=== PATIENT | female | born 1975 | race Caucasian/White ===

== ENCOUNTER 2025-05-03 09:00 | Outpatient (OUT) | payer OTHER, SELFPAY ==
--- OUTSIDE RECORDS SUMMARY | 2025-04-19 15:00 | XMS_ITS | Encounter Summary ---
Author Organization [facility] Address [address] [place] [id number] Care Team Providers Care Production Wood Craftsman Name Role Phone Loren Ascencio MD Primary Care Provider [phone] Unavailable [phone] Alyce Chadwick APRN.OLAP DEVELOPER Unavailable + Kelsie Cunha RN Unavailable Unavail able Kylee Wilkinson Unavailable [phone] Source Comments In the event this information is protected by the Federal Confidentiality of Alcohol and Drug AbusePatient Records regulations: The Federal rules restrict any use of the information to criminally investigate or prosecute any alcohol or drug abuse patient.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); Anemia, unspecified type; Thrombocytopenia Social History Tobacco Use Types Packs/Day Years Used Date Smoking Tobacco: Never Passive Smoke Exposure: Past Smokeless Tobacco: Never Alcohol Use Standard Drinks/Week Comments Not Currently 0 (1 standard drink = 0.6 oz pur e alcohol) maybe once per month PHQ-2 Answer Date Recorded PHQ-2 score 2 03/07/2025 Area Deprivation Index Answer Date Chandu rded National Score (1-100), lower number is lower ri sk 60 03/21/2023 State Score (1-10), lower number is lower risk 4 03/21/2023 Data from: https://www.neighborhoodatlas.[facility].edu/. Last address used for calculation [address] [facility] [facility] 03/21/2023 Comments No Sex and Gender Information Value Date Recorded Sex Assigned at Female 11/07/2021 7:23 AM EST Legal Sex Female 12:07 PM EDT Gender Identity Female 11/07/2021 7:23 AM EST Sexual Orientation Straight 11/07/2021 7: 23 AM EST documented as of this encounter Last Filed Vital Signs Vital Sign Reading Time Taken Comments Blood Pressure 100/63 04/19/2025 2:42 PM EDT Pulse 101 04/19/2025 2:42 PM EDT Temperature 36.5 C (97.7 F) 04/19/2025 2:42 PM EDT Respiratory Rate 16 04/19/2025 2:42 PM EDT Oxygen Saturation 98% 04/19/2025 2:42 PM EDT Inhaled Oxygen Concentration - - Weight 73.6 kg (162 lb 4.1 oz) 04/19/2025 2:42 P M EDT Height 172.7 cm (5' 7.99 ) 04/19/2025 2:42 PM ED T Body Mass Index 24.68 04/19/2025 2:42 PM EDT documented in this encounter Functional Status * Are you deaf or do you have serious difficulty hearing? Answer Date of Assessment Author No 02/09/2022 1:51 PM EDT Rima Osborne RN * Are you blind or do you have serious difficulty seeing, even when wearing glasses? Answer Date of Assessment Author No 02/09/2022 1:51 PM EDRima Mays RN * Do you have serious difficulty walking or climbing stairs? Answer Date of Assessment Author No 02/09/2022 1:51 PM EDT Rima Osborne RN * Do you have difficulty dressing or bathing? Answer Date of Assessment Author No 02/09/2022 1:51 PM EDT Rima Osborne RN * Because of a physical, mental, or emotional condition, do you have difficulty doing errands alone such as visiting a doctor's office or shopping? Answer Date of Assessment Author No 02/09/2022 1:51 PM EDT Rima Osborne RN documented as of this encounter Mental Status * Because of a physical, mental, or emotional condition, do you have serious difficulty concentrating, remembering, or making decisions? Answer Entry Date Author No 02/09/2022 1:51 PM Rima Capps RN documented in this encounter Progress Notes * Viridiana Mccarthy PA-C - 04/19/2025 3:16 PM EDT Images from the original note were not included. 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 She is status post extensivedebulking of the GI tract and currently on lanreotide since September 2021 NEN: Initial scans showed presence of uptake in multiple sites including the peritoneum. Her symptom burden was minimal but given the fact that she had a recurrent small bowel obstruction after initial resection, observation was not recommended. She was started on monthly subcutaneous lanreotide inNov2020. She had extensive debulking done in January 2022 that showed widespread areas of NEN. Most recent PET scan in July 2022 shows hepatic progression and otherwise stable disease. Pain in pelvis is worse but may be related to delay in lanreotide. Iron deficiency anemia (likely nutritional and post-surgical) was treated with monoferric in September 2021 with improvement of symptoms. Most recent ferritin and B12 levels were normal. Given extensive bowel resections, will monitor B12 and ferritin levels periodically. Bladder polyp - being evaluated for malignancy. PLAN: Lanreotide today & q 3 weeks Lanreotide only in 3 weeks Monitor anemia and thrombocytopenia --??due to her Lutetium as the start of it correlates? RTC in 6 weeks for Lanreotide Labs same day Continue Pepcid 20mg BID for GERD Continue Ritalin 10mg for brain fog Following with Dr. Herrera for repeat cystoscopy in May 03 HPI: CASE HISTORY: Reverse Chronological Order 02/17/2025 - PET/CT Neuroendocrine: Compared to 10/07/2024 DOTATATE PET/CT, stable disease. Primary disease: Status post right hemicolectomy. No SSTR2 expressing lesion along the rectal stumpor ileocolic anastomosis. Akbar disease: No abdominopelvic or mediastinal metastatic lymphadenopathy. Metastatic disease: Compared to 04/09/2024, hepatic, pancreatic, peritoneal, right pelvic sidewall and adnexal SSTR2 expressing metastases are stable. No new metastatic lesion is present. No lung or osseous metastasis. Krenning Score ([place]): 4 10/07/2024 - PET/CT Neuroendocrine: Since 06/16/2024, overall unchanged radiotracer avid hepatic, pancreatic, adnexal and peritoneal metastases. 08/19/2024 - Endometrium, polypectomy: No endometrial tissue identified, fragments of blood, inflamed stromal tissue and scant benign squamous and endocervical mucosa. Comment: No endometrial tissue is seen and repeat sampling should be considered if clinically indicated. 06/16/2024 - PET/CT Neuroendocrine: DOTATATE uptake is used as surrogate marker for SSTR2 expression on this report. Primary disease: Status post right hemicolectomy. No SSTR2 expressing lesion along the rectal stumpor ileocolic anastomosis. Akbar disease: No abdominopelvic or mediastinal metastatic lymphadenopathy. Metastatic disease: Compared to 04/09/2024, hepatic, pancreatic, peritoneal, right pelvic sidewall and adnexal SSTR2 expressing metastases are relatively stable. No new metastatic lesion is present. No lung or osseous metastasis. 03/30/2024 - PET/CT Neuroendocrine: CHEST: Stable mildly Dotatate avid subcentimeter left lower lobe nodule and right hilar node. No new Dotatate avid neoplastic process. ABDOMEN/PELVIS: Stable Dotatate avid peritoneal implants including the dominant pelvic implant, which is inseparable from the left adnexa. Stable Dotatate avid pancreatic mass and perihepatic/hepaticmetastases. No new Dotatate avid neoplastic process. Stable pelvic fluid collection without internal gas. HEAD/NECK & MUSCULOSKELETAL: No Dotatate avid neoplastic process. 01/02/2024 - CT A/P: Allowing for differences in modality, no significant change since 09/24/2023. Imaged hepatic metastases are similar in appearance. Please note, hepatic metastases would more optimally be assessed by Dotatate PET/CT or potentially abdominal MRI. Stable enhancing lesion within the pancreas and enhancing left pelvic peritoneal deposit. A thin-walled chronic 10.1 cm pelvic fluid collection is unchanged and remains in close proximity to the oversewn end of the Kendall's pouch. 09/24/2023 - PET/CT: Overall minimal change from 06/06/2023 accounting for differences in technique (current [id number] PET compared to prior [id number] PET) 06/06/2023 - PET/CT CHEST: Essentially stable mildly dotatate avid left lower lobe nodule. Interval increase of focal dotatate uptake with an subcentimeter lymph node in the right infrahilar region. ABDOMEN/PELVIS: Significant progression of the pelvic peritoneal lesions, and slight progression ofthe dotatate avid hepatic metastases. Essentially stable dotatate avid pancreatic lesions. 11/14/2022 - Endometrial Curettage - doing better, pain controlled. 09/25/2023 - Started Lutetium + octreotide 09/18/2022 - MRI liver with Eovist: Unchanged pancreatic body mass, stable periportal lymph nodes no new or enlarging abdominal lymphadenopathy, several subtly visualized hepatic/perihepatic lesions corresponded dotatate avid areas on recent PET/CT in July 2022. 1 perihepatic lesion was not discretely identified on the current MRI. 07/2022 - PET: Progressive hepatic mets. Remaining disease is stable. 04/26/2022 - PET: Stable disease 02/14/2022 - Tumor board consensus to continue with current management and hold off on PPRT 02/05/2022 - CT scans Grossly stable disease in the abdomen and non-specific nodules in the lungs thought to be post-surgical changes 01/31/2022 - Laparotomy, adhesiolysis, takedown of jejunostomy, low anterior resection with end colostomy (Dr. Ramos); ileostomy, ileocolic, retroperitoneal nodule, and small bowel resection: Pathology positive for multifocal metastatic well-differentiated neuroendocrine tumor with positivemargins, nodes and LVI 12/06/2021 - Dotatate PET: Stable pancreas and peritoneal disease; increasing uptake in the pancreatic tail 09/29/2021 - Received monoferric for iron deficiency anemia 09/14/2021 - Switched to monthly lanreotide injections 09/07/2021 - Dotatate PET: Showed multiple lesions with increased tracer uptake in the mesentery, peritoneum, cul-de-sac, perihepatic region and pancreatic body. Some of the lesions demonstrated increase in tracer uptake compared to previous scan 07/22/2021 - Started octreotide 300 mcg daily to be infused with TPN 07/14/2021 - CT scan showed signs of perforation. She underwent next very laparotomy, adhesiolysis, diverting loop jejunostomy and peritoneal implantbiopsy. There was a large mass encasing the ileocolic anastomosis extending to the base of the mesentery, retroperitoneum and extending to the right pelvic sidewall. An abscess was noted which was drained. Given the extent of disease, complete resection was not possible. Peritoneal and liver metastases were observed; pathology from the mesenteric implant was consistentwith metastatic disease 07/06/2021 - Admitted to [facility] with recurrent small bowel obstruction. Biopsy of the pancreas mass was consistent with well-differentiated neuroendocrine neoplasm, grade 1 with estimated Ki-67 index of 1% 06/18/2021 - MRI pancreas: Showed a 1.4 cm fullness at the pancreas head neck junction with findings compatible with the knowncarcinoid neoplasm, and some degree of hemosiderosis throughout the liver, spleen, adrenal glands and bone marrow 05/24/2021 - Dotatate PET: Showed diffuse small bowel activity with a relatively more focal activity at the anastomotic site and abnormal PET avid activity in the pancreatic neck (not seen on CT; max SUV 36) 04/2021 - Admitted to [facility] for small bowel obstruction requiring exploratory laparotomy with small bowel resection, partial omentectomy, and right oophorectomy: Pathology was consistent with grade 2 neuroendocrine neoplasm of the ileum, with tumor invasion through the muscularis propria, serosal surface and surrounding soft tissue The appendix was involved Lymphovascular invasion present. Margins positive (mesentery). 3 out of 4 lymph nodes positive IHC staining was positive for CDX2, synaptophysin, chromogranin and Ki-67 was 4% Updated Visit, April 19, 2025: Doing well overall. Was concerned about the call that her bilirubin and LFTs were elevated last time, but after review, I assured her that this has happened off and on over time and today her LFTs are normal and bili is still only slightly elevated. She is however anemic and her platelets continue to drop, which will need monitored. She continues to have periodic and mild pain in her lower abdomen. Oxycodone helps when heat does not. Updated Visit, March 29, 2025: Overall doing well. About the same. Goes back next month to [place] for cystoscopy. Still on antibiotics. Magnesium cream is helping with her legs and feet cramps. She forgot about the referral to PT and she has felt better so she will hold off for now. Enjoyed [employer] for her anniversary. Nothing new. No pain. She feels good. Updated Visit, March 08, 2025: Lian returns for a Lanreotide. Dotatate PET completed earlier this month shows overall stable disease. She complains of significant fatigue, takes naps during the day. Extremity cramping persists,hands have improved some. She is trying a magnesium cream at night. I will send a referral for physical therapy & recommended some massage techniques in the meantime. She is struggling with her mental health. She has been able to start going to the gym again, she and her have an anniversary trip planned for next month. She underwent a cystoscopy with Dr. Herrera - multiple diverticuli were visualized, one of them showed the source of bleeding. She was sent a 2 month course of antibiotics, then will repeat scope. Updated Visit, January 20, 2025: Lian returns for Lanreotide. She reports hand and foot pain and cramping 2-3x a week for the past 6 months. Potassium is chronically low, drinks > 100 oz of water daily. She treats restless legsyndrome with a magnesium cream. We discussed some stretching techniques and anecdotal remedies forcramping. Will attempt changing from Protonix to Pepcid 20mg BID. She also endorses worsening abdominal pain the past 2 days. She is scheduled for a cystoscopy with Dr. Herrera at [facility] for hematuria and a cystic lesion adjacent to/arising from the bladder seen on recent ultrasound. Updated Visit, December 09, 2024: Dealing with UTI symptoms and abdomen and back were very tender. It is getting better now and had bladder ultrasound which showed bladder diverticulum (report reviewed in care everywhere) and she is going to see urology. Ritalin is working well and it helps her focus at work. No other new symptoms. Protonix is helping his heart burn. Updated Visit, October 28, 2024: Lian returns with Michael to continue treatment. She endorses improvement in fatigue and brain fogsince starting Ritalin. She denies abdominal pain today, will proceed with q 3 week Lanreotide. Q4 weeks was causing a lot of discomfort and pain. Draining the fluid collection has also helped her become more comfortable. Updated Visit, September 09, 2024: Lian returns today for a follow up. She is experiencing increasing abdominal pain, nausea, vomiting, fatigue, and brain fog. Will order her PET to be completed in 4 weeks, will begin q 3 week injections following scan. Start Ritalin 10mg for fatigue and mental clarity. Updated Visit, July 15, 2024: Lian returns with her mother, Michael. She denies any AEs of lanreotide, although mentions she cantell when she is due for treatment. She develops increasing pain 2-3 weeks prior to her injections - starts as cramping abdominal pain, then becomes a stabbing sensation. She uses ibuprofen and heat to treat her pain. We discussed potentially increasing lanreotide to q 3 weeks, however the pain is tolerable for now. She complains of worsening soaking night sweats the past 2 months - denies feversand flushing. I advised Tylenol prior to bed to potentially break an incoming fever. She also endorses headaches and vision disturbances with floating orbs and occasional double vision. She reportswhen she wakes up in the middle of the night she is unable to see. Vision have been occurring for the past 4 months. Last month's scan is stable overall with resolution of 2 hepatic lesions. There is no abdominopelvic or mediastinal lymphadenopathy or lesion along the rectal stump. Updated Visit, June 17, 2024: Lian returns today for a follow up. Yesterday's PET results are in process. She complains of stabbing pain in her hips that wakes her up at night. Her pain also increases with alcohol use. She is due to resume lanreotide today and q 4 weeks. Updated Visit, May 07, 2024: Lian returns today, she is doing well overall with no new complaints. Last week, she woke up in the middle of the night 4 nights in a row. She did have migraines those days, which is likely the cause of her insomnia. PET/CT is stable. No longer following with Dr. Corbett, I will order her scans going forward. Updated Visit, March 11, 2024: Carcinoid crisis with last treatment on February 12 - flushed, BP spiked, Severe pain. PRRT on 02/11 and crisis on 02/12 PET/CT with Dr. Corbett pending Updated Visit, December 19, 2023: Returns with mother michael. Noting more pain at there resection site anteriorly in right lower quadrant. Is due to have 2 more cycles of Lutathera (4 total). Will obtain CT abd/Pelvis. No change in bowels. Potassium better. Updated Visit, October 24, 2023: Patient would like to continue shots, she confirms shots only permissible every 3 weeks instead of 4. She will be taking octreotide in the meantime if necessary. Lutathera radioactive therapy was done and will be done every 8 weeks. She will start her 2nd treatment in November. She reports treatment was rough . She felt flushed, nauseous, and had engorged veins, the nurse confirmed she had an allergic reaction to one of the two medications she was placed on. She also reports her nausea has worsened. Palliative doctor gave her oxycodone 5 mg, taken as needed, (usually one, but sometimes more doses a day). Recently, she had trouble retrieving the prescription. Insurance has been denying her compensation for stoma supplies, I provided documentation as evidence to insurance. Reviewed and compared images from PET/CT's Mother Michael is with her. Updated Visit, August 15, 2023: Planning PRRT with Dr. Corbett will give her treatment today as she is more symptomatic. Updated Visit, July 04, 2023: Lian returns and is due for her shot. Point of abdominal tenderness but also as tenderness to light pressure at multiple trigger points up and down her spine. I think it is reasonable for her to visit her chiropracter again. He is aware of her diagnosis. Updated Visit, June 13, 2023: Lian returns with her mother. Reviewed PET/CT with some progression. However, we are not sure ifthis was due to the extensive time of lanreotide or not. She actually feels pretty good. However, she still feels the slight discomfort of a UTI which is likely colonization. Updated Visit, May 09, 2023: Tired a lot - more run down past few weeks. UA C&S pending - cipro helped Still having more pain and discomfort. Updated Visit, April 17, 2023: Lian returns today complaining of UTI symptoms. Her pelvic pain is similar to when the pelvic effusion was at its greatest. I am concerned that she is recollected this fluid even though it did notshow any malignancy. Will empirically treat UTI, but will get cultures and adjust treatment as needed. If persisting pain get CT Continue lanreotide q 3 weeks - she feels it was helping Updated Visit, March 06, 2023: Had significant improvement in pain after drainage of fluid filled mass. Reviewed scans and images with her. 1. HEAD and NECK: No evidence of 64-Cu Dotatate avid metastases 2. CHEST: Slight interval increase focal 64-Cu Dotatate uptake in a small subcentimeter lymph node adjacent to the right lower lobe segmental bronchus and a 0.4 cm left lower lobe nodule of unknown significance. 3. ABDOMEN/PELVIS: unchanged 64-Cu Dotatate avid hepatic metastases. Stable 64- Cu Dotatate avid pancreatic lesions. Stable 64-Cu Dotatate avid pelvic peritoneal metastases. 4. EXTREMITIES/SKELETON: New small focus of tracer uptake near the right pedicle of T6 of unknown significance. No other suspicious 64-Cu Dotatate avid osseous lesions. Updated Visit, January 23, 2023: Pain is worse - keeping her up at night and only help with heating pads on back and pain meds. Seems to be worse when she is home and not busy in the evenings. My colleague, Dr. Bustos's impression is that of tumor growth. That is noted preliminarily on herPET dotatate images. Tracking sleep and is getting approximately 6 hours of time laying down. REM + Deep is 1.5 - 2.5 hours Will do better with lanreotide q 3 weeks Mother is with her - Michael. Updated Visit, November 28, 2022: Lian returns. She completed endometrial curettage with Dr. Bustos earlier in November and she notes that she is doing a little better with her pain being better controlled. Interestingly, she notes that she seems to have more symptoms closer she gets to 4 weeks just prior to getting Sandostatin. Possible I will need to reduce the interval to every 3 weeks. Chromogranin A is stable. Updated Visit, October 01, 2022: Her mother, Michael is here with her today. Pain in pelvis is worse with periods. Log Deck Tender was reluctant to manage her periods with hormone suppression. Will refer her to [facility]. Reviewed tumor board recommendations to continue observation. Brain fog seems to be worsening over the past 6 months - goes along with fatigue which seems to getworse prior to her octreotide She will keep a diary and we can adjust her octreotide shot to every 3 weeks if needed. Updated Visit, August 06, 2022: Lian returns with her mother and complains that she is having pelvic pain. Reviewed PET hich shows hepatic progression but stable disease in pelvic peritoneal lesions as wellas pancreatic lesions Reviewed images - she described pelvic pain to be sharp and deep wakes her at night and is located anteriorly and to the left groin. Her dose of octreotide was delayed for purposes of the re-staging scans. Mother Nivia is with her Will take her oxycodone at night and see if this helps and also getting the octreotide today may help. Updated Visit, June 25, 2022: Lian returns with her Maxwell for transition of care. She tells me that worsening abdominal pain started for 2 weeks - and she has started her period 1st time since surgery. Severe stabbing. No change in stools. Taking tylenol primarily. Will re-evaluate tumor burden She denies any substance abuse. She has no children. She lives in [place], [place] with her , Maxwell. REVIEW OF SYSTEMS: Per HPI and otherwise negative by full review of organ systems. ECOG PERFORMANCE STATUS: 0 PHYSICAL EXAMINATION: BP 100/63 Pulse 101 Temp 36.5 ??C (97.7 ??F) (Temporal) Resp 16 Ht 172.7 cm (5' 7.99 ) Wt73.6 kg (162 lb 4.1 oz) LMP 08/31/2023 (Exact Date) SpO2 98% BMI 24.68 kg/m?? General: Alert and oriented, no distress, pleasant and cooperative. Heart: Regular, normal S1 and S2, no murmurs, rubs, or gallops Lungs: Clear to auscultation bilaterally Abdomen: Benign Extremities: Feet/ankles without edema ALLERGIES ALLERGIES Allergen Reactions Ondansetron Swelling When given in IV, patient's arms swelled up. Can take sublingual tablets. IV only, ok for oral MEDICATIONS methylphenidate (RITALIN) 10 mg tablet^Take 1 tablet by mouth once daily for 30 days.^Disp: 30 tablet^Rfl: 0 DULoxetine (CYMBALTA) 60 mg capsule^Take 1 capsule by mouth once daily.^Disp: 90 capsule^Rfl: 3 nitrofurantoin monohydrate and macrocrystal (MACROBID) 100 mg capsule^Take 100 mg by mouth once daily.^Disp: ^Rfl: gabapentin (NEURONTIN) 400 mg capsule^Take 1 capsule by mouth daily at bedtime for 90 days.^Disp: 90 capsule^Rfl: [address] (PROTONIX) 40 mg tablet^Take 1 tablet by mouth once daily.^Disp: 30 tablet^Rfl: 3 metroNIDAZOLE (FLAGYL) 500 mg tablet^Take 1 tablet by mouth once daily.^Disp: 30 tablet^Rfl: 2 KLOR-CON M20 20 mEq tablet^take 1 tablet by mouth daily^Disp: 10 tablet^Rfl: 1 juqnpd-lbytzgpq-tjrkzkz (CREON) 36,000-114,000- 180,000 unit delayed release capsule^Take 2 capsules by mouth three times a day with meals.^Disp: 540 capsule^Rfl: 3 conjugated estrogens (PREMARIN) vaginal cream^Use 1 g vaginally one time a week.^Disp: 30 g^Rfl: 2 loperamide HCl (IMODIUM) 2 mg tab^Take 2 tablets by mouth four times daily.^Disp: 240 tablet^Rfl: 3 LABORATORIES WBC (k/uL) Date Value 04/19/2025 3.71 RBC (m/uL) Date Value 04/19/2025 3.03 (L) Hemoglobin (g/dL) Date Value 04/19/2025 9.9 (L) Hematocrit (%) Date Value 04/19/2025 28.4 (L) MCV (fL) Date Value 04/19/2025 93.7 MCH (pg) Date Value 04/19/2025 32.7 MCHC (g/dL) Date Value 04/19/2025 34.9 RDW-CV (%) Date Value 04/19/2025 13.4 Platelet Count (k/uL) Date Value 04/19/2025 84 (L) MPV (fL) Date Value 04/19/2025 8.1 (L) Glucose (mg/dL) Date Value 04/19/2025 104 (H) BUN (mg/dL) Date Value 04/19/2025 17 Creatinine (mg/dL) Date Value 04/19/2025 0.83 Sodium (mmol/L) Date Value 04/19/2025 138 Potassium (mmol/L) Date Value 04/19/2025 3.4 (L) Chloride (mmol/L) Date Value 04/19/2025 111 (H) CO2 (mmol/L) Date Value 04/19/2025 19 (L) Protein, Total (g/dL) Date Value 04/19/2025 6.3 Albumin (g/dL) Date Value 04/19/2025 4.2 Calcium, Total (mg/dL) Date Value 04/19/2025 9.0 Alkaline Phosphatase (U/L) Date Value 04/19/2025 112 Bilirubin, Total (mg/dL) Date Value 04/19/2025 1.6 (H) AST (U/L) Date Value 04/19/2025 24 ALT (U/L) Date Value 04/19/2025 29 DIAGNOSIS: (C7A.012) 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) Plan: COMPREHENSIVE METABOLIC PANEL, COMPLETE BLOOD COUNT AND DIFFERENTIAL (D64.9) Anemia, unspecified type (D69.6) Thrombocytopenia PAST MEDICAL HISTORY Diagnosis Date Arthritis Cancer (HCC) Lumbar herniated disc l5 -Diverticulosis of the colon and bladder -Iron deficiency anemia, menorrhagia, diagnosed in 2020 and received 2 doses of intravenous iron -Urinary retention secondary to stricture -Recurrent UTIs -Chronic migraines -Restless leg syndrome PAST SURGICAL HISTORY Procedure Laterality Date APPENDECTOMY HX 1999 COLON SURGERY HX 04/2021 INSERTION OF IUD PART REMV BLADDER,SIMPLE multiple bladder surgeries PAST SURGICAL HISTORY OF 07/2021 bowel perforation, jejunosotomy created PAST SURGICAL HISTORY OF 01/2022 permanent jejunostomy PAST SURGICAL HISTORY OF 11/14/2022 D & C REMOVAL OF OVARY(S) Right 2000 SHOULDER SURGERY HX Right 2019 TONSILLECTOMY HX Prior surgeries have included surgeries debulking for NEN. Social History Tobacco Use Smoking status: Never Passive exposure: Past Smokeless tobacco: Never Vaping Use Vaping status: Never Used Substance Use Topics Alcohol use: Not Currently Comment: maybe once per month Drug use: Never Family History Problem Relation Age of Onset Asthma Mother Diabetes Mother Blood Disease Mother Hypertension Mother other (hemolytic anemia) Mother Heart disease Father Gout Father Diabetes Brother Asthma Maternal Grandmother Diabetes Maternal Grandmother Dementia Maternal Grandmother COPD Maternal Grandmother Heart disease Maternal Grandmother Diabetes Maternal Grandfather Dementia Maternal Grandfather Breast Cancer Paternal Grandmother Heart disease Paternal Grandmother Kidney Disease Paternal Grandmother Liver Cancer Paternal Grandfather other (Bladder Cancer) Paternal Grandfather Skin Cancer Paternal Grandfather other (gallbladder) Paternal Grandfather Parkinson???s Disease Paternal Grandfather Family history significant for an unclear hematological issue in the mother and liver cancer in a paternal grandfather. I spent a total of 30 minutes on the date of the service which included preparing to see the patient, [id number] patient care, completing clinical documentation, performing a medically appropriate examination, counseling and educating the patient/family/caregiver, ordering medications, tests, or p rocedures, independently interpreting results (not separately reported), communicating results to the patient/family/caregiver, and care coordination (not separately reported). Viridiana Mccarthy PA-C Hematology and Oncology Services Provided at: [place], [place] CC: Loren Ascencio MD [address] [facility] [address] Nichelle Hokpins documented in this encounter Plan of Treatment Upcoming Encounters Date Type Department Care Team (Late st Contact Info) Description 05/10/2025 3:45 PM EDT Office Visit [facility] Laboratory [address] [place] [address] [place] [address] 3 week lab and lanreotide inj 05/10/2025 4:00 PM EDT Infusion Center Hematology/Oncology [address] [place] [address] [place] [address] 3 week lab and lanreotide inj 05/31/2025 2:45 PM EDT Office Visit [facility] Laboratory [address] [place] [address] [place] [address] 6 week follow up with lab and lanreotide inj 05/31/2025 3:00 PM EDT Visit (SP) Office Hematology/Oncology [address] [place] [address] [place] [address] Viridiana Mccarthy PAJonnathanC [address] [facility] [place] [address] 6 week follow up with lab and lanreotide inj 05/31/2025 3:30 PM EDT Infusion Center Hematology/Oncology [address] [place] [address] [place] [address] 6 week follow up with lab and lanreotide inj 08/03/2025 2:30 PM EDT [facility] Palliative Medicine [address] [place] [address] [place] [address] Alyce Chadwick, BACKEND TESTER.OLAP DEVELOPER [address] [id number] 3 month follow up Scheduled Orders Name Type Priority Associated Diagnoses Orde r Schedule COMPREHENSIVE METABOLIC PANEL Lab Routine Malignant carcinoid tumor of ileum (HCC) Expected: 04/19/2025, Expires: 07/19/2025 COMPLETE BLOOD COUNT AND DIFFERENTIAL Lab Routine Malignant carcinoid tumor of ileum (HCC) Expected: 04/19/2025, Expires: 07/19/2025 documented as of this encounter Visit Diagnoses Diagnosis Malignant carcinoid tumor of ileum (HCC)- Primary Malignant carcinoid tumor of the ileum Anemia, unspecified type Thrombocytopenia Thrombocytopenia, unspecified documented in this encounter Care Teams Production Wood Craftsman Relationship Specialty Start Date End Date Loren Ascencio MD [address] [place] [address] PCP - General Family Medicine 10/01/[address] [facility] [place] [address] Registered Dietitian Nutrition 11/28/22 Alyce Chadwick, VIKASH.OLAP DEVELOPER [address] [place] [address] [place] [id number] Hospice & Palliative Medicine 03/05/23 Kelsie Cunha, RN Specialty Procedure Tech Hospice & Palliative Medicine 03/05/23 Kylee Wilkinson LISW [address] [place] [address] Interactive Digital Media Specialist 11/20/23 documented as of this encounter
--- OUTSIDE RECORDS SUMMARY | 2025-04-19 15:30 | XMS_ITS | Encounter Summary ---
Author Organization [facility] Address [address] [place] [address] Care Team Providers Care Radiator Specialist Name Role Phone Loren Ascencio MD Primary Care Provider [phone] Unavailable [phone] Alyce Chadwick APRN.FAMILY LITERACY COORDINATOR Unavailable + Kelsie Cunha RN Unavailable Unavail able Kylee Wilkinson Unavailable [phone] Source Comments In the event this information is protected by the Federal Confidentiality of Alcohol and Drug AbusePatient Records regulations: The Federal rules restrict any use of the information to criminally investigate or prosecute any alcohol or drug abuse patient.[facility] Reason for Visit * Orrick Prior Authorization (Routine) - Authorized Specialty Diagnoses / Procedures Referred By Contac t Referred To Contact Diagnoses Primary malignant neuroendocrine tumor of ileum (HCC) Procedures LANREOTIDE INJECTION Humberto Stout MD [facility] [address] Phone: tel: fax: Hematology/Oncology [facility] [place] [address] Phone: tel: fax: Referral ID Status Reason Start Date Expiration Date Visits Requested Visits Authorized [id number] Authorized Patient Cleared - Admin/Chairm an/Director advise to proceed or did not respond 07/27/2021 07/07/2025 52 54 Encounter Details Date Type Department Care Team (Latest Contact Info) Description 04/19/2025 3:30 PM EDT Infusion Center Hematology/Oncology [address] [place] [address] [place] [address] Primary malignant neuroendocrine tumor of ileum (HCC) (Primary Dx) Social History Tobacco Use Types Packs/Day Years [...] is lower risk 4 03/21/2023 Data from: https://www.neighborhoodatlas.medicine.[facility]/. Last address used for calculation [address] 03/21/2023 Comments No Sex and Gender Information Value Date Recorded Sex Assigned at Female 11/07/2021 7:23 AM EST Legal Sex Female 12:07 PM EDT Gender Identity Female 11/07/2021 7:23 AM EST Sexual Orientation Straight 11/07/2021 7: 23 AM EST documented as of this encounter Functional Status * Are you deaf or do you have serious difficulty hearing? Answer Date of Assessment Author No 02/09/2022 1:51 PM EDT Henry Osborne RN * Are you blind or do you have serious difficulty seeing, even when wearing glasses? Answer Date of Assessment Author No 02/09/2022 1:51 PM EDT Rima Osborne RN * Do you have serious difficulty [...] Entry Date Author No 02/09/2022 1:51 PM EDT Rima Osborne RN documented in this encounter Plan of Treatment Upcoming Encounters Date Type Department Care Team (Late st Contact Info) Description 05/10/2025 3:45 PM EDT Office Visit [facility] Laboratory [address] [place] [address] [place] [address] 3 week lab and lanreotide inj 05/10/2025 4:00 PM EDT Infusion Center Hematology/Oncology [address] [place] [address] [place] [address] 3 week lab and lanreotide inj 05/31/2025 2:45 PM EDT Office Visit [facility] Laboratory [address] [place] [address] [place] [address] 6 week follow up with lab and lanreotide inj 05/31/2025 3:00 PM EDT Visit (SP) Office Hematology/Oncology [address] [place] [address] [place] [address] Viridiana Mccarthy, PA-C [address] [place] [address] [place] [address] 6 week follow up with lab and lanreotide inj 05/31/2025 3:30 PM EDT Infusion Center Hematology/Oncology [facility] [place] [address] 6 week follow up with lab and lanreotide inj 08/03/2025 2:30 PM EDT [facility] Palliative Medicine [address] [place] [address] [place] [address] Alyce Chadwick, FUR FINISHER TAILOR.FAMILY LITERACY COORDINATOR [address] [place] [address] 3 month follow up documented as of this encounter Visit Diagnoses Diagnosis Primary malignant neuroendocrine tumor of ileum (HCC)- Primary documented in this encounter Administered Medications Inactive Administered Medications - up to 3 most recent administrations Medication Order MAR Action Action Date Dose Rate Site lanreotide 120 mg injection (SOMATULINE DEPOT) 120 mg, SUBCUTANEOUS, ONCE, 1 dose, On Sat04/19/25 at 1530, REFRIGERATE - PROTECT FROM LIGHT Thirty minutes prior to injection, remove sealed pouch from refrigerator and allow to come to room temperature. Lanreotide should be administered by DEEP subcutaneous injection (superior outer quadrant of the buttock).Indications:Primary malignant neuroendocrine tumor of ileum (HCC) Given 04/19/2025 3:33 PM EDT 120 mg Buttocks, Left documented in this encounter Care Teams Radiator Specialist Relationship Specialty Start Date End Date Loren Ascencio MD [address] [place] [address] PCP - General Family Medicine 10/01/[address] [facility] [place] [address] Registered Dietitian Nutrition 11/28/22 Alyce Chadwick APRN.FAMILY LITERACY COORDINATOR [address] [place] [address] Hospice & Palliative Medicine 03/05/23 Kelsie Cunha, RN Specialty Wood Turner Hospice & Palliative Medicine 03/05/23 Kylee Wilkinson LISW [address] [place] [address] Wall And Floor Tiler 11/20/23 documented as of this encounter
--- OUTSIDE RECORDS SUMMARY | 2025-04-27 14:30 | XMS_ITS | Encounter Summary ---
Author Organization [facility] Address [address] [place] [address] Care Team Providers Care Multi Operation Forming Machine Setter Name Role Phone Loren Ascencio MD Primary Care Provider [phone] Unavailable [phone] Alyce Chadwick LEAD SUSTAINABILITY SPECIALIST.FINANCIAL AID COUNSELOR Unavailable + Kelsie Cunha RN Unavailable Unavail able Kylee Wilkinson Unavailable [phone] Source Comments In the event this information is protected by the Federal Confidentiality of Alcohol and Drug AbusePatient Records regulations: The Federal rules restrict any use of the information to criminally investigate or prosecute any alcohol or drug abuse patient.[facility] Reason for Visit * Reason Comments Pain Encounter Details Date Type Department Care Team (Latest Contact Info) Description 04/27/2025 2:30 PM EDT [facility] Palliative Medicine [address] [place] [address] [place] [address] Alyce Chadwick, LEAD SUSTAINABILITY SPECIALIST.FINANCIAL AID COUNSELOR [address] [place] [address] Palliative care by specialist (Primary Dx); Primary malignant neuroendocrine tumor of ileum (HCC); Malignant carcinoid tumor of ileum (HCC); Constipation due to opioid therapy; Neoplastic malignant related fatigue; Mass of pancreas (HCC); Reactive depression; Malaise and fatigue Social History Tobacco Use Types Packs/Day Years [...] is lower risk 4 03/21/2023 Data from: https://www.neighborhoodatlas.medicine.[facility].edu/. Last address used for calculation [address] [facility] 03/21/2023 Comments No Sex and [...] of Assessment Author No 02/09/2022 1:51 PM Rima Capps RN * Do you have difficulty dressing or bathing? Answer Date of Assessment Author No 02/09/2022 1:51 PM Rima Capps RN * Because of a physical, mental, or emotional condition, do you have difficulty doing errands alone such as visiting a doctor's office or shopping? Answer Date of Assessment Author No 02/09/2022 1:51 PM Rima Capps RN documented as of this encounter Mental Status * Because of a physical, mental, or emotional condition, do you have serious difficulty concentrating, remembering, or making decisions? Answer Entry Date Author No 02/09/2022 1:51 PM EDT Rima Osborne RN documented in this encounter Patient Instructions * Patient Instructions* Alyce Chadwick APRN.CNP - 04/27/2025 2:40 PM EDT Alyce Chadwick CNP Department of Palliative and Supportive Care Palliative Care - Specialty services in symptom management and support For questions or prescription refills, call: [phone] Saturday - Saturday 9AM-5PM GYPSY Coon, RN - Mill Roll Rewinder Please call 3-5 days in advance for medication refills Evenings, Weekends, Holidays: [phone] (ask for palliative medicine on-call provider) For appointments, cancellations or reschedule, call: [phone] documented in this encounter Progress Notes * Alyce Chadwick APRN.CNP - 04/27/2025 2:23 PM EDT PALLIATIVE MEDICINE PROGRESS NOTE SERVICE DATE: 04/27/2025 Lian Diane is a 47 year old female with 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 She is status post extensive debulking of the GI tract and currently on lanreotide since September 2021, using every 3 weeks. Has hepatic mets, endometrial curettage 11/14/22 for pelvic pain, initially pain improved then worsened, though to be disease progression. PMX: Anemia, recurrent SBO, RLS, Migraines, Diverticulosis, urinary retention due to stricture withfrequent UTI CHIEF COMPLAINT: Neoplasm Related Pain Subjective Met with Lian via VV, alert oriented x3, demeanor calm and relaxed. Per Oncology last month's scan is stable overall with resolution of 2 hepatic lesions. There is no abdominopelvic or mediastinal lymphadenopathy or lesion along the rectal stump. Increase in Gabapentin has been helpful for sleep and back pain. She does have oxycodone which she uses very sparingly, usually right before her injection. However she is noticing an itchy rash on face and neck the more she uses it. Has some intermittent nausea controlled with ondansetron. Appetite and weight are stable She feels her mood has improved, going on activities with friends and family. Ritalin has improved bran fog Modified ESAS ([place] Symptom Assessment Scale) Information Provided By: Patient Pain: Mild Nausea: Mild Loss of Appetite: None Constipation: None Shortness of Breath: None Drowsiness: None Tiredness: Mild Depression: None Anxiety: None Objective ECOG PERFORMANCE STATUS: 1- Restricted in physically strenuous activity. Carries out light duty. PHYSICAL EXAMINATION: Vital signs: LMP 08/31/2023 (Exact Date) Last 1 Encounter Temp Readings: Date: Temp: Temp Src: 04/19/2025 36.5 ??C (97.7 ??F) Temporal Last 1 Encounter Resp Readings: Date: Resp: 04/19/2025 16 Last 1 Encounter Pulse Readings: Date: Pulse: 04/19/2025 101 Last 1 Encounter BP Readings: Date: BP: 04/19/2025 100/63 DATA: Estimated Creatinine Clearance: 81.8 mL/min (based on SCr of 0.83 mg/dL). Opioid Management: Yes Indication for Opioid Prescribing: Cancer related pain ORT-OUD Score: 1 A score of 3 or higher may indicate a higher risk for future development of aberrant drug related behavior or opioid use disorder. Informed consent for chronic opiate therapy obtained and written pain agreement: On file Naloxone offered?: Previously declined, after discussing risks and benefits Course of treatment, patient's response and adherence to the prescribed treatment plan reviewed, including non-pharmacological and non-opioid treatment modalities? Yes Have any complications or exacerbations of the underlying condition causing the pain been reviewed?Yes How much does pain impede patient???s ability to engage in work or other purposeful activities, interfere with your activities of daily living, physical activity, or quality of your family life and social activities? Significantly Aberrancies in pain panel? No Any aberrant drug related behaviors since last visit? No Rationale for continuing opioid treatment: Improved comfort and function based on an ongoing functional assessment Benefits of Opioid Therapy outweigh risks: Yes Prescribed Morphine Equivalent Daily Dose (MEDD): Yes > 50 MEDD Yes, I am certified in Hospice and Palliative Care, Hematology, Medical Oncology or Pain Medicine OARRS Checked: PDMP website checked and validated. All prescriptions have been APPROPRIATELY filled. No suspiciousactivity was identified. 04/27/2025 by Alyce Chadwick NP, LEAD SUSTAINABILITY SPECIALIST.FINANCIAL AID COUNSELOR Assessment & Plan Z51.5) Encounter for palliative care (primary encounter diagnosis) - Reviewed philosophy of palliative medicine - Discussed services offered by [employer] - Provided support (C7A.8) Primary malignant neuroendocrine tumor of ileum (HCC) (G89.3) Neoplasm related pain Risk for OIC - Continue DULoxetine (CYMBALTA) to 60 mg capsule, celecoxib - Continue Gabapentin to 400 mg po to BID - Oxycodone 5 mg po every 6 hours prn moderate to severe pain - Call for uncontrolled symptoms - Monitor for OIC - opioid contract reviewed (F41.8) Anxiety about health (F32.9) Depression - DULoxetine (CYMBALTA) 60 mg capsule (R53.0) Fatigue - ritalin 10 mg in am - exercise as tolerated - increase protein in diet Existence of Advance Directives: Yes, documentation or copy in medical record I spent a total of 35 minutes on the date of the service which included preparing to see the patient, [id number] patient care, completing clinical documentation, obtaining and/or reviewing separately obtained history, performing a medically appropriate examination, counseling and educating the pat ient/family/caregiver, ordering medications, tests, or procedures, communicating with other HCPs (not separately reported), independently interpreting results (not separately reported), communicatingresults to the patient/family/caregiver, and care coordination (not separately reported). Alyce Chadwick NP, LEAD SUSTAINABILITY SPECIALIST.FINANCIAL AID COUNSELOR April 27, 2025 2:23 PM documented in this encounter Plan of Treatment Upcoming Encounters Date Type Department Care Team (Late st Contact Info) Description 05/10/2025 3:45 PM EDT Office Visit [facility] [address] [place] [address] [place] [address] 3 week lab and lanreotide inj 05/10/2025 4:00 PM EDT Infusion Center Hematology/Oncology [address] [facility] [place] [address] 3 week lab and lanreotide inj 05/31/2025 2:45 PM EDT Office Visit [facility] Laboratory [address] [place] [address] [place] [address] 6 week follow up with lab and lanreotide inj 05/31/2025 3:00 PM EDT Visit (SP) Office Hematology/Oncology [address] [place] [address] [place] [address] Viridiana Mccarthy, PAJonnathanC [address] [place] [address] [place] [address] 6 week follow up with lab and lanreotide inj 05/31/2025 3:30 PM EDT [facility] Center Hematology/Oncology [address] [place] [address] [place] [address] 6 week follow up with lab and lanreotide inj 08/03/2025 2:30 PM EDT [facility] Palliative Medicine [address] [place] [address] [place] [address] Alyce Chadwick, LEAD SUSTAINABILITY SPECIALIST.FINANCIAL AID COUNSELOR [address] [id number] 3 month follow up documented as of this encounter Visit Diagnoses Diagnosis Palliative care by specialist- Primary 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) Malignant carcinoid tumor of the ileum Constipation due to opioid therapy Neoplastic malignant related fatigue Other malaise and fatigue Mass of pancreas (HCC) Unspecified disease of pancreas Reactive depression Dysthymic disorder Malaise and fatigue Other malaise and fatigue documented in this encounter Care Teams Multi Operation Forming Machine Setter Relationship Specialty Start Date End Date Loren Ascencio MD [address] [place] [address] PCP - General Family Medicine 10/01/[address] [place] [address] [place] [address] Registered Dietitian Nutrition 11/28/22 Alyce Chadwick APRN.FINANCIAL AID COUNSELOR [address] [place] [address] [place] [phone] Hospice & Palliative Medicine 03/05/23 Kelsie Cunha RN Specialty Mill Roll Rewinder Hospice & Palliative Medicine 03/05/23 Kylee Wilkinson LISW [address] [place] [address] Rigging Helper 11/20/23 documented as of this encounter
--- OUTSIDE RECORDS SUMMARY | 2025-05-03 09:06 | XMS_ITS | Clinical Summary ---
Author Organization [facility] Healthcare Address [address] [place] [address] Care Team Providers Care Jewel Oliving Machine Operator Name Role Phone Loren Ascencio MD Primary Care Provider [phone] Allergies Active Allergy Reactions Criticality Noted Date Comments Ondansetron 10/02/2024 When given in IV, patient's arms swelled up. Can take sublingual tablets. Medications methylphenidate (Ritalin) 5 MG tablet Take 5 mg by mouth in the morning and 5 mg before bedtime. Active gabapentin (Neurontin) 400 MG capsule Take 400 mg by mouth at bedtime 09/21/2024 Active metroNIDAZOLE (Flagyl) 500 MG tablet Take 500 mg by mouth in the morning. 08/19/2024 Active DULoxetine (Cymbalta) [address] capsule Take 60 mg by mouth Daily Active albuterol HFA 90 mcg/act inhalerIndicati ons:Acute cough,Bronchiti s Inhale 2 puffs every 4 (four) hours if needed for wheezing 18 g 10/02/2024 10/02/20 25 Active Active Problems Problem Noted Date Diagnosed Date Dysfunctional uterine bleeding 10/02/2024 Iron deficiency anemia 10/02/2024 Jejunostomy present 10/02/2024 Menorrhagia with regular cycle 10/02/2024 Neoplasm of visceral peritoneum 10/02/2024 Neuro-endocrine carcinoma 10/02/2024 Other malignant neuroendocrine tumors 10/02/2024 Obesity (BMI 30-39.9) 10/02/2024 Other secondary neuroendocrine tumors 10/02/2024 Thyroid nodule 10/02/2024 Vaginal high risk human jose llomavirus (HPV) DNA test positive 10/02/2024 Anxiety 05/28/2023 Pain due to neoplasm 05/28/2023 Palliative care by specialist 05/28/2023 Malignant carcinoid tumor of small intestine Difficult intravenous access 10/29/2022 GERD (gastroesophageal reflux disease) Pancreatic insufficiency 10/29/2022 Abscess of abdominal cavity 07/24/2021 Electrolyte imbalance 07/24/2021 Mass of pancreas 07/07/2021 Severe protein-calorie malnu trition (Nick: less than 60% of standard weight) ([facility]) 07/06/2021 SBO (small bowel obstruction) 06/17/2021 Iron deficiency anemia due to chronic blood loss 05/22/2021 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 There is no hydronephrosis. Patient was successfully taught ISC in the office today. We will check a creatinine. She is scheduled for cysto/urethral dilatation/U of M instillation 11/19/2018. I will check with Dr. Weiss to see if he would like to add urodynamics to the procedure. H/O urethral stricture 09/24/2018 Overview (10/02/2024): 10/30/2011 03:20:51 am - She did well initially after urethral dilation. She did not have history in her urine she did not have any urinary tract infections. She recently has had some more difficulty urinating and has had urinary tract infections that are uncomplicated. She feels like she has one currently I looked at her urine and it was not overly impressive for an infection. Put her on self start therapy with Macrobid. Had cranberry supplements. Encounters Date Type Department Care Team Description 04/19/2025 Clinisync Result Encounter [facility] External Department Unsolicited Provider, Generic External Data 03/29/2025 Clinisync Result Encounter [facility] External Department Unsolicited Provider, Generic External Data 03/08/2025 Clinisync Result Encounter [facility] External Department Unsolicited Provider, Generic External Data 02/17/2025 Clinisync Result Encounter [facility] External Department Unsolicited Provider, Generic External Data 02/03/2025 Orders Only [facility] [address] [place] [id number] Erica Ramirez NP Bladder diverticulum from Last 3 Months Social History Tobacco Use Types Packs/Day Years Used Date Smoking Tobacco: Never Smokeless Tobacco: Never Tobacco Cessation:Counseling Given: Not Answered Alcohol Use Standard Drinks/Week Comments Not Currently 0 (1 standard drink = 0.6 oz pur e alcohol) Comments Unknown Sex and Gender Information Value Date Recorded Sex Assigned at Not on file Legal Sex Female 6:53 PM EDT Gender Identity Female 01/23/2023 6:53 PM EDT Sexual Orientation Not on file Last Filed Vital Signs Vital Sign Reading Time Taken Comments Blood Pressure 104/60 11/24/2024 5:06 PM EST Pulse - - Temperature 36.4 C (97.5 F) 10/02/2024 8:31 AM EST Respiratory Rate - - Oxygen Saturation - - Inhaled Oxygen Concentration - - Weight 69.9 kg (154 lb) 10/02/2024 8:31 AM EST Height 168.9 cm (5' 6.5 ) 10/02/2024 8:31 AM EST Body Mass Index 24.48 10/02/2024 8:31 AM EST Plan of Treatment Health Maintenance Due Date Last Done Comments CT Colonography 1974 Colonoscopy 1974 Colorectal Cancer Screening 1974 FIT-DNA 1974 FIT 1974 FOBT 1974 Sigmoidoscopy 1974 Pap Smear 1995 Mammogram 01/13/2020 01/12/2019 Influenza Vaccine (Season Ended) 2025 Cervical Cancer Screening 03/15/2026 HPV/Cotest 03/15/2026 03/15/2021, 01/05/2019 Procedures Procedure Name Priority Date/Time Associated Diagnosis Comments [facility] SEROTONIN BLD Routine 04/19/2025 2:3 5 PM EDT ALL VASOACTIVE INTESTINAL PEPTIDE Routine 04/19/2025 2:35 PM EDT [facility] CGA SERPL-MCNC Routine 04/19/2025 2: 35 PM EDT [facility] GASTRIN SERPL-MCNC Routine 2:35 PM EDT [facility] COMP METAB 2000 PNL SERPL Routine 04/19/2025 2:35 PM EDT [facility] CBC W AUTO DIFF BLD Routine 04/19/2025 2:35 PM EDT ALL VASOACTIVE INTESTINAL PEPTIDE Routine 03/29/2025 2:39 PM EDT [facility] GASTRIN SERPL-MCNC Routine 2:39 PM EDT [facility] CGA SERPL-MCNC Routine 03/29/2025 2: 39 PM EDT [facility] SEROTONIN BLD Routine 03/29/2025 2:3 9 PM EDT [facility] COMP METAB 2000 PNL SERPL Routine 03/29/2025 2:39 PM EDT [facility] CBC W AUTO DIFF BLD Routine 03/29/2025 2:39 PM EDT [facility] SEROTONIN BLD Routine 03/08/2025 2:4 8 PM EDT ALL VASOACTIVE INTESTINAL PEPTIDE Routine 03/08/2025 2:48 PM EDT [facility] CGA SERPL-MCNC Routine 03/08/2025 2: 48 PM EDT [facility] GASTRIN SERPL-MCNC Routine 2:48 PM EDT [facility] FOLATE SERPL-MCNC Routine 03/08/2025 2:48 PM EDT [facility] FERRITIN SERPL-MCNC Routine 03/08/2025 2:48 PM EDT [facility]CF VIT B12 SERPL-MCNC Routine 2:48 PM EDT [facility] IRON+TIBC PNL SERPL Routine 03/08/2025 2:48 PM EDT [facility] COMP METAB 2000 PNL SERPL Routine 03/08/2025 2:48 PM EDT [facility] CBC W AUTO DIFF BLD Routine 03/08/2025 2:48 PM EDT NM PET/CT NEUROENDOCRINE WB 02/17/2025 9:13 AM EDT AMB REFERRAL TO UROLOGY Routine 02/03/2025 11:06 AM EDT Bladder diverticulum Q - THINPREP(R) TIS AND HPV MRNA E6/E7 RFL HPV 16,18/45 Routine 03/15/2021 BI MAMMOGRAM SCREENING BILATERAL Routine 01/12/2019 12:00 PM EST Other specified abnormal uterine and vaginal bleeding Encounter for screening for malignant neoplasm of cervix Pelvic and perineal pain Encounter for gynecological examination (general) (routine) without abnormal findings Encounter for screening mammogram for malignant neoplasm of breast from Last 3 Months or Most Recently Relevant to Health Maintenance Results * [facility] SEROTONIN BLD (04/19/2025 2:35 PM EDT) Only the most recent of3 resultswithin the time period is included. [facility] SEROTONIN SERUM 98 50 - 220 ng/mL [facility] Comment: TEST INFORMATION: Serotonin, Serum This test was developed and its performance characteristics determined by [facility]. It has not been cleared or approved by the US Food and Drug Administration. This test was performed in a CLIA certified laboratory and is intended for clinical purposes. Performed By: [facility] [address] [place] [address] Infusion Nurse: Russell Evans MD, PhD CLIA Number: [id number] 04/19/2025 2:35 PM EDT 04/21/2025 11:57 AM EDT Narrative LUCRECIANC - 04/22/2025 7:35 PM EDT Specimen Type: BLOOD SPECIMEN Ordering Facility: [facility] Address: [address] [place] [address] Original Ordering Provider: RENAE GARDNER Generic External Data Provider CLINISYNC F inal Result Performing Organization Address [facility] Co de Phone Number CLINISYNC [facility] [address] [place] [address] * [facility] GASTRIN SERPL-MCNC (04/19/2025 2:35 PM EDT) Only the most recent of3 resultswithin the time period is included. Pathologist [facility] GASTRIN SERPL-MCNC 51.3 <115.0 pg/mL [facility] Comment:The Gastrin test was performed using the Siemens Immulite chemiluminescent immunometric method. Results obtained with different assay methods or kits cannot be used interchangeably. 04/19/2025 2:35 PM EDT 04/20/2025 12:50 AM EDT Narrative LUCRECIANC - 04/20/2025 11:12 AM EDT Specimen Type: BLOOD SPECIMEN Ordering Facility: [facility] Address: [address] [place] [address] Original Ordering Provider: RENAE GARDNER Generic External Data Provider LUNAISYNC F inal Result Performing Organization Address [facility] Co de Phone Number CLINISYNC [facility] [address] [facility] [address] [place] [address] * [facility] CGA SERPL-MCNC (04/19/2025 2:35 PM EDT) Only the most recent of3 resultswithin the time period is included. Pathologist [facility] CGA SERPL-MCNC 136.2 <187.0 ng/mL CCF Comment:The Chromogranin A t est was performed using the Kindara CgA II KRYPTOR method. Results obtained with different assay methods or kits cannot be used interchangeably. 04/19/2025 2:35 PM EDT 04/20/2025 12:50 AM EDT Narrative MARQUES - 04/22/2025 1:49 PM EDT Specimen Type: BLOOD SPECIMEN Ordering Facility: [facility] Address: [address] [place] [address] Original Ordering Provider: RENAE GARDNER us Generic External Data Provider MARQUES F inal Result MARQUES [facility] [address] [facility] [address] [place] [address] * (ABNORMAL) [facility] CBC W AUTO DIFF BLD (04/19/2025 2:35 PM EDT) Only the most recent of3 resultswithin the time period is included. [facility] WBC # BLD AUTO 3.71 3.70 - 11.00 k/uL [facility] CCF RBC # BLD AUTO 3.03(L) 3.90 - 5.20 m/uL CCF CCF HGB BLD-MCNC 9.9(L) 11.5 - 15.5 g/dL C[facility] C[facility] HCT VFR BLD AUTO 28.4(L) 36.0 - 46.0 % CCF CCF MCV RBC AUTO 93.7 80.0 - 100.0 fL CCF CCF MCH RBC QN AUTO 32.7 26.0 - 34.0 pg CCF CCF MCHC RBC AUTO-MCNC 34.9 30.5 - 36.0 g/dL [facility] CCF RDW RBC-RTO 13.4 11.5 - 15.0 % [facility] CCF PLATELET # BLD AUTO 84(L) 150 - 400 k/uL CCF Comment:No clot detected. [facility] PMV BLD AUTO 8.1(L) 9.0 - 12.7 fL [facility] NEUTROPHILS/LEUK NFR BLD AUTO 61.4 % [facility] NEUTROPHILS # BLD AUTO 2.28 1.45 - 7.50 k/uL C[facility] LYMPHOCYTES/LEUK NFR BLD AUTO 19.7 % [facility]CF LYMPHOCYTES # BLD AUTO 0.73(L) 1.00 - 4.00 k/uL [facility]CF MONOCYTES/LEUK NFR BLD AUTO 8.1 % [facility]CF MONOCYTES # BLD AUTO 0.30 <0.87 k/uL [facility]CF EOSINOPHIL/LEUK NFR BLD AUTO 10.0 % [facility] CCF EOSINOPHIL # BLD AUTO 0.37 <0.46 k/uL [facility] CCF BASOPHILS/LEUK NFR BLD AUTO 0.5 % [facility] CCF BASOPHILS # BLD AUTO <0.03 <0.11 k/uL [facility] IMM GRANULOCYTES/LEUK NFR BLD AUTO 0.3 % [facility] IMM GRANULOCYTES # BLD AUTO <0.03 <0.10 k/uL [facility] NRBC/100 WBC BLD-RTO 0.0 /100 WBC [facility] CCF NRBC # BLD AUTO <0.01 <0.01 k/uL [facility] DIFFERENTIAL METHOD BLD Auto [facility] 04/19/2025 2:35 PM EDT 04/19/2025 2:35 PM EDT Narrative CLINISYNC - 04/19/2025 2:41 PM EDT Specimen Type: BLOOD SPECIMEN Ordering Facility: [facility] Address: [address] [place] [address] Original Ordering Provider: RENAE GARDNER us Generic External Data Provider CLINISYNC F inal Result Performing Organization Address City/State/[facility] Co de Phone Number CLINISYNC [facility] [address] [place] [address] * ALL VASOACTIVE INTESTINAL PEPTIDE (04/19/2025 2:35 PM EDT) Only the most recent of3 resultswithin the time period is included. VASOACTIVE INTESTINAL POLYPEPTIDE 22.6 0.0 - 89.1 pg/mL CCF Comment: This test was developed and its performance characteristics determined by [facility]. It has not been cleared or approved by the U.S. Food and Drug Administration. This test was performed in a CLIA-certified laboratory and is intended for clinical purposes. Performed By: [facility] [address] [place] [address] Infusion Nurse: Russell Evans MD, PhD CLIA Number: [id number] 04/19/2025 2:35 PM EDT 04/21/2025 6:08 PM EDT Narrative MARQUES - 04/22/2025 3:09 PM EDT Specimen Type: BLOOD SPECIMEN Ordering Facility: [facility] Address: [address] [place] [address] Original Ordering Provider: RENAE GARDNER us Generic External Data Provider LUNAISYCORAL F inal Result CLINISYNC [facility] [address] [place] [address] * (ABNORMAL) [facility] COMP METAB 2000 PNL SERPL (04/19/2025 2:35 PM EDT) Only the most recent of3 resultswithin the time period is included. [facility] PROT SERPL-MCNC 6.3 6.3 - 8.0 g/dL C[facility] ALBUMIN SERPL-MCNC 4.2 3.9 - 4.9 g/dL CCF CCF CALCIUM SERPL-MCNC 9.0 8.5 - 10.2 mg/dL CCF CCF BILIRUB SERPL-MCNC 1.6(H) 0.2 - 1.3 mg/dL CCF CCF ALP SERPL-CCNC 112 34 - 123 U/L [facility]CF C[facility] AST SERPL-CCNC 24 13 - 35 U/L [facility] CCF ALT SERPL-CCNC 29 7 - 38 U/L C[facility] CCF GLUCOSE SERPL-MCNC 104(H) 74 - 99 mg/dL [facility] Comment: The English Diabetes Association (ADA) provides guidance for cutoff values for fasting glucose and random glucose. The ADA defines fasting as no caloric intake for at least 8 hours. Fasting plasma glucose results between 100 to 125 mg/dL indicate increased risk for diabetes (prediabetes). Fasting plasma glucose results greater than or equal to 126 mg/dL meet the criteria for diagnosis of diabetes. In the absence of unequivocal hyperglycemia, results should be confirmed by repeat testing. In a patient with classic symptoms of hyperglycemia or hyperglycemic crisis, random plasma glucose results greater than or equal to 200 mg/dL meet the criteria for diagnosis of diabetes. Reference: Standards of Medical Care in Diabetes 2016, English Diabetes Association. Diabetes Care. 2016.39(Suppl 1). [facility] BUN SERPL-MCNC 17 7 - 21 mg/dL [facility] CREAT SERPL-MCNC 0.83 0.58 - 0.96 mg/dL C[facility] SODIUM SERPL-SCNC 138 136 - 144 mmol/L C[facility] POTASSIUM SERPL-SCNC 3.4(L) 3.7 - 5.1 mmol/L CCF CCF CHLORIDE SERPL-SCNC 111(H) 98 - 107 mmol/L C[facility] CCF CO2 SERPL-SCNC 19(L) 22 - 30 mmol/L CCF CCF ANION GAP SERPL-SCNC 8 8 - 15 mmol/L [facility] C[facility] CREATININE + EGFR PNL SERPLBLD 86 >=60 mL/min/1.7 3m??? [facility]CF Comment:Estimated Glomerular Filtration Rate (eGFR) is calculated using the 2020 CKD-EPI creatinine equation. This equation utilizes serum creatinine, sex, and age as parameters. The creatinine assay has traceable calibration to isotope dilution- mass spectrometry. Refer to KDIGO guidelines for clinical interpretation. In patients with unstable renal function, e.g. those with acute kidney injury, the eGFR may not accurately reflect actual GFR. 04/19/2025 2:35 PM EDT 04/19/2025 2:35 PM EDT Narrative LUNAISYCORAL - 04/19/2025 3:03 PM EDT Specimen Type: BLOOD SPECIMEN Ordering Facility: [facility] Address: [address] [place], [place] [id number] Original Ordering Provider: RENAE GARDNER us Generic External Data Provider CLINISYNC F inal Result CLINIS[facility]NC [facility] [address] [place] [address] * [facility] VIT B12 SERPL-MCNC (03/08/2025 2:48 PM EDT) C[facility] VIT B12 SERPL-MCNC 302 232 - 1,245 pg/mL [facility] 03/08/2025 2:48 PM EDT 03/08/2025 10:34 PM EDT Narrative CLINISYNC - 03/09/2025 1:51 AM EDT Specimen Type: BLOOD SPECIMEN Ordering Facility: [facility] Address: [address] [place] [address] Original Ordering Provider: RENAE GARDNER Generic External Data Provider CLINISYNC F inal Result Performing Organization Address [facility] de Phone Number MARQUES [facility] [address] [place] [address] * [facility] IRON+TIBC PNL SERPL (03/08/2025 2:48 PM EDT) [facility] IRON SERPL-MCNC 76 41 - 186 ug/dL [facility] TIBC SERPL-MCNC 327 232 - 386 ug/dL [facility] CCF IRON/TIBC SERPL-SRTO 23.2 15.0 - 57.0 % [facility] 03/08/2025 2:48 PM EDT 03/08/2025 10:34 PM EDT Narrative CLINISYNC - 03/09/2025 1:31 AM EDT Specimen Type: BLOOD SPECIMEN Ordering Facility: [facility] Address: [address] [place] [address] Original Ordering Provider: RENAE GARDNER Generic External Data Provider CLINISYNC F inal Result Performing Organization Address [facility] Co de Phone Number LUCRECIANC [facility] [address] [place] [phone] * [facility]CF FOLATE SERPL-MCNC (03/08/2025 2:48 PM EDT) [facility] FOLATE SERPL-MCNC 15.1 >4.7 ng/mL [facility] 03/08/2025 2:48 PM EDT 03/08/2025 10:34 PM EDT Narrative CLINISYNC - 03/09/2025 1:51 AM EDT Specimen Type: BLOOD SPECIMEN Ordering Facility: [facility] Address: [address] [place] [address] Original Ordering Provider: RENAE GARDNER Generic External Data Provider CLINVITANC F inal Result Performing Organization Address [facility] de Phone Number MARQUES LOPES [address] [place] [phone] * [facility] FERRITIN SERPL-MCNC (03/08/2025 2:48 PM EDT) [facility] FERRITIN SERPL-MCNC 156.0 14.7 - 205.1 ng/mL [facility] 03/08/2025 2:48 PM EDT 03/08/2025 10:34 PM EDT Narrative CLINISYNC - 03/09/2025 1:51 AM EDT Specimen Type: BLOOD SPECIMEN Ordering Facility: [facility] Address: [address] [place] [address] Original Ordering Provider: RENAE GARDNER Generic External Data Provider CLINISYNC F inal Result Performing Organization Address [facility] de Phone Number MARQUES ELLIS [address] [place] [phone] * NM PET/CT NEUROENDOCRINE WB (02/17/2025 9:13 AM EDT) Anatomical Region Laterality Modality Other 02/17/2025 9:13 AM EDT Narrative 02/18/2025 7:20 PM EDT * * *Final Report* * * DATE OF EXAM: Feb 17 2025 9:13AM [facility] 0094 - NM PET/CT NEUROENDOCRINE WB / PROCEDURE REASON: Malignant carcinoid tumor of ileum (HCC) * * * * Physician Interpretation * * * * EXAMINATION: SOMATOSTATIN RECEPTOR PET-CT CLINICAL HISTORY: 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 The appendix was involved. Lymphovascular invasion present. Margins positive (mesentery). 3 out of 4 lymph nodes positive. IHC staining was positive for CDX2, synaptophysin, chromogranin and Ki-67 was 4%. Patient completed cycle 3 Lutathera are on 02/12/2024. EXAM CATEGORY: Subsequent treatment strategy. TECHNIQUE: Radiopharmaceutical was administered IV followed by PET imaging from the skull vertex to thighs. Free breathing, low dose CT of the same body region was acquired without IV contrast for attenuation correction and anatomic localization. Unenhanced imaging is limited for the evaluation of some pathology and the acquired CT was not designed to produce diagnostic CT scan quality. Physiologic/non-pathologic uptake in some body regions could confound or obscure some pathology. * CT Dose-Length Product (DLP): 275 mGy*cm * CT Dose Reduction Employed: Yes * Injection site: Left Hand * Injected activity: 6.4 mCi * Uptake Time: 60 minutes * Radiopharmaceutical: Ga-[id number] Dotatate COMPARISON: 10/07/2024 DOTATATE PET/CT. CORRELATION: No relevant prior imaging available RESULT: REFERENCES: Dotatate uptake serves as a surrogate marker for somatostatin receptor 2 (SSTR2) expression. All reported standardized uptake values represent maximum SUV (SUVmax) per body weight, unless otherwise specified. SUV Reference Values: * Background Liver: SUVmax 7, prior 7 * Background Spleen: SUVmax 33, prior 38 Localizer Images: Unremarkable. HEAD AND NECK: Imaged Head: Visualized intracranial compartment demonstrates no radiotracer avid lesion, hydrocephalus, or mass effect. Neck and Lymph Nodes: No radiotracer avid or pathologically enlarged cervical lymphadenopathy. Thyroid: No radiotracer avid thyroid nodule. Aerodigestive tract: No radiotracer avid lesion along the mucosal space. No obstructive lesion, airway is patent. CHEST: Lungs and Airways: No radiotracer avid lung nodule. Stable size of a 0.5 cm medial left lower lobe nodule (SUV 1.6 image 152, prior SUV 1.8). Calcified granulomas in the left lower lobe. Pleura and Pericardium: No radiotracer avid pleural nodule. No pleural effusion. Cardiovascular: Physiologic radiotracer activity in the blood pool. Normal cardiac size. No pericardial effusion. Mediastinum and Lymph Nodes: No radiotracer avid mediastinal or hilar lymphadenopathy. Anterior chest wall: Unremarkable. ABDOMEN AND PELVIS: Hepatobiliary: DOTATATE avid lesions have been stable since 10/07/2024, and do not have corresponding measurable lesions on CT. These lesions are as follows: * Multiple lesions at segment 6 (previously identified as inferior right hepatic lobe), SUV 19, image 194, prior SUV 17. * Lesion along the hepatorenal fossa, SUV 18, image 184, prior SUV 17. * Lesion at segment 8 adjacent to the IVC, SUV 12, image 165, prior SUV 13, Spleen: No radiotracer avid splenic lesion. No splenomegaly. Pancreas: DOTATATE avid lesion along the pancreatic body, SUV 48 (prior SUV 42), stable. This lesion remains occult on CT component. Adrenals: No radiotracer avid adrenal nodule. Urinary Tract: Physiologic radiotracer excretion in the renal collecting systems and bladder. GI Tract: Right hemicolectomy with right ileocolic anastomosis and left abdominal colostomy. There is no DOTATATE avid lesion along the gastrointestinal segments. There are DOTATATE avid peritoneal deposits in the pelvis that have been stable since 10/07/2024. The dominant peritoneal mass at pelvic midline is inseparable from the left adnexa, SUV 35, measures 5 x 4 cm image 263, (prior SUV 35).. Additional peritoneal lesions along the right pelvic sidewall are stable, SUV 23, image 93, prior SUV 23, image 252. One of these lesions is adjacent to the rectal stump on image 95 but considerably represent peritoneal metastasis. 8.6 x 6.8 cm collection in the anterior pelvis (anterior to the uterus) has been stable. Vasculature: Major intra-abdominal and intrapelvic vasculature is unremarkable. Retroperitoneum and Lymph Nodes: No radiotracer avid or pathologically enlarged lymphadenopathy. MUSCULOSKELETAL: Osseous: No radiotracer avid bone lesion. On CT, no lytic or sclerotic bone lesion. Soft Tissues: No radiotracer avid soft tissue lesion is identified. IMPRESSION: Compared to 10/07/2024 DOTATATE PET/CT, stable disease. Primary disease: Status post right hemicolectomy. No SSTR2 expressing lesion along the rectal stump or ileocolic anastomosis. Akbar disease: No abdominopelvic or mediastinal metastatic lymphadenopathy. Metastatic disease: Compared to 04/09/2024, hepatic, pancreatic, peritoneal, right pelvic sidewall and adnexal SSTR2 expressing metastases are stable. No new metastatic lesion is present. No lung or osseous metastasis. 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 The appendix was involved. Lymphovascular invasion present. Margins positive (mesentery). 3 out of 4 lymph nodes positive. IHC staining was positive for CDX2, synaptophysin, chromogranin and Ki-67 was 4%. Patient completed cycle 3 Lutathera are on 02/12/2024. EXAM CATEGORY: Subsequent treatment strategy. TECHNIQUE: Radiopharmaceutical was administered IV followed by PET imaging from the skull vertex to thighs. Free breathing, low dose CT of the same body region was acquired without IV contrast for attenuation correction and anatomic localization. Unenhanced imaging is limited for the evaluation of some pathology and the acquired CT was not designed to produce diagnostic CT scan quality. Physiologic/non-pathologic uptake in some body regions could confound or obscure some pathology. * CT Dose-Length Product (DLP): 275 mGy*cm * CT Dose Reduction Employed: Yes * Injection site: Left Hand * Injected activity: 6.4 mCi * Uptake Time: 60 minutes * Radiopharmaceutical: Ga-68 Dotatate COMPARISON: 10/07/2024 DOTATATE PET/CT. CORRELATION: No relevant prior imaging available RESULT: REFERENCES: Dotatate uptake serves as a surrogate marker for somatostatin receptor 2 (SSTR2) expression. All reported standardized uptake values represent maximum SUV (SUVmax) per body weight, unless otherwise specified. SUV Reference Values: * Background Liver: SUVmax 7, prior 7 * Background Spleen: SUVmax 33, prior 38 Localizer Images: Unremarkable. HEAD AND NECK: Imaged Head: Visualized intracranial compartment demonstrates no radiotracer avid lesion, hydrocephalus, or mass effect. Neck and Lymph Nodes: No radiotracer avid or pathologically enlarged cervical lymphadenopathy. Thyroid: No radiotracer avid thyroid nodule. Aerodigestive tract: No radiotracer avid lesion along the mucosal space. No obstructive lesion, airway is patent. CHEST: Lungs and Airways: No radiotracer avid lung nodule. Stable size of a 0.5 cm medial left lower lobe nodule (SUV 1.6 image 152, prior SUV 1.8). Calcified granulomas in the left lower lobe. Pleura and Pericardium: No radiotracer avid pleural nodule. No pleural effusion. Cardiovascular: Physiologic radiotracer activity in the blood pool. Normal cardiac size. No pericardial effusion. Mediastinum and Lymph Nodes: No radiotracer avid mediastinal or hilar lymphadenopathy. Anterior chest wall: Unremarkable. ABDOMEN AND PELVIS: Hepatobiliary: DOTATATE avid lesions have been stable since 10/07/2024, and do not have corresponding measurable lesions on CT. These lesions are as follows: * Multiple lesions at segment 6 (previously identified as inferior right hepatic lobe), SUV 19, image 194, prior SUV 17. * Lesion along the hepatorenal fossa, SUV 18, image 184, prior SUV 17. * Lesion at segment 8 adjacent to the IVC, SUV 12, image 165, prior SUV 13, Spleen: No radiotracer avid splenic lesion. No splenomegaly. Pancreas: DOTATATE avid lesion along the pancreatic body, SUV 48 (prior SUV 42), stable. This lesion remains occult on CT component. Adrenals: No radiotracer avid adrenal nodule. Urinary Tract: Physiologic radiotracer excretion in the renal collecting systems and bladder. GI Tract: Right hemicolectomy with right ileocolic anastomosis and left abdominal colostomy. There is no DOTATATE avid lesion along the gastrointestinal segments. There are DOTATATE avid peritoneal deposits in the pelvis that have been stable since 10/07/2024. The dominant peritoneal mass at pelvic midline is inseparable from the left adnexa, SUV 35, measures 5 x 4 cm image 263, (prior SUV 35).. Additional peritoneal lesions along the right pelvic sidewall are stable, SUV 23, image 93, prior SUV 23, image 252. One of these lesions is adjacent to the rectal stump on image 95 but considerably represent peritoneal metastasis. 8.6 x 6.8 cm collection in the anterior pelvis (anterior to the uterus) has been stable. Vasculature: Major intra-abdominal and intrapelvic vasculature is unremarkable. Retroperitoneum and Lymph Nodes: No radiotracer avid or pathologically enlarged lymphadenopathy. MUSCULOSKELETAL: Osseous: No radiotracer avid bone lesion. On CT, no lytic or sclerotic bone lesion. Soft Tissues: No radiotracer avid soft tissue lesion is identified. IMPRESSION: Compared to 10/07/2024 DOTATATE PET/CT, stable disease. Primary disease: Status post right hemicolectomy. No SSTR2 expressing lesion along the rectal stump or ileocolic anastomosis. Akbar disease: No abdominopelvic or mediastinal metastatic lymphadenopathy. Metastatic disease: Compared to 04/09/2024, hepatic, pancreatic, peritoneal, right pelvic sidewall and adnexal SSTR2 expressing metastases are stable. No new metastatic lesion is present. No lung or osseous metastasis. Krenning Score (KS): 4 0: no uptake 1: uptake is much lower than liver 2: uptake is equal to liver 3: uptake is greater than liver 4: uptake is greater than spleen Emergency Services Dispatcher: ZION Transcribe Date/Time: Feb 17 2025 3:07P Dictated by : TRINI CONTE MD This examination was interpreted and the report reviewed and electronically signed by: TRINI CONTE MD on Feb 18 2025 7:17PM EST [id number] us Generic External Data Provider [facility] Final Result * Ambulatory referral to Urology (02/03/2025 11:06 AM EDT) Erica Ramirez LINE INSPECTOR OUTPATIENT REFERRAL ORD ERABLES Final Result * (ABNORMAL) Q - THINPREP(R) TIS AND HPV MRNA E6/E7 RFL HPV 16,18/45 (03/15/2021) CLINICAL INFORMATION: None given [facility] LMP: None given [facility] PREV. PAP: None given [facility] PREV. BX: None given [facility] SOURCE: None given [facility] STATEMENT OF ADEQUACY: SEE NOTE [facility] Comment: Satisfactory for evaluation. Endocervical/transformation zone component present. INTERPRETATION/RE SULT: Negative for intraepithelial lesion or malignancy. [facility] COMMENT: This Pap test has been evaluated with computer assisted technology. [facility] VESSEL LINER: SEE NOTE NO [facility] Comment: BH, CT(ASCP) CT screening location: [facility] [place] [address]. REVIEW VESSEL LINER: SEE NOTE [facility] Comment: KMB, CT(ASCP) CT screening location: [place] [address]. COMMENT SEE NOTE [facility] Comment: EXPLANATORY NOTE: The Pap is a screening test for cervical cancer. It is not a diagnostic test and is subject to false negative and false positive results. It is most reliable when a satisfactory sample, regularly obtained, is submitted with relevant clinical findings and history, and when the Pap result is evaluated along with historic and current clinical information. HPV MRNA E6/E7 Detected(A) Not Detected [facility] Comment: Methodology: Microfilm Machine Operator-Mediated Amplification This assay detects E6/E7 viral messenger RNA (mRNA) from 14 high-risk HPV types (16,18,31,33,35,39,45,51,52,56,58,59,66,68). The analytical performance characteristics of this assay have been determined by [facility]. The modifications have not been cleared or approved by the FDA. This assay has been validated pursuant to the CLIA regulations and is used for clinical purposes. For additional information, please refer to http://education.Neverfail.Cord Project/faq/CLJ710w9 (This link if provided for information/ educational purposes only.) 03/15/2021 [facility] Final Result [facility] * Bilateral screening mammogram (01/12/2019 12:00 PM EST) Anatomical Region Laterality Modality Breast Bilateral Mammography Narrative 01/12/2019 12:00 PM EST PERFORMED AT [facility] LOCATION:[id number] Procedure Note CONVERSION, GENERIC / Olivia Lopez CNM - 05/17/[address] [facility] LOCATION:[id number] us Olivia Lopez CNM IMG BI PROCEDURES Final Resu lt from Last 3 Months or Most Recently Relevant to Health Maintenance Insurance [employer] Care Teams Jewel Oliving Machine Operator Relationship Specialty Start Date End Date Loren Ascencio MD [address] [place] [address] PCP - General Family Medicine 03/19/23
--- OUTSIDE RECORDS SUMMARY | 2025-05-03 09:06 | XMS_ITS | Encounter Summary ---
Author Organization [facility] Address [address] [place] [address] Care Team Providers Care Bullet Assembly Press Setter Operator Name Role Phone Loren Ascencio MD Primary Care Provider [phone] Unavailable [phone] Alyce Chadwick APRN.WORLD HISTORY TEACHER Unavailable + Kelsie Cunha RN Unavailable Unavail able Linnette Shoemaker RN Unavailable [phone] Kylee Wilkinson Unavailable [phone] Source Comments In the event this information is protected by the Federal Confidentiality of Alcohol and Drug AbusePatient Records regulations: The Federal rules restrict any use of the information to criminally investigate or prosecute any alcohol or drug abuse patient.[facility] Encounter Details Date Type Department Care Team (Late st Contact Info) Description 08/01/2021 Patient Msg Pharmacy Home Infusion [address] [facility] [place] [id number] Anneliese Perry PSS Weekly [facility] TPN refill request Social History Tobacco Use Types Packs/Day Years Used Date Smoking Tobacco: Never Smokeless Tobacco: Never Alcohol Use Standard Drinks/Week Comments Yes 0 (1 standard drink = 0.6 oz pur e alcohol) Area Deprivation Index Answer Date Chandu rded National Score (1-100), lower number is lower ri sk Not on file 07/03/2021 State Score (1-10), lower number is lower risk N ot on file 07/03/2021 Data from: https://www.neighborhoodatlas.[facility]/. Last address used for calculation Not on file 07/03/2021 Comments No Sex and Gender Information Value Date Recorded Sex Assigned at Female 11/07/2021 7:23 AM EST Legal Sex Female 12:07 PM EDT Gender Identity Female 11/07/2021 7:23 AM EST Sexual Orientation Straight 11/07/2021 7: 23 AM EST COVID-19 Exposure Response Date Recorded In the last month, have you been in contact with someone who was confirmed or suspected to have Coronavirus / COVID-19? No / Unsure 08/01/2021 9:45 AM EDT documented as of this encounter Functional Status * Are you deaf or do you have serious difficulty hearing? Answer Date of Assessment Author No 07/25/2021 8:55 AM EDT Lexis Castelan i, RN * Are you blind or do you have serious difficulty seeing, even when wearing glasses? Answer Date of Assessment Author No 07/25/2021 8:55 AM EDT Lexis Castelan i, RN * Do you have serious difficulty walking or climbing stairs? Answer Date of Assessment Author No 07/25/2021 8:55 AM EDT Lexis Castelan i, RN * Do you have difficulty dressing or bathing? Answer Date of Assessment Author No 07/25/2021 8:55 AM EDT Lexis Castelan i, RN * Because of a physical, mental, or emotional condition, do you have difficulty doing errands alone such as visiting a doctor's office or shopping? Answer Date of Assessment Author No 07/25/2021 8:55 AM EDT Lexis Castelan i, RN documented as of this encounter Mental Status * Because of a physical, mental, or emotional condition, do you have serious difficulty concentrating, remembering, or making decisions? Answer Entry Date Author No 07/25/2021 8:55 AM EDT Lexis Jacobs RN documented in this encounter Plan of Treatment Upcoming Encounters Date Type Department Care Team (Late st Contact Info) Description 05/10/2025 3:45 PM EDT Office Visit [facility] [address] [place] [address] [place] [address] 3 week lab and lanreotide inj 05/10/2025 4:00 PM EDT [facility] Hematology/Oncology [address] [place] [address] [place] [address] 3 week lab and lanreotide inj 05/31/2025 2:45 PM EDT Office Visit [facility] [address] [place] [address] [place] [address] 6 week follow up with lab and lanreotide inj 05/31/2025 3:00 PM EDT Visit (SP) Office Hematology/Oncology [address] [place] [address] [place] [address] Viridiana Mccarthy, PA-C [address] [facility] [place] [address] 6 week follow up with lab and lanreotide inj 05/31/2025 3:30 PM EDT [facility] Hematology/Oncology [address] [place] [address] [place] [address] 6 week follow up with lab and lanreotide inj 08/03/2025 2:30 PM EDT [facility] Palliative Medicine [address] [place] [address] [place] [address] Alyce Chadwick, BUDGET RECORD CLERK.WORLD HISTORY TEACHER [address] [place] [id number] 3 month follow up documented as of this encounter Visit Diagnoses Not on filedocumented in this encounter Additional Health Concerns Infection Onset Date Last Indicated Resolved Time COVID-19 Rule-Out 07/14/2021 07/14/2021 08/03/2021 8:51 PM EDT COVID-19 Rule-Out 01/31/2022 01/31/2022 01/31/2022 10:44 AM EDT documented as of this encounter Care Teams Bullet Assembly Press Setter Operator Relationship Specialty Start Date End Date Loren Ascencio MD [address] [place] [address] PCP - General Family Medicine 10/01/[address] [place] [address] Registered Dietitian Nutrition 11/28/22 Alyce Chadwick, VIKASH.WORLD HISTORY TEACHER [address] [place] [address] [place] [id number] Hospice & Palliative Medicine 03/05/23 Kelsie Cunha RN Specialty Commercial Journeyman Electrician Hospice & Palliative Medicine 03/05/23 [place] [address] [place] [address] Specialty Commercial Journeyman Electrician Hematology/Oncology 08/27/23 03/14/25 Kylee Wilkinson LISW [address] [place] [address] Movement Assembly Final Inspector 11/20/23 documented as of this encounter
--- OUTSIDE RECORDS SUMMARY | 2025-05-03 09:06 | XMS_ITS | Encounter Summary ---
Author Organization [facility] Address [address] [place] [address] Care Team Providers Care Piece Goods Clerk Name Role Phone Loren Ascencio MD Primary Care Provider [phone] Unavailable [phone] Alyce Chadwick APRN.4TH GRADE MATH TEACHER Unavailable + Kelsie Cunha RN Unavailable Unavail able Linnette Shoemaker RN Unavailable [phone] Kylee Wilkinson Unavailable [phone] Source Comments In the event this information is protected by the Federal Confidentiality of Alcohol and Drug AbusePatient Records regulations: The Federal rules restrict any use of the information to criminally investigate or prosecute any alcohol or drug abuse patient.[facility] Encounter Details Date Type Department Care Team (Late st Contact Info) Description 08/01/2021 Patient [facility] [address] [place] [address] Provider, [facility] Genetic Consult Referral Social History Tobacco Use Types Packs/Day Years [...] N ot on file 07/03/2021 Data from: https://www.neighborhoodatlas.medicine.[facility]/. Last address used for calculation Not on [...] No 07/25/2021 8:55 AM EDT Lexis Castelan i RN * Do you have difficulty dressing [...] AM EDT Lexis Castelan i, RN documented in this encounter Plan of Treatment Upcoming Encounters Date Type Department Care Team (Late st Contact Info) Description 05/10/2025 3:45 PM EDT Office Visit [facility] [address] [place] [address] [place] [address] 3 week lab and lanreotide inj 05/10/2025 4:00 PM EDT [facility] Center Hematology/Oncology [address] [place] [address] [place] [address] 3 week lab and lanreotide inj 05/31/2025 2:45 PM EDT Office Visit [facility] [address] [place] [address] [place] [address] 6 week follow up with lab and lanreotide inj 05/31/2025 3:00 PM EDT Visit (SP) Office Hematology/Oncology [address] [place] [address] [place] [address] Viridiana Mccarthy PA-C [address] [facility] [facility] [place] [address] 6 week follow up with lab and lanreotide inj 05/31/2025 3:30 PM EDT [facility] Center Hematology/Oncology [address] [place] [address] [place] [address] 6 week follow up with lab and lanreotide inj 08/03/2025 2:30 PM EDT [facility] Palliative Medicine [address] [place] [address] [place] [address] Alyce Chadwick, METER READER CHIEF.4TH GRADE MATH TEACHER [address] [place] [address] 3 month follow up documented as of this encounter Visit Diagnoses Not on filedocumented in this encounter Additional Health Concerns Infection Onset Date Last Indicated Resolved Time COVID-19 Rule-Out 07/14/2021 07/14/2021 08/03/2021 8:51 PM EDT COVID-19 Rule-Out 01/31/2022 01/31/2022 01/31/2022 10:44 AM EDT documented as of this encounter Care Teams Piece Goods Clerk Relationship Specialty Start Date End Date Loren Ascencio MD [address] [place] [address] PCP - General Family Medicine 10/01/[address] [facility] [place] [address] Registered Dietitian Nutrition 11/28/22 Alyce Chadwick, METER READER CHIEF.4TH GRADE MATH TEACHER [address] [facility] [facility] [place] [address] Hospice & Palliative Medicine 03/05/23 Kelsie Cunha RN Specialty Handbag Designer Hospice & Palliative Medicine 03/05/23 Linnette Shoemaker, MADY [address] [place] [address] Specialty Handbag Designer Hematology/Oncology 08/27/23 03/14/25 Kylee Wilkinson LISW [address] [place] [address] Malted Milk Masher 11/20/23 documented as of this encounter
--- OUTSIDE RECORDS SUMMARY | 2025-05-03 09:06 | XMS_ITS | Encounter Summary ---
Author Organization [facility] Address [address] [place] [address] Care Team Providers Care Mcat Tutor Name Role Phone Loren Ascencio MD Primary Care Provider [phone] Encounter Details Date Type Department Care Team (Late st Contact Info) Description 02/03/2025 Orders Only [facility] [address] [place] [address] Erica Ramirez NP [address] [place], [place] [id number] Bladder diverticulum Social History Tobacco Use Types Packs/Day Years [...] PM EDT Sexual Orientation Not on file documented as of this encounter Plan of Treatment Not on file documented as of this encounter Procedures Procedure Name Priority Date/Time Associated Diagnosis Comments AMB REFERRAL TO UROLOGY Routine 02/03/2025 11:06 AM EDT Bladder diverticulum documented in this encounter Results * Ambulatory referral to Urology (02/03/2025 11:06 AM EDT) Erica Ramirez REAL ESTATE ASSET MANAGER OUTPATIENT REFERRAL ORD ERABLES Final Result documented in this encounter Visit Diagnoses Diagnosis Bladder diverticulum Diverticulum of bladder documented in this encounter Care Teams Mcat Tutor Relationship Specialty Start Date End Date Loren Ascencio MD [address] [place] [address] PCP - General Family Medicine 03/19/23 documented as of this encounter
--- OUTSIDE RECORDS SUMMARY | 2025-05-03 09:07 | XMS_ITS | Encounter Summary ---
Author Organization [facility] Address [address] [place] [address] Care Team Providers Care Stockroom Coordinator Name Role Phone Loren Ascencio MD Primary Care Provider [phone] Unavailable [phone] Alyce Chadwick APRN.CAPACITY ANALYST Unavailable + Kelsie Cunha RN Unavailable Unavail able Linnette Shoemaker RN Unavailable [phone] Kylee Wilkinson Unavailable [phone] Source Comments In the event this information is protected by the Federal Confidentiality of Alcohol and Drug AbusePatient Records regulations: The Federal rules restrict any use of the information to criminally investigate or prosecute any alcohol or drug abuse patient.[facility] Encounter Details Date Type Department Care Team (Late st Contact Info) Description 09/20/2021 Get Medical Advice General Surgery [address] [place], [place] [phone] Shmuel Ramos MD [address] [facility]. [address] [place] [address] Pantoprazole Social History Tobacco Use Types Packs/Day Years Used Date Smoking Tobacco: Never Smokeless Tobacco: Never Alcohol Use Standard Drinks/Week Comments Yes 0 (1 standard drink = 0.6 oz pur e alcohol) PHQ-2 Answer Date Recorded PHQ-2 score 0 09/14/2021 Area Deprivation Index Answer Date Chandu rded National Score (1-100), lower number is lower ri sk Not on file 07/03/2021 State Score (1-10), lower number is lower risk N ot on file 07/03/2021 Data from: https://www.neighborhoodatlas.medicine.[facility].edu/. Last address used for calculation Not on [...] have Coronavirus / COVID-19? No / Unsure 09/14/2021 9:35 AM EDT documented as of this encounter [...] Description 05/10/2025 3:45 PM EDT Office Visit [facility] [address] [place] [address] [place] [address] 3 week lab and lanreotide inj 05/10/2025 4:00 PM EDT Infusion Center Hematology/Oncology [address] [place] [address] [place] [address] 3 week lab and lanreotide inj 05/31/2025 2:45 PM EDT Office Visit [facility] [address] [place] [address] [place] [address] 6 week follow up with lab and lanreotide inj 05/31/2025 3:00 PM EDT Visit (SP) Office Hematology/Oncology [address] [place] [address] [place] [address] Viridiana Mccarthy PA-C [address] [place] [address] [place] [address] 6 week follow up with lab and lanreotide inj 05/31/2025 3:30 PM EDT Infusion Center Hematology/Oncology [address] [place] [address] [place] [address] 6 week follow up with lab and lanreotide inj 08/03/2025 2:30 PM EDT [facility] Palliative Medicine [address] [place] [address] [place] [address] Alyce Chadwick, HEARING IMPAIRED TEACHER.CAPACITY ANALYST [address] [place], [place] [id number] 3 month follow up documented as of this encounter Visit Diagnoses Not on filedocumented in this encounter Additional Health Concerns Infection Onset Date Last Indicated Resolved Time COVID-19 Rule-Out 01/31/2022 01/31/2022 01/31/2022 10:44 AM EDT documented as of this encounter Care Teams Stockroom Coordinator Relationship Specialty Start Date End Date Loren Ascencio MD [address] [place] [address] PCP - General Family Medicine 10/01/[address] [facility] [place] [address] Registered Dietitian Nutrition 11/28/22 Alyce Chadwick APRN.CAPACITY ANALYST [address] [place] [address] [place] [address] Hospice & Palliative Medicine 03/05/23 Kelsie Cunha, RN Specialty Grant Manager Hospice & Palliative Medicine 03/05/23 Linnette Shoemaker, MADY [address] [place] [id number] Specialty Grant Manager Hematology/Oncology 08/27/23 03/14/25 Kylee Wilkinson LISW [address] [place] [address] Dental Receptionist 11/20/23 documented as of this encounter
--- OUTSIDE RECORDS SUMMARY | 2025-05-03 09:07 | XMS_ITS | Encounter Summary ---
Author Organization [facility] Address [address] [place] [address] Care Team Providers Care Head Cashier Name Role Phone Loren Ascencio MD Primary Care Provider [phone] Unavailable [phone] Alyce Chadwick APRN.CIGARETTE STAMPER Unavailable + Kelsie Cunha RN Unavailable Unavail able Linnette Shoemaker RN Unavailable [phone] Kylee Wilkinson Unavailable [phone] Source Comments In the event this information is protected by the Federal Confidentiality of Alcohol and Drug AbusePatient Records regulations: The Federal rules restrict any use of the information to criminally investigate or prosecute any alcohol or drug abuse patient.[facility] Encounter Details Date Type Department Care Team (Late st Contact Info) Description 11/20/2023 Radiology Molecular Imaging [address] [place] [address] Clayton Mandujano MD [address] [place] [address] Social History Tobacco Use Types Packs/Day Years Used Date Smoking Tobacco: Never Passive Smoke Exposure: Past Smokeless Tobacco: Never Alcohol Use Standard Drinks/Week Comments Not Currently 0 (1 standard drink = 0.6 oz pur e alcohol) maybe once per month PHQ-2 Answer Date Recorded PHQ-2 score 1 11/19/2023 Area Deprivation Index Answer Date Chandu rded National Score (1-100), lower number is lower ri sk 60 03/21/2023 State Score (1-10), lower number is lower risk 4 03/21/2023 Data from: https://www.neighborhoodatlas.[facility]/. Last address used for calculation [address] 03/21/2023 Comments No Sex and Gender Information [...] Rima Capps RN * Do you have serious difficulty [...] Description 05/10/2025 3:45 PM EDT Office Visit [facility] [address] [place] [address] 3 week lab and lanreotide inj 05/10/2025 4:00 PM EDT Infusion Center Hematology/Oncology [address] [place] [address] [place] [address] 3 week lab and lanreotide inj 05/31/2025 2:45 PM EDT Office Visit [facility] [address] [place] [address] [place] [address] 6 week follow up with lab and lanreotide inj 05/31/2025 3:00 PM EDT Visit (SP) Office Hematology/Oncology [address] [place] [address] [place] [address] Viridiana Mccarthy, PA-C [address] [place] [address] 6 week follow up with lab and lanreotide inj 05/31/2025 3:30 PM EDT Infusion Center Hematology/Oncology [address] [place] [address] [place] [address] 6 week follow up with lab and lanreotide inj 08/03/2025 2:30 PM EDT [facility] Palliative Medicine [address] [place] [address] [place] [address] Alyce Chadwick, GUITAR MAKER.CIGARETTE STAMPER [address] [place] [address] 3 month follow up documented as of this encounter Visit Diagnoses Not on filedocumented in this encounter Care Teams Head Cashier Relationship Specialty Start Date End Date Loren Ascencio MD [address] [place] [address] PCP - General Family Medicine 10/01/[address] [place] [address] [place] [address] Registered Dietitian Nutrition 11/28/22 Alyce Chadwick APRN.CIGARETTE STAMPER [address] [place] [address] [place] [id number] Hospice & Palliative Medicine 03/05/23 Kelsie Cunha RN Specialty Debarker Operator Hospice & Palliative Medicine 03/05/23 Linnette Shoemaker, MADY [address] [place] [id number] Specialty Debarker Operator Hematology/Oncology 08/27/23 03/14/25 Kylee Wilkinson LISW [address] [place] [address] Metal Patternmaker 11/20/23 documented as of this encounter
--- OUTSIDE RECORDS SUMMARY | 2025-05-03 09:07 | XMS_ITS | Encounter Summary ---
Author Organization [facility] Address [address] [place] [address] Care Team Providers Care Tube Building Machine Operator Name Role Phone Loren Ascencio MD Primary Care Provider [phone] Unavailable [phone] Alyce Chadwick APRN.DATA CLERK Unavailable + Kelsie Cunha RN Unavailable Unavail able Linnette Shoemaker RN Unavailable [phone] Kylee Wilkinson Unavailable [phone] Source Comments In the event this information is protected by the Federal Confidentiality of Alcohol and Drug AbusePatient Records regulations: The Federal rules restrict any use of the information to criminally investigate or prosecute any alcohol or drug abuse patient.[facility] Encounter Details Date Type Department Care Team (Late st Contact Info) Description 10/11/2021 Patient Msg Pharmacy Home Infusion [address] [place] [id number] Anneliese Perry PSS Weekly [facility] Infusion Pharmacy TPN refill request Social History [...] N ot on file 07/03/2021 Data from: https://www.neighborhoodatlas.medicine.[facility]/. Last address used for calculation [...] have Coronavirus / COVID-19? No / Unsure 10/12/2021 10:04 AM EST documented as of this encounter [...] Castelan i RN * Do you have serious difficulty [...] 8:55 AM EDT Lexis Castelan i RN documented in this encounter Plan of Treatment Upcoming Encounters Date Type Department Care Team (Late st Contact Info) Description 05/10/2025 3:45 PM EDT Office Visit [facility] [address] [place] [address] [place] [address] 3 week lab and lanreotide inj 05/10/2025 4:00 PM EDT Infusion Center Hematology/Oncology [address] [place] [address] [place] [address] 3 week lab and lanreotide inj 05/31/2025 2:45 PM EDT Office Visit [facility] [address] [place] [address] [place] [address] 6 week follow up with lab and lanreotide inj 05/31/2025 3:00 PM EDT Visit (SP) Office Hematology/Oncology [address] [place] [address] [place] [address] Viridiana Mccarthy, PA-C [address] [place] [address] 6 week follow up with lab and lanreotide inj 05/31/2025 3:30 PM EDT Infusion Center Hematology/Oncology [address] [place] [address] [place] [address] 6 week follow up with lab and lanreotide inj 08/03/2025 2:30 PM EDT [facility] Palliative Medicine [address] [place] [address] [place] [address] Alyce Chadwick, STICK ROLLER.DATA CLERK [address] [place] [address] 3 month follow up documented as of this encounter Visit Diagnoses Not on filedocumented in this encounter Additional Health Concerns Infection Onset Date Last Indicated Resolved Time COVID-19 Rule-Out 01/31/2022 01/31/2022 01/31/2022 10:44 AM EDT documented as of this encounter Care Teams Tube Building Machine Operator Relationship Specialty Start Date End Date Loren Ascencio MD [address] [place] [address] PCP - General Family Medicine 10/01/[address] [facility] [address] [place] [address] Registered Dietitian Nutrition 11/28/22 Alyce Chadwick APRN.DATA CLERK [address] [place] [address] Hospice & Palliative Medicine 03/05/23 Kelsie Cunha RN Specialty Container Finishing Inspector Hospice & Palliative Medicine 03/05/23 Linnette Shoemaker, MADY [address] [place] [address] Specialty Container Finishing Inspector Hematology/Oncology 08/27/23 03/14/25 Kylee Wilkinson LISW [address] [place] [address] Grain I Farmworker 11/20/23 documented as of this encounter
--- OUTSIDE RECORDS SUMMARY | 2025-05-03 09:07 | XMS_ITS | Encounter Summary ---
Author Organization [facility] Address [address] [place] [address] Care Team Providers Care Diabetologist Name Role Phone Loren Ascencio MD Primary Care Provider [phone] Unavailable [phone] Alyce Chadwick APRN.STUDENT LOAN COUNSELOR Unavailable + Kelsie Cunha RN Unavailable Unavail able Kylee Wilkinson Unavailable [phone] Source Comments In the event this information is protected by the Federal Confidentiality of Alcohol and Drug AbusePatient Records regulations: The Federal rules restrict any use of the information to criminally investigate or prosecute any alcohol or drug abuse patient.[facility] Encounter Details Date Type Department Care Team (Late st Contact Info) Description 04/28/2025 Telephone Hematology/Oncology [address] [place] [address] [place] [address] Lisbet Sinclair, MADY Social History Tobacco Use Types Packs/Day Years [...] is lower risk 4 03/21/2023 Data from: https://www.neighborhoodatlas.medicine.[facility]/. Last address used for calculation [address] 03/21/2023 Comments No Sex and Gender [...] Rima Osborne RN documented in this encounter Miscellaneous Notes * Telephone Encounter - Lisbet Sinclair RN - 04/28/2025 4:17 PM EDT Deena at [facility] Medical calling to verify if pt had an ileostomy reversal and if so when. A recent script was sent to get supplies and Dakota JUAREZBS, pt insurance states she had reversal but was not able to give the information to [facility] medical. Called and left a message with Lian to call us back. Triage: When she calls we need to know if she had the reversal, about when and at what facility so we can let the medical supply store know. [facility] Medical number is [phone] documented in this encounter Plan of Treatment Upcoming Encounters Date Type Department Care Team (Late st Contact Info) Description 05/10/2025 3:45 PM EDT Office Visit [facility] Laboratory [address] [place] [address] [place] [address] 3 week lab and lanreotide inj 05/10/2025 4:00 PM EDT Infusion Center Hematology/Oncology [address] [place] [address] [place] [address] 3 week lab and lanreotide inj 05/31/2025 2:45 PM EDT Office Visit [facility] [address] [place] [address] [place] [address] 6 week follow up with lab and lanreotide inj 05/31/2025 3:00 PM EDT Visit (SP) Office Hematology/Oncology [address] [place] [address] [place] [address] Viridiana Mccarthy, PA-C [address] [place] [address] [place] [address] 6 week follow up with lab and lanreotide inj 05/31/2025 3:30 PM EDT Infusion Center Hematology/Oncology [address] [place] [address] [place] [address] 6 week follow up with lab and lanreotide inj 08/03/2025 2:[address] [facility] Palliative Medicine [address] [place] [address] [place] [address] Alyce Chadwick, BUILD TECHNICIAN.STUDENT LOAN COUNSELOR [address] [place] [id number] 3 month follow up documented as of this encounter Visit Diagnoses Not on filedocumented in this encounter Care Teams Diabetologist Relationship Specialty Start Date End Date Loren Ascencio MD [address] [place] [address] PCP - General Family Medicine 10/01/[address] [place] [address] [place] [address] Registered Dietitian Nutrition 11/28/22 Alyce Chadwick APRN.STUDENT LOAN COUNSELOR [address] [place] [address] [place] [address] Hospice & Palliative Medicine 03/05/23 Kelsie Cunha RN Specialty Fruit Sprayer Hospice & Palliative Medicine 03/05/23 Kylee Wilkinson LISW [address] [place] [address] Pot Fireman 11/20/23 documented as of this encounter
--- OUTSIDE RECORDS SUMMARY | 2025-05-03 09:07 | XMS_ITS | Encounter Summary ---
Author Organization [facility] Address [address] [place] [address] Care Team Providers Care Binding Cutter Synthetic Cloth Name Role Phone Loren Ascencio MD Primary Care Provider [phone] Encounter Details Date Type Department Care Team (Late st Contact Info) Description 09/02/2024 Clinisync Result Encounter [facility] External Department Unsolicited Provider, Generic External Data Social History Tobacco Use Types Packs/Day Years Used Date Smoking Tobacco: Never Assessed Comments Unknown Sex and Gender Information Value Date Recorded Sex Assigned at Not on file Legal Sex Female 6:53 PM EDT Gender Identity Female 01/23/2023 6:53 PM EDT Sexual Orientation Not on file documented as of this encounter Plan of Treatment Not on file documented as of this encounter Procedures Procedure Name Priority Date/Time Associated Diagnosis Comments XR CYSTOGRAM 09/02/2024 2:46 PM EDT documented in this encounter Results * XR CYSTOGRAM (09/02/2024 2:46 PM EDT) Anatomical Region Laterality Modality Other 09/02/2024 2:46 PM EDT Narrative 09/02/2024 3:01 PM EDT * * *Final Report* * * DATE OF EXAM: Sep 02 2024 2:46PM FVX [id number] - XR CYSTOGRAM / PROCEDURE REASON: multiple diagnoses * * * * Physician Interpretation * * * * CYSTOGRAM: HISTORY: Leaking blood out of the vagina. Evaluate for vesicovaginal fistula. TECHNIQUE: A Hess catheter was placed by the nursing staff. Approximately 350 mL of Omnipaque 240 were used. Fluoroscopic Radiation Summary: Plane A, Air Kerma: 109.7 mGy Plane B, Air Kerma: 0.0 mGy Dose Area Product (DAP): Fluoro time: 2:09 min:sec COMPARISON STUDY: PET of 5 06/16/[address] scan of 01/02/2024. RESULT: The journalists and other writers image demonstrates a Hess catheter and an IUD in place. The bladder demonstrates diverticula lesion of the wall predominantly on the right side posteriorly. There is no vesicovaginal fistula identified. IMPRESSION: 1. No vesicovaginal fistula identified. Deportation Officer: [facility] Transcribe Date/Time: Sep 02 2024 2:52P Dictated by : VERNON HERNÁNDEZ MD This examination was interpreted and the report reviewed and electronically signed by: VERNON HERNÁNDEZ MD on Sep 02 2024 2:59PM EST [id number]^ACN Procedure Note Radiology, Radiologist, - 09/02/2024 * * *Final Report* * * DATE OF EXAM: Sep 02 2024 2:46PM FVX [id number] - XR CYSTOGRAM / PROCEDURE REASON: multiple diagnoses * * * * Physician Interpretation * * * * CYSTOGRAM: HISTORY: Leaking blood out of the vagina. Evaluate for vesicovaginal fistula. TECHNIQUE: A Hess catheter was placed by the nursing staff. Approximately 350 mL of Omnipaque 240 were used. Fluoroscopic Radiation Summary: Plane A, Air Kerma: 109.7 mGy Plane B, Air Kerma: 0.0 mGy Dose Area Product (DAP): Fluoro time: 2:09 min:sec COMPARISON STUDY: PET of 06/16/[address] scan of 01/02/2024. RESULT: The journalists and other writers image demonstrates a Hess catheter and an IUD in place. The bladder demonstrates diverticula lesion of the wall predominantly on the right side posteriorly. There is no vesicovaginal fistula identified. IMPRESSION: 1. No vesicovaginal fistula identified. Deportation Officer: [facility] Transcribe Date/Time: Sep 02 2024 2:52P Dictated by : VERNON HERNÁNDEZ MD This examination was interpreted and the report reviewed and electronically signed by: VERNON HERNÁNDEZ MD on Sep 02 2024 2:59PM EST [id number]^SI^ACN us Generic External Data Provider [facility] Final Result documented in this encounter Visit Diagnoses Not on filedocumented in this encounter Care Teams Binding Cutter Synthetic Cloth Relationship Specialty Start Date End Date Loren Ascencio MD [address] [place] [address] PCP - General Family Medicine 03/19/23 documented as of this encounter
--- OUTSIDE RECORDS SUMMARY | 2025-05-03 09:07 | XMS_ITS | Encounter Summary ---
Author Organization [facility] Address [address] [place] [address] Care Team Providers Care Restoration Technician Name Role Phone Loren Ascencio MD Primary Care Provider [phone] Unavailable Alyce Chadwick APRN.MAINSPRING TORQUE TESTER Unavailable + Kelsie Cunha RN Unavailable Unavail able Kylee Wilkinson Unavailable [phone] Source Comments In the event this information is protected by the Federal Confidentiality of Alcohol and Drug AbusePatient Records regulations: The Federal rules restrict any use of the information to criminally investigate or prosecute any alcohol or drug abuse patient.[facility] Encounter Details Date Type Department Care Team (Late st Contact Info) Description 03/22/2025 Patient [facility] Palliative Medicine [address] [place] [address] Provider, [facility] refill for duloxetine Social History Tobacco Use Types Packs/Day Years [...] is lower risk 4 03/21/2023 Data from: https://www.neighborhoodatlas.medicine.[facility]/. Last address used for calculation [address] 03/21/2023 Comments No Sex and Gender [...] Description 05/10/2025 3:45 PM EDT Office Visit [facility] Laboratory [address] [place] [address] 3 week lab and lanreotide inj 05/10/2025 4:00 PM EDT Infusion Center Hematology/Oncology [address] [facility] [place] [address] 3 week lab and lanreotide inj 05/31/2025 2:45 PM EDT Office Visit [facility] Laboratory [address] [facility] [facility] [place] [address] 6 week follow up with lab and lanreotide inj 05/31/2025 3:00 PM EDT Visit (SP) Office Hematology/Oncology [facility] [place] [address] Viridiana Mccarthy PA-C [address] [facility] [place] [address] 6 week follow up with lab and lanreotide inj 05/31/2025 3:30 PM EDT [facility] Center Hematology/Oncology [facility] [place] [address] 6 week follow up with lab and lanreotide inj 08/03/2025 2:30 PM EDT [facility] Palliative Medicine [address] [place] [address] [place] [address] Alyce Chadwick, TOY ASSEMBLER WOOD.MAINSPRING TORQUE TESTER [address] [place] [address] 3 month follow up documented as of this encounter Visit Diagnoses Not on filedocumented in this encounter Care Teams Restoration Technician Relationship Specialty Start Date End Date Loren Ascencio MD [address] [place] [address] PCP - General Family Medicine 10/01/[address] [place] [address] [place] [address] Registered Dietitian Nutrition 11/28/22 Alyce Chadwick, TOY ASSEMBLER WOOD.MAINSPRING TORQUE TESTER [address] [place] [address] [place] [phone] Hospice & Palliative Medicine 03/05/23 Kelsie Cunha, RN Specialty It Risk Analyst Hospice & Palliative Medicine 03/05/23 Kylee Wilkinson LISW [address] [place] [address] Regulatory Agency Director 11/20/23 documented as of this encounter
--- OUTSIDE RECORDS SUMMARY | 2025-05-03 09:07 | XMS_ITS | Encounter Summary ---
Author Organization [facility] Address [address] [place] [address] Care Team Providers Care Operating Theatre Technician Name Role Phone Loren Ascencio MD Primary Care Provider [phone] Unavailable [phone] Alyce Chadwick APRN.CHUCK WAGON COOK Unavailable + Kelsie Cunha RN Unavailable Unavail able Linnette Shoemaker RN Unavailable [phone] Kylee Wilkinson Unavailable [phone] Source Comments In the event this information is protected by the Federal Confidentiality of Alcohol and Drug AbusePatient Records regulations: The Federal rules restrict any use of the information to criminally investigate or prosecute any alcohol or drug abuse patient.[facility] Encounter Details Date Type Department Care Team (Late st Contact Info) Description 08/23/2021 Patient Msg Pharmacy Home Infusion [address] [place] [address] Anneliese Perry PSS Weekly [facility] Infusion Pharmacy TPN refill request Social [...] N ot on file 07/03/2021 Data from: https://www.neighborhoodatlas.[facility]/. Last address used for calculation Not [...] have Coronavirus / COVID-19? No / Unsure 08/21/2021 2:06 PM EDT documented as of this encounter Functional [...] Description 05/10/2025 3:45 PM EDT Office Visit [facility] Laboratory [address] [place] [address] [place] [address] 3 week lab and lanreotide inj 05/10/2025 4:00 PM EDT Infusion Center Hematology/Oncology [address] [place] [address] [place] [address] 3 week lab and lanreotide inj 05/31/2025 2:45 PM EDT Office Visit [facility] Laboratory [address] [place] [address] [place] [address] 6 week follow up with lab and lanreotide inj 05/31/2025 3:00 PM EDT Visit (SP) Office Hematology/Oncology [address] [place] [address] [place] [address] Viridiana Mccarthy, PA-C [address] [facility] [place] [place] [address] 6 week follow up with lab and lanreotide inj 05/31/2025 3:30 PM EDT Infusion Center Hematology/Oncology [address] [place] [address] [place] [address] 6 week follow up with lab and lanreotide inj 08/03/2025 2:30 PM EDT [facility] Palliative Medicine [address] [place] [address] [place] [address] Alyce Chadwick, CROSSTIE INSPECTOR.CHUCK WAGON COOK [address] [place] [address] 3 month follow up documented as of this encounter Visit Diagnoses Not on filedocumented in this encounter Additional Health Concerns Infection Onset Date Last Indicated Resolved Time COVID-19 Rule-Out 01/31/2022 01/31/2022 01/31/2022 10:44 AM EDT documented as of this encounter Care Teams Operating Theatre Technician Relationship Specialty Start Date End Date Loren Ascencio MD [address] [place] [address] PCP - General Family Medicine 10/01/[address] [facility] [place] [place] [address] Registered Dietitian Nutrition 11/28/22 Alyce Chadwick APRN.CHUCK WAGON COOK [address] [facility] [place] [address] Hospice & Palliative Medicine 03/05/23 Kelsie Cunha RN Specialty Director Occupational Hospice & Palliative Medicine 03/05/23 Linnette Shoemaker, MADY [address] [place] [place] [id number] Specialty Director Occupational Hematology/Oncology 08/27/23 03/14/25 Kylee Wilkinson LISW [address] [place] [address] Shared Services Manager 11/20/23 documented as of this encounter
--- OUTSIDE RECORDS SUMMARY | 2025-05-03 09:07 | XMS_ITS | Encounter Summary ---
Author Organization [facility] Address [address] [place] [address] Care Team Providers Care Director External Communications Name Role Phone Loren Ascencio MD Primary Care Provider [phone] Unavailable [phone] Alyce Chadwick HYDROELECTRIC PLANT ELECTRICIAN.NIB ASSEMBLER Unavailable + Kelsie Cunha RN Unavailable Unavail able Kylee Wilkinson Unavailable Source Comments In the event this information is protected by the Federal Confidentiality of Alcohol and Drug AbusePatient Records regulations: The Federal rules restrict any use of the information to criminally investigate or prosecute any alcohol or drug abuse patient.[facility] Reason for Visit * Reason Onset Date Comments Results 04/22/2025 Encounter Details Date Type Department Care Team (Late st Contact Info) Description 04/22/2025 Results Follow-Up Hematology/Oncology [address] [place] [address] [place] [address] Leslie Lovelace APRN.NIB ASSEMBLER [address] [place] [address] Results Social History Tobacco Use Types Packs/Day Years [...] is lower risk 4 03/21/2023 Data from: https://www.neighborhoodatlas.medicine.[facility]/. Last address used for calculation [address] 03/21/2023 Comments No Sex and Gender [...] of Assessment Author No 02/09/2022 1:51 PM MOHINIT Rima Osborne RN * Do you have [...] encounter Miscellaneous Notes * Telephone Encounter - Leslie Lovelace APRN.CNP - 04/22/2025 2:00 PM EDT Ok, thanks * Telephone Encounter - Arabella Chappell RN - 04/22/2025 1:58 PM EDT Pt notified of results. 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 Please advise Arabella Chappell RN documented in this encounter Plan of Treatment Upcoming Encounters Date Type Department Care Team (Late st Contact Info) Description 05/10/2025 3:45 PM EDT Office Visit [facility] Laboratory [address] [place], [place] [address] [address] 3 week lab and lanreotide inj 05/10/2025 4:00 PM EDT Infusion Center Hematology/Oncology [facility] [place] [address] 3 week lab and lanreotide inj 05/31/2025 2:45 PM EDT Office Visit [facility] Laboratory [facility] [place] [address] 6 week follow up with lab and lanreotide inj 05/31/2025 3:00 PM EDT Visit (SP) Office Hematology/Oncology [facility] [place] [address] Viridiana Mccarthy, PAJonnathanC [facility] [place] [address] 6 week follow up with lab and lanreotide inj 05/31/2025 3:30 PM EDT Infusion Center Hematology/Oncology [facility] [place] [address] 6 week follow up with lab and lanreotide inj 08/03/2025 2[facility] [facility] [address] [place] [address] Alyce Chadwick, VIKASH.NIB ASSEMBLER [address] [place], [place] [address] 3 month follow up documented as of this encounter Visit Diagnoses Not on filedocumented in this encounter Care Teams Director External Communications Relationship Specialty Start Date End Date Loren Ascencio MD [address] [place] [address] PCP - General Family Medicine 10/01/[address] [place] [address] [place] [address] Registered Dietitian Nutrition 11/28/22 Alyce Chadwick, VIKASH.NIB ASSEMBLER [address] [place] [address] [place] [address] Hospice & Palliative Medicine 03/05/23 Kelsie Cunha, RN Specialty Watch Hairspring Assembler Hospice & Palliative Medicine 03/05/23 Kylee Wilkinson LISW [address] [place] [address] Pmp 11/20/23 documented as of this encounter
--- OUTSIDE RECORDS SUMMARY | 2025-05-03 09:07 | XMS_ITS | Encounter Summary ---
Author Organization [facility] Address [address] [place] [address] Care Team Providers Care Children'S Nursery Assistant Name Role Phone Loren Ascencio MD Primary Care Provider [phone] Unavailable [phone] Alyce Chadwick APRN.RESEARCH GROUP DIRECTOR Unavailable + Kelsie Cunha RN Unavailable Unavail able Linnette Shoemaker RN Unavailable [phone] Kylee Wilkinson Unavailable [phone] Source Comments In the event this information is protected by the Federal Confidentiality of Alcohol and Drug AbusePatient Records regulations: The Federal rules restrict any use of the information to criminally investigate or prosecute any alcohol or drug abuse patient.[facility] Encounter Details Date Type Department Care Team (Late st Contact Info) Description 09/25/2023 Patient Msg Hematology/Oncology [address] [place] [address] Humberto Stout MD [address] [place] [address] Appointment Cancellation Request Social History Tobacco Use Types Packs/Day Years Used Date Smoking Tobacco: Never Passive Smoke Exposure: Past Smokeless Tobacco: Never Alcohol Use Standard Drinks/Week Comments Not Currently 0 (1 standard drink = 0.6 oz pur e alcohol) maybe once per month PHQ-2 Answer Date Recorded PHQ-2 score 0 08/15/2023 Area Deprivation Index Answer Date Chandu rded National Score (1-100), lower number is lower ri sk 60 03/21/2023 State Score (1-10), lower number is lower risk 4 03/21/2023 Data from: https://www.neighborhoodatlas.[facility]/. Last address used for calculation [address] 03/21/2023 Comments No Sex and Gender [...] Visit [facility] Laboratory [address] [place] [address] [place] [address] 3 week lab and lanreotide inj 05/10/2025 4:00 PM EDT Infusion Center Hematology/Oncology [address] [place] [address] [place] [address] 3 week lab and lanreotide inj 05/31/2025 2:45 PM EDT Office Visit [facility] Laboratory [address] [place] [address] [place] [address] 6 week follow up with lab and lanreotide inj 05/31/2025 3:00 PM EDT Visit (SP) Office Hematology/Oncology [facility] [address] [address] Viridiana Mccarthy, PA-C [address] [place] [address] 6 week follow up with lab and lanreotide inj 05/31/2025 3:30 PM EDT Infusion Center Hematology/Oncology [address] [place] [address] [place] [address] 6 week follow up with lab and lanreotide inj 08/03/2025 2:30 PM EDT [facility] Palliative Medicine [address] [place] [address] [place] [address] Alyce Chadwick, FISH FARMER.RESEARCH GROUP DIRECTOR [address] [place] [address] 3 month follow up documented as of this encounter Visit Diagnoses Not on filedocumented in this encounter Care Teams Children'S Nursery Assistant Relationship Specialty Start Date End Date Loren Ascencio MD [address] [place] [address] PCP - General Family Medicine 10/01/[address] [place] [address] [place] [address] Registered Dietitian Nutrition 11/28/22 Alyce Chadwick APRN.RESEARCH GROUP DIRECTOR [address] [place] [address] Hospice & Palliative Medicine 03/05/23 Kelsie Cunha RN Specialty Technical Solution Architect Hospice & Palliative Medicine 03/05/23 [place] [address] [place] [address] Specialty Technical Solution Architect Hematology/Oncology 08/27/23 03/14/25 Kylee Wilkinson LISW [address] [place] [address] Courtroom Clerk 11/20/23 documented as of this encounter
--- OUTSIDE RECORDS SUMMARY | 2025-05-03 09:07 | XMS_ITS | Encounter Summary ---
Author Organization [facility] Address [address] [place] [address] Care Team Providers Care Central Supply Aide Name Role Phone Loren Ascencio MD Primary Care Provider [phone] Unavailable [phone] Alyce Chadwick APRN.VALET MANAGER Unavailable + Kelsie Cunha RN Unavailable Unavail able Kylee Wilkinson Unavailable [phone] Source Comments In the event this information is protected by the Federal Confidentiality of Alcohol and Drug AbusePatient Records regulations: The Federal rules restrict any use of the information to criminally investigate or prosecute any alcohol or drug abuse patient.[facility] Encounter Details Date Type Department Care Team (Late st Contact Info) Description 04/21/2025 Orders Only [facility]OSPITAL PHARM[facility] -[address] [place] [address] Enedelia Barker, [address] [place] [address] Social History Tobacco Use Types Packs/Day Years [...] risk 4 03/21/2023 Data from: https://www.neighborhoodatlas.medicine.[facility]/. Last address used for calculation [address] 03/21/2023 Comments No Sex [...] 02/09/2022 1:51 PM EDRima Mays RN * Are you blind or do [...] Rima Capps RN documented in this encounter Plan of Treatment Upcoming Encounters Date Type Department Care Team (Late st Contact Info) Description 05/10/2025 3:45 PM EDT Office Visit [facility] Laboratory [address] [facility] [address] 3 week lab and lanreotide inj 05/10/2025 4:00 PM EDT [facility] Hematology/Oncology [address] [place] [address] [place] [address] 3 week lab and lanreotide inj 05/31/2025 2:45 PM EDT Office Visit [facility] Laboratory [address] [place] [address] [place] [address] 6 week follow up with lab and lanreotide inj 05/31/2025 3:00 PM EDT Visit (SP) Office Hematology/Oncology [address] [place] [address] [place] [address] Viridiana Mccarthy, PAJonnathanC [address] [facility] [place] [address] 6 week follow up with lab and lanreotide inj 05/31/2025 3:30 PM EDT [facility] Hematology/Oncology [address] [place] [address] [place] [address] 6 week follow up with lab and lanreotide inj 08/03/2025 2:30 PM EDT [facility] Palliative Medicine [address] [place] [address] [place] [address] Alyce Chadwick APRN.VALET MANAGER [address] [place] [id number] 3 month follow up documented as of this encounter Visit Diagnoses Not on filedocumented in this encounter Care Teams Central Supply Aide Relationship Specialty Start Date End Date Loren Ascencio MD [address] [place] [address] PCP - General Family Medicine 10/01/[address] [place] [address] [place] [address] Registered Dietitian Nutrition 11/28/22 Alyce Chadwick APRN.VALET MANAGER [address] [place] [address] [place] [address] Hospice & Palliative Medicine 03/05/23 Kelsie Cunha, RN Specialty Supervisor Evaporator Hospice & Palliative Medicine 03/05/23 Kylee Wilkinson LISW [address] [place] [address] Admissions Specialist 11/20/23 documented as of this encounter
--- OUTSIDE RECORDS SUMMARY | 2025-05-03 09:07 | XMS_ITS | Encounter Summary ---
Author Organization [facility] Address [address] [place] [address] Care Team Providers Care Rock Picker Name Role Phone Loren Ascencio MD Primary Care Provider [phone] Unavailable [phone] Alyce Chadwick APRN.ACOUSTICAL INSTALLER Unavailable + Kelsie Cunha RN Unavailable Unavail able Linnette Shoemaker RN Unavailable [phone] Kylee Wilkinson Unavailable [phone] Source Comments In the event this information is protected by the Federal Confidentiality of Alcohol and Drug AbusePatient Records regulations: The Federal rules restrict any use of the information to criminally investigate or prosecute any alcohol or drug abuse patient.[facility] Encounter Details Date Type Department Care Team (Late st Contact Info) Description 09/06/2021 Patient Msg Pharmacy Home Infusion [address] [place] [address] Anneliese Perry PSS Weekly [facility] Infusion Pharmacy TPN refill request Social [...] N ot on file 07/03/2021 Data from: https://www.neighborhoodatlas.[facility]/. Last address used for calculation [...] have Coronavirus / COVID-19? No / Unsure 09/07/2021 2:18 PM EDT documented as of this encounter [...] EDT Office Visit [facility] Laboratory [address] [place] [address] [place] [address] 3 week lab and lanreotide inj 05/10/2025 4:00 PM EDT Infusion Center Hematology/Oncology [address] [place] [address] [place] [address] 3 week lab and lanreotide inj 05/31/2025 2:45 PM EDT Office Visit [facility] Laboratory [address] [place] [address] [place] [address] 6 week follow up with lab and lanreotide inj 05/31/2025 3:00 PM EDT Visit (SP) Office Hematology/Oncology [address] [place] [address] [place] [address] Viridiana Mccarthy, PA-C [address] [place] [address] 6 week follow up with lab and lanreotide inj 05/31/2025 3:30 PM EDT Infusion Center Hematology/Oncology [address] [place] [address] [place] [address] 6 week follow up with lab and lanreotide inj 08/03/2025 2:30 PM EDT [facility] Palliative Medicine [address] [place] [address] [place] [address] Aylce Chadwick, SHEET METAL WORKER HELPER.ACOUSTICAL INSTALLER [address] [place] [address] 3 month follow up documented as of this encounter Visit Diagnoses Not on filedocumented in this encounter Additional Health Concerns Infection Onset Date Last Indicated Resolved Time COVID-19 Rule-Out 01/31/2022 01/31/2022 01/31/2022 10:44 AM EDT documented as of this encounter Care Teams Rock Picker Relationship Specialty Start Date End Date Loren Ascencio MD [address] [place] [address] PCP - General Family Medicine 10/01/[address] [place] [address] Registered Dietitian Nutrition 11/28/22 Alyce Chadwick APRN.ACOUSTICAL INSTALLER [address] [place] [address] Hospice & Palliative Medicine 03/05/23 Kelsie Cunha RN Specialty Automatic Silk Screen Printer Hospice & Palliative Medicine 03/05/23 Linnette Shoemaker, MADY [address] [place] [id number] Specialty Automatic Silk Screen Printer Hematology/Oncology 08/27/23 03/14/25 Kylee Wilkinson LISW [address] [place] [address] Oil Well Cable Tool Operator 11/20/23 documented as of this encounter
--- OUTSIDE RECORDS SUMMARY | 2025-05-03 09:07 | XMS_ITS | Encounter Summary ---
Author Organization [facility] Address [facility] [place] [address] Care Team Providers Care Drier Name Role Phone Loren Ascencio MD Primary Care Provider [phone] Unavailable [phone] Alyce Chadwick APRN.FOOD TECHNOLOGY TEACHER Unavailable + Kelsie Cunha RN Unavailable Unavail able Linnette Shoemaker RN Unavailable [phone] Kylee Wilkinson Unavailable [phone] Source Comments In the event this information is protected by the Federal Confidentiality of Alcohol and Drug AbusePatient Records regulations: The Federal rules restrict any use of the information to criminally investigate or prosecute any alcohol or drug abuse patient.[facility] Encounter Details Date Type Department Care Team (Late st Contact Info) Description 01/01/2023 Get Medical Advice Gynecology Oncology [address] [place] [address] Nichelle Bustos MD [address] [place] [address] Uti like pain Social History Tobacco Use Types Packs/Day Years Used Date Smoking Tobacco: Never Passive Smoke Exposure: Past Smokeless Tobacco: Never Alcohol Use Standard Drinks/Week Comments Yes 0 (1 standard drink = 0.6 oz pur e alcohol) maybe once per month PHQ-2 Answer Date Recorded PHQ-2 score 1 10/01/2022 Area Deprivation Index Answer Date Chandu rded National Score (1-100), lower number is lower ri sk 65 11/25/2022 State Score (1-10), lower number is lower risk N ot on file 11/25/2022 Data from: https://www.neighborhoodatlas.[facility]/. Last address used for calculation [address] 11/25/2022 Comments No Sex and Gender Information Value [...] Description 05/10/2025 3:45 PM EDT Office Visit [facility] Laboratory [address] [place] [address] [place] [address] 3 week lab and lanreotide inj 05/10/2025 4:00 PM EDT Infusion Center Hematology/Oncology [facility] [place] [address] 3 week lab and lanreotide inj 05/31/2025 2:45 PM EDT Office Visit [facility] Laboratory [address] [place] [address] [place] [address] 6 week follow up with lab and lanreotide inj 05/31/2025 3:00 PM EDT Visit (SP) Office Hematology/Oncology [facility] [address] [place] [address] Viridiana Mccarthy, PA-C [address] [facility] [place] [address] 6 week follow up with lab and lanreotide inj 05/31/2025 3:30 PM EDT Infusion Center Hematology/Oncology [facility] [place] [address] 6 week follow up with lab and lanreotide inj 08/03/2025 2:30 PM EDT [facility] Palliative Medicine [address] [place] [address] [place] [address] Alyce Chadwick, PANEL MAKER.FOOD TECHNOLOGY TEACHER [address] [place] [address] 3 month follow up documented as of this encounter Visit Diagnoses Not on filedocumented in this encounter Care Teams Drier Relationship Specialty Start Date End Date Loren Ascencio MD [address] [place] [address] PCP - General Family Medicine 10/01/[address] [place] [address] [place] [address] Registered Dietitian Nutrition 11/28/22 Alyce Chadwick APRN.FOOD TECHNOLOGY TEACHER [address] [address] Hospice & Palliative Medicine 03/05/23 Kelsie Cunha RN Specialty Establishment Guide Hospice & Palliative Medicine 03/05/23 [place] [address] [place] [address] Specialty Establishment Guide Hematology/Oncology 08/27/23 03/14/25 Kylee Wilkinson LISW [address] [place] [address] Rn Embedded 11/20/23 documented as of this encounter
--- OUTSIDE RECORDS SUMMARY | 2025-05-03 09:07 | XMS_ITS | Encounter Summary ---
Author Organization [facility] Address [address] [place] [address] Care Team Providers Care Bilingual Office Assistant Name Role Phone Loren Ascencio MD Primary Care Provider [phone] Unavailable [phone] Alyce Chadwick FIRMWARE ARCHITECT.WAREHOUSE OPERATOR Unavailable + Kelsie Cunha RN Unavailable Unavail able Linnette Shoemaker RN Unavailable [phone] Kylee Wilkinson Unavailable [phone] Source Comments In the event this information is protected by the Federal Confidentiality of Alcohol and Drug AbusePatient Records regulations: The Federal rules restrict any use of the information to criminally investigate or prosecute any alcohol or drug abuse patient.[facility] Reason for Visit * Reason Comments Refill Request Encounter Details Date Type Department Care Team (Late st Contact Info) Description 01/24/2025 Refill Palliative Medicine [address] [place] [address] [place] [address] Alcye Chadwick, FIRMWARE ARCHITECT.WAREHOUSE OPERATOR [address] [place] [address] Refill Request Social History Tobacco Use Types Packs/Day Years Used Date Smoking Tobacco: Never Passive Smoke Exposure: Past Smokeless Tobacco: Never Alcohol Use Standard Drinks/Week Comments Not Currently 0 (1 standard drink = 0.6 oz pur e alcohol) maybe once per month PHQ-2 Answer Date Recorded PHQ-2 score 2 12/07/2024 Area Deprivation Index Answer Date Chandu rded National Score (1-100), lower number is lower ri sk 60 03/21/2023 State Score (1-10), lower number is lower risk 4 03/21/2023 Data from: https://www.neighborhoodatlas.[facility]/. Last address used for calculation [address] 03/21/2023 Comments No Sex and Gender Information [...] encounter Miscellaneous Notes * Telephone Encounter - Kelsie Cunha RN - 01/25/2025 10:08 AM EDT Duplicate refill request. Ordered 01/22/2025 for 90 capsules. Refill denied. Kelsie Cunha RN January 25, 2025 documented in this encounter Plan of Treatment Upcoming Encounters Date Type Department Care Team (Late st Contact Info) Description 05/10/2025 3:45 PM EDT Office Visit [facility] Laboratory [address] [place] [address] [place] [address] 3 week lab and lanreotide inj 05/10/2025 4:00 PM EDT Infusion Center Hematology/Oncology [address] [place] [address] [place] [address] 3 week lab and lanreotide inj 05/31/2025 2:45 PM EDT Office Visit [facility] Laboratory [address] [place] [address] [place] [address] 6 week follow up with lab and lanreotide inj 05/31/2025 3:00 PM EDT Visit (SP) Office Hematology/Oncology [address] [place] [address] [place] [address] Viridiana Mccarthy, PA-C [address] [place] [address] [place] [address] 6 week follow up with lab and lanreotide inj 05/31/2025 3:30 PM EDT Infusion Center Hematology/Oncology [address] [place] [address] [place] [address] 6 week follow up with lab and lanreotide inj 08/03/2025 2:30 PM EDT [facility] Palliative Medicine [address] [place] [address] [place] [address] Alyce Chadwick, FIRMWARE ARCHITECT.WAREHOUSE OPERATOR [address] [place] [id number] 3 month follow up documented as of this encounter Visit Diagnoses Diagnosis 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 Dysthymic disorder documented in this encounter Care Teams Bilingual Office Assistant Relationship Specialty Start Date End Date Loren Ascencio MD [address] [place] [address] PCP - General Family Medicine 10/01/[address] [place] [address] [place] [address] Registered Dietitian Nutrition 11/28/22 Alyce Chadwick APRN.[facility] [address] [place] [address] [place] [address] Hospice & Palliative Medicine 03/05/23 Kelsie Cunha RN Specialty Horse Trader Hospice & Palliative Medicine 03/05/23 Linnette Shoemaker, MADY [address] [place] [id number] Specialty Horse Trader Hematology/Oncology 08/27/23 03/14/25 Kylee Wilkinson LISW [address] [place], [place] [id number] Car Manager 11/20/23 documented as of this encounter
--- OUTSIDE RECORDS SUMMARY | 2025-05-03 09:07 | XMS_ITS | Encounter Summary ---
Author Organization [facility] Address [address] [place] [address] Care Team Providers Care Grizzly Worker Name Role Phone Loren Ascencio MD Primary Care Provider [phone] Unavailable [phone] Alyce Chadwick APRN.READINESS PARAPROFESSIONAL Unavailable + Kelsie Cunha RN Unavailable Unavail able Kylee Wilkinson Unavailable [phone] Source Comments In the event this information is protected by the Federal Confidentiality of Alcohol and Drug AbusePatient Records regulations: The Federal rules restrict any use of the information to criminally investigate or prosecute any alcohol or drug abuse patient.[facility] Encounter Details Date Type Department Care Team (Late st Contact Info) Description 04/21/2025 Orders Only Hematology/Oncology [address] [place] [address] Viridiana Mccarthy PA-C [address] [place] [address] Social History Tobacco Use Types Packs/Day [...] is lower risk 4 03/21/2023 Data from: https://www.neighborhoodatlas.[facility]/. Last address used for calculation [address] 03/21/2023 Comments No Sex [...] 02/09/2022 1:51 PM Rima Capps RN * Are you blind or do [...] Description 05/10/2025 3:45 PM EDT Office Visit [facility] [address] [place] [address] [place] [address] 3 week lab and lanreotide inj 05/10/2025 4:00 PM EDT Infusion Center Hematology/Oncology [address] [place] [address] [place] [address] 3 week lab and lanreotide inj 05/31/2025 2:45 PM EDT Office Visit [facility] [address] [place] [address] [place] [address] 6 week follow up with lab and lanreotide inj 05/31/2025 3:00 PM EDT Visit (SP) Office Hematology/Oncology [address] [place] [address] [place] [address] Viridiana Mccarthy, PAJonnathanC [address] [place] [place] [address] 6 week follow up with lab and lanreotide inj 05/31/2025 3:30 PM EDT [facility] Center Hematology/Oncology [address] [place] [address] [place] [address] 6 week follow up with lab and lanreotide inj 08/03/2025 2:30 PM EDT [facility] Palliative Medicine [address] [place] [address] [place] [address] Alyce Chadwick, DEPUTY COMMISSIONER.READINESS PARAPROFESSIONAL [address] [place] [id number] 3 month follow up documented as of this encounter Visit Diagnoses Not on filedocumented in this encounter Care Teams Grizzly Worker Relationship Specialty Start Date End Date Loren Ascencio MD [address] [place] [address] PCP - General Family Medicine 10/01/[address] [place] [address] [place] [address] Registered Dietitian Nutrition 11/28/22 Alyce Chadwick APRN.READINESS PARAPROFESSIONAL [address] [place] [address] [place] [id number] Hospice & Palliative Medicine 03/05/23 Kelsie Cunha, RN Specialty Postpartum Rn Hospice & Palliative Medicine 03/05/23 Kylee Wilkinson LISW [address] [place] [address] Validation Consultant 11/20/23 documented as of this encounter
--- OUTSIDE RECORDS SUMMARY | 2025-05-03 09:07 | XMS_ITS | Encounter Summary ---
Author Organization [facility] Address [facility] [place] [address] Care Team Providers Care Hoop Rolls Operator Name Role Phone Loren Ascencio MD Primary Care Provider [phone] Unavailable [phone] Alyce Chadwick APRN.HOUSING AND RESIDENCE LIFE DIRECTOR Unavailable + Kelsie Cunha RN Unavailable Unavail able Linnette Shoemaker RN Unavailable [phone] Kylee Wilkinson Unavailable [phone] Source Comments In the event this information is protected by the Federal Confidentiality of Alcohol and Drug AbusePatient Records regulations: The Federal rules restrict any use of the information to criminally investigate or prosecute any alcohol or drug abuse patient.[facility] Encounter Details Date Type Department Care Team (Late st Contact Info) Description 10/20/2021 Patient Msg Pharmacy Home Infusion [address] [place] [address] Anneliese Perry PSS Weekly [facility] Infusion Pharm[facility] TPN refill request Social [...] N ot on file 07/03/2021 Data from: https://www.neighborhoodatlas.medicine.[facility]/. Last address used for calculation Not [...] have Coronavirus / COVID-19? No / Unsure 10/16/2021 11:02 AM EST documented as of this encounter [...] Description 05/10/2025 3:45 PM EDT Office Visit [facility] Laboratory [address] [place] [address] [place] [address] 3 week lab and lanreotide inj 05/10/2025 4:00 PM EDT Infusion Center Hematology/Oncology [address] [place] [address] [place] [address] 3 week lab and lanreotide inj 05/31/2025 2:45 PM EDT Office Visit [facility] Laboratory [address] [place] [address] [place] [address] 6 week follow up with lab and lanreotide inj 05/31/2025 3:00 PM EDT Visit (SP) Office Hematology/Oncology [address] [place] [address] [place] [address] Viridiana Mccarthy, PA-C [address] [place] [address] 6 week follow up with lab and lanreotide inj 05/31/2025 3:30 PM EDT Infusion Center Hematology/Oncology [address] [place] [address] [place] [address] 6 week follow up with lab and lanreotide inj 08/03/2025 2:30 PM EDT [facility] Palliative Medicine [address] [place] [address] [place] [address] Alyce Chadwick, TREE KILLER.HOUSING AND RESIDENCE LIFE DIRECTOR [address] [place] [address] 3 month follow up documented as of this encounter Visit Diagnoses Not on filedocumented in this encounter Additional Health Concerns Infection Onset Date Last Indicated Resolved Time COVID-19 Rule-Out 01/31/2022 01/31/2022 01/31/2022 10:44 AM EDT documented as of this encounter Care Teams Hoop Rolls Operator Relationship Specialty Start Date End Date Loren Ascencio MD [address] [place] [address] PCP - General Family Medicine 10/01/[address] [place] [address] Registered Dietitian Nutrition 11/28/22 Alyce Chadwick APRN.HOUSING AND RESIDENCE LIFE DIRECTOR [address] [place] [address] Hospice & Palliative Medicine 03/05/23 Kelsie Cunha RN Specialty Arrow Point Attacher Hospice & Palliative Medicine 03/05/23 Linnette Shoemaker, MADY [address] [place] [address] Specialty Arrow Point Attacher Hematology/Oncology 08/27/23 03/14/25 Kylee Wilkinson LISW [address] [place] [address] Health Care Marketing Specialist 11/20/23 documented as of this encounter
--- OUTSIDE RECORDS SUMMARY | 2025-05-03 09:07 | XMS_ITS | Encounter Summary ---
Author Organization [facility] Address [address] [place] [address] Care Team Providers Care Correctional Program Officer Name Role Phone Loren Ascencio MD Primary Care Provider [phone] Encounter Details Date Type Department Care Team (Late st Contact Info) Description 09/08/2024 Clinisync Result Encounter [facility] External Department Unsolicited [...] Procedure Name Priority Date/Time Associated Diagnosis Comments CT BX RIB/PELV/MACKEY/SPIN E PROC 09/08/2024 11:34 AM EDT documented in this encounter Results * CT BX RIB/PELV/MACKEY/SPINE PROC (09/08/2024 11:34 AM EDT) Anatomical Region Laterality Modality Other 09/08/2024 11:3 4 AM EDT Narrative 09/08/2024 12:20 PM EDT * * *Final Report* * * DATE OF EXAM: Sep 08 2024 11:34AM [facility]VC 2036 - CT BX RIB/PELV/MACKEY/SPINE PROC / PROCEDURE REASON: INTRA-ABDOMINAL/PELVIC SWELLING * * * * Physician Interpretation * * * * PROCEDURE: DRAINAGE OF PELVIC CYSTIC MASS Procedural Personnel Attending physician(s): Vi Dixon M.D. 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 Medication reconciliation: Done Marsha-procedure discussion: The appropriate elements of the pre-procedure discussion, safety check list and sign-out were performed. Time out was completed before start of procedure. Preparation: The site was prepared and draped using maximal sterile barrier technique including cutaneous antisepsis. Contrast: Contrast agent: Contrast volume (mL): Image Guidance: Fluoroscopic guidance. Radiation/Dose: CT Radiation dose: Integrated Dose-length product (DLP) for this visit = 483 mGy*cm. CT Dose Reduction Employed: Automated exposure control (AEC) Anesthesia/Sedation: Level of anesthesia/sedation: Moderate sedation (conscious sedation) Anesthesia/sedation administered by: Independent trained observer under attending supervision with continuous monitoring of the patient?s level of consciousness and physiologic status Total intra-service sedation time (minutes): 18 Local anesthesia: 2 % lidocaine Antibiotics and meds: None Antibiotic infusion start time: N/A Prophylactic antibiotic administered: Within 1 hour of procedure start time or 2 hours for vancomycin or fluoroquinolones Additional med: IV normal saline bolus for low blood pressure prior to procedure Additional med: None Start of procedure: 11:08 End of procedure: 11:21 TECHNIQUE Patient position: Supine Drainage catheter placement The patient was positioned supine. Initial imaging was performed. Local anesthesia was administered. The fluid collection was accessed using an access needle followed by wire insertion and serial dilation and a drainage catheter was placed. Position of the drainage catheter within the fluid collection was confirmed. - Initial imaging findings: 10.5 cm wide cystic mass in mid pelvis - Drainage catheter placed: All-purpose drainage catheter - Cystic collection was drained by hand. Catheter was removed and dressing applied. - Post-drainage imaging findings: Small residual and air within the cavity Additional Details Additional description of procedure: None Equipment details: None Estimated Blood Loss: Minimal Number and Type of Removed Specimens: : Standardized report: [email or web address] COMPLICATIONS: No immediate complications CONCLUSION: The patient was comfortable and was transferred to the PACU in stable condition. The procedure was performed by the: attending radiologist, without an faculty research assistant. The attending radiologist performed the following procedural activities: Entire procedure IMPRESSION: Percutaneous placement of a 8 Serbian drainage catheter into pelvic cystic mass, yielding 315 mL of serous fluid. Catheter was removed. Post removal CT demonstrated air-filled cavity with small residual. PLAN: Collection may be drained again if symptomatic. ATTESTATION: Signer name: Vi Dixon I attest that I was present for the entire procedure. I reviewed the stored images and agree with the report as written. Rubber Curer: PSCB Transcribe Date/Time: Sep 08 2024 12:08P Dictated by : VI DIXON MD This examination was interpreted and the report reviewed and electronically signed by: VI DIXON MD on Sep 08 2024 12:18PM EST [id number]^ACN Procedure Note Radiology, Radiologist, - 09/08/2024 * * *Final Report* * * DATE OF EXAM: Sep 08 2024 11:34AM FVC 2036 - CT BX RIB/PELV/MACKEY/SPINE PROC / PROCEDURE REASON: INTRA-ABDOMINAL/PELVIC SWELLING * * * * Physician Interpretation * * * * PROCEDURE: DRAINAGE OF PELVIC CYSTIC MASS Procedural Personnel Attending physician(s): Vi Dixon M.D. 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 Medication reconciliation: Done Marsha-procedure discussion: The appropriate elements of the pre-procedure discussion, safety check list and sign-out were performed. Time out was completed before start of procedure. Preparation: The site was prepared and draped using maximal sterile barrier technique including cutaneous antisepsis. Contrast: Contrast agent: Contrast volume (mL): Image Guidance: Fluoroscopic guidance. Radiation/Dose: CT Radiation dose: Integrated Dose-length product (DLP) for this visit = 483 mGy*cm. CT Dose Reduction Employed: Automated exposure control (AEC) Anesthesia/Sedation: Level of anesthesia/sedation: Moderate sedation (conscious sedation) Anesthesia/sedation administered by: Independent trained observer under attending supervision with continuous monitoring of the patient?s level of consciousness and physiologic status Total intra-service sedation time (minutes): 18 Local anesthesia: 2 % lidocaine Antibiotics and meds: None Antibiotic infusion start time: N/A Prophylactic antibiotic administered: Within 1 hour of procedure start time or 2 hours for vancomycin or fluoroquinolones Additional med: IV normal saline bolus for low blood pressure prior to procedure Additional med: None Start of procedure: 11:08 End of procedure: 11:21 TECHNIQUE Patient position: Supine Drainage catheter placement The patient was positioned supine. Initial imaging was performed. Local anesthesia was administered. The fluid collection was accessed using an access needle followed by wire insertion and serial dilation and a drainage catheter was placed. Position of the drainage catheter within the fluid collection was confirmed. - Initial imaging findings: 10.5 cm wide cystic mass in mid pelvis - Drainage catheter placed: All-purpose drainage catheter - Cystic collection was drained by hand. Catheter was removed and dressing applied. - Post-drainage imaging findings: Small residual and air within thecavity Additional Details Additional description of procedure: None Equipment details: None Estimated Blood Loss: Minimal Number and Type of Removed Specimens: : Standardized report: SIR_DrainPlacement_v3 COMPLICATIONS: No immediate complications CONCLUSION: The patient was comfortable and was transferred to the PACU in stable condition. The procedure was performed by the: attending radiologist, without an faculty research assistant. The attending radiologist performed the following procedural activities: Entire procedure IMPRESSION: Percutaneous placement of a 8 Serbian drainage catheter into pelvic cystic mass, yielding 315 mL of serous fluid. Catheter was removed. Post removal CT demonstrated air-filled cavity with small residual. PLAN: Collection may be drained again if symptomatic. ATTESTATION: Signer name: Vi Dixon I attest that I was present for the entire procedure. I reviewed the stored images and agree with the report as written. Rubber Curer: AppHeroB Transcribe Date/Time: Sep 08 2024 12:08P Dictated by : VI DIXON MD This examination was interpreted and the report reviewed and electronically signed by: VI DIXON MD on Sep 08 2024 12:18PM EST [id number]^SI^ACN us Generic External Data Provider [facility] Final Result documented in this encounter Visit Diagnoses Not on filedocumented in this encounter Care Teams Correctional Program Officer Relationship Specialty Start Date End Date Loren Ascencio MD [address] [place] [address] PCP - General Family Medicine 03/19/23 documented as of this encounter
--- OUTSIDE RECORDS SUMMARY | 2025-05-03 09:07 | XMS_ITS | Encounter Summary ---
Author Organization [facility] Address [address] [place] [address] Care Team Providers Care Lap Welder Name Role Phone Loren Ascencio MD Primary Care Provider [phone] Unavailable [phone] Alyce Chadwick APRN.VEGETABLE I FARMWORKER Unavailable + Kelsie Cunha RN Unavailable Unavail able Linnette Shoemaker RN Unavailable [phone] Kylee Wilkinson Unavailable [phone] Source Comments In the event this information is protected by the Federal Confidentiality of Alcohol and Drug AbusePatient Records regulations: The Federal rules restrict any use of the information to criminally investigate or prosecute any alcohol or drug abuse patient.[facility] Encounter Details Date Type Department Care Team (Late st Contact Info) Description 10/31/2023 Get Medical Advice Hematology/Oncology [address] [place] [address] [place] [address] [place] [address] Nov 19 Social History Tobacco Use Types Packs/Day Years [...] is lower risk 4 03/21/2023 Data from: https://www.neighborhoodatlas.[facility]/. Last address used for calculation [address] 03/21/2023 Comments No Sex and Gender [...] Description 05/10/2025 3:45 PM EDT Office Visit [facility] Laboratory [address] [place] [address] [place] [address] 3 week lab and lanreotide inj 05/10/2025 4:00 PM EDT Infusion Center Hematology/Oncology [facility] [place] [address] 3 week lab and lanreotide inj 05/31/2025 2:45 PM EDT Office Visit [facility] Laboratory [address] [place] [address] [place] [address] 6 week follow up with lab and lanreotide inj 05/31/2025 3:00 PM EDT Visit (SP) Office Hematology/Oncology [facility] [address] [place] [address] Viridiana Mccarthy, PA-C [address] [facility] [place] [address] 6 week follow up with lab and lanreotide inj 05/31/2025 3:30 PM EDT Infusion Center Hematology/Oncology [facility] [place] [address] 6 week follow up with lab and lanreotide inj 08/03/2025 2:30 PM EDT [facility] Palliative Medicine [address] [place] [address] [place] [address] Alyce Chadwick, COMMUNITY SPORTS COORDINATOR.VEGETABLE I FARMWORKER [address] [place] [address] 3 month follow up documented as of this encounter Visit Diagnoses Not on filedocumented in this encounter Care Teams Lap Welder Relationship Specialty Start Date End Date Loren Ascencio MD [address] [place] [address] PCP - General Family Medicine 10/01/[address] [place] [address] [place] [address] Registered Dietitian Nutrition 11/28/22 Alyce Chadwick APRN.VEGETABLE I FARMWORKER [address] [facility] [place] [address] Hospice & Palliative Medicine 03/05/23 Kelsie Cunha RN Specialty Communications Technician Hospice & Palliative Medicine 03/05/23 [place] [address] [place] [address] Specialty Communications Technician Hematology/Oncology 08/27/23 03/14/25 Kylee Wilkinson LISW [address] [place] [address] Manager Diversity 11/20/23 documented as of this encounter
--- OUTSIDE RECORDS SUMMARY | 2025-05-03 09:07 | XMS_ITS | Encounter Summary ---
Author Organization [facility] Address [address] [place] [address] Care Team Providers Care Food And Beverage Analyst Name Role Phone Loren Ascenico MD Primary Care Provider [phone] Encounter Details Date Type Department Care Team (Late st Contact Info) Description 10/07/2024 Clinisync Result Encounter [facility] External Department Unsolicited [...] Procedure Name Priority Date/Time Associated Diagnosis Comments NM PET/CT NEUROENDOCRINE WB 10/07/2024 8:24 AM EST documented in this encounter Results * NM PET/CT NEUROENDOCRINE WB (10/07/2024 8:24 AM EST) Anatomical Region Laterality Modality Other 10/07/2024 8:24 AM EST Narrative 10/12/2024 8:34 PM EST * * *Final Report* * * DATE OF EXAM: Oct 07 2024 8:24AM YAZMIN 0094 - NM PET/CT NEUROENDOCRINE WB / 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 Current therapy: Lanreotide. Follow-up. EXAM CATEGORY: Subsequent treatment strategy. TECHNIQUE: Radiopharmaceutical [...] some pathology. * CT Dose-Length Product (DLP): 318 mGy*cm * CT Dose Reduction Employed: Yes * Injection site: Left Forearm-Antecubital * Injected activity: 5 mCi * Uptake Time: 62 minutes * Radiopharmaceutical: Ga-68 Dotatate COMPARISON: Ga-68 Dotatate PET/CT 06/16/2024, 04/09/2024 CORRELATION: CT abdomen/pelvis 01/02/2024 RESULT: REFERENCES: Dotatate uptake serves as a surrogate marker for somatostatin receptor 2 (SSTR2) expression. All reported standardized uptake values represent maximum SUV (SUVmax) per body weight, unless otherwise specified. SUV Reference Values: * Background Liver: SUVmax 6.2 * Background Spleen: SUVmax 41.1 Localizer Images: No additional findings. HEAD AND NECK: Head: No radiotracer avid lesion. Aerodigestive Tract: No radiotracer avid lesion. Lymph Nodes: No radiotracer avid lymphadenopathy. Neck Soft Tissues: No radiotracer avid thyroid nodule. CHEST: Lungs and Pleura: No radiotracer avid mass. Stable 0.4 cm medial left lower lobe nodule (Max SUV 1.8 previously 1.8, 2.3). No pleural effusion. Few calcified granulomas. Lymph Nodes: No radiotracer avid lymphadenopathy. Calcified intrathoracic lymph nodes are likely sequela of an old granulomatous process. Mediastinum: No radiotracer avid mass. Cardiovascular: Blood pool activity. No pericardial effusion. Chest Wall: No radiotracer avid soft tissue lesion. ABDOMEN AND PELVIS: Hepatobiliary: Hepatic steatosis. Overall unchanged radiotracer avid hepatic lesions . For example: * Lesion along the inferior right hepatic lobe (Max SUV:8.5, previously 10.5; image 191) * Stable hepatorenal fossa lesion (Max SUV:17.6, previously 16.0; image 192) * Lesion adjacent to the IVC with slightly increased radiotracer uptake (Max SUV:12.9, previously 9.5; image 164) * No discrete new radiotracer avid hepatic lesions. Spleen: No radiotracer avid lesion. No splenomegaly. Calcified granulomata. Pancreas: Stable radiotracer avid lesion in the pancreatic body (Max SUV:42.5, previously 40.0, 52.0; image 134). Adrenals: No radiotracer avid nodule. Urinary Tract: Physiologic radiotracer excretion in the renal collecting systems and urinary bladder. No hydronephrosis. GI Tract: * Right hemicolectomy with right lower quadrant ileocolic anastomosis. Left lower quadrant colostomy. * No radiotracer avid lesion in the surgical bed or ileocolic anastomosis. * No dilated bowel. Peritoneum: Multiple radiotracer avid peritoneal deposits. For example: * Stable size of 5.2 x 3.8 cm radiotracer avid left paramedian pelvic mass not clearly distinguishable from the left adnexa with increased radiotracer uptake (Max SUV: 30.6, previously 25; image 256) * Multiple right pelvic sidewall lesions grossly stable in size and radiotracer uptake (Max SUV:22.4, previously 23.0; image 255) Lymph Nodes: No radiotracer avid lymphadenopathy. Vasculature: Blood pool activity. No abdominal aortic aneurysm. Pelvic Organs: No radiotracer avid lesion. IUD in place. MUSCULOSKELETAL: Bones: No radiotracer avid lesion. No lytic or sclerotic lesion. Soft Tissues: No radiotracer avid lesion. IMPRESSION: Since 06/16/2024 , overall unchanged radiotracer avid hepatic, pancreatic, adnexal and peritoneal metastases. 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 Current therapy: Lanreotide. Follow-up. EXAM CATEGORY: Subsequent treatment strategy. TECHNIQUE: Radiopharmaceutical [...] some pathology. * CT Dose-Length Product (DLP): 318 mGy*cm * CT Dose Reduction Employed: Yes * Injection site: Left Forearm-Antecubital * Injected activity: 5 mCi * Uptake Time: 62 minutes * Radiopharmaceutical: Ga-68 Dotatate COMPARISON: Ga-68 Dotatate PET/CT 06/16/2024, 04/09/2024 CORRELATION: CT abdomen/pelvis 01/02/2024 RESULT: REFERENCES: Dotatate uptake serves as a surrogate marker for somatostatin receptor 2 (SSTR2) expression. All reported standardized uptake values represent maximum SUV (SUVmax) per body weight, unless otherwise specified. SUV Reference Values: * Background Liver: SUVmax 6.2 * Background Spleen: SUVmax 41.1 Localizer Images: No additional findings. HEAD AND NECK: Head: No radiotracer avid lesion. Aerodigestive Tract: No radiotracer avid lesion. Lymph Nodes: No radiotracer avid lymphadenopathy. Neck Soft Tissues: No radiotracer avid thyroid nodule. CHEST: Lungs and Pleura: No radiotracer avid mass. Stable 0.4 cm medial leftlower lobe nodule (Max SUV 1.8 previously 1.8, 2.3). No pleural effusion. Few calcified granulomas. Lymph Nodes: No radiotracer avid lymphadenopathy. Calcified intrathoracic lymph nodes are likely sequela of an old granulomatous process. Mediastinum: No radiotracer avid mass. Cardiovascular: Blood pool activity. No pericardial effusion. Chest Wall: No radiotracer avid soft tissue lesion. ABDOMEN AND PELVIS: Hepatobiliary: Hepatic steatosis. Overall unchanged radiotracer avid hepatic lesions . For example: * Lesion along the inferior right hepatic lobe (Max SUV:8.5, previously 10.5; image 191) * Stable hepatorenal fossa lesion (Max SUV:17.6, previously 16.0; image 192) * Lesion adjacent to the IVC with slightly increased radiotracer uptake (Max SUV:12.9, previously 9.5; image 164) * No discrete new radiotracer avid hepatic lesions. Spleen: No radiotracer avid lesion. No splenomegaly. Calcified granulomata. Pancreas: Stable radiotracer avid lesion in the pancreatic body (Max SUV:42.5, previously 40.0, 52.0; image 134). Adrenals: No radiotracer avid nodule. Urinary Tract: Physiologic radiotracer excretion in the renal collecting systems and urinary bladder. No hydronephrosis. GI Tract: * Right hemicolectomy with right lower quadrant ileocolic anastomosis. Left lower quadrant colostomy. * No radiotracer avid lesion in the surgical bed or ileocolic anastomosis. * No dilated bowel. Peritoneum: Multiple radiotracer avid peritoneal deposits. For example: * Stable size of 5.2 x 3.8 cm radiotracer avid left paramedian pelvic mass not clearly distinguishable from the left adnexa with increased radiotracer uptake (Max SUV: 30.6, previously 25; image 256) * Multiple right pelvic sidewall lesions grossly stable in size and radiotracer uptake (Max SUV:22.4, previously 23.0; image 255) Lymph Nodes: No radiotracer avid lymphadenopathy. Vasculature: Blood pool activity. No abdominal aortic aneurysm. Pelvic Organs: No radiotracer avid lesion. IUD in place. MUSCULOSKELETAL: Bones: No radiotracer avid lesion. No lytic or sclerotic lesion. Soft Tissues: No radiotracer avid lesion. IMPRESSION: Since 06/16/2024 , overall unchanged radiotracer avid hepatic, pancreatic, adnexal and peritoneal metastases. Triage Registered Nurse: PSCB Transcribe Date/Time: Oct 12 2024 9:53A Dictated by : DEIDRA GRIDER MD This examination was interpreted and the report reviewed and electronically signed by: TITA CORTEZ MD on Oct 12 2024 8:32PM EST [id number]^SI^ACN Generic External Data Provider [facility] Final Result documented in this encounter Visit Diagnoses Not on filedocumented in this encounter Care Teams Food And Beverage Analyst Relationship Specialty Start Date End Date Loren Ascencio MD [address] [place] [address] PCP - General Family Medicine 03/19/23 documented as of this encounter
--- OUTSIDE RECORDS SUMMARY | 2025-05-03 09:07 | XMS_ITS | Encounter Summary ---
Author Organization [facility] Address [address] [place] [address] Care Team Providers Care Patient Relations Coordinator Name Role Phone Loren Ascencio MD Primary Care Provider [phone] Unavailable [phone] Alyce Chadwick APRN.RAILCAR SWITCHER Unavailable + Kelsie Cunha RN Unavailable Unavail able Linnette Shoemaker RN Unavailable [phone] Kylee Wilkinson Unavailable [phone] Source Comments In the event this information is protected by the Federal Confidentiality of Alcohol and Drug AbusePatient Records regulations: The Federal rules restrict any use of the information to criminally investigate or prosecute any alcohol or drug abuse patient.[facility] Encounter Details Date Type Department Care Team (Late st Contact Info) Description 11/08/2021 Patient Msg Pharmacy Home Infusion [address] [place] [id number] Marilee Lenz [facility] Refill Request Social History Tobacco Use Types [...] N ot on file 07/03/2021 Data from: https://www.neighborhoodatlas.[facility]/. Last address used for calculation Not on [...] have Coronavirus / COVID-19? No / Unsure 11/09/2021 10:49 AM EST documented as of this encounter [...] AM EDT Lexis Castelan i RN * Because of a physical, mental, [...] EDT Office Visit [facility] [address] [place] [address] [place] [address] 3 week lab and lanreotide inj 05/10/2025 4:00 PM EDT Infusion Center Hematology/Oncology [address] [place] [address] [place] [address] 3 week lab and lanreotide inj 05/31/2025 2:45 PM EDT Office Visit [facility] [address] [place] [address] [place] [address] 6 week follow up with lab and lanreotide inj 05/31/2025 3:00 PM EDT Visit (SP) Office Hematology/Oncology [address] [place] [address] [place] [address] Viridiana Mccarthy, PA-C [address] [place] [address] 6 week follow up with lab and lanreotide inj 05/31/2025 3:30 PM EDT Infusion Center Hematology/Oncology [address] [place] [address] [place] [address] 6 week follow up with lab and lanreotide inj 08/03/2025 2:30 PM EDT [facility] Palliative Medicine [address] [place] [address] [place] [address] Alyce Chadwick, MUSHROOM CULTIVATOR.RAILCAR SWITCHER [address] [place] [address] 3 month follow up documented as of this encounter Visit Diagnoses Not on filedocumented in this encounter Additional Health Concerns Infection Onset Date Last Indicated Resolved Time COVID-19 Rule-Out 01/31/2022 01/31/2022 01/31/2022 10:44 AM EDT documented as of this encounter Care Teams Patient Relations Coordinator Relationship Specialty Start Date End Date Loren Ascencio MD [address] [place] [address] PCP - General Family Medicine 10/01/[address] [place] [address] Registered Dietitian Nutrition 11/28/22 Alyce Chadwick, MUSHROOM CULTIVATOR.RAILCAR SWITCHER [address] [place] [address] Hospice & Palliative Medicine 03/05/23 Kelsie Cunha RN Specialty Darklight Inspector Hospice & Palliative Medicine 03/05/23 Linnette Shoemaker, MADY [address] [place] [address] Specialty Darklight Inspector Hematology/Oncology 08/27/23 03/14/25 Kylee Wilkinson LISW [address] [place] [address] Shellacker 11/20/23 documented as of this encounter
--- OUTSIDE RECORDS SUMMARY | 2025-05-03 09:07 | XMS_ITS | Encounter Summary ---
Author Organization [facility] Address [address] [place] [address] Care Team Providers Care Auto Clocks Repairer Name Role Phone Loren Ascencio MD Primary Care Provider [phone] Unavailable [phone] Alyce Chadwick APRN.FILM EDITOR Unavailable + Kelsie Cunha RN Unavailable Unavail able Linnette Shoemaker RN Unavailable [phone] Kylee Wilkinson Unavailable [phone] Source Comments In the event this information is protected by the Federal Confidentiality of Alcohol and Drug AbusePatient Records regulations: The Federal rules restrict any use of the information to criminally investigate or prosecute any alcohol or drug abuse patient.[facility] Encounter Details Date Type Department Care Team (Late st Contact Info) Description 02/10/2024 Patient Msg General Surgery [address] [place] [address] Shmuel Ramos MD [address] [facility]. [address] [place] [address] Appointment Request Social History Tobacco Use Types Packs/Day [...] is lower risk 4 03/21/2023 Data from: https://www.neighborhoodatlas.[facility]/. Last address used for calculation [address] 03/21/2023 Comments No Sex and Gender [...] Description 05/10/2025 3:45 PM EDT Office Visit [facility] [address] [place] [address] [place] [address] 3 week lab and lanreotide inj 05/10/2025 4:00 PM EDT Infusion Center Hematology/Oncology [address] [place] [address] [place] [address] 3 week lab and lanreotide inj 05/31/2025 2:45 PM EDT Office Visit [facility] [address] [place] [address] [place] [place] [address] 6 week follow up with lab and lanreotide inj 05/31/2025 3:00 PM EDT Visit (SP) Office Hematology/Oncology [address] [place] [address] [place] [address] Viridiana Mccarthy, PAJonnathanC [address] [place] [place] [address] 6 week follow up with lab and lanreotide inj 05/31/2025 3:30 PM EDT Infusion Center Hematology/Oncology [address] [place] [address] [place] [place] [address] 6 week follow up with lab and lanreotide inj 08/03/2025 2:30 PM EDT [facility] Palliative Medicine [address] [place] [address] [place] [address] Alyce Chadwick, HEALTH INFORMATION CODER.FILM EDITOR [address] [place] [address] 3 month follow up documented as of this encounter Visit Diagnoses Not on filedocumented in this encounter Care Teams Auto Clocks Repairer Relationship Specialty Start Date End Date Loren Ascencio MD [address] [place] [address] PCP - General Family Medicine 10/01/[address] [place] [address] [place] [address] Registered Dietitian Nutrition 11/28/22 Alyce Chadwick APRN.FILM EDITOR [address] [place] [address] Hospice & Palliative Medicine 03/05/23 Kelsie Cunha RN Specialty Route Returner Hospice & Palliative Medicine 03/05/23 Linnette Shoemaker, MADY [address] [place] [id number] Specialty Route Returner Hematology/Oncology 08/27/23 03/14/25 Kylee Wilkinson LISW [address] [place] [address] Stitcher Around 11/20/23 documented as of this encounter
--- OUTSIDE RECORDS SUMMARY | 2025-05-03 09:07 | XMS_ITS | Encounter Summary ---
Author Organization [facility] Address [address] [place] [address] Care Team Providers Care Funeral Home Manager Name Role Phone Loren Ascencio MD Primary Care Provider [phone] Unavailable [phone] Alyce Chadwick APRN.LIBRARIAN [employer]CHOOL Unavailable + Kelsie Cunha RN Unavailable Unavail able Linnette Shoemaker RN Unavailable [phone] Kylee Wilkinson Unavailable [phone] Source Comments In the event this information is protected by the Federal Confidentiality of Alcohol and Drug AbusePatient Records regulations: The Federal rules restrict any use of the information to criminally investigate or prosecute any alcohol or drug abuse patient.[facility] Encounter Details Date Type Department Care Team (Late st Contact Info) Description 02/12/2024 Radiology Molecular Imaging [address] [place] [address] Clayton Mandujano MD [address] [place] [address] Social History Tobacco Use Types [...] is lower risk 4 03/21/2023 Data from: https://www.neighborhoodatlas.[facility]/. Last address used for calculation [address] 03/21/2023 Comments No Sex and Gender [...] Office Visit [facility] [address] [place] [address] 3 week lab and lanreotide inj 05/10/2025 4:00 PM EDT Infusion Center Hematology/Oncology [address] [place] [address] [place] [address] 3 week lab and lanreotide inj 05/31/2025 2:45 PM EDT Office Visit [facility] [address] [place] [address] [place] [address] 6 week follow up with lab and lanreotide inj 05/31/2025 3:00 PM EDT Visit (SP) Office Hematology/Oncology [address] [place] [address] [place] [address] Viridiana Mccarthy, PA-C [address] [place] [place] [address] 6 week follow up with lab and lanreotide inj 05/31/2025 3:30 PM EDT Infusion Center Hematology/Oncology [address] [place] [address] [place] [address] 6 week follow up with lab and lanreotide inj 08/03/2025 2:30 PM EDT [facility] Palliative Medicine [address] [place] [address] [place] [address] Alyce Chadwick, BANDAGE MAKER.LIBRARIAN SCHOOL [address] [place] [address] 3 month follow up documented as of this encounter Visit Diagnoses Not on filedocumented in this encounter Care Teams Funeral Home Manager Relationship Specialty Start Date End Date Loren Ascencio MD [address] [place] [address] PCP - General Family Medicine 10/01/[address] [place] [address] [place] [address] Registered Dietitian Nutrition 11/28/22 Alyce Chadwick APRN.LIBRARIAN SCHOOL [address] [place] [address] [place] [id number] Hospice & Palliative Medicine 03/05/23 Kelsie Cunha RN Specialty Brand Analyst Hospice & Palliative Medicine 03/05/23 Linnette Shoemaker, MADY [address] [place] [id number] Specialty Brand Analyst Hematology/Oncology 08/27/23 03/14/25 Kylee Wilkinson LISW [address] [place] [address] Global Head [employer] 11/20/23 documented as of this encounter
--- OUTSIDE RECORDS SUMMARY | 2025-05-03 09:07 | XMS_ITS | Encounter Summary ---
Author Organization [facility] Address [address] [place] [address] Care Team Providers Care Dinkey Engine Firer/Fireman Name Role Phone Loren Ascencio MD Primary Care Provider [phone] Unavailable [phone] Alyce Chadwick ELECTRONICS MECHANIC.RUBY ON RAILS DEVELOPER Unavailable + Kelsie Cunha RN Unavailable Unavail able Linnette Shoemaker RN Unavailable [phone] Kylee Wilkinson Unavailable [phone] Source Comments In the event this information is protected by the Federal Confidentiality of Alcohol and Drug AbusePatient Records regulations: The Federal rules restrict any use of the information to criminally investigate or prosecute any alcohol or drug abuse patient.[facility] Encounter Details Date Type Department Care Team (Late st Contact Info) Description 01/26/2025 Get Medical Advice Palliative Medicine [address] [place] [address] [place] [address] Alyce Chadwick, ELECTRONICS MECHANIC.RUBY ON RAILS DEVELOPER [address] [place] [address] Medication refills Social History Tobacco Use Types Packs/Day Years [...] lower risk 4 03/21/2023 Data from: https://www.neighborhoodatlas.[facility]/. Last address used for calculation [address] 03/21/2023 Comments No Sex and Gender [...] Description 05/10/2025 3:45 PM EDT Office Visit [facility] [address] [place] [address] [place] [address] 3 week lab and lanreotide inj 05/10/2025 4:00 PM EDT Infusion Center Hematology/Oncology [address] [place] [address] [place] [address] 3 week lab and lanreotide inj 05/31/2025 2:45 PM EDT Office Visit [facility] [address] [place] [address] [place] [address] 6 week follow up with lab and lanreotide inj 05/31/2025 3:00 PM EDT Visit (SP) Office Hematology/Oncology [address] [place] [address] [place] [place] [address] Viridiana Mccarthy, PAJonnathanC [address] [facility] [facility] [place] [address] 6 week follow up with lab and lanreotide inj 05/31/2025 3:30 PM EDT Infusion Center Hematology/Oncology [address] [place] [address] [place] [place] [address] 6 week follow up with lab and lanreotide inj 08/03/2025 2:30 PM EDT [facility] Palliative Medicine [address] [place] [address] [place] [address] Alyce Chadwick, ELECTRONICS MECHANIC.RUBY ON RAILS DEVELOPER [address] [place] [address] 3 month follow up documented as of this encounter Visit Diagnoses Not on filedocumented in this encounter Care Teams Dinkey Engine Firer/Fireman Relationship Specialty Start Date End Date Loren Ascencio MD [address] [place] [address] PCP - General Family Medicine 10/01/[address] [place] [address] [place] [address] Registered Dietitian Nutrition 11/28/22 Alyce Chadwick APRN.RUBY ON RAILS DEVELOPER [address] [facility] [place] [address] Hospice & Palliative Medicine 03/05/23 Kelsie Cunha RN Specialty Hot Billet Shear Operator Hospice & Palliative Medicine 03/05/23 Linnette Shoemaker, MADY [address] [place] [phone] Specialty Hot Billet Shear Operator Hematology/Oncology 08/27/23 03/14/25 Kylee Wilkinson LISW [address] [place] [address] Machine Stemmer 11/20/23 documented as of this encounter
--- OUTSIDE RECORDS SUMMARY | 2025-05-03 09:07 | XMS_ITS | Encounter Summary ---
Author Organization [facility] Address [address] [place] [address] Care Team Providers Care Optics Engineer Name Role Phone Loren Ascencio MD Primary Care Provider [phone] Encounter Details Date Type Department Care Team (Late st Contact Info) Description 06/16/2024 Clinisync Result Encounter [facility] External Department Unsolicited [...] Associated Diagnosis Comments NM PET/CT NEUROENDOCRINE WB 06/16/2024 8:52 AM EDT documented in this encounter Results * NM PET/CT NEUROENDOCRINE WB (06/16/2024 8:52 AM EDT) Anatomical Region Laterality Modality Other 06/16/2024 8:52 AM EDT Narrative 06/22/2024 7:56 PM EDT * * *Final Report* * * DATE OF EXAM: Jun 16 2024 8:52AM [facility] 0094 - NM PET/CT NEUROENDOCRINE WB / 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 TECHNIQUE: Radiopharmaceutical was administered IV followed about 60 minutes later by PET imaging from skull vertex to proximal thighs. Free breathing, low dose CT of the same body region was acquired without IV contrast for attenuation correction and anatomic localization. * CT Dose-Length Product (DLP): 316 mGy*cm * CT Dose Reduction Employed: Yes * Radiopharmaceutical Activity: 6.3 mCi, uptake time 69 minutes * Radiopharmaceutical: Ga-68 Dotatate * All reported standardized uptake values represent maximum SUV (SUVmax) per body weight, unless otherwise specified. COMPARISON: 04/09/2024, 09/24/2023, 06/06/2023 DOTATATE PET/CT CORRELATION: None RESULT: REFERENCES: SUV reference values: * Background liver activity: SUVmax 7, prior 6 * Background spleen activity: SUVmax 39, prior 33 Lithograph Press Operator (topogram) images: Unremarkable. HEAD AND NECK: Imaged Head: Visualized [...] cm medial left lower lobe nodule (SUV 1.8, prior SUV 2.3). Calcified granulomas in the left lower lobe. Pleura and Pericardium: No radiotracer avid pleural nodule. No pleural effusion. Cardiovascular: Physiologic radiotracer activity in the blood pool. Normal cardiac size. No pericardial effusion. Mediastinum and Lymph Nodes: No radiotracer avid mediastinal or hilar lymphadenopathy. Anterior chest wall: Unremarkable. ABDOMEN AND PELVIS: Hepatobiliary: DOTATATE avid lesions uniformly demonstrate decreased radiotracer uptake and do not have corresponding measurable lesions on CT,: For example: * Lesion in segment 8 has resolved, prior SUV 6.2, image 161. * Lesion along the hepatorenal fossa is decreased in intensity, SUV 16, image 187, prior SUV 23, image 187. * Lesion along the inferior right lobe has resolved, prior SUV 1 0.5, image 162. * Lesion at segment 8 adjacent to the IVC demonstrates mildly increased conspicuity, SUV 9.5, image 186, prior SUV 7.5, image 159. Spleen: No radiotracer avid splenic lesion. No splenomegaly. Pancreas: DOTATATE avid lesion along the pancreatic body, SUV 40 image 169, prior SUV 52 image 177. This lesion remains occult on CT without intravenous contrast but measured on 01/02/[address] as 1.4 cm. Adrenals: No radiotracer avid adrenal nodule. Urinary Tract: Physiologic radiotracer excretion in the renal collecting systems and bladder. GI Tract: Right hemicolectomy with right ileocolic anastomosis and left abdominal colostomy. There is no DOTATATE avid lesion along the gastrointestinal segments. There is DOTATATE avid peritoneal deposits in the pelvis that have been stable since 04/09/2024. The dominant peritoneal mass at pelvic midline is inseparable from the left adnexa, measures 5 x 4 cm, SUV 18, image 92, prior SUV 28, 5 x 4 cm, image 253. Additional peritoneal lesions along the right pelvic sidewall are stable, SUV 23, image 93, prior SUV 23, image 103. One of these lesions is adjacent to the rectal stump on image 95 but considerably represent peritoneal metastasis. Vasculature: Major intra-abdominal and intrapelvic vasculature is unremarkable. Retroperitoneum and Lymph Nodes: No radiotracer avid or pathologically enlarged lymphadenopathy. Pelvis: No radiotracer avid pelvic lesion. Pelvic visceral organs are unremarkable. MUSCULOSKELETAL: Osseous: No radiotracer avid bone lesion. On CT, no lytic or sclerotic bone lesion. Soft Tissues: No radiotracer avid soft tissue lesion is identified. IMPRESSION: DOTATATE uptake is used as surrogate marker [...] lung or osseous metastasis. 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 TECHNIQUE: Radiopharmaceutical was administered IV followed about 60 minutes later by PET imaging from skull vertex to proximal thighs. Free breathing, low dose CT of the same body region was acquired without IV contrast for attenuation correction and anatomic localization. * CT Dose-Length Product (DLP): 316 mGy*cm * CT Dose Reduction Employed: Yes * Radiopharmaceutical Activity: 6.3 mCi, uptake time 69 minutes * Radiopharmaceutical: Ga-68 Dotatate * All reported standardized uptake values represent maximum SUV (SUVmax) per body weight, unless otherwise specified. COMPARISON: 04/09/2024, 09/24/2023, 06/06/2023 DOTATATE PET/CT CORRELATION: None RESULT: REFERENCES: SUV reference values: * Background liver activity: SUVmax 7, prior 6 * Background spleen activity: SUVmax 39, prior 33 Lithograph Press Operator (topogram) images: Unremarkable. HEAD AND NECK: Imaged Head: Visualized [...] cm medial left lower lobe nodule (SUV 1.8, prior SUV 2.3). Calcified granulomas in the left lower lobe. Pleura and Pericardium: No radiotracer avid pleural nodule. No pleural effusion. Cardiovascular: Physiologic radiotracer activity in the blood pool. Normal cardiac size. No pericardial effusion. Mediastinum and Lymph Nodes: No radiotracer avid mediastinal or hilar lymphadenopathy. Anterior chest wall: Unremarkable. ABDOMEN AND PELVIS: Hepatobiliary: DOTATATE avid lesions uniformly demonstrate decreased radiotracer uptake and do not have corresponding measurable lesions on CT,: For example: * Lesion in segment 8 has resolved, prior SUV 6.2, image 161. * Lesion along the hepatorenal fossa is decreased in intensity, SUV 16, image 187, prior SUV 23, image 187. * Lesion along the inferior right lobe has resolved, prior SUV 1 0.5, image 162. * Lesion at segment 8 adjacent to the IVC demonstrates mildly increased conspicuity, SUV 9.5, image 186, prior SUV 7.5, image 159. Spleen: No radiotracer avid splenic lesion. No splenomegaly. Pancreas: DOTATATE avid lesion along the pancreatic body, SUV 40 image 169, prior SUV 52 image 177. This lesion remains occult on CT without intravenous contrast but measured on 01/02/[address] as 1.4 cm. Adrenals: No radiotracer avid adrenal nodule. Urinary Tract: Physiologic radiotracer excretion in the renal collecting systems and bladder. GI Tract: Right hemicolectomy with right ileocolic anastomosis and left abdominal colostomy. There is no DOTATATE avid lesion along the gastrointestinal segments. There is DOTATATE avid peritoneal deposits in the pelvis that have been stable since 04/09/2024. The dominant peritoneal mass at pelvic midline is inseparable from the left adnexa, measures 5 x 4 cm, SUV 18, image 92, prior SUV 28, 5 x 4 cm, image 253. Additional peritoneal lesions along the right pelvic sidewall are stable, SUV 23, image 93, prior SUV 23, image 103. One of these lesions is adjacent to the rectal stump on image 95 but considerably represent peritoneal metastasis. Vasculature: Major intra-abdominal and intrapelvic vasculature is unremarkable. Retroperitoneum and Lymph Nodes: No radiotracer avid or pathologically enlarged lymphadenopathy. Pelvis: No radiotracer avid pelvic lesion. Pelvic visceral organs are unremarkable. MUSCULOSKELETAL: Osseous: No radiotracer avid bone lesion. On CT, no lytic or sclerotic bone lesion. Soft Tissues: No radiotracer avid soft tissue lesion is identified. IMPRESSION: DOTATATE uptake is used as surrogate marker [...] lung or osseous metastasis. Krenning Score (KS): 0: no uptake 1: uptake is much lower than liver 2: uptake is equal to liver 3: uptake is greater than liver 4: uptake is greater than spleen Facilities Specialist: ZION Transcribe Date/Time: Jun 19 2024 5:21P Dictated by : TRINI CONTE MD This examination was interpreted and the report reviewed and electronically signed by: TRINI CONTE MD on Jun 22 2024 7:54PM EST [id number]^ACN Generic External Data Provider [facility] Final Result documented in this encounter Visit Diagnoses Not on filedocumented in this encounter Care Teams Optics Engineer Relationship Specialty Start Date End Date Loren Ascencio MD [address] [place] [address] PCP - General Family Medicine 03/19/23 documented as of this encounter
--- OUTSIDE RECORDS SUMMARY | 2025-05-03 09:07 | XMS_ITS | Encounter Summary ---
Author Organization [facility] Address [facility] [place] [address] Care Team Providers Care Herb Doctor Name Role Phone Loren Ascencio MD Primary Care Provider [phone] Unavailable [phone] Alyce Chadwick APRN.PROFESSOR IN FAMILY STUDIES Unavailable + Kelsie Cunha RN Unavailable Unavail able Linnette Shoemaker RN Unavailable [phone] Kylee Wilkinson Unavailable [phone] Source Comments In the event this information is protected by the Federal Confidentiality of Alcohol and Drug AbusePatient Records regulations: The Federal rules restrict any use of the information to criminally investigate or prosecute any alcohol or drug abuse patient.[facility] Encounter Details Date Type Department Care Team (Late st Contact Info) Description 09/20/2021 Patient Msg Pharmacy Home Infusion [address] [facility] [place] [id number] Anneliese Perry PSS Weekly [facility] TPN refill request Social [...] N ot on file 07/03/2021 Data from: https://www.neighborhoodatlas.medicine.[facility] [place]/. Last address used for calculation Not on [...] Office Visit [facility] [address] [place] [address] [place] [address] 3 week lab and lanreotide inj 05/10/2025 4:00 PM EDT Infusion Center Hematology/Oncology [address] [place] [address] [place] [address] 3 week lab and lanreotide inj 05/31/2025 2:45 PM EDT Office Visit [facility] [address] [place] [address] [place] [address] 6 week follow up with lab and lanreotide inj 05/31/2025 3:00 PM EDT Visit (SP) Office Hematology/Oncology [address] [place] [address] [place] [address] Viridiana Mccarthy, PA-C [address] [place] [place] [address] 6 week follow up with lab and lanreotide inj 05/31/2025 3:30 PM EDT Infusion Center Hematology/Oncology [address] [place] [address] [place] [address] 6 week follow up with lab and lanreotide inj 08/03/2025 2:30 PM EDT [facility] Palliative Medicine [address] [place] [address] [place] [address] Alyce Chadwick, [employer] OFFICER.PROFESSOR IN FAMILY STUDIES [address] [place] [address] 3 month follow up documented as of this encounter Visit Diagnoses Not on filedocumented in this encounter Additional Health Concerns Infection Onset Date Last Indicated Resolved Time COVID-19 Rule-Out 01/31/2022 01/31/2022 01/31/2022 10:44 AM EDT documented as of this encounter Care Teams Herb Doctor Relationship Specialty Start Date End Date Loren Ascencio MD [address] [place] [address] PCP - General Family Medicine 10/01/[address] [place] [address] [place] [address] Registered Dietitian Nutrition 11/28/22 Alyce Chadwick APRN.PROFESSOR IN FAMILY STUDIES [address] [place] [address] [place] [address] Hospice & Palliative Medicine 03/05/23 Kelsie Cunha RN Specialty Presidential Helicopter Crew Chief Hospice & Palliative Medicine 03/05/23 Linnette Shoemaker, MADY [address] [place] [address] Specialty Presidential Helicopter Crew Chief Hematology/Oncology 08/27/23 03/14/25 Kylee Wilkinson LISW [address] [place] [address] Manager Credit Risk 11/20/23 documented as of this encounter
--- OUTSIDE RECORDS SUMMARY | 2025-05-03 09:07 | XMS_ITS | Encounter Summary ---
Author Organization [facility] Address [address] [place] [address] Care Team Providers Care Special Delivery Carrier Name Role Phone Loren Ascencio MD Primary Care Provider [phone] Unavailable [phone] Alyce Chadwick APRN.WELL LOGGING MUD ANALYSIS CAPTAIN Unavailable + Kelsie Cunha RN Unavailable Unavail able Linnette Shoemaker RN Unavailable [phone] Kylee Wilkinson Unavailable [phone] Source Comments In the event this information is protected by the Federal Confidentiality of Alcohol and Drug AbusePatient Records regulations: The Federal rules restrict any use of the information to criminally investigate or prosecute any alcohol or drug abuse patient.[facility] Encounter Details Date Type Department Care Team (Late st Contact Info) Description 10/29/2022 Patient Msg Pre Anesthesia [address] [facility] [address] [place] [address] Bettye Thorne PA-C [address] [place] [address] Pre-op instructions Social History Tobacco Use Types Packs/Day Years [...] lower number is lower ri sk 64 03/29/2022 State Score (1-10), lower number is lower risk N ot on file 03/29/2022 Data from: https://www.neighborhoodatlas.medicine.[facility]/. Last address used for calculation [address] 03/29/2022 Comments No Sex and Gender Information Value Date Recorded Sex Assigned at Female 11/07/2021 7:23 AM EST Legal Sex Female 12:07 PM EDT Gender Identity Female 11/07/2021 7:23 AM EST Sexual Orientation Straight 11/07/2021 7: 23 AM EST COVID-19 Exposure Response Date Recorded In the last 10 days, have yo u been in contact with someone who was confirmed or suspected to have Coronavirus/COVID-19? No / Unsure 10/01/2022 2:46 PM EST documented as of this encounter Functional [...] Description 05/10/2025 3:45 PM EDT Office Visit [facility] [address] [place] [address] [place] [address] 3 week lab and lanreotide inj 05/10/2025 4:00 PM EDT Infusion Center Hematology/Oncology [address] [place] [address] [place] [address] 3 week lab and lanreotide inj 05/31/2025 2:45 PM EDT Office Visit [facility] [address] [place] [address] [place] [address] 6 week follow up with lab and lanreotide inj 05/31/2025 3:00 PM EDT Visit (SP) Office Hematology/Oncology [address] [place] [address] [place] [address] Viridiana Mccarthy, PA-C [address] [place] [address] [place] [address] 6 week follow up with lab and lanreotide inj 05/31/2025 3:30 PM EDT Infusion Center Hematology/Oncology [address] [place] [address] [place] [address] 6 week follow up with lab and lanreotide inj 08/03/2025 2:[address] [facility] Palliative Medicine [address] [place] [address] [place] [address] Alyce Chadwick, SENIOR RECRUITMENT CONSULTANT.WELL LOGGING MUD ANALYSIS CAPTAIN [address] [place] [address] 3 month follow up documented as of this encounter Visit Diagnoses Not on filedocumented in this encounter Care Teams Special Delivery Carrier Relationship Specialty Start Date End Date Loren Ascencio MD [address] [place] [address] PCP - General Family Medicine 10/01/[address] [place] [address] [place] [address] Registered Dietitian Nutrition 11/28/22 Alyce Chadwick, SENIOR RECRUITMENT CONSULTANT.WELL LOGGING MUD ANALYSIS CAPTAIN [address] [place] [address] [place] [address] Hospice & Palliative Medicine 03/05/23 Kelsie Cunha RN Specialty Qa Automation Architect Hospice & Palliative Medicine 03/05/23 Linnette Shoemaker, MADY [address] [place] [address] Specialty Qa Automation Architect Hematology/Oncology 08/27/23 03/14/25 Kylee Wilkinson LISW [address] [place] [address] Sales And Marketing Associate 11/20/23 documented as of this encounter
--- OUTSIDE RECORDS SUMMARY | 2025-05-03 09:07 | XMS_ITS | Encounter Summary ---
Author Organization [facility] Address [address] [place] [address] Care Team Providers Care Second Hand Paper Machine Name Role Phone Loren Ascencio MD Primary Care Provider [phone] Unavailable [phone] Alyce Chadwick APRN.CONSULTANT TEACHER Unavailable + Kelsie Cunha RN Unavailable Unavail able Kylee iWlkinson Unavailable [phone] Source Comments In the event this information is protected by the Federal Confidentiality of Alcohol and Drug AbusePatient Records regulations: The Federal rules restrict any use of the information to criminally investigate or prosecute any alcohol or drug abuse patient.[facility] Encounter Details Date Type Department Care Team (Late st Contact Info) Description 04/21/2025 Orders Only Hematology/Oncology [address] [place] [address] [place] [address] Humberto Stout MD [address] [place] [address] Social History Tobacco Use Types Packs/Day [...] is lower risk 4 03/21/2023 Data from: https://www.neighborhoodatlas.[facility]/. Last address used for calculation [address] [facility] 03/21/2023 Comments No Sex and Gender Information Value Date Recorded Sex Assigned at Female 11/07/2021 7:23 AM EST Legal Sex Female 12:07 PM EDT Gender Identity Female 11/07/2021 7:23 AM EST Sexual Orientation Straight 11/07/2021 7 :23 AM EST documented as of this encounter [...] Description 05/10/2025 3:45 PM EDT Office Visit [facility] [address] [place] [address] [place] [address] 3 week lab and lanreotide inj 05/10/2025 4:00 PM EDT [facility] Center Hematology/Oncology [address] [place] [address] [place] [address] 3 week lab and lanreotide inj 05/31/2025 2:45 PM EDT Office Visit [facility] [address] [place] [address] [place] [address] 6 week follow up with lab and lanreotide inj 05/31/2025 3:00 PM EDT Visit (SP) Office Hematology/Oncology [address] [place] [address] [place] [address] Viridiana Mccarthy, PA-C [address] [place] [address] [place] [address] 6 week follow up with lab and lanreotide inj 05/31/2025 3:30 PM EDT Infusion Center Hematology/Oncology [address] [place] [address] [place] [address] 6 week follow up with lab and lanreotide inj 08/03/2025 2:30 PM EDT [facility] Palliative Medicine [address] [place] [address] [place] [address] Alyce Chadwick, PHARMACOGNOSY TEACHER.CONSULTANT TEACHER [address] [place] [address] 3 month follow up documented as of this encounter Visit Diagnoses Not on filedocumented in this encounter Care Teams Second Hand Paper Machine Relationship Specialty Start Date End Date Loren Ascencio MD [address] [place] [address] PCP - General Family Medicine 10/01/[address] [place] [address] [place] [address] Registered Dietitian Nutrition 11/28/22 Alyce Chadwick APRN.CONSULTANT TEACHER [address] [place] [address] [place] [address] Hospice & Palliative Medicine 03/05/23 Kelsie Cunha, RN Specialty Cloud Operations Engineer Hospice & Palliative Medicine 03/05/23 Kyele Wilkinson LISW [address] [place] [address] Slag Mixer 11/20/23 documented as of this encounter
--- OUTSIDE RECORDS SUMMARY | 2025-05-03 09:07 | XMS_ITS | Encounter Summary ---
Author Organization [facility] Address [address] [place] [address] Care Team Providers Care Odd Ticket Clerk Name Role Phone Loren Ascencio MD Primary Care Provider [phone] Unavailable [phone] Alyce Chadwick APRN.AIRBORNE OPERATIONS MANAGER Unavailable + Kelsie Cunha RN Unavailable Unavail able Linnette Shoemaker RN Unavailable [phone] Kylee Wilkinson Unavailable [phone] Source Comments In the event this information is protected by the Federal Confidentiality of Alcohol and Drug AbusePatient Records regulations: The Federal rules restrict any use of the information to criminally investigate or prosecute any alcohol or drug abuse patient.[facility] Encounter Details Date Type Department Care Team (Late st Contact Info) Description 09/24/2023 Patient Msg Hematology/Oncology [address] [place] [address] Provider, [facility]cf Appointment Cancellation Request Social History Tobacco Use [...] is lower risk 4 03/21/2023 Data from: https://www.neighborhoodatlas.[facility]/. Last address used for calculation [address] 03/21/2023 Comments No Sex and Gender [...] EDRima Mays RN * Do you have difficulty dressing [...] Office Visit [facility] Laboratory [address] [place] [address] 3 week lab and lanreotide inj 05/10/2025 4:00 PM EDT Infusion Center Hematology/Oncology [address] [place] [address] 3 week lab and lanreotide inj 05/31/2025 2:45 PM EDT Office Visit [facility] Laboratory [address] [place] [address] 6 week follow up with lab and lanreotide inj 05/31/2025 3:00 PM EDT Visit (SP) Office Hematology/Oncology [address] [place] [address] [place] [address] Viridiana Mccarthy PA-C [address] [place] [address] 6 week follow up with lab and lanreotide inj 05/31/2025 3:30 PM EDT Infusion Center Hematology/Oncology [address] [place] [address] [place] [address] 6 week follow up with lab and lanreotide inj 08/03/2025 2:30 PM EDT [facility] Palliative Medicine [address] [place] [address] [place] [address] Alyce Chadwick, VIKASH.[facility] [address] [id number] 3 month follow up documented as of this encounter Visit Diagnoses Not on filedocumented in this encounter Care Teams Odd Ticket Clerk Relationship Specialty Start Date End Date Loren Ascencio MD [address] [place] [address] PCP - General Family Medicine 10/01/[address] [place] [address] [place] [address] Registered Dietitian Nutrition 11/28/22 Alyce Chadwick CONGREGATIONAL CARE PASTOR.AIRBORNE OPERATIONS MANAGER [address] [place] [address] [place] [phone] Hospice & Palliative Medicine 03/05/23 Kelsie Cunha, RN Specialty Director Sales Hospice & Palliative Medicine 03/05/23 [place] [address] [place] [address] Specialty Director Sales Hematology/Oncology 08/27/23 03/14/25 Kylee Wilkinson LISW [address] [place] [address] Case Manager 11/20/23 documented as of this encounter
--- OUTSIDE RECORDS SUMMARY | 2025-05-03 09:07 | XMS_ITS | Encounter Summary ---
Author Organization [facility] Address [address] [place] [address] Care Team Providers Care Cigar Head Stringer Name Role Phone Loren Ascencio MD Primary Care Provider [phone] Unavailable [phone] Alyce Chadwick APRN.DIRECTOR ENERGY Unavailable + Kelsie Cunha RN Unavailable Unavail able Linnette Shoemaker RN Unavailable [phone] Kylee Wilkinson Unavailable [phone] Source Comments In the event this information is protected by the Federal Confidentiality of Alcohol and Drug AbusePatient Records regulations: The Federal rules restrict any use of the information to criminally investigate or prosecute any alcohol or drug abuse patient.[facility] Encounter Details Date Type Department Care Team (Late st Contact Info) Description 02/06/2023 Get Medical Advice General Surgery [address] [id number] Shmuel Ramos MD [address] [facility] [address] [place] [address] Abdominal mass Social History Tobacco Use Types Packs/Day Years Used Date Smoking Tobacco: Never Passive Smoke Exposure: Past Smokeless Tobacco: Never Alcohol Use Standard Drinks/Week Comments Yes 0 (1 standard drink = 0.6 oz pur e alcohol) maybe once per month PHQ-2 Answer Date Recorded PHQ-2 score 0 01/23/2023 Area Deprivation Index Answer Date Chandu rded National Score (1-100), lower number is lower ri sk 65 11/25/2022 State Score (1-10), lower number is lower risk N ot on file 11/25/2022 Data from: https://www.neighborhoodatlas.[facility]/. Last address used for calculation [address] 11/25/2022 Comments No Sex and Gender [...] Description 05/10/2025 3:45 PM EDT Office Visit [facility] Laboratory [address] [place] [address] [place] [address] 3 week lab and lanreotide inj 05/10/2025 4:00 PM EDT Infusion Center Hematology/Oncology [address] [place] [address] [place] [address] 3 week lab and lanreotide inj 05/31/2025 2:45 PM EDT Office Visit [facility] Laboratory [address] [place] [address] [place] [address] 6 week follow up with lab and lanreotide inj 05/31/2025 3:00 PM EDT Visit (SP) Office Hematology/Oncology [address] [place] [address] [place] [address] Viridiana Mccarthy PAJonnathanC [address] [place] [address] [place] [address] 6 week follow up with lab and lanreotide inj 05/31/2025 3:30 PM EDT Infusion Center Hematology/Oncology [address] [place] [address] [place] [address] 6 week follow up with lab and lanreotide inj 08/03/2025 2:30 PM EDT [facility] Palliative Medicine [address] [place] [address] [place] [address] Alyce Chadwick, HOME CARE GIVER.DIRECTOR ENERGY [address] [place] [address] 3 month follow up documented as of this encounter Visit Diagnoses Not on filedocumented in this encounter Care Teams Cigar Head Stringer Relationship Specialty Start Date End Date Loren Ascencio MD [address] [place] [address] PCP - General Family Medicine 10/01/[address] [place] [address] Registered Dietitian Nutrition 11/28/22 Alyce Chadwick APRN.DIRECTOR ENERGY [address] [place] [address] Hospice & Palliative Medicine 03/05/23 Kelsie Cunha RN Specialty Intelligence Specialist Hospice & Palliative Medicine 03/05/23 Linnette Shoemaker, MADY [address] [place] [address] Specialty Intelligence Specialist Hematology/Oncology 08/27/23 03/14/25 Kylee Wilkinson LISW [address] [place] [address] Raw Sampler 11/20/23 documented as of this encounter
--- OUTSIDE RECORDS SUMMARY | 2025-05-03 09:07 | XMS_ITS | Encounter Summary ---
Author Organization [facility] Address [facility] [place] [address] Care Team Providers Care Greaser Operator Name Role Phone Loren Ascencio MD Primary Care Provider [phone] Unavailable [phone] Alyce Chawdick APRN.JAILER/TRAINING OFFICER Unavailable + Kelsie Cunha RN Unavailable Unavail able Linnette Shoemaker RN Unavailable [phone] Kylee Wilkinson Unavailable [phone] Source Comments In the event this information is protected by the Federal Confidentiality of Alcohol and Drug AbusePatient Records regulations: The Federal rules restrict any use of the information to criminally investigate or prosecute any alcohol or drug abuse patient.[facility] Encounter Details Date Type Department Care Team (Late st Contact Info) Description 10/24/2022 Patient Msg Gynecology Oncology [address] [address] Nichelle Bustos MD [address] [place] [address] Informed Consent Form Needing Your Signature Social History Tobacco Use Types Packs/Day Years Used Date Smoking Tobacco: Never Smokeless Tobacco: Never Alcohol Use Standard Drinks/Week Comments Yes 0 (1 standard drink = 0.6 oz pur e alcohol) PHQ-2 Answer Date Recorded PHQ-2 score 1 10/01/2022 Area Deprivation Index Answer Date Chandu rded National Score (1-100), lower number is lower ri sk 65 03/29/2022 State Score (1-10), lower number is lower risk N ot on file 03/29/2022 Data from: https://www.neighborhoodatlas.medicine.[facility]/. Last address used for calculation [address] 03/29/2022 Comments No Sex and Gender [...] Description 05/10/2025 3:45 PM EDT Office Visit [facility] Laboratory [address] [place] [address] [place] [address] 3 week lab and lanreotide inj 05/10/2025 4:00 PM EDT Infusion Center Hematology/Oncology [address] [place] [address] [place] [address] 3 week lab and lanreotide inj 05/31/2025 2:45 PM EDT Office Visit [facility] Laboratory [address] [place] [address] [place] [address] 6 week follow up with lab and lanreotide inj 05/31/2025 3:00 PM EDT Visit (SP) Office Hematology/Oncology [address] [place] [address] [place] [address] Viridiana Mccarthy, PA-C [address] [place] [address] [place] [address] 6 week follow up with lab and lanreotide inj 05/31/2025 3:30 PM EDT Infusion Center Hematology/Oncology [address] [place] [address] [place] [address] 6 week follow up with lab and lanreotide inj 08/03/2025 2:30 PM EDT [facility] Palliative Medicine [address] [place] [address] [place] [address] Alyce Chadwick, PACKAGE DRIER.JAILER/TRAINING OFFICER [address] [place], [place] [address] 3 month follow up documented as of this encounter Visit Diagnoses Not on filedocumented in this encounter Care Teams Greaser Operator Relationship Specialty Start Date End Date Loren Ascencio MD [address] [place] [address] PCP - General Family Medicine 10/01/[address] [place] [address] [place] [address] Registered Dietitian Nutrition 11/28/22 Alyce Chadwick APRN.JAILER/TRAINING OFFICER [address] [place] [address] [place] [address] Hospice & Palliative Medicine 03/05/23 Kelsie Cunha RN Specialty Tracer Clerk Hospice & Palliative Medicine 03/05/23 Linnette Shoemaker, MADY [address] [place] [address] Specialty Tracer Clerk Hematology/Oncology 08/27/23 03/14/25 Kylee Wilkinson LISW [address] [place] [address] Truck Shop Supervisor 11/20/23 documented as of this encounter
--- OUTSIDE RECORDS SUMMARY | 2025-05-03 09:07 | XMS_ITS | Encounter Summary ---
Author Organization [facility] Address [address] [place] [address] Care Team Providers Care Banana Loader Name Role Phone Loren Ascencio MD Primary Care Provider [phone] Encounter Details Date Type Department Care Team [...] Name Priority Date/Time Associated Diagnosis Comments CT GUIDED ASPIRATION OF ABSCESS, HEMATOMA, CYST 09/08/2024 11:34 AM EDT documented in this encounter Results * CT guided aspiration of abscess, hematoma, cyst (09/08/2024 11:34 AM EDT) Anatomical Region Laterality Modality Computed Tomogra phy 09/08/2024 11:3 4 AM EDT Narrative 09/08/2024 12:20 PM EDT * * *Final Report* * * DATE OF EXAM: Sep 08 2024 11:34AM FVC 2049 - CT ASPIRATION SUBCUT ABSCESS / PROCEDURE REASON: INTRA-ABDOMINAL/PELVIC SWELLING * * [...] performed by the: attending radiologist, without an licensed occupational therapy assistant. The attending radiologist performed the following procedural activities: Entire procedure IMPRESSION: Percutaneous placement of a 8 Vietnamese drainage catheter into pelvic cystic mass, yielding 315 mL of serous fluid. Catheter was removed. Post removal CT demonstrated air-filled cavity with small residual. PLAN: Collection may be drained again if symptomatic. ATTESTATION: Signer name: Vi Dixon I attest that I was present for the entire procedure. I reviewed the stored images and agree with the report as written. Obedience Trainer: [facility] Transcribe Date/Time: Sep 08 2024 12:08P Dictated by : VI DIXON MD This examination was interpreted and the report reviewed and electronically signed by: VI DIXON MD on Sep 08 2024 12:18PM EST [id number]^[id number]^SI^ACN Procedure Note Radiology, Radiologist, - 09/08/2024 * * *Final Report* * * DATE OF EXAM: Sep 08 2024 11:34AM FVC 2049 - CT ASPIRATION SUBCUT ABSCESS / PROCEDURE REASON: INTRA-ABDOMINAL/PELVIC SWELLING * * [...] performed by the: attending radiologist, without an licensed occupational therapy assistant. The attending radiologist performed the following procedural activities: Entire procedure IMPRESSION: Percutaneous placement of a 8 Vietnamese drainage catheter into pelvic cystic mass, yielding 315 mL of serous fluid. Catheter was removed. Post removal CT demonstrated air-filled cavity with small residual. PLAN: Collection may be drained again if symptomatic. ATTESTATION: Signer name: Vi Dixon I attest that I was present for the entire procedure. I reviewed the stored images and agree with the report as written. Obedience Trainer: [facility] Transcribe Date/Time: Sep 08 2024 12:08P Dictated by : VI DIXON MD This examination was interpreted and the report reviewed and electronically signed by: VI DIXON MD on Sep 08 2024 12:18PM EST [id number]^SI^ACN Generic External Data Provider IMG CT PROCEDURES Final Result documented in this encounter Visit Diagnoses Not on filedocumented in this encounter Care Teams Banana Loader Relationship Specialty Start Date End Date Loren Ascencio MD [address] [place] [address] PCP - General Family Medicine 03/19/23 documented as of this encounter
--- OUTSIDE RECORDS SUMMARY | 2025-05-03 09:07 | XMS_ITS | Encounter Summary ---
Author Organization [facility] Address [address] [place] [address] Care Team Providers Care Psychiatric Assistant Name Role Phone Loren Ascencio MD Primary Care Provider [phone] Unavailable [phone] Alyce Chadwick APRN.METAL TILE SETTER Unavailable + Kelsie Cunha RN Unavailable Unavail able Kylee Wilkinson Unavailable [phone] Source Comments In the event this information is protected by the Federal Confidentiality of Alcohol and Drug AbusePatient Records regulations: The Federal rules restrict any use of the information to criminally investigate or prosecute any alcohol or drug abuse patient.[facility] Reason for Visit * Reason Comments Ostomy supply orders Encounter Details Date Type Department Care Team (Late st Contact Info) Description 04/21/2025 Telephone Hematology/Oncology [address] [place] [address] [place] [address] Arabella Chappell RN Ostomy supply orders Social History Tobacco Use Types Packs/Day Years [...] is lower risk 4 03/21/2023 Data from: https://www.neighborhoodatlas.[facility]/. Last address used for calculation [address] 03/21/2023 Comments No Sex and Gender [...] Assessment Author No 02/09/2022 1:51 PM EDT Rmia Osborne RN * Do you have difficulty [...] Rima Capps RN documented in this encounter Miscellaneous Notes * Telephone Encounter - Arabella Chappell RN - 04/22/2025 3:03 PM EDT New order signed by Ean and faxed back to [facility] ([phone]) Blank order in scanned docs for future orders Arabella Chappell RN * Telephone Encounter - Arabella Chappell RN - 04/22/2025 2:38 PM EDT Called to verify receipt of order. They report a new order faxed, as white out was used in the provider information section. Diagnosis code C7A.8 will be need to pass authorization, not the C 74.8. Will locate fax and complete for Ean to sign and re fax back to [facility]. Arabella Chappell RN * Telephone Encounter - Arabella Chappell RN - 04/21/2025 11:16 AM EDT [facility] calling for additional records/orders for documented site of supplies needed. Previous Dr Ramos orders (03/2024) reviewed and ordered by Dr Mckoy. Orders signed and faxed to [phone] Arabella Chappell RN documented in this encounter Plan of Treatment Upcoming Encounters Date Type Department Care Team (Late st Contact Info) Description 05/10/2025 3:45 PM EDT Office Visit [facility] Laboratory [address] [place] [address] [place] [address] 3 week lab and lanreotide inj 05/10/2025 4:00 PM EDT [facility] Hematology/Oncology [address] [place], [place] [address] [address] 3 week lab and lanreotide inj 05/31/2025 2:45 PM EDT Office Visit [facility] Laboratory [address] [place] [address] [place] [address] 6 week follow up with lab and lanreotide inj 05/31/2025 3:00 PM EDT Visit (SP) Office Hematology/Oncology [address] [place] [address] [place] [address] Viridiana Mccarthy, PA-C [address] [facility] [place] [address] 6 week follow up with lab and lanreotide inj 05/31/2025 3:30 PM EDT [facility] Hematology/Oncology [facility] [place] [address] 6 week follow up with lab and lanreotide inj 08/03/2025 2:30 PM EDT [facility] Palliative Medicine [address] [place] [address] [place] [address] Alyce Chadwick APRN.METAL TILE SETTER [address] [place] [address] 3 month follow up documented as of this encounter Visit Diagnoses Not on filedocumented in this encounter Care Teams Psychiatric Assistant Relationship Specialty Start Date End Date Loren Ascencio MD [address] [place] [address] PCP - General Family Medicine 10/01/[address] [place] [address] [place] [address] Registered Dietitian Nutrition 11/28/22 Alyce Chadwick APRN.METAL TILE SETTER [address] [place] [address] [place] [phone] Hospice & Palliative Medicine 03/05/23 Kelsie Cunha, RN Specialty Stack Attendant Hospice & Palliative Medicine 03/05/23 Kylee Wilkinson LISW [address] [place], [place] [id number] [employer] Teacher 11/20/23 documented as of this encounter
--- OUTSIDE RECORDS SUMMARY | 2025-05-03 09:07 | XMS_ITS | Encounter Summary ---
Author Organization [facility] Address [address] [place] [address] Care Team Providers Care Operator Automated Process Name Role Phone Loren Ascencio MD Primary Care Provider [phone] Unavailable [phone] Alyce Chadwick APRN.TELEVISION NEWSCAST DIRECTOR Unavailable + Kelsie Cunha RN Unavailable Unavail able Linnette Shoemaker RN Unavailable [phone] Kylee Wilkinson Unavailable [phone] Source Comments In the event this information is protected by the Federal Confidentiality of Alcohol and Drug AbusePatient Records regulations: The Federal rules restrict any use of the information to criminally investigate or prosecute any alcohol or drug abuse patient.[facility] Encounter Details Date Type Department Care Team (Late st Contact Info) Description 01/25/2022 Get Medical Advice General Surgery [address] [place], [place] [phone] Shmuel Ramos MD [address] [facility]. Desk [address] [place] [address] Ct Scan Social History Tobacco Use Types Packs/Day Years Used Date Smoking Tobacco: Never Smokeless Tobacco: Never Alcohol Use Standard Drinks/Week Comments Yes 0 (1 standard drink = 0.6 oz pur e alcohol) PHQ-2 Answer Date Recorded PHQ-2 score 2 01/03/2022 Area Deprivation Index Answer Date Chandu rded National Score (1-100), lower number is lower ri sk Not on file 07/03/2021 State Score (1-10), lower number is lower risk N ot on file 07/03/2021 Data from: https://www.neighborhoodatlas.medicine.[facility]/. Last address used for calculation Not [...] suspected to have Coronavirus/COVID-19? No / Unsure 01/26/2022 7:02 AM EDT documented as of this encounter [...] Description 05/10/2025 3:45 PM EDT Office Visit [facility] Laboratory [address] [place] [address] [place] [address] 3 week lab and lanreotide inj 05/10/2025 4:00 PM EDT Infusion Center Hematology/Oncology [address] [place] [address] [place] [address] 3 week lab and lanreotide inj 05/31/2025 2:45 PM EDT Office Visit [facility] Laboratory [address] [place] [address] [place] [address] 6 week follow up with lab and lanreotide inj 05/31/2025 3:00 PM EDT Visit (SP) Office Hematology/Oncology [address] [place] [address] [place] [address] Viridiana Mccarthy PA-C [address] [place] [address] [place] [address] 6 week follow up with lab and lanreotide inj 05/31/2025 3:30 PM EDT [facility] Hematology/Oncology [address] [place] [address] [place] [address] 6 week follow up with lab and lanreotide inj 08/03/2025 2:30 PM EDT [facility] Palliative Medicine [address] [place] [address] [place] [address] Alyce Chadwick, MILL ROLL REWINDER.TELEVISION NEWSCAST DIRECTOR [address] [place] [id number] 3 month follow up documented as of this encounter Visit Diagnoses Not on filedocumented in this encounter Additional Health Concerns Infection Onset Date Last Indicated Resolved Time COVID-19 Rule-Out 01/31/2022 01/31/2022 01/31/2022 10:44 AM EDT documented as of this encounter Care Teams Operator Automated Process Relationship Specialty Start Date End Date Loren Ascencio MD [address] [place] [address] PCP - General Family Medicine 10/01/[address] [facility] [place] [address] Registered Dietitian Nutrition 11/28/22 Alyce Chadwick APRN.TELEVISION NEWSCAST DIRECTOR [address] [place] [address] [place] [address] Hospice & Palliative Medicine 03/05/23 Kelsie Cunha, RN Specialty Director Of Residential Services Hospice & Palliative Medicine 03/05/23 [place] [address] [address] [place] [phone] Specialty Director Of Residential Services Hematology/Oncology 08/27/23 03/14/25 Kylee Wilkinson LISW [address] [place] [address] Mitten Sewer 11/20/23 documented as of this encounter
--- OUTSIDE RECORDS SUMMARY | 2025-05-03 09:07 | XMS_ITS | Encounter Summary ---
Author Organization [facility] Address [address] [place] [address] Care Team Providers Care Tester/Lift Trucker Name Role Phone Loren Ascencio MD Primary Care Provider [phone] Unavailable [phone] Alyce Chadwick APRN.ASSISTANT MERCHANDISE MANAGER Unavailable + Kelsie Cunha RN Unavailable Unavail able Linnette Shoemaker RN Unavailable [phone] Kylee Wilkinson Unavailable [phone] Source Comments In the event this information is protected by the Federal Confidentiality of Alcohol and Drug AbusePatient Records regulations: The Federal rules restrict any use of the information to criminally investigate or prosecute any alcohol or drug abuse patient.[facility] Encounter Details Date Type Department Care Team (Late st Contact Info) Description 02/28/2024 Patient Msg Hematology/Oncology [address] [place] [address] Humberto Stout MD [address] [place] [address] Appointment Request Social History Tobacco Use Types [...] is lower risk 4 03/21/2023 Data from: https://www.neighborhoodatlas.medicine.[facility]/. Last address used for calculation [address] 03/21/2023 Comments No Sex and Gender [...] 02/09/2022 1:51 PM EDRima Mays RN * Because of a physical, mental, [...] Office Visit [facility] [address] [place] [address] [place] [address] 3 week lab and lanreotide inj 05/10/2025 4:00 PM EDT Infusion Center Hematology/Oncology [address] [place] [address] [place] [address] 3 week lab and lanreotide inj 05/31/2025 2:45 PM EDT Office Visit [facility] [address] [place] [address] [place] [address] 6 week follow up with lab and lanreotide inj 05/31/2025 3:00 PM EDT Visit (SP) Office Hematology/Oncology [address] [place] [address] [place] [address] Viridiana Mccarthy, PA-C [address] [place] [address] 6 week follow up with lab and lanreotide inj 05/31/2025 3:30 PM EDT Infusion Center Hematology/Oncology [address] [place] [address] [place] [address] 6 week follow up with lab and lanreotide inj 08/03/2025 2:30 PM EDT [facility] Palliative Medicine [address] [place] [address] [place] [address] Alyce Chadwick, ACCOUNTING SPECIALIST.ASSISTANT MERCHANDISE MANAGER [address] [place] [address] 3 month follow up documented as of this encounter Visit Diagnoses Not on filedocumented in this encounter Care Teams Tester/Lift Trucker Relationship Specialty Start Date End Date Loren Ascencio MD [address] [place] [address] PCP - General Family Medicine 10/01/[address] [place] [address] [place] [address] Registered Dietitian Nutrition 11/28/22 Alyce Chadwick APRN.[facility] [address] [place] [id number] Hospice & Palliative Medicine 03/05/23 Kelsie Cunha RN Specialty Mortgage Or Loan Underwriter Hospice & Palliative Medicine 03/05/23 [place] [address] [place] [id number] Specialty Mortgage Or Loan Underwriter Hematology/Oncology 08/27/23 03/14/25 Kylee Wilkinson LISW [address] [place] [address] Business Services Sales Agent 11/20/23 documented as of this encounter
--- OUTSIDE RECORDS SUMMARY | 2025-05-03 09:07 | XMS_ITS | Encounter Summary ---
Author Organization [facility] Address [address] [place] [address] Care Team Providers Care Ict Developer Name Role Phone Loren Ascencio MD Primary Care Provider [phone] Unavailable [phone] Alyce Chadwick APRN.CAMP NURSE Unavailable + Kelsie Cunha RN Unavailable Unavail able Linnette Shoemaker RN Unavailable [phone] Kylee Wilkinson Unavailable [phone] Source Comments In the event this information is protected by the Federal Confidentiality of Alcohol and Drug AbusePatient Records regulations: The Federal rules restrict any use of the information to criminally investigate or prosecute any alcohol or drug abuse patient.[facility] Encounter Details Date Type Department Care Team (Late st Contact Info) Description 10/18/2021 Patient Msg Pharmacy Home Infusion [address] [facility] [address] [place] [id number] Anneliese Perry PSS Weekly [facility] Infusion Pharmacy TPN refill request Social History [...] N ot on file 07/03/2021 Data from: https://www.neighborhoodatlas.medicine.[facility]/. Last address used for calculation Not on [...] Description 05/10/2025 3:45 PM EDT Office Visit [facility] Laboratory [address] [place] [address] [place] [address] 3 week lab and lanreotide inj 05/10/2025 4:00 PM EDT Infusion Center Hematology/Oncology [address] [place] [address] [place] [address] 3 week lab and lanreotide inj 05/31/2025 2:45 PM EDT Office Visit [facility] [address] [place] [address] [place] [address] 6 week follow up with lab and lanreotide inj 05/31/2025 3:00 PM EDT Visit (SP) Office Hematology/Oncology [address] [place] [address] [place] [address] Viridiana Mccarthy, PA-C [address] [place] [address] 6 week follow up with lab and lanreotide inj 05/31/2025 3:30 PM EDT Infusion Center Hematology/Oncology [address] [place] [address] [place] [address] 6 week follow up with lab and lanreotide inj 08/03/2025 2:30 PM EDT [facility] Palliative Medicine [address] [place] [address] [place] [address] Alyce Chadwick, DIRECTOR OF STRATEGIC COMMUNICATIONS.CAMP NURSE [address] [place] [address] 3 month follow up documented as of this encounter Visit Diagnoses Not on filedocumented in this encounter Additional Health Concerns Infection Onset Date Last Indicated Resolved Time COVID-19 Rule-Out 01/31/2022 01/31/2022 01/31/2022 10:44 AM EDT documented as of this encounter Care Teams Ict Developer Relationship Specialty Start Date End Date Loren Ascencio MD [address] [place] [address] PCP - General Family Medicine 10/01/[address] [place] [address] Registered Dietitian Nutrition 11/28/22 Alyce Chadwick APRN.CAMP NURSE [address] [place] [address] Hospice & Palliative Medicine 03/05/23 Kelsie Cunha RN Specialty Section Plotter Operator Hospice & Palliative Medicine 03/05/23 Linnette Shoemaker, MADY [address] [place] [address] Specialty Section Plotter Operator Hematology/Oncology 08/27/23 03/14/25 Kylee Wilkinson LISW [address] [place] [address] Parts Classifier 11/20/23 documented as of this encounter
--- OUTSIDE RECORDS SUMMARY | 2025-05-03 09:08 | XMS_ITS | Encounter Summary ---
Author Organization [facility] Address [address] [place] [address] Care Team Providers Care Transition Of Care Specialist Name Role Phone Loren Ascencio MD Primary Care Provider [phone] Unavailable [phone] Alyce Chadwick APRN.COATING ENGINEER Unavailable + Kelsie Cunha RN Unavailable Unavail able Linnette Shoemaker RN Unavailable [phone] Kylee Wilkinson Unavailable [phone] Source Comments In the event this information is protected by the Federal Confidentiality of Alcohol and Drug AbusePatient Records regulations: The Federal rules restrict any use of the information to criminally investigate or prosecute any alcohol or drug abuse patient.[facility] Encounter Details Date Type Department Care Team (Late st Contact Info) Description 03/26/2024 Get Medical Advice General Surgery [address] [place], [place] [id number] Shmuel Ramos MD [address] [facility]. [address] [place] [address] Stoma supplies Social History Tobacco Use Types Packs/Day Years [...] lower risk 4 03/21/2023 Data from: https://www.neighborhoodatlas.[facility]/. Last address used for calculation [address] 03/21/2023 Comments No Sex and Gender [...] Office Visit [facility] Laboratory [address] [place] [address] [place] [address] 3 week lab and lanreotide inj 05/10/2025 4:00 PM EDT Infusion Center Hematology/Oncology [address] [place] [address] [place] [address] 3 week lab and lanreotide inj 05/31/2025 2:45 PM EDT Office Visit [facility] Laboratory [address] [place] [address] [place] [address] 6 week follow up with lab and lanreotide inj 05/31/2025 3:00 PM EDT Visit (SP) Office Hematology/Oncology [address] [place] [address] [place] [address] Viridiana Mccarthy PAJonnathanC [address] [place] [address] [place] [address] 6 week follow up with lab and lanreotide inj 05/31/2025 3:30 PM EDT Infusion Center Hematology/Oncology [address] [place] [address] [place] [address] 6 week follow up with lab and lanreotide inj 08/03/2025 2:30 PM EDT [facility] Palliative Medicine [address] [place] [address] [place] [address] Alyce Chadwick, BATCH RECORDS CLERK.COATING ENGINEER [address] [place] [address] 3 month follow up documented as of this encounter Visit Diagnoses Not on filedocumented in this encounter Care Teams Transition Of Care Specialist Relationship Specialty Start Date End Date Loren Ascencio MD [address] [place] [address] PCP - General Family Medicine 10/01/[address] [place] [address] Registered Dietitian Nutrition 11/28/22 Alyce Chadwick APRN.COATING ENGINEER [address] [place] [address] Hospice & Palliative Medicine 03/05/23 Kelsie Cunha RN Specialty Transportation Technician Hospice & Palliative Medicine 03/05/23 Linnette Shoemaker, MADY [address] [place] [address] Specialty Transportation Technician Hematology/Oncology 08/27/23 03/14/25 Kylee Wilkinson LISW [address] [place] [address] Chemistry Associate 11/20/23 documented as of this encounter
--- OUTSIDE RECORDS SUMMARY | 2025-05-03 09:08 | XMS_ITS | Encounter Summary ---
Author Organization [facility] Address [address] [place] [address] Care Team Providers Care Nailhead Operator Name Role Phone Loren Ascencio MD Primary Care Provider [phone] Unavailable [phone] Alyce Chadwick APRN.MANAGER CODE Unavailable + Kelsie Cunha RN Unavailable Unavail able Linnette Shoemaker RN Unavailable [phone] Kylee Wilkinson Unavailable [phone] Source Comments In the event this information is protected by the Federal Confidentiality of Alcohol and Drug AbusePatient Records regulations: The Federal rules restrict any use of the information to criminally investigate or prosecute any alcohol or drug abuse patient.[facility] Encounter Details Date Type Department Care Team (Late st Contact Info) Description 02/10/2022 Patient Msg General Surgery [address] [address] Shmuel Ramos MD [address] [facility]. [address] [place] [address] abx Social History Tobacco Use Types Packs/Day Years [...] N ot on file 07/03/2021 Data from: https://www.neighborhoodatlas.medicine.[facility]/. Last address used for [...] suspected to have Coronavirus/COVID-19? No / Unsure 01/31/2022 6:39 AM EDT documented as of this encounter [...] 1:51 PM EDT Henry Osborne RN * Because of a physical, [...] Visit [facility] Laboratory [address] [place] [address] [place] [address] 3 week lab and lanreotide inj 05/10/2025 4:00 PM EDT Infusion Center Hematology/Oncology [address] [place] [address] [place] [address] 3 week lab and lanreotide inj 05/31/2025 2:45 PM EDT Office Visit [facility] [address] [place] [address] [place] [address] 6 week follow up with lab and lanreotide inj 05/31/2025 3:00 PM EDT Visit (SP) Office Hematology/Oncology [address] [place] [address] [place] [address] Viridiana Mccarthy, PA-C [address] [place] [address] [place] [address] 6 week follow up with lab and lanreotide inj 05/31/2025 3:30 PM EDT Infusion Center Hematology/Oncology [address] [place] [address] [place] [address] 6 week follow up with lab and lanreotide inj 08/03/2025 2:30 PM EDT [facility] Palliative Medicine [address] [place] [address] [place] [address] Alyec Chadwick, MACHINE PACK ASSEMBLER.MANAGER CODE [address] [place] [address] 3 month follow up documented as of this encounter Visit Diagnoses Not on filedocumented in this encounter Care Teams Nailhead Operator Relationship Specialty Start Date End Date Loren Ascencio MD [address] [place] [address] PCP - General Family Medicine 10/01/[address] [place] [address] Registered Dietitian Nutrition 11/28/22 Alyce Chadwick, MACHINE PACK ASSEMBLER.MANAGER CODE [address] [place] [address] Hospice & Palliative Medicine 03/05/23 Kelsie Cunha RN Specialty Laborer [employer] [employer] Hospice & Palliative Medicine 03/05/23 Linnette Shoemaker, MADY [address] [place] [address] Specialty Laborer [employer] [employer] Hematology/Oncology 08/27/23 03/14/25 Kylee Wilkisnon LISW [address] [place] [address] Screen Printing Loader Unloader 11/20/23 documented as of this encounter
--- OUTSIDE RECORDS SUMMARY | 2025-05-03 09:08 | XMS_ITS | Clinical Summary ---
Author Organization [facility] Address [facility] [place] [address] Care Team Providers Care Assistant [employer] Name Role Phone Loren Ascencio MD Primary Care Provider [phone] Unavailable [phone] Alyce Chadwick APRN.RADIO STATION MANAGER Unavailable + Kelsie Cunha RN Unavailable Unavail able Kylee Wilkinson Unavailable [phone] Allergies Active Allergy Reactions Criticality Noted Date Comments Ondansetron Swelling High 10/02/2024 When given in IV, patient's arms swelled up. Can take sublingual tablets. IV only, ok for oral Medications * This document contains information received from the source organization and may not represent a complete record from that organization. loperamide HCl (IMODIUM) 2 mg tab Take 2 tablets by mouth four times daily. 240 tablet 3 08/10/20 22 Active conjugated estrogens (PREMARIN) vaginal cream Use 1 g vaginally one time a week. 30 g 2 01/17/20 23 Active zxgmdq-cuyrfqay-k mylase (CREON) 36,000-114,000- 180,000 unit delayed release capsuleIndication s:Primary malignant neuroendocrine tumor of ileum (HCC),Malignant carcinoid tumor of ileum (HCC),Pancreatic insufficiency (HCC) Take 2 capsules by mouth three times a day with meals. 540 capsule 3 12/19/19 24 Active KLOR-CON M20 20 mEq tablet take 1 tablet by mouth daily 10 tablet 1 04/27/20 24 Active metroNIDAZOLE (FLAGYL) 500 mg tablet Take 1 tablet by mouth once daily. 30 tablet 2 4 3:53 PM EDT 08/19/[address] (PROTONIX) 40 mg tabletIndications :Primary malignant neuroendocrine tumor of ileum (HCC),Malignant carcinoid tumor of ileum (HCC),Reflux gastritis Take 1 tablet by mouth once daily. 30 tablet 3 10/28/20 24 Active gabapentin (NEURONTIN) 400 mg capsule Take 1 capsule by mouth daily at bedtime for 90 days. 90 capsule 01/23/20 25 Active nitrofurantoin monohydrate and macrocrystal (MACROBID) 100 mg capsule Take 100 mg by mouth once daily. 02/17/20 25 Active DULoxetine (CYMBALTA) 60 mg capsuleIndication s:Primary malignant neuroendocrine tumor of ileum (HCC),Reactive depression Take 1 capsule by mouth once daily. 90 capsule 3 03/22/20 25 025 Active methylphenidate (RITALIN) 10 mg tabletIndications :Malignant carcinoid tumor of ileum (HCC),Malaise and fatigue Take 1 tablet by mouth once daily for 30 days. 30 tablet 04/15/20 25 025 Active methylphenidate (RITALIN) 10 mg tabletIndications :Malignant carcinoid tumor of ileum (HCC),Malaise and fatigue Take 1 tablet by mouth once daily for 30 days. 30 tablet 03/08/20 25 025 Discontinued Active Problems Problem Noted Date Diagnosed Date Palliative care by specialist 05/28/2023 Neoplasm related pain 05/28/2023 Anxiety 05/28/2023 Malignant carcinoid tumor of small intestine Pancreatic insufficiency 10/29/2022 Assessment & Plan (10/29/2022 2:18 PM EST): Assessment: on creon GERD (gastroesophageal reflux disease) Assessment & Plan (10/29/2022 2:18 PM EST): Assessment: on protonix Dysuria 10/29/2022 Assessment & Plan (10/29/2022 2:19 PM EST): Assessment: current sxs of dysuria, frequency; pt reports she has cipro at home and has taken 2 days of cipro and sxs have improved. I ordered a urine culture for her to get done Difficult intravenous access 10/29/2022 Assessment & Plan (10/29/2022 2:22 PM EST): Assessment: Right arm difficult - left arm best per pt DVT prophylaxis 02/01/2022 Assessment & Plan (02/09/2022 7:11 AM EDT): Assessment: PPX during post operative period PLAN: -Lovenox 40mg SQ daily -BL SCD -OOB and ambulating minimum TID Assessment & Plan (02/08/2022 6:58 AM EDT): Assessment: PPX during post operative period PLAN: -Lovenox 40mg SQ daily -BL SCD -OOB and ambulating minimum TID Assessment & Plan (02/07/2022 6:36 AM EDT): Assessment: PPX during post operative period PLAN: -Lovenox 40mg SQ daily -BL SCD -OOB and ambulating minimum TID Assessment & Plan (02/06/2022 6:52 AM EDT): Assessment: PPX during post operative period PLAN: -Lovenox 40mg SQ daily -BL SCD -OOB and ambulating minimum TID Assessment & Plan (02/05/2022 6:59 AM EDT): Assessment: PPX during post operative period PLAN: -Lovenox 40mg SQ daily -BL SCD -OOB and ambulating minimum TID Assessment & Plan (02/04/2022 7:05 AM EDT): Assessment: PPX during post operative period PLAN: -SQH TID -BL SCD -OOB and ambulating minimum TID Assessment & Plan (02/03/2022 9:45 AM EDT): Assessment: PPX during post operative period PLAN: -SQH TID -BL SCD -OOB and ambulating minimum TID Assessment & Plan (02/02/2022 7:11 AM EDT): Assessment: PPX during post operative period PLAN: -SQH TID -BL SCD -OOB and ambulating minimum TID Assessment & Plan (02/01/2022 6:41 AM EDT): Assessment: PPX during post operative period PLAN: -SQH TID -BL SCD -OOB and ambulating minimum TID Iron deficiency 09/15/2021 Abscess of abdominal cavity 07/24/2021 Assessment & Plan (07/25/2021 7:00 AM EDT): Assessment: Chronic abscess noted during ex-lap surrounding ileocolic anastomosis PLAN: -Continue ertapenem 1g IV daily with stop date 07/28 -CoPAT placed Assessment & Plan (07/24/2021 6:56 AM EDT): Assessment: Chronic abscess noted during ex-lap surrounding ileocolic anastomosis PLAN: -Continue ertapenem 1g IV daily with stop date 07/28 -CoPAT placed Post-operative pain 07/24/2021 Assessment & Plan (02/09/2022 7:12 AM EDT): Assessment: s/p exploratory laparotomy, extensive lysis of adhesions >3 hours, small bowel resection x2, sigmoid resection, gastropexy 01/31 PLAN: -DC WET PRESS TENDER -Tylenol 650mg PO q6hr -Gabapentin 300mg PO TID -Dilaudid 0.2mg IV q3hr PRN -Oxycodone 5-10mg PO q4hr PRN Assessment & Plan (02/08/2022 6:59 AM EDT): Assessment: s/p exploratory laparotomy, extensive lysis of adhesions >3 hours, small bowel resection x2, sigmoid resection, gastropexy 01/31 PLAN: -DC WET PRESS TENDER -Tylenol 650mg PO q6hr -Gabapentin 300mg PO TID -Dilaudid 0.2mg IV q3hr PRN -Oxycodone 5-10mg PO q4hr PRN Assessment & Plan (02/07/2022 6:37 AM EDT): Assessment: s/p exploratory laparotomy, extensive lysis of adhesions >3 hours, small bowel resection x2, sigmoid resection, gastropexy 01/31 PLAN: -DC WET PRESS TENDER -Tylenol 650mg PO q6hr -Gabapentin 300mg PO TID -Dilaudid 0.2mg IV q3hr PRN -Oxycodone 5-10mg PO q4hr PRN Assessment & Plan (02/06/2022 6:53 AM EDT): Assessment: s/p exploratory laparotomy, extensive lysis of adhesions >3 hours, small bowel resection x2, sigmoid resection, gastropexy 01/31 PLAN: -Dilaudid WET PRESS TENDER -Tylenol 650mg PO q6hr -Gabapentin 300mg PO TID Assessment & Plan (02/05/2022 6:59 AM EDT): Assessment: s/p exploratory laparotomy, extensive lysis of adhesions >3 hours, small bowel resection x2, sigmoid resection, gastropexy 01/31 PLAN: -Dilaudid WET PRESS TENDER -Tylenol 650mg PO q6hr -Gabapentin 300mg PO TID Assessment & Plan (02/04/2022 7:04 AM EDT): Assessment: s/p exploratory laparotomy, extensive lysis of adhesions >3 hours, small bowel resection x2, sigmoid resection, gastropexy 01/31 PLAN: -Dilaudid WET PRESS TENDER -Tylenol 650mg PO q6hr Assessment & Plan (02/03/2022 9:44 AM EDT): Assessment: s/p exploratory laparotomy, extensive lysis of adhesions >3 hours, small bowel resection x2, sigmoid resection, gastropexy 01/31 PLAN: -Dilaudid WET PRESS TENDER -Tylenol 650mg PO q6hr Assessment & Plan (02/02/2022 7:11 AM EDT): Assessment: s/p exploratory laparotomy, extensive lysis of adhesions >3 hours, small bowel resection x2, sigmoid resection, gastropexy 01/31 PLAN: -Dilaudid WET PRESS TENDER -Tylenol 650mg PO q6hr Assessment & Plan (02/01/2022 6:41 AM EDT): Assessment: s/p exploratory laparotomy, extensive lysis of adhesions >3 hours, small bowel resection x2, sigmoid resection, gastropexy 01/31 PLAN: -Dilaudid WET PRESS TENDER -Tylenol 650mg PO q6hr Assessment & Plan (07/25/2021 7:00 AM EDT): Assessment: s/p exploratory laparotomy and diverting loop jejunostomy 07/15 PLAN: -Tylenol 1g PO q6hr -Flexeril 5mg PO TID PRN -Oxycodone 5-10mg PO q4hr PRN Assessment & Plan (07/24/2021 6:57 AM EDT): Assessment: s/p exploratory laparotomy and diverting loop jejunostomy 07/15 PLAN: -Tylenol 1g PO q6hr -Flexeril 5mg PO TID PRN -Oxycodone 5-10mg PO q4hr PRN Electrolyte imbalance 07/24/2021 Assessment & Plan (07/25/2021 7:00 AM EDT): Assessment: Hypokalemic during admission PLAN: -Replete K PRN maintaining levels >4 Assessment & Plan (07/24/2021 6:57 AM EDT): Assessment: Hypokalemic during admission PLAN: -Replete K PRN maintaining levels >4 Perforation of viscus 07/15/2021 Assessment & Plan (07/25/2021 6:59 AM EDT): Assessment: 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 treated nonoperatively with most recent admission here 07/03-07/07 who presents intestinal perforation 07/14: s/p exploratory laparotomy and diverting loop jejunostomy 07/15 PLAN: -GI soft diet -Continue cycled TPN upon DC -Imodium BID -Metamucil BID -Trend stoma output Assessment & Plan (07/24/2021 6:53 AM EDT): Assessment: 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 treated nonoperatively with most recent admission here 07/03-07/07 who presents intestinal perforation 07/14: s/p exploratory laparotomy and diverting loop jejunostomy 07/15 PLAN: -GI soft diet -Continue cycled TPN upon DC -Imodium BID -Metamucil BID -Trend stoma output Mass of pancreas 07/07/2021 Obesity, Class I, BMI 30-34.9 07/06/2021 Severe protein-calorie malnutrition 07/06/2021 Assessment & Plan (07/25/2021 7:00 AM EDT): Assessment: In the context of chronic illness PLAN: -Continue cycled TPN at DC -GI soft diet -Appreciate nutrition recs Assessment & Plan (07/24/2021 6:58 AM EDT): Assessment: In the context of chronic illness PLAN: -Continue cycled TPN at DC -GI soft diet -Appreciate nutrition recs SBO (small bowel obstruction) 06/17/2021 Iron deficiency anemia due to chronic blood loss 05/22/2021 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 pancreas, liver) per pt - s/p partial colectomy now has permanent jejunostomy, was unable to have other masses removed, follows with [facility] - currently gets lanreotide injections once per month, next dose today Assessment & Plan (02/09/2022 7:13 AM EDT): Assessment: PSH ExLap, diverting loop jejunostomy for SBO with perforation (distal obstructing NET) 07/14. + peritoneal mets 01/31: s/p exploratory laparotomy, extensive lysis of adhesions >3 hours, small bowel resection x2, sigmoid resection, gastropexy 02/05: CT A/P without acute findings PLAN: -GIS diet -Continue cycled TPN. Potentially DC if tolerating GI soft diet -PRN antiemetics -SSI AC/HS -Accuchecks AC/HS -WOCN consulted -PPI daily -TUMS TID -F/U pathology Assessment & Plan (02/08/2022 7:00 AM EDT): Assessment: PSH ExLap, diverting loop jejunostomy for SBO with perforation (distal obstructing NET) 07/14. + peritoneal mets 01/31: s/p exploratory laparotomy, extensive lysis of adhesions >3 hours, small bowel resection x2, sigmoid resection, gastropexy 02/05: CT A/P without acute findings PLAN: -NPO, TPN -PRN antiemetics -SSI q6hr -Accuchecks q6hr -BENITEZ drain to bulb suction -WOCN consulted -PPI daily -TUMS TID -F/U pathology Assessment & Plan (02/07/2022 6:39 AM EDT): Assessment: PSH ExLap, diverting loop jejunostomy for SBO with perforation (distal obstructing NET) 07/14. + peritoneal mets 01/31: s/p exploratory laparotomy, extensive lysis of adhesions >3 hours, small bowel resection x2, sigmoid resection, gastropexy 02/05: CT A/P without acute findings PLAN: -NPO, TPN -PRN antiemetics -SSI TID -Accuchecks TID -BENITEZ drains to bulb suction -WOCN consulted -PPI daily -TUMS TID -F/U pathology Assessment & Plan (02/06/2022 6:58 AM EDT): Assessment: PSH ExLap, diverting loop jejunostomy for SBO with perforation (distal obstructing NET) 07/14. + peritoneal mets 01/31: s/p exploratory laparotomy, extensive lysis of adhesions >3 hours, small bowel resection x2, sigmoid resection, gastropexy 02/05: CT A/P without acute findings PLAN: -NPO, TPN -NGT clamp trial -PRN antiemetics -SSI TID -Accuchecks TID -BENITEZ drains to bulb suction -WOCN consulted -PPI daily -TUMS TID -F/U pathology Assessment & Plan (02/05/2022 7:03 AM EDT): Assessment: PSH ExLap, diverting loop jejunostomy for SBO with perforation (distal obstructing NET) 07/14. + peritoneal mets 01/31: s/p exploratory laparotomy, extensive lysis of adhesions >3 hours, small bowel resection x2, sigmoid resection, gastropexy PLAN: -NPO, TPN -NGT to LIWS -PRN antiemetics -SSI TID -Accuchecks TID -BENITEZ drains to bulb suction -WOCN consulted -PPI daily -TUMS TID -F/U pathology Assessment & Plan (02/04/2022 12:04 PM EDT): Assessment: PSH ExLap, diverting loop jejunostomy for SBO with perforation (distal obstructing NET) 07/14. + peritoneal mets 01/31: s/p exploratory laparotomy, extensive lysis of adhesions >3 hours, small bowel resection x2, sigmoid resection, gastropexy PLAN: -NPO, TPN -NGT clamp trial -D/C Entereg -PRN antiemetics -BENITEZ drains to bulb suction -WOCN consulted -F/U pathology Assessment & Plan (02/03/2022 9:44 AM EDT): Assessment: PSH ExLap, diverting loop jejunostomy for SBO with perforation (distal obstructing NET) 07/14. + peritoneal mets 01/31: s/p exploratory laparotomy, extensive lysis of adhesions >3 hours, small bowel resection x2, sigmoid resection, gastropexy PLAN: -NPO, TPN -NGT to LIWS - will give 1.5 L bolus to replace output 1/2:1 -Entereg 12mg PO BID -PRN antiemetics -BENITEZ drains to bulb suction -WOCN consulted -F/U pathology Assessment & Plan (02/02/2022 7:12 AM EDT): Assessment: PSH ExLap, diverting loop jejunostomy for SBO with perforation (distal obstructing NET) 07/14. + peritoneal mets 01/31: s/p exploratory laparotomy, extensive lysis of adhesions >3 hours, small bowel resection x2, sigmoid resection, gastropexy PLAN: -NPO, TPN -NGT to LIWS -Entereg 12mg PO BID -PRN antiemetics -BENITEZ drains to bulb suction -WOCN consulted -F/U pathology Assessment & Plan (02/01/2022 6:40 AM EDT): Assessment: PSH ExLap, diverting loop jejunostomy for SBO with perforation (distal obstructing NET) 07/14. + peritoneal mets 01/31: s/p exploratory laparotomy, extensive lysis of adhesions >3 hours, small bowel resection x2, sigmoid resection, gastropexy PLAN: -NPO, mIVF -NGT to LIWS -PRN antiemetics -BENITEZ drains to bulb suction -F/U pathology Retention of urine 10/22/2018 Overview (07/04/2021): ====10/22/18==== renal ultrasound 10/20/2018 showed a PVR of 824 cc's. There is no hydronephrosis. Patient was successfully taught ISC in the office today. We will check a creatinine. She is scheduled for cysto/urethral dilatation/U of M instillation 11/19/2018. I will check with Dr. Weiss to see if he would like to add urodynamics to the procedure. Assessment & Plan (10/29/2022 2:18 PM EST): Assessment: bladder diverticuli which causes urinary retention but not really an issue ever since her stoma H/O urethral stricture 09/24/2018 Overview (07/04/2021): 10/30/2011 03:20:51 am - She did well [...] start therapy with Macrobid. Had cranberry supplements. Resolved Problems Problem Noted Date Diagnosed Date Resolved Date Post-procedural fever 02/05/20222021 Assessment & Plan (02/09/2022 7:12 AM EDT): Assessment: TMax 102.7F on 02/06: BCx +MRSE PLAN: -ID consulted -F/U BCx 02/07 -Continue vancomycin through 45 -Replace central line once 02/07 BCx negative x 48 hours -Anticipate COPAT Assessment & Plan (02/08/2022 6:59 AM EDT): Assessment: TMax 102.7F on 02/06: BCx +MRSE PLAN: -ID consulted -F/U BCx 02/07 -Continue vancomycin through 5 -Replace central line once 02/07 BCx negative x 48 hours -Anticipate COPAT Assessment & Plan (02/07/2022 6:38 AM EDT): Assessment: TMax 102.7F on 02/06: BCx +MRSE PLAN: -ID consulted -F/U UCx -Continue vancomycin -Replace central line once BCx negative x 48 hours -Anticipate COPAT Assessment & Plan (02/06/2022 6:55 AM EDT): Assessment: TMax 102.7F on 02/06: BCx +GPC PLAN: -Consult ID -Plan to DC Tiwari -F/U UCx -Empiric vanc/zosyn Assessment & Plan (02/05/2022 7:01 AM EDT): Assessment: TMax 102.7F on 02/05. PLAN: -F/U BCx x2 -F/U UCx -F/U repeat sepsis lactate -Empiric vanc/zosyn Hypokalemia 02/05/2022 02/09/2022 Assessment & Plan (02/09/2022 7:11 AM EDT): Assessment: Hypokalemic during post operative period PLAN: -Maintain K>4 at all times Assessment & Plan (02/08/2022 6:58 AM EDT): Assessment: Hypokalemic during post operative period PLAN: -Maintain K>4 at all times Assessment & Plan (02/07/2022 6:36 AM EDT): Assessment: Hypokalemic during post operative period PLAN: -Maintain K>4 at all times Assessment & Plan (02/06/2022 6:52 AM EDT): Assessment: Hypokalemic during post operative period PLAN: -Maintain K>4 at all times Assessment & Plan (02/05/2022 7:04 AM EDT): Assessment: Hypokalemic during post operative period PLAN: -Maintain K>4 at all times Tachycardia 02/02/2022 02/09/2022 Assessment & Plan (02/09/2022 7:14 AM EDT): Assessment: Tachycardic throughout admission with HR 120-130s 3/24: EKG demonstrating sinus tachycardia 325: BLE duplex negative for DVT 02/09: Tachycardia now resolved PLAN: -DC tele -Maintain euvolemic state -K>4 -Mg>2 Assessment & Plan (02/08/2022 7:00 AM EDT): Assessment: Tachycardic throughout admission with HR 120-130s 3/24: EKG demonstrating sinus tachycardia 325: BLE duplex negative for DVT PLAN: -Continue tele -Maintain euvolemic state -K>4 -Mg>2 Assessment & Plan (02/07/2022 6:39 AM EDT): Assessment: Tachycardic throughout admission with HR 120-130s 3/24: EKG demonstrating sinus tachycardia 325: BLE duplex negative for DVT PLAN: -Continue tele -Maintain euvolemic state -K>4 -Mg>2 Assessment & Plan (02/06/2022 6:55 AM EDT): Assessment: Tachycardic throughout admission with HR 120-130s 3/24: EKG demonstrating sinus tachycardia 325: BLE duplex negative for DVT PLAN: -Continue tele -Maintain euvolemic state -K>4 -Mg>2 Assessment & Plan (02/05/2022 7:02 AM EDT): Assessment: Tachycardic throughout admission with HR 120-130s 02/01: EKG demonstrating sinus tachycardia 02/02: BLE duplex negative for DVT PLAN: -Continue tele -Maintain euvolemic state -K>4 -Mg>2 Assessment & Plan (02/04/2022 12:04 PM EDT): Assessment: Tachycardic throughout admission with HR 120-130s 02/01: EGD demonstrating sinus tachycardia PLAN: -D/C Tele -Maintain euvolemic state -K>4 -Mg>2 Assessment & Plan (02/03/2022 9:45 AM EDT): Assessment: Tachycardic throughout admission with HR 120-130s 02/01: EGD demonstrating sinus tachycardia PLAN: -Monitor tele -Maintain euvolemic state -K>4 -Mg>2 Assessment & Plan (02/02/2022 7:13 AM EDT): Assessment: Tachycardic throughout admission with HR 120-130s 02/01: EGD demonstrating sinus tachycardia PLAN: -Monitor tele -Maintain euvolemic state -K>4 -Mg>2 Bowel obstruction 07/04/2021 07/07/2021 Encounters Date Type Department Care Team Description 04/28/2025 Telephone Hematology/Oncolog y [address] [place] [address] [place] [address] Lisbet Sinclair RN 04/27/2025 2:30 PM EDT [facility] Palliative Medicine [address] [place] [address] lAyce Chadwick, VIKASH.RADIO STATION MANAGER Palliative care by specialist (Primary Dx); Primary malignant neuroendocrine tumor of ileum (HCC); Malignant carcinoid tumor of ileum (HCC); Constipation due to opioid therapy; Neoplastic malignant related fatigue; Mass of pancreas (HCC); Reactive depression; Malaise and fatigue 04/22/2025 Results Follow-Up Hematology/Oncolog y [address] [place] [address] Leslie Lovelace, STROBOSCOPE OPERATOR.RADIO STATION MANAGER Results 04/21/2025 Orders Only Hematology/Oncolog y [address] [place] [address] Humberto Stout MD 04/21/2025 Orders Only Hematology/Oncolog y [address] [place] [address] Viridiana Mccarthy PA-C 04/21/2025 Orders Only [facility] [address] [place] [address] Enedelia Barker formerly [facility] 04/21/2025 Telephone Hematology/Oncolog y [address] [place] [address] Arabella Chappell, specification manager supply orders 04/19/2025 3:30 PM EDT Infusion Center Hematology/Oncolog y [address] [place] [address] Primary malignant neuroendocrine tumor of ileum (HCC) (Primary Dx) 04/19/2025 3:00 PM EDT Visit (SP) Office Hematology/Oncolog y [address] [place] [address] Viridiana Mccarthy PA-C Malignant carcinoid tumor of ileum (HCC) (Primary Dx); Anemia, unspecified type; Thrombocytopenia 04/18/2025 Travel 04/13/2025 Refill Hematology/Oncolog y [address] [place] [address] Humberto Stout MD Refill Request 04/13/2025 Orders Only Hematology/Oncolog y [address] [place] [address] Humberto Stout MD 04/12/2025 Orders Only Hematology/Oncolog y [address] [place], [place] [id number] Jeanette Kumar, STROBOSCOPE OPERATOR.RADIO STATION MANAGER 03/31/2025 Results Follow-Up Hematology/Oncolog y [address] [place] [address] Humberto Stout MD Care Coordination (Liver Function Results) 03/29/2025 3:30 PM EDT Infusion Center Hematology/Oncolog y [address] [place] [address] Primary malignant neuroendocrine tumor of ileum (HCC) (Primary Dx) 03/29/2025 3:00 PM EDT Visit (SP) Office Hematology/Oncolog y [address] [place] [address] Viridiana Mccarthy, PAJonnathanC Malignant carcinoid tumor of ileum (HCC) (Primary Dx); Malaise and fatigue 03/29/2025 Travel 03/22/2025 Refill Palliative Medicine [address] [place] [address] Alyce Chadwick, STROBOSCOPE OPERATOR.RADIO STATION MANAGER Refill Request 03/22/2025 [facility] [address] [place] [address] Provider, [facility] refill for duloxetine 03/21/2025 Refill Palliative Medicine [address] [place] [address] Alyce Chadwick, STROBOSCOPE OPERATOR.RADIO STATION MANAGER Refill Request 03/08/2025 3:30 PM EDT Infusion Center Hematology/Oncolog y [address] [place] [address] Primary malignant neuroendocrine tumor of ileum (HCC) (Primary Dx) 03/08/2025 3:00 PM EDT Visit (SP) Office Hematology/Oncolog y [address] [place] [address] Humberto Stout MD Pain of right forearm (Primary Dx); Malignant carcinoid tumor of ileum (HCC); Malaise and fatigue 03/08/2025 Telephone Cancer Appts [address] [place] [address] Humberto Stout MD Future Appointment 03/07/2025 Travel 02/19/2025 Results Follow-Up Hematology/Oncolog y [address] [place] [address] Humberto Stout MD Care Coordination (Scan Results) 02/17/2025 1:30 PM EDT Infusion Center Hematology/Oncolog y [address] [place] [address] Primary malignant neuroendocrine tumor of ileum (HCC) (Primary Dx) 02/17/2025 8:57 AM EDT - 02/17/2025 11:59 PM EDT Hospital Encounter Molecular Imaging [address] [place] [address] Malignant carcinoid tumor of ileum (HCC) [C7A.012] Discharge Disposition: Home 02/17/2025 7:43 AM EDT - 02/17/2025 8:56 AM EDT Hospital Encounter Molecular Imaging [address] [place] [address] Discharge Disposition: Home from Last 3 Months Family History Medical History Relation Comments Diabetes Brother Gout Father Heart disease Father Dementia Maternal Grandfather Diabetes Maternal Grandfather Asthma Maternal Grandmother COPD Maternal Grandmother Dementia Maternal Grandmother Diabetes Maternal Grandmother Heart disease Maternal Grandmother Asthma Mother Blood Disease Mother Diabetes Mother Hypertension Mother hemolytic anemia Mother Bladder Cancer Paternal Grandfather Liver Cancer Paternal Grandfather Parkinson s Disease Paternal Grandfather Skin Cancer Paternal Grandfather gallbladder Paternal Grandfather Breast Cancer Paternal Grandmother Heart disease Paternal Grandmother Kidney Disease Paternal Grandmother Relation Status Comments Brother Father Maternal Grandfather Maternal Grandmother Mother Alive Paternal Grandfather Paternal Grandmother Social History Tobacco Use Types Packs/Day Years Used Date Smoking Tobacco: Never Passive Smoke Exposure: Past Smokeless Tobacco: Never Tobacco Cessation:Counseling Given: Not [...] is lower risk 4 03/21/2023 Data from: https://www.neighborhoodatlas.medicine.[facility].edu/. Last address used for calculation [address] 03/21/2023 Comments No Sex and Gender Information Value Date Recorded Sex Assigned at Female 11/07/2021 7:23 AM EST Legal Sex Female 12:07 PM EDT Gender Identity Female 11/07/2021 7:23 AM EST Sexual Orientation Straight 11/07/2021 7: 23 AM EST Last Filed Vital Signs Vital Sign Reading [...] Mass Index 24.68 04/19/2025 2:42 PM EDT Plan of Treatment Upcoming Encounters Date Type Department Care Team (Late st Contact Info) Description 05/10/2025 3:45 PM EDT Office Visit [facility] [address] [place] [address] [place] [address] 3 week lab and lanreotide inj 05/10/2025 4:00 PM EDT Infusion Center Hematology/Oncology [address] [place] [address] [place] [address] 3 week lab and lanreotide inj 05/31/2025 2:45 PM EDT Office Visit [facility] [address] [place] [address] [place] [address] 6 week follow up with lab and lanreotide inj 05/31/2025 3:00 PM EDT Visit (SP) Office Hematology/Oncology [address] [place] [address] [place] [address] Viridiana Mccarthy, PA-C [address] [place] [address] [place] [address] 6 week follow up with lab and lanreotide inj 05/31/2025 3:30 PM EDT Infusion Center Hematology/Oncology [address] [place] [address] [place] [address] 6 week follow up with lab and lanreotide inj 08/03/2025 2:30 PM EDT [facility] Palliative Medicine [address] [place] [address] Alyce Chadwick, STROBOSCOPE OPERATOR.RADIO STATION MANAGER [address] [place] [address] 3 month follow up Health Maintenance Due Date Last Done Comments Depression Screening 1992 HIV Screening 1992 Hepatitis C Screening 1992 DTaP,Tdap,Td Vaccine (1 - Tdap) 1993 Hepatitis B Vaccine (1 of 3 - 19+ 3-dose series) 1993 Cervical Cancer Screening 1995 CT Colonography 2019 Cologuard (FIT-DNA) 2019 Colonoscopy 2019 Colorectal Cancer Screening 2019 Fecal Occult Blood 2019 Lipid Screening 2019 Sigmoidoscopy 2019 Mammogram Screening 01/13/2020 01/12/2019, 9 Covid-19 Vaccine (3 - 2023-2 5 season) 2024 12/10/2021, 11/19/2021 Pneumococcal Vaccine: 50+ (1 of 1 - PCV) 2024 Shingrix Vaccine (1 of 2) 2024 Influenza Vaccine (Season Ended) 2025 Diabetes Screening 04/19/2028 04/19/2025, 0 03/29/2025, 03/08/2025, Additional history exists Medical Devices Implanted Type Area Fraud Analyst Device Identifier Shelf Expiration Date Model / Serial / Lot Catheter Audi 10fr Central Venous 2 Lumen Surecuff Tissue Ingrowth Cuff - [id number] Implanted:Qty: 1 on 07/16/2021 at [facility] Catheter Right: Chest BARD PERIPHERAL VASCULAR 01/08/2025 [id number] / / [id number] Mirena Iud Levonorgestrel 52mg [id number] Implanted:Qty: 1 on 11/14/2022 by Nichelle Bustos MD at [facility] Intrauterine Device N/A: Uterus CARLA KENNY 12/11/2024 [id number] / [id number] / [id number] Procedures Procedure Name Priority Date/Time Associated Diagnosis Comments COMPREHENSIVE METABOLIC PANEL Routine 04/19/2025 2:35 PM EDT 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) Iron deficiency anemia due to chronic blood loss CBC + DIFF Routine 04/19/2025 2:35 PM EDT 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) Iron deficiency anemia due to chronic blood loss SEROTONIN BLD Routine 04/19/2025 2:35 PM EDT 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) Iron deficiency anemia due to chronic blood loss VASOACTIVE INTESTINAL POLYPEPTIDE (VIP), PLASMA Routine 04/19/2025 2:35 PM EDT 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) Iron deficiency anemia due to chronic blood loss GASTRIN BLD Routine 04/19/2025 2:35 PM EDT 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) Iron deficiency anemia due to chronic blood loss CHROMOGRANIN A Routine 04/19/2025 2:35 PM EDT 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) Iron deficiency anemia due to chronic blood loss COMPREHENSIVE METABOLIC PANEL Routine 03/29/2025 2:39 PM EDT 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) Iron deficiency anemia due to chronic blood loss CBC + DIFF Routine 03/29/2025 2:39 PM EDT 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) Iron deficiency anemia due to chronic blood loss SEROTONIN BLD Routine 03/29/2025 2:39 PM EDT 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) Iron deficiency anemia due to chronic blood loss VASOACTIVE INTESTINAL POLYPEPTIDE (VIP), PLASMA Routine 03/29/2025 2:39 PM EDT 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) Iron deficiency anemia due to chronic blood loss GASTRIN BLD Routine 03/29/2025 2:39 PM EDT 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) Iron deficiency anemia due to chronic blood loss CHROMOGRANIN A Routine 03/29/2025 2:39 PM EDT 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) Iron deficiency anemia due to chronic blood loss FOLATE SERUM Routine 03/08/2025 2:48 PM EDT 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) Iron deficiency anemia due to chronic blood loss VITAMIN B12 BLOOD Routine 03/08/2025 2:4 8 PM EDT 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) Iron deficiency anemia due to chronic blood loss FERRITIN BLD Routine 03/08/2025 2:48 PM EDT 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) Iron deficiency anemia due to chronic blood loss IRON + TIBC Routine 03/08/2025 2:48 PM EDT 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) Iron deficiency anemia due to chronic blood loss COMPREHENSIVE METABOLIC PANEL Routine 03/08/2025 2:48 PM EDT 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) Iron deficiency anemia due to chronic blood loss CBC + DIFF Routine 03/08/2025 2:48 PM EDT 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) Iron deficiency anemia due to chronic blood loss SEROTONIN BLD Routine 03/08/2025 2:48 PM EDT 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) Iron deficiency anemia due to chronic blood loss VASOACTIVE INTESTINAL POLYPEPTIDE (VIP), PLASMA Routine 03/08/2025 2:48 PM EDT 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) Iron deficiency anemia due to chronic blood loss GASTRIN BLD Routine 03/08/2025 2:48 PM EDT 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 Vasoactive Intestinal Polypeptide 22.6 0.0 - 89.1 pg/mL 04/22/2025 3:09 PM EDT [facility] Comment: This test was developed and its performance characteristics determined by [facility]. It has not been cleared or approved by the U.S. Food and Drug Administration. This test was performed in a CLIA-certified laboratory and is intended for clinical purposes. Performed By: [facility] [address] [place] [address] [employer]eer [employer]: Russell Evans MD, PhD CLIA Number: [id number] Blood BLOOD SPECIMEN / Unknown Venipuncture / Unknown 04/19/2025 2:35 PM EDT 04/19/2025 2:35 PM EDT Humberto Stout MD LABORATORY Final Result Performing Organization Address [facility] de Phone Number [facility] [address] [place], [place] [id number] * SEROTONIN BLD (04/19/2025 2:35 PM EDT) Only the most recent of3 resultswithin the time period is included. Serotonin Serum 98 50 - 220 ng/mL 04/22/2025 7:35 PM EDT [facility] Comment: TEST INFORMATION: Serotonin, Serum This test was developed and its performance characteristics determined by [facility]. It has not been cleared or approved by the US Food and Drug Administration. This test was performed in a CLIA certified laboratory and is intended for clinical purposes. Performed By: [facility] [employer] [address] [place] [id number] [employer]: Russell Evans MD, PhD CLIA Number: [id number] Blood BLOOD SPECIMEN / Unknown Venipuncture / Unknown 04/19/2025 2:35 PM EDT 04/19/2025 2:35 PM EDT us Humberto Stout MD LABORATORY Final Result Performing Organization Address [facility] de Phone Number [address] [address] * GASTRIN BLD (04/19/2025 2:35 PM EDT) Only the most recent of3 resultswithin the time period is included. Pathologist [facility] Gastrin 51.3 <115.0 pg/mL 04/20/2025 11:12 AM EDT [facility] Comment:The Gastrin test was performed using the Siemens Immulite chemiluminescent immunometric method. Results obtained with different assay methods or kits cannot be used interchangeably. Blood BLOOD SPECIMEN / Unknown Venipuncture / Unknown 04/19/2025 2:35 PM EDT 04/19/2025 2:35 PM EDT us Humberto Stout MD LABORATORY Final Result Performing Organization Address [facility] Co de Phone Number [facility] [address] [id number] [place] [id number], * (ABNORMAL) COMPREHENSIVE METABOLIC PANEL (04/19/2025 2:35 PM EDT) Only the most recent of3 resultswithin the time period is included. [facility] Protein, Total 6.3 6.3 - 8.0 g/dL 04/19/2025 3:03 PM EDT [facility] Albumin 4.2 3.9 - 4.9 g/dL 04/19/2025 3:03 PM EDT [facility] Calcium, Total 9.0 8.5 - 10.2 mg/dL 04/19/2025 3:03 PM EDT [facility] Bilirubin, Total 1.6(H) 0.2 - 1.3 mg/dL 04/19/2025 3:03 PM EDT [facility] Alkaline Phosphatase 112 34 - 123 U/L 04/19/2025 3:03 PM EDT [facility] AST 24 13 - 35 U/L 04/19/2025 3:03 PM EDT [facility] ALT 29 7 - 38 U/L 04/19/2025 3:03 PM EDT [facility] Glucose 104(H) 74 - 99 mg/dL 04/19/2025 3:03 PM EDT [facility] Comment: The [place] Diabetes Association (ADA) provides guidance for cutoff [...] Standards of Medical Care in Diabetes 2016, [place] Diabetes Association. Diabetes Care. 2016.39(Suppl 1). BUN 17 7 - 21 mg/dL 04/19/2025 3:03 PM EDT [facility] Creatinine 0.83 0.58 - 0.96 mg/dL 04/19/2025 3:03 PM EDT [facility] Sodium 138 136 - 144 mmol/L 04/19/2025 3:03 PM EDT [facility] Potassium 3.4(L) 3.7 - 5.1 mmol/L 04/19/2025 3:03 PM EDT [facility] Chloride 111(H) 98 - 107 mmol/L 04/19/2025 3:03 PM EDT [facility] CO2 19(L) 22 - 30 mmol/L 04/19/2025 3:03 PM EDT [facility] Anion Gap 8 8 - 15 mmol/L 04/19/2025 3:03 PM EDT [facility] Estimated Glomerular Filtration Rate 86 >=60 mL/min/1. 73m 04/19/2025 3:03 PM EDT [facility] Comment:Estimated Glomerular Filtration Rate (eGFR) is calculated using the 2020 CKD-EPI creatinine equation. This equation utilizes serum creatinine, sex, and age as parameters. The creatinine assay has traceable calibration to isotope dilution- mass spectrometry. Refer to KDIGO guidelines for clinical interpretation. In patients with unstable renal function, e.g. those with acute kidney injury, the eGFR may not accurately reflect actual GFR. Blood BLOOD SPECIMEN / Unknown Venipuncture / Unknown 04/19/2025 2:35 PM EDT 04/19/2025 2:35 PM EDT us Humberto Stout MD LABORATORY Final Result [facility] [address] [place] [address] * CHROMOGRANIN A (04/19/2025 2:35 PM EDT) Only the most recent of3 resultswithin the time period is included. Chromogranin A 136.2 <187.0 ng/mL 04/22/2025 1:49 PM EDT [facility] Comment:The Chromogranin A t est was performed using the GiveNext CgA II KRYPTOR method. Results obtained with different assay methods or kits cannot be used interchangeably. Blood BLOOD SPECIMEN / Unknown Venipuncture / Unknown 04/19/2025 2:35 PM EDT 04/19/2025 2:35 PM EDT us Humberto Stout MD LABORATORY Final Result [facility] [address] [facility] [address] [address], * (ABNORMAL) COMPLETE BLOOD COUNT AND DIFFERENTIAL (04/19/2025 2:35 PM EDT) Only the most recent of3 resultswithin the time period is included. WBC 3.71 3.70 - 11.00 k/uL 04/19/2025 2:41 PM EDT [facility] RBC 3.03(L) 3.90 - 5.20 m/uL 04/19/2025 2:41 PM EDT [facility] Hemoglobin 9.9(L) 11.5 - 15.5 g/dL 04/19/2025 2:41 PM EDT [facility] Hematocrit 28.4(L) 36.0 - 46.0 % 04/19/2025 2:41 PM EDT [facility] MCV 93.7 80.0 - 100.0 fL 04/19/2025 2:41 PM EDT [facility] MCH 32.7 26.0 - 34.0 pg 04/19/2025 2:41 PM EDT [facility] MCHC 34.9 30.5 - 36.0 g/dL 04/19/2025 2:41 PM EDT [facility] RDW-CV 13.4 11.5 - 15.0 % 04/19/2025 2:41 PM EDT [facility] Platelet Count 84(L) 150 - 400 k/uL 04/19/2025 2:41 PM EDT [facility] Comment:No clot detected. MPV 8.1(L) 9.0 - 12.7 fL 04/19/2025 2:41 PM EDT [facility] Neutrophils % 61.4 % 04/19/2025 2:41 PM EDT [facility] Abs Neut 2.28 1.45 - 7.50 k/uL 04/19/2025 2:41 PM EDT [facility] Lymphocytes % 19.7 % 04/19/2025 2:41 PM EDT [facility] Abs Lymph 0.73(L) 1.00 - 4.00 k/uL 04/19/2025 2:41 PM EDT [facility] Monocytes % 8.1 % 04/19/2025 2:41 PM EDT [facility] Abs Trinity 0.30 <0.87 k/uL 04/19/2025 2:41 PM EDT [facility] Eosinophils % 10.0 % 04/19/2025 2:41 PM EDT [facility] Abs Eosin 0.37 <0.46 k/uL 04/19/2025 2:41 PM EDT [facility] Basophils % 0.5 % 04/19/2025 2:41 PM EDT [facility] Abs Baso <0.03 <0.11 k/uL 04/19/2025 2:41 PM EDT [facility] Immature Granulocytes % 0.3 % 04/19/2025 2:41 PM EDT [facility] Abs Immature Gran <0.03 <0.10 k/uL 04/19/2025 2:41 PM EDT [facility] NRBC 0.0 /100 WBC 04/19/2025 2:41 PM EDT [facility] Absolute nRBC <0.01 <0.01 k/uL 04/19/2025 2:41 PM EDT [facility] Diff Type Auto 04/19/2025 2:41 PM EDT [facility] Blood BLOOD SPECIMEN / Unknown Venipuncture / Unknown 04/19/2025 2:35 PM EDT 04/19/2025 2:35 PM EDT us Humberto Stout MD LABORATORY Final Result [facility] [address] [place] [address] * VITAMIN B12 (03/08/2025 2:48 PM EDT) Vitamin B12 302 232 - 1,245 pg/mL 03/09/2025 1:51 AM EDT [facility] Blood BLOOD SPECIMEN / Unknown Venipuncture / Unknown 03/08/2025 2:48 PM EDT 03/08/2025 2:48 PM EDT us Humberto Stout MD LABORATORY Final Result [facility] [address] [address], * IRON AND TIBC (03/08/2025 2:48 PM EDT) Iron 76 41 - 186 ug/dL 03/09/2025 1:31 AM EDT [facility] TIBC 327 232 - 386 ug/dL 03/09/2025 1:31 AM EDT [facility] Transferrin Saturation 23.2 15.0 - 57.0 % 03/09/2025 1:31 AM EDT [facility] Blood BLOOD SPECIMEN / Unknown Venipuncture / Unknown 03/08/2025 2:48 PM EDT 03/08/2025 2:48 PM EDT us Humberto Stout MD LABORATORY Final Result [facility] [address] [place] [address], [place] * FOLATE, SERUM (03/08/2025 2:48 PM EDT) Folate 15.1 >4.7 ng/mL 03/09/2025 1:51 AM EDT [facility] Blood BLOOD SPECIMEN / Unknown Venipuncture / Unknown 03/08/2025 2:48 PM EDT 03/08/2025 2:48 PM EDT us Humberto Stout MD LABORATORY Final Result [facility] [address] [place] [address], [place] * FERRITIN (03/08/2025 2:48 PM EDT) Ferritin 156.0 14.7 - 205.1 ng/mL 03/09/2025 1:51 AM EDT [facility] Blood BLOOD SPECIMEN / Unknown Venipuncture / Unknown 03/08/2025 2:48 PM EDT 03/08/2025 2:48 PM EDT us Humberto Stout MD LABORATORY Final Result [facility] [address] [place] [address], [place] * NM PET/CT NEUROENDOCRINE WHOLE BODY IMAGING (02/17/2025 9:13 AM EDT) Anatomical Region Laterality Modality Nuclear Medicine 02/17/2025 9:13 AM EDT Impressions 02/18/2025 7:20 PM EDT IMPRESSION: Compared to 10/07/2024 DOTATATE PET/CT, stable [...] liver 4: uptake is greater than spleen Circulation Worker: [employer] Transcribe Date/Time: Feb 17 2025 3:07P Dictated by : TRINI CONTE MD This examination was interpreted and the report reviewed and electronically signed by: TRINI CONTE MD on Feb 18 2025 7:17PM EST Narrative 02/18/2025 7:20 PM EDT * * [...] avid lesion, hydrocephalus, or mass effect. Neck & Lymph Nodes: No radiotracer avid or pathologically enlarged cervical lymphadenopathy. Thyroid: No radiotracer avid thyroid nodule. Aerodigestive tract: No radiotracer avid lesion along the mucosal space. No obstructive lesion, airway is patent. CHEST: Lungs & Airways: No radiotracer avid lung nodule. Stable size of a 0.5 cm medial left lower lobe nodule (SUV 1.6 image 152, prior SUV 1.8). Calcified granulomas in the left lower lobe. Pleura & Pericardium: No radiotracer avid pleural nodule. No pleural effusion. Cardiovascular: Physiologic radiotracer activity in the blood pool. Normal cardiac size. No pericardial effusion. Mediastinum & Lymph Nodes: No radiotracer avid mediastinal or [...] intra-abdominal and intrapelvic vasculature is unremarkable. Retroperitoneum & Lymph Nodes: No radiotracer avid or pathologically enlarged lymphadenopathy. MUSCULOSKELETAL: Osseous: No radiotracer avid bone lesion. On CT, no lytic or sclerotic bone lesion. Soft Tissues: No radiotracer avid soft tissue lesion is identified. Procedure Note Provider, [facility] - 02/18/2025 * * *Final Report* * * DATE OF EXAM: Feb 17 2025 9:13AM [facility] 0094 - NM PET/CT NEUROENDOCRINE WB / [...] avid lesion, hydrocephalus, or mass effect. Neck & Lymph Nodes: No radiotracer avid or pathologically enlarged cervical lymphadenopathy. Thyroid: No radiotracer avid thyroid nodule. Aerodigestive tract: No radiotracer avid lesion along the mucosal space. No obstructive lesion, airway is patent. CHEST: Lungs & Airways: No radiotracer avid lung nodule. Stable size of a 0.5 cm medial left lower lobe nodule (SUV 1.6 image 152, prior SUV 1.8). Calcified granulomas in the left lower lobe. Pleura & Pericardium: No radiotracer avid pleural nodule. No pleural effusion. Cardiovascular: Physiologic radiotracer activity in the blood pool. Normal cardiac size. No pericardial effusion. Mediastinum & Lymph Nodes: No radiotracer avid mediastinal or [...] intra-abdominal and intrapelvic vasculature is unremarkable. Retroperitoneum & Lymph Nodes: No radiotracer avid or pathologically enlarged lymphadenopathy. MUSCULOSKELETAL: Osseous: No radiotracer avid bone lesion. On CT, no lytic or sclerotic bone lesion. Soft Tissues: No radiotracer avid soft tissue lesion is identified. IMPRESSION IMPRESSION: Compared to 10/07/2024 DOTATATE PET/CT, stable [...] liver 4: uptake is greater than spleen Circulation Worker: [employer]ION Transcribe Date/Time: Feb 17 2025 3:07P Dictated by : TRINI CONTE MD This examination was interpreted and the report reviewed and electronically signed by: TRINI CONTE MD on Feb 18 2025 7:17PM EST Humberto Stout MD [place] Final Result from Last 3 Months Insurance [employer] Advance Directives * Full Code (Latest Code Status on File) Date Activated Date Inactivated Comments 02/02/2022 12:00 PM 02/09/2022 6:14 PM Question Answer Comments Full Code Order Discussed With: Patient * Full Code Date Activated Date Inactivated Comments 07/04/2021 3:48 AM 07/07/2021 10:40 PM Question Answer Comments Full Code Order Discussed With: Patient Care Teams Assistant [employer] Relationship Specialty Start Date End Date Loren Ascencio MD [address] [place] [address] PCP - General Family Medicine 10/01/[address] [place] [address] [place] [address] Registered Dietitian Nutrition 11/28/22 Alyce Chadwick APRN.RADIO STATION MANAGER [address] [facility] [address] Hospice & Palliative Medicine 03/05/23 Kelsie Cunha, RN Specialty Diesel Truck Driver Hospice & Palliative Medicine 03/05/23 Kylee Wilkinson LISW [address] [place] [address] Pants [employer]ler 11/20/23
--- OUTSIDE RECORDS SUMMARY | 2025-05-03 09:08 | XMS_ITS | Encounter Summary ---
Author Organization [facility] Address [address] [place] [address] Care Team Providers Care Chief Investment Officer Name Role Phone Loren Ascencio MD Primary Care Provider [phone] Unavailable [phone] Alyce Chadwick APRN.PLUG STITCHER Unavailable + Kelsie Cunha RN Unavailable Unavail able Linnette Shoemaker RN Unavailable [phone] Kylee Wilkinson Unavailable [phone] Source Comments In the event this information is protected by the Federal Confidentiality of Alcohol and Drug AbusePatient Records regulations: The Federal rules restrict any use of the information to criminally investigate or prosecute any alcohol or drug abuse patient.[facility] Encounter Details Date Type Department Care Team (Late st Contact Info) Description 11/15/2021 Patient Msg Pharmacy Home Infusion [address] [place] [id number] Anneliese Perry PSS Weekly [facility] Infusion Pharmacy TPN refill request Social History [...] Data from: https://www.neighborhoodatlas.medicine.[facility]/. Last address used for calculation [...] Description 05/10/2025 3:45 PM EDT Office Visit [facility] [address] [place] [address] [place] [address] 3 week lab and lanreotide inj 05/10/2025 4:00 PM EDT Infusion Center Hematology/Oncology [address] [place] [address] [place] [address] 3 week lab and lanreotide inj 05/31/2025 2:45 PM EDT Office Visit [facility] [address] [place] [address] [place] [address] 6 week follow up with lab and lanreotide inj 05/31/2025 3:00 PM EDT Visit (SP) Office Hematology/Oncology [address] [place] [address] [place] [address] Viridiana Mccarthy, PA-C [address] [place] [address] 6 week follow up with lab and lanreotide inj 05/31/2025 3:30 PM EDT Infusion Center Hematology/Oncology [address] [place] [address] [place] [address] 6 week follow up with lab and lanreotide inj 08/03/2025 2:30 PM EDT [facility] Pall[facility] Medicine [address] [place] [address] [place] [address] Alyce Chadwick, FINANCIAL REPORTING CONSULTANT.PLUG STITCHER [address] [place] [address] 3 month follow up documented as of this encounter Visit Diagnoses Not on filedocumented in this encounter Additional Health Concerns Infection Onset Date Last Indicated Resolved Time COVID-19 Rule-Out 01/31/2022 01/31/2022 01/31/2022 10:44 AM EDT documented as of this encounter Care Teams Chief Investment Officer Relationship Specialty Start Date End Date Loren Ascencio MD [address] [place] [address] PCP - General Family Medicine 10/01/[address] [place] [address] Registered Dietitian Nutrition 11/28/22 Alyce Chadwick APRN.PLUG STITCHER [address] [place] [address] Hospice & Palliative Medicine 03/05/23 Kelsie Cunha RN Specialty Fuel Yard Operator Hospice & Palliative Medicine 03/05/23 Linnette Shoemaker, MADY [address] [place] [address] Specialty Fuel Yard Operator Hematology/Oncology 08/27/23 03/14/25 Kylee Wilkinson LISW [address] [place] [address] Drop Shipment Clerk 11/20/23 documented as of this encounter
--- OUTSIDE RECORDS SUMMARY | 2025-05-03 09:08 | XMS_ITS | Encounter Summary ---
Author Organization [facility] Address [address] [place] [address] Care Team Providers Care Electrical Logger Name Role Phone Loren Ascencio MD Primary Care Provider [phone] Unavailable [phone] Alyce Chadwick APRN.SYSTEM AUDITOR Unavailable + Kelsie Cunha RN Unavailable Unavail able Linnette Shoemaker RN Unavailable [phone] Kylee Wilkinson Unavailable [phone] Source Comments In the event this information is protected by the Federal Confidentiality of Alcohol and Drug AbusePatient Records regulations: The Federal rules restrict any use of the information to criminally investigate or prosecute any alcohol or drug abuse patient.[facility] Encounter Details Date Type Department Care Team (Latest Contact Info) Description 09/01/2024 Patient Msg [facility] [address] [place] [address] Provider, [facility] Radiology pre-procedure instructions Social History Tobacco Use Types Packs/Day Years Used Date Smoking Tobacco: Never Passive Smoke Exposure: Past Smokeless Tobacco: Never Alcohol Use Standard Drinks/Week Comments Not Currently 0 (1 standard drink = 0.6 oz pur e alcohol) maybe once per month PHQ-2 Answer Date Recorded PHQ-2 score 3 07/14/2024 Area Deprivation Index Answer Date Chandu rded National Score (1-100), lower number is lower ri sk 60 03/21/2023 State Score (1-10), lower number is lower risk 4 03/21/2023 Data from: https://www.neighborhoodatlas.medicine.[facility]/. Last address used for calculation [address] 03/21/2023 Comments No Sex and [...] Description 05/10/2025 3:45 PM EDT Office Visit [facility] [address] [place] [address] [place] [address] 3 week lab and lanreotide inj 05/10/2025 4:00 PM EDT Infusion Center Hematology/Oncology [address] [place] [address] [place] [address] 3 week lab and lanreotide inj 05/31/2025 2:45 PM EDT Office Visit [facility] [address] [place] [address] [place] [address] 6 week follow up with lab and lanreotide inj 05/31/2025 3:00 PM EDT Visit (SP) Office Hematology/Oncology [address] [place] [address] [place] [address] Viridiana Mccarthy, PATuan [address] [facility] [place] [address] 6 week follow up with lab and lanreotide inj 05/31/2025 3:30 PM EDT Infusion Center Hematology/Oncology [address] [place] [address] [place] [address] 6 week follow up with lab and lanreotide inj 08/03/2025 2:30 PM EDT [facility] Palliative Medicine [address] [place] [address] [place] [address] Alyce Chadwick APRN.SYSTEM AUDITOR [address] [place] [address] 3 month follow up documented as of this encounter Visit Diagnoses Not on filedocumented in this encounter Care Teams Electrical Logger Relationship Specialty Start Date End Date Loren Ascencio MD [address] [place] [place] [address] PCP - General Family Medicine 10/01/[address] [place] [address] [place] [address] Registered Dietitian Nutrition 11/28/22 Alyce Chadwick APRN.SYSTEM AUDITOR [address] [place] [address] [place] [address] Hospice & Palliative Medicine 03/05/23 Kelsie Cunha, RN Specialty Medical Records Library Professor Hospice & Palliative Medicine 03/05/23 [place] [address] [place] [id number] Specialty Medical Records Library Professor Hematology/Oncology 08/27/23 03/14/25 Kylee Wilkinson LISW [address] [place], [place] [id number] Child And Family Services Worker 11/20/23 documented as of this encounter
--- OUTSIDE RECORDS SUMMARY | 2025-05-03 09:08 | XMS_ITS | Encounter Summary ---
Author Organization [facility] Address [address] [place] [address] Care Team Providers Care District Manager In Training Name Role Phone Loren Ascencio MD Unavailable Loren Ascencio MD Primary Care Provider [phone] Loren Ascencio MD Unavailable Encounter Details Date Type Department Care Team (Late st Contact Info) Description 05/27/2023 Abstract [facility] [address] [place] [id number] Loren Ascencio MD [address] [place], [place] [phone] Social History Tobacco Use Types Packs/Day Years Used Date Smoking Tobacco: Never Assessed Comments Unknown Sex and Gender Information Value Date Recorded Sex Assigned at Not on file Legal Sex Female 6:53 PM EDT Gender Identity Female 01/23/2023 6:53 PM EDT Sexual Orientation Not on file documented as of this encounter Plan of Treatment Not on file documented as of this encounter Visit Diagnoses Not on filedocumented in this encounter Care Teams District Manager In Training Relationship Specialty Start Date End Date Loren Ascencio MD [address] [place], [place] [id number] PCP - [employer] 02/09/23 Loren Ascencio MD [address] [facility] [address] [place] [address] PCP - General Family Medicine 03/19/23 Loren Ascencio MD [address] [place], [place] [address] PCP - [employer] 12/12/23 documented as of this encounter
--- OUTSIDE RECORDS SUMMARY | 2025-05-03 09:08 | XMS_ITS | Encounter Summary ---
Author Organization [facility] Address [address] [place] [address] Care Team Providers Care Research Recruiter Name Role Phone Loren Ascencio MD Primary Care Provider [phone] Unavailable [phone] Alyce Chadwick APRN.SAFETY PERSON Unavailable + Kelsie Cunha RN Unavailable Unavail able Linnette Shoemaker RN Unavailable [phone] Kylee Wilkinson Unavailable [phone] Source Comments In the event this information is protected by the Federal Confidentiality of Alcohol and Drug AbusePatient Records regulations: The Federal rules restrict any use of the information to criminally investigate or prosecute any alcohol or drug abuse patient.[facility] Encounter Details Date Type Department Care Team (Late st Contact Info) Description 09/04/2022 Get Medical Advice Hematology/Oncology [address] [place] [address] Humberto Stout MD [address] [place] [address] Medication refill Social History Tobacco Use Types Packs/Day Years Used Date Smoking Tobacco: Never Smokeless Tobacco: Never Alcohol Use Standard Drinks/Week Comments Yes 0 (1 standard drink = 0.6 oz pur e alcohol) PHQ-2 Answer Date Recorded PHQ-2 score 0 04/26/2022 Area Deprivation Index Answer Date Chandu rded National Score (1-100), lower number is lower ri sk 65 03/29/2022 State Score (1-10), lower number is lower risk N ot on file 03/29/2022 Data from: https://www.neighborhoodatlas.medicine.[facility]/. Last address used for calculation [address] 03/29/2022 Comments No Sex and Gender [...] suspected to have Coronavirus/COVID-19? No / Unsure 09/03/2022 1:29 PM EDT documented as of this encounter [...] 05/10/2025 3:45 PM EDT Office Visit [facility] Laboratory [address] [place] [address] [place] [address] 3 week lab and lanreotide inj 05/10/2025 4:00 PM EDT Infusion Center Hematology/Oncology [address] [place] [address] [place] [address] 3 week lab and lanreotide inj 05/31/2025 2:45 PM EDT Office Visit [facility] Laboratory [address] [place] [address] [place] [address] 6 week follow up with lab and lanreotide inj 05/31/2025 3:00 PM EDT Visit (SP) Office Hematology/Oncology [address] [place] [address] [place] [address] Viridiana Mccarthy, PA-C [address] [place] [address] [place] [address] 6 week follow up with lab and lanreotide inj 05/31/2025 3:30 PM EDT Infusion Center Hematology/Oncology [address] [place] [address] [place] [address] 6 week follow up with lab and lanreotide inj 08/03/2025 2:30 PM EDT [facility] Palliative Medicine [address] [place] [address] [place] [address] Alyce Chadwick, MOLD YARD CRANE OPERATOR.SAFETY PERSON [address] [place] [address] 3 month follow up documented as of this encounter Visit Diagnoses Not on filedocumented in this encounter Care Teams Research Recruiter Relationship Specialty Start Date End Date Loren Ascencio MD [address] [place] [address] PCP - General Family Medicine 10/01/[address] [place] [address] Registered Dietitian Nutrition 11/28/22 Alyce Chadwick, MOLD YARD CRANE OPERATOR.SAFETY PERSON [address] [place] [address] Hospice & Palliative Medicine 03/05/23 Kelsie Cunha RN Specialty Anthropology Professor Hospice & Palliative Medicine 03/05/23 Linnette Shoemaker, MADY [address] [place] [address] Specialty Anthropology Professor Hematology/Oncology 08/27/23 03/14/25 Kylee Wilkinson LISW [address] [place] [address] Baggage Security Checker 11/20/23 documented as of this encounter
--- OUTSIDE RECORDS SUMMARY | 2025-05-03 09:08 | XMS_ITS | Encounter Summary ---
Author Organization [facility] Address [address] [place] [address] Care Team Providers Care Loan Operations Specialist Name Role Phone Loren Ascencio MD Primary Care Provider [phone] Unavailable [phone] Alyce Chadwick APRN.ASSISTANT IN NURSING Unavailable + Kelsie Cunha RN Unavailable Unavail able Linnette Shoemaker RN Unavailable [phone] Kylee Wilkinson Unavailable [phone] Source Comments In the event this information is protected by the Federal Confidentiality of Alcohol and Drug AbusePatient Records regulations: The Federal rules restrict any use of the information to criminally investigate or prosecute any alcohol or drug abuse patient.[facility] Encounter Details Date Type Department Care Team (Late st Contact Info) Description 12/06/2021 Patient Msg Pharmacy Home Infusion [address] [place] [phone] Anneliese Perry PSS Weekly [facility] Infusion Pharmacy TPN refill request Social [...] N ot on file 07/03/2021 Data from: https://www.neighborhoodatlas.medicine.[facility]/. Last address used for calculation [...] have Coronavirus / COVID-19? No / Unsure 12/06/2021 1:11 PM EST documented as of this encounter [...] Description 05/10/2025 3:45 PM EDT Office Visit [facility] Laboratory [address] [place] [address] [place] [address] 3 week lab and lanreotide inj 05/10/2025 4:00 PM EDT Infusion Center Hematology/Oncology [address] [place] [address] [place] [address] 3 week lab and lanreotide inj 05/31/2025 2:45 PM EDT Office Visit [facility] Laboratory [address] [place] [address] [place] [address] 6 week follow up with lab and lanreotide inj 05/31/2025 3:00 PM EDT Visit (SP) Office Hematology/Oncology [address] [place] [address] [place] [address] Viridiana Mccarthy, PA-C [address] [place] [address] 6 week follow up with lab and lanreotide inj 05/31/2025 3:30 PM EDT Infusion Center Hematology/Oncology [address] [place] [address] [place] [address] 6 week follow up with lab and lanreotide inj 08/03/2025 2:30 PM EDT [facility] Palliative Medicine [address] [place] [address] [place] [address] Alyce Chadwick, DIRECTOR PROJECT MANAGEMENT.ASSISTANT IN NURSING [address] [place] [address] 3 month follow up documented as of this encounter Visit Diagnoses Not on filedocumented in this encounter Additional Health Concerns Infection Onset Date Last Indicated Resolved Time COVID-19 Rule-Out 01/31/2022 01/31/2022 01/31/2022 10:44 AM EDT documented as of this encounter Care Teams Loan Operations Specialist Relationship Specialty Start Date End Date Loren Ascencio MD [address] [place] [address] PCP - General Family Medicine 10/01/[address] [facility] [place] [address] Registered Dietitian Nutrition 11/28/22 Alyce Chadwick APRN.ASSISTANT IN NURSING [address] [facility] [place] [address] Hospice & Palliative Medicine 03/05/23 Kelsie Cunha RN Specialty Refining Engineer Hospice & Palliative Medicine 03/05/23 Linnette Shoemaker, MADY [address] [place] [address] Specialty Refining Engineer Hematology/Oncology 08/27/23 03/14/25 Kylee Wilkinson LISW [address] [place] [address] Preparation Room Manager 11/20/23 documented as of this encounter
--- OUTSIDE RECORDS SUMMARY | 2025-05-03 09:08 | XMS_ITS | Encounter Summary ---
Author Organization [facility] Address [address] [place] [address] Care Team Providers Care Helper Marble Finisher Name Role Phone Loren Ascencio MD Primary Care Provider [phone] Unavailable [phone] Alyce Chadwick APRN.DIVISION ROAD SUPERVISOR Unavailable + Kelsie Cunha RN Unavailable Unavail able Linnette Shoemaker RN Unavailable [phone] Kylee Wilkinson Unavailable [phone] Source Comments In the event this information is protected by the Federal Confidentiality of Alcohol and Drug AbusePatient Records regulations: The Federal rules restrict any use of the information to criminally investigate or prosecute any alcohol or drug abuse patient.[facility] Encounter Details Date Type Department Care Team (Late st Contact Info) Description 2021 Patient Msg Gastroenterology [address] [place] [phone] Provider, [facility]cf ORS recipes Social History Tobacco Use Types Packs/Day Years [...] N ot on file 07/03/2021 Data from: https://www.neighborhoodatlas.medicine.[facility]/. Last address used for calculation [...] of Assessment Author No 07/25/2021 8:55 AM MOHINIT Lexis Castelan i RN * Do you have difficulty dressing or bathing? Answer Date of Assessment Author No 07/25/2021 8:55 AM EDT Lexis Castelan i, RN * Because of a physical, mental, or emotional condition, do you have difficulty doing errands alone such as visiting a doctor's office or shopping? Answer Date of Assessment Author No 07/25/2021 8:55 AM MOHINIT Lexis Castelan i, RN documented as of this encounter Mental Status * Because of a physical, mental, or emotional condition, do you have serious difficulty concentrating, remembering, or making decisions? Answer Entry Date Author No 07/25/2021 8:55 AM Lexis Le i, RN documented in this encounter Plan of Treatment Upcoming Encounters Date Type Department Care Team (Late st Contact Info) Description 05/10/2025 3:45 PM EDT Office Visit [facility] Laboratory [address] [place] [address] [place] [address] 3 week lab and lanreotide inj 05/10/2025 4:00 PM EDT Infusion Center Hematology/Oncology [address] [place] [address] [place] [address] 3 week lab and lanreotide inj 05/31/2025 2:45 PM EDT Office Visit [facility] Laboratory [address] [place] [address] [place] [address] 6 week follow up with lab and lanreotide inj 05/31/2025 3:00 PM EDT Visit (SP) Office Hematology/Oncology [address] [place] [address] [place] [address] Viridiana Mccarthy, PA-C [address] [place] [address] 6 week follow up with lab and lanreotide inj 05/31/2025 3:30 PM EDT Infusion Center Hematology/Oncology [address] [place] [address] [place] [address] 6 week follow up with lab and lanreotide inj 08/03/2025 2:30 PM EDT [facility] Palliative Medicine [address] [place] [address] [place] [address] Alyce Chadwick, GENETIC ENGINEER.DIVISION ROAD SUPERVISOR [address] [place] [address] 3 month follow up documented as of this encounter Visit Diagnoses Not on filedocumented in this encounter Additional Health Concerns Infection Onset Date Last Indicated Resolved Time COVID-19 Rule-Out 01/31/2022 01/31/2022 01/31/2022 10:44 AM EDT documented as of this encounter Care Teams Helper Marble Finisher Relationship Specialty Start Date End Date Loren Ascencio MD [address] [place] [address] PCP - General Family Medicine 10/01/[address] [place] [address] Registered Dietitian Nutrition 11/28/[address]lyce [address]wick [address]N.DIV[address] SUPERVISOR [address] [place] [address] Hospice & Palliative Medicine 03/05/23 Kelsie Cunha RN Specialty Dado Operator Hospice & Palliative Medicine 03/05/23 Linnette Shoemaker, MADY [address] [place] [id number] Specialty Dado Operator Hematology/Oncology 08/27/23 03/14/25 Kylee Wilkinson LISW [address] [place] [address] Sports Coordinator 11/20/23 documented as of this encounter
--- OUTSIDE RECORDS SUMMARY | 2025-05-03 09:08 | XMS_ITS | Encounter Summary ---
Author Organization [facility] Address [address] [place] [address] Care Team Providers Care Interface Developer Name Role Phone Loren Ascencio MD Primary Care Provider [phone] Unavailable [phone] Alyce Chadwick APRN.ROTARY SOIL STABILIZER OPERATOR Unavailable + Kelsie Cunha RN Unavailable Unavail able Linnette Shoemaker RN Unavailable [phone] Kylee Wilkinson Unavailable [phone] Source Comments In the event this information is protected by the Federal Confidentiality of Alcohol and Drug AbusePatient Records regulations: The Federal rules restrict any use of the information to criminally investigate or prosecute any alcohol or drug abuse patient.[facility] Encounter Details Date Type Department Care Team (Late st Contact Info) Description 09/16/2022 [place] [address] Provider, Ccf MRI Screening Questionnaire Completion Required Social History Tobacco Use Types Packs/Day Years [...] N ot on file 03/29/2022 Data from: https://www.neighborhoodatlas.medicine.[facility]/. Last address used for calculation [address] 03/29/2022 Comments No Sex and Gender [...] suspected to have Coronavirus/COVID-19? No / Unsure 09/18/2022 1:22 PM EST documented as of this encounter [...] Entry Date Author No 02/09/2022 1:51 PM EDRima Mays RN documented in this encounter Plan of Treatment Upcoming Encounters Date Type Department Care Team (Late st Contact Info) Description 05/10/2025 3:45 PM EDT Office Visit [facility] Laboratory [address] [place] [address] 3 week lab and lanreotide inj 05/10/2025 4:00 PM EDT Infusion Center Hematology/Oncology [address] [place] [address] [place] [address] 3 week lab and lanreotide inj 05/31/2025 2:45 PM EDT Office Visit [facility] Laboratory [address] [place] [address] [place] [address] 6 week follow up with lab and lanreotide inj 05/31/2025 3:00 PM EDT Visit (SP) Office Hematology/Oncology [address] [place] [address] [place] [address] Viridiana Mccarthy, PA-C [address] [place] [address] 6 week follow up with lab and lanreotide inj 05/31/2025 3:30 PM EDT Infusion Center Hematology/Oncology [address] [place] [address] [place] [address] 6 week follow up with lab and lanreotide inj 08/03/2025 2:30 PM EDT [facility] Palliative Medicine [address] [place] [address] [place] [address] Alyce Chadwick, FOOTBALL PAD REPAIRER.ROTARY SOIL STABILIZER OPERATOR [address] [place] [address] 3 month follow up documented as of this encounter Visit Diagnoses Not on filedocumented in this encounter Care Teams Interface Developer Relationship Specialty Start Date End Date Loren Ascencio MD [address] [place] [address] PCP - General Family Medicine 10/01/[address] [place] [address] [place] [address] Registered Dietitian Nutrition 11/28/22 Alyce Chadwick APRN.ROTARY SOIL STABILIZER OPERATOR [address] [place] [address] [place] [id number] Hospice & Palliative Medicine 03/05/23 Kelsie Cunha RN Specialty Campaign Associate Hospice & Palliative Medicine 03/05/23 Linnette Shoemaker, MADY [address] [place] [address] Specialty Campaign Associate Hematology/Oncology 08/27/23 03/14/25 Kylee Wilkinson LISW [address] [place] [address] Sheltered Workshop Worker 11/20/23 documented as of this encounter
--- OUTSIDE RECORDS SUMMARY | 2025-05-03 09:08 | XMS_ITS | Encounter Summary ---
Author Organization [facility] Address [address] [place] [address] Care Team Providers Care Global Sourcing Manager Name Role Phone Loren Ascencio MD Primary Care Provider [phone] Unavailable [phone] Alyce Chadwick APRN.BIOPROCESS ENGINEER Unavailable + Kelsie Cunha RN Unavailable Unavail able Linnette Shoemaker RN Unavailable [phone] Kylee Wilkinson Unavailable [phone] Source Comments In the event this information is protected by the Federal Confidentiality of Alcohol and Drug AbusePatient Records regulations: The Federal rules restrict any use of the information to criminally investigate or prosecute any alcohol or drug abuse patient.[facility] Encounter Details Date Type Department Care Team (Late st Contact Info) Description 01/10/2022 Patient Msg Pharmacy Home Infusion [address] [place] [address] [address]SS Weekly [facility] TPN refill request Social [...] N ot on file 07/03/2021 Data from: https://www.neighborhoodatlas.medicine.[facility]/. Last address used for [...] have Coronavirus / COVID-19? No / Unsure 01/11/2022 2:30 PM EST documented as of this encounter [...] 05/10/2025 3:45 PM EDT Office Visit [facility] Laboratory [address] [place] [address] [place] [address] 3 week lab and lanreotide inj 05/10/2025 4:00 PM EDT Infusion Center Hematology/Oncology [address] [place] [address] [place] [address] 3 week lab and lanreotide inj 05/31/2025 2:45 PM EDT Office Visit [facility] Laboratory [address] [place] [address] [place] [address] 6 week follow up with lab and lanreotide inj 05/31/2025 3:00 PM EDT Visit (SP) Office Hematology/Oncology [address] [place] [address] [place] [address] Viridiana Mccarthy, PA-C [address] [place] [address] 6 week follow up with lab and lanreotide inj 05/31/2025 3:30 PM EDT Infusion Center Hematology/Oncology [address] [place] [address] [place] [address] 6 week follow up with lab and lanreotide inj 08/03/2025 2:30 PM EDT [facility] Palliative Medicine [address] [place] [address] [place] [address] Alyce Chadwick, PLANT UTILITIES ENGINEER.BIOPROCESS ENGINEER [address] [place] [address] 3 month follow up documented as of this encounter Visit Diagnoses Not on filedocumented in this encounter Additional Health Concerns Infection Onset Date Last Indicated Resolved Time COVID-19 Rule-Out 01/31/2022 01/31/2022 01/31/2022 10:44 AM EDT documented as of this encounter Care Teams Global Sourcing Manager Relationship Specialty Start Date End Date Loren Ascencio MD [address] [place] [address] PCP - General Family Medicine 10/01/[address] [place] [address] Registered Dietitian Nutrition 11/28/22 Alyce Chadwick APRN.BIOPROCESS ENGINEER [address] [place] [address] Hospice & Palliative Medicine 03/05/23 Kelsie Cunha RN Specialty Monotype Caster Hospice & Palliative Medicine 03/05/23 Linnette hSoemaker, MADY [address] [place] [address] Specialty Monotype Caster Hematology/Oncology 08/27/23 03/14/25 Kylee Wilkinson LISW [address] [place] [address] Insurance Examiner 11/20/23 documented as of this encounter
--- OUTSIDE RECORDS SUMMARY | 2025-05-03 09:08 | XMS_ITS | Encounter Summary ---
Author Organization [facility] Address [address] [place] [address] Care Team Providers Care Aircraft Life Support Fitter Name Role Phone Loren Ascencio MD Primary Care Provider [phone] Loren Ascencio MD Unavailable Encounter Details Date Type Department Care Team (Late st Contact Info) Description 09/25/2023 Clinisync Result Encounter [facility] External Department Unsolicited [...] Name Priority Date/Time Associated Diagnosis Comments NM THERAPY LUTATHERA 09/25/2023 10:57 AM EST documented in this encounter Results * NM THERAPY LUTATHERA (09/25/2023 10:57 AM EST) Anatomical Region Laterality Modality Radiographic Odalis ging 09/25/2023 10:5 7 AM EST Narrative 09/25/2023 1:22 PM EST * * *Final Report* * * DATE OF EXAM: Sep 25 2023 10:57AM [facility] 2185 - NM THERAPY LUTATHERA / 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 TECHNIQUE: The patient received 194 mCi Pedro-177 dotatate IV for treatment. TREATMENT: The risks, benefits, alternatives and precautions of Pedro-177 dotatate therapy were discussed with the patient who understood and agreed to proceed with therapy. Patient signed an electronic informed consent, received a written set of instructions for radiation safety and agreed to follow these instructions. The patient had the opportunity to ask questions and voiced understanding of the procedure. IMPRESSION: SUCCESSFUL CYCLE 1 INJECTION OF PEDRO-177 DOTATATE. 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 TECHNIQUE: The patient received 194 mCi Pedro-177 dotatate IV fortreatment. TREATMENT: The risks, benefits, alternatives and precautions of Pedro-177 dotatate therapy were discussed with the patient who understood and agreed to proceed with therapy. Patient signed an electronic informed consent, received a written set of instructions for radiation safety and agreed to follow these instructions. The patient had the opportunity to ask questions and voiced understanding of the procedure. IMPRESSION: SUCCESSFUL CYCLE 1 INJECTION OF PEDRO-177 DOTATATE. Gear Setter: [employer] Transcribe Date/Time: Sep 25 2023 1:19P Dictated by : ADEEL ARCHIBALD MD This examination was interpreted and the report reviewed and electronically signed by: ADEEL ARCHIBALD MD on Sep 25 2023 1:20PM EST [id number]^[id number]^SI^ACN us Generic External Data Provider IMG XR PROCEDURES Final Result documented in this encounter Visit Diagnoses Not on filedocumented in this encounter Care Teams Aircraft Life Support Fitter Relationship Specialty Start Date End Date Loren Ascencio MD [address] [place] [address] PCP - General Family Medicine 03/19/23 Loren Ascencio MD [address] [place] [address] PCP - [place] Commercial 12/12/23 documented as of this encounter
--- OUTSIDE RECORDS SUMMARY | 2025-05-03 09:08 | XMS_ITS | Encounter Summary ---
Author Organization [facility] Address [address] [place] [address] Care Team Providers Care Lottery Manager Name Role Phone Loren Ascencio MD Primary Care Provider [phone] Unavailable [phone] Alyce Chadwick APRN.CLINICAL TRIALS SYSTEMS ADMINISTRATOR Unavailable + Kelsie Cunha RN Unavailable Unavail able Linnette Shoemaker RN Unavailable [phone] Kylee Wilkinson Unavailable [phone] Source Comments In the event this information is protected by the Federal Confidentiality of Alcohol and Drug AbusePatient Records regulations: The Federal rules restrict any use of the information to criminally investigate or prosecute any alcohol or drug abuse patient.[facility] Encounter Details Date Type Department Care Team (Late st Contact Info) Description 08/28/2022 Get Medical Advice Hematology/Oncology [address] [facility] [place] [address] Humberto Stout MD [address] [place] [address] Mri Social History Tobacco Use Types Packs/Day Years [...] N ot on file 03/29/2022 Data from: https://www.neighborhoodatlas.medicine.[facility]/. Last address used for calculation [address] 03/29/2022 Comments No Sex and Gender [...] suspected to have Coronavirus/COVID-19? No / Unsure 08/06/2022 12:37 PM EDT documented as of this encounter [...] Description 05/10/2025 3:45 PM EDT Office Visit [facility] Laboratory [address] [place] [address] [place] [address] 3 week lab and lanreotide inj 05/10/2025 4:00 PM EDT Infusion Center Hematology/Oncology [address] [place] [address] [place] [address] 3 week lab and lanreotide inj 05/31/2025 2:45 PM EDT Office Visit [facility] Laboratory [address] [place] [address] [place] [address] 6 week follow up with lab and lanreotide inj 05/31/2025 3:00 PM EDT Visit (SP) Office Hematology/Oncology [address] [place] [address] [place] [address] Viridiana Mccarthy, PA-C [address] [place] [address] [place] [address] 6 week follow up with lab and lanreotide inj 05/31/2025 3:30 PM EDT [facility] Hematology/Oncology [address] [place] [address] [place] [address] 6 week follow up with lab and lanreotide inj 08/03/2025 2:30 PM EDT [facility] Palliative Medicine [address] [place] [address] [place] [address] Alyce Chadwick, ADJUNCT FACULTY.CLINICAL TRIALS SYSTEMS ADMINISTRATOR [address] [place] [address] 3 month follow up documented as of this encounter Visit Diagnoses Not on filedocumented in this encounter Care Teams Lottery Manager Relationship Specialty Start Date End Date Loren Ascencio MD [address] [place] [address] PCP - General Family Medicine 10/01/[address] [facility] [place] [address] Registered Dietitian Nutrition 11/28/22 Alyce Chadwick APRN.CLINICAL TRIALS SYSTEMS ADMINISTRATOR [address] [facility] [place] [address] Hospice & Palliative Medicine 03/05/23 Kelsie Cunha RN Specialty Clay Miller Hospice & Palliative Medicine 03/05/23 Linnette Shoemaker, MADY [address] [place] [address] Specialty [place] [facility] Hematology/Oncology 08/27/23 03/14/25 Kylee Wilkinson LISW [address] [place] [address] Manager Image 11/20/23 documented as of this encounter
--- OUTSIDE RECORDS SUMMARY | 2025-05-03 09:08 | XMS_ITS ---
Author Organization [facility] Address [address] [place] [address] Care Team Providers Care Bench Worker Helper Name Role Phone Loren Ascencio MD Primary Care Provider [phone] Unavailable [phone] Alyce Chadwick APRN.GANG RIDER Unavailable + Kelsie Cunha RN Unavailable Unavail able Kylee Wilkinson Unavailable [phone] Active Problems * This document contains information received from the source organization and may not represent a complete record from that organization. Problem Noted Date Diagnosed Date Palliative care [...] x2, sigmoid resection, gastropexy 01/31 PLAN: -DC SWITCHBOARD OPERATOR HELPER -Tylenol 650mg PO q6hr -Gabapentin 300mg PO TID -Dilaudid 0.2mg IV q3hr PRN -Oxycodone 5-10mg PO q4hr PRN Assessment & Plan (02/08/2022 6:59 AM EDT): Assessment: s/p exploratory laparotomy, extensive lysis of adhesions >3 hours, small bowel resection x2, sigmoid resection, gastropexy 01/31 PLAN: -DC SWITCHBOARD OPERATOR HELPER -Tylenol 650mg PO q6hr -Gabapentin 300mg PO TID -Dilaudid 0.2mg IV q3hr PRN -Oxycodone 5-10mg PO q4hr PRN Assessment & Plan (02/07/2022 6:37 AM EDT): Assessment: s/p exploratory laparotomy, extensive lysis of adhesions >3 hours, small bowel resection x2, sigmoid resection, gastropexy 01/31 PLAN: -DC SWITCHBOARD OPERATOR HELPER -Tylenol 650mg PO q6hr -Gabapentin 300mg PO TID -Dilaudid 0.2mg IV q3hr PRN -Oxycodone 5-10mg PO q4hr PRN Assessment & Plan (02/06/2022 6:53 AM EDT): Assessment: s/p exploratory laparotomy, extensive lysis of adhesions >3 hours, small bowel resection x2, sigmoid resection, gastropexy 01/31 PLAN: -Dilaudid SWITCHBOARD OPERATOR HELPER -Tylenol 650mg PO q6hr -Gabapentin 300mg PO TID Assessment & Plan (02/05/2022 6:59 AM EDT): Assessment: s/p exploratory laparotomy, extensive lysis of adhesions >3 hours, small bowel resection x2, sigmoid resection, gastropexy 01/31 PLAN: -Dilaudid SWITCHBOARD OPERATOR HELPER -Tylenol 650mg PO q6hr -Gabapentin 300mg PO TID Assessment & Plan (02/04/2022 7:04 AM EDT): Assessment: s/p exploratory laparotomy, extensive lysis of adhesions >3 hours, small bowel resection x2, sigmoid resection, gastropexy 01/31 PLAN: -Dilaudid SWITCHBOARD OPERATOR HELPER -Tylenol 650mg PO q6hr Assessment & Plan (02/03/2022 9:44 AM EDT): Assessment: s/p exploratory laparotomy, extensive lysis of adhesions >3 hours, small bowel resection x2, sigmoid resection, gastropexy 01/31 PLAN: -Dilaudid SWITCHBOARD OPERATOR HELPER -Tylenol 650mg PO q6hr Assessment & Plan (02/02/2022 7:11 AM EDT): Assessment: s/p exploratory laparotomy, extensive lysis of adhesions >3 hours, small bowel resection x2, sigmoid resection, gastropexy 01/31 PLAN: -Dilaudid SWITCHBOARD OPERATOR HELPER -Tylenol 650mg PO q6hr Assessment & Plan (02/01/2022 6:41 AM EDT): Assessment: s/p exploratory laparotomy, extensive lysis of adhesions >3 hours, small bowel resection x2, sigmoid resection, gastropexy 01/31 PLAN: -Dilaudid SWITCHBOARD OPERATOR HELPER -Tylenol 650mg PO q6hr Assessment & Plan [...] to have other masses removed, follows with [facility] - currently gets lanreotide injections once per [...] (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 Had cranberry supplements. Current Treatment and Therapy Plans LANREOTIDE 120 D1 - Q21D* Plan Start Date:09/14/2021 Plan Provider:Kavin Henley MD Linked Problems Primary malignant neuroendoc rine tumor of ileum (HCC) Treatment Medications Current Day (Day 1 , Cycle 53 - Planned for 05/10/2025) Next Day (Day 1, Cycle 54 - Planned for 05/31/2025) lanreotide (SOMATULINE DEPOT) lanreotide 120 mg injection (SOMATULINE DEPOT) lanreotide 120 mg injection (SOMATULINE DEPOT) Past Treatment and Therapy Plans NON-CHEMO 2 Plan Name Start Date Discontinue Date Treatment Medications Discontinue Reason Plan Provider Cycles AMB LUTETIUM PEDRO 177 D1 OCTREOTIDE D2,29 - Q56D 09/25/20 23 05/22/2024 fosaprepitant (EMEND)iv infusion buildoctreotide (SandoSTATIN)octre otide injection (SandoSTATIN)octre otide LAR (SandoSTATIN LAR)palonosetron (ALOXI) Other Dani Corbett MD 3 of 4 cycles started Resolved Problems Problem Noted Date Diagnosed Date Resolved Date Post-procedural fever 02/05/20222021 Assessment & Plan (02/09/2022 7:12 AM EDT): Assessment: TMax 102.7F on 02/06: BCx +MRSE PLAN: -ID consulted -F/U BCx 02/07 -Continue vancomycin through 4/5 -Replace central line once 02/07 BCx negative x 48 hours -Anticipate COPAT Assessment & Plan (02/08/2022 6:59 AM EDT): Assessment: TMax 102.7F on 02/06: BCx +MRSE PLAN: -ID consulted -F/U BCx 02/07 -Continue vancomycin through 4/5 -Replace central line once 02/07 BCx negative [...] tachycardia 02/02: BLE duplex negative for DVT 02/09: Tachycardia now resolved PLAN: -DC tele -Maintain euvolemic state -K>4 -Mg>2 Assessment & Plan (02/08/2022 7:00 AM EDT): Assessment: Tachycardic throughout admission with HR 120-130s 324: EKG demonstrating sinus tachycardia 02/02: BLE duplex negative for DVT PLAN: -Continue tele -Maintain euvolemic state -K>4 -Mg>2 Assessment & Plan (02/07/2022 6:39 AM EDT): Assessment: Tachycardic throughout admission with HR 120-130s 324: EKG demonstrating sinus tachycardia 02/02: BLE duplex negative for DVT PLAN: -Continue tele -Maintain euvolemic state -K>4 -Mg>2 Assessment & Plan (02/06/2022 6:55 AM EDT): Assessment: Tachycardic throughout admission with HR 120-130s 24: EKG demonstrating sinus tachycardia 02/02: BLE duplex negative for DVT PLAN: -Continue tele -Maintain euvolemic state -K>4 -Mg>2 Assessment & Plan (02/05/2022 7:02 AM EDT): Assessment: Tachycardic throughout admission with HR 120-130s 24: EKG demonstrating sinus tachycardia 02/02: BLE duplex negative for DVT PLAN: -Continue tele -Maintain euvolemic state -K>4 -Mg>2 Assessment & Plan (02/04/2022 12:04 PM EDT): Assessment: Tachycardic throughout admission with HR 120-130s 324: EGD demonstrating sinus tachycardia PLAN: -D/C Tele -Maintain euvolemic state -K>4 -Mg>2 Assessment & Plan (02/03/2022 9:45 AM EDT): Assessment: Tachycardic throughout admission with HR 120-130s 324: EGD demonstrating sinus tachycardia PLAN: -Monitor tele -Maintain euvolemic state -K>4 -Mg>2 Assessment & Plan (02/02/2022 7:13 AM EDT): Assessment: Tachycardic throughout admission with HR 120-130s 324: EGD demonstrating sinus tachycardia PLAN: -Monitor tele -Maintain euvolemic state -K>4 -Mg>2 Bowel obstruction 07/04/2021 07/07/2021
--- OUTSIDE RECORDS SUMMARY | 2025-05-03 09:08 | XMS_ITS | Encounter Summary ---
Author Organization [facility] Address [address] [place] [address] Care Team Providers Care Ceo Ziff Davis Name Role Phone Loren Ascencio MD Unavailable Loren Ascencio MD Primary Care Provider [phone] Loren Ascencio MD Unavailable Encounter Details Date Type Department Care Team (Late st Contact Info) Description 05/13/2023 Clinisync Result Encounter [facility] External Department Unsolicited Loren Ascencio MD [address] [place], [place] [id number] Social History Tobacco Use Types Packs/Day Years [...] Name Priority Date/Time Associated Diagnosis Comments CT PELVIS WO IVCON 05/13/2023 2: 45 PM EDT [facility] URINALYSIS COMPLETE PNL UR Routine 05/13/2023 2:23 PM EDT documented in this encounter Results * CT PELVIS WO IVCON (05/13/2023 2:45 PM EDT) Anatomical Region Laterality Modality Other 05/13/2023 2:45 PM EDT Narrative 05/13/2023 3:24 PM EDT * * *Final Report* * * DATE OF EXAM: May 13 2023 2:45PM 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 TECHNIQUE: Non-IV contrast imaging of the abdomen and pelvis was performed using standard technique, scanning from just above the iliac crest to the symphysis pubis. Unenhanced imaging is limited for the evaluation of some pelvic pathology. Contrast: IV: None Oral: None CT Radiation dose: Integrated Dose-length product (DLP) for this visit = 649 mGy*cm. CT Dose Reduction Employed: Automated exposure control (AEC) COMPARISON: CT performed 02/05/2022. PET/CT performed 01/23/2023 RESULT: Pelvis: Multiple right-sided bladder diverticula are again noted. No gross bladder mass or calculus is seen. The uterus is present. An IUD is in place. Again visualized is a soft tissue mass posterior to the uterus is present (4:114) measuring approximately 4.3 x 4.1 cm, previously 4.5 x 4.3 cm on prior PET/CT. The previously visualized area of central low density on prior PET/CT is not appreciated on the current study. Known pelvic peritoneal implants are not well visualized due to lack of IV contrast material. GI Tract: Several loops of nonobstructed small bowel are seen matted against the anterior abdominal wall (4:46). No definite bowel obstruction is visualized. Known left lower quadrant colostomy is not included within the [id number]. There is a lobulated thin-walled fluid collection (4:97) measuring up to 9.8 x 5.8 cm, similar in appearance to prior exam. This may abuts and may communicate with the sigmoid colon. Lymph Nodes: No lymphadenopathy. Mesentery/peritoneum: No ascites. Retroperitoneum: No mass. Vasculature: No abdominal aortic or iliac artery aneurysm. Bones/Soft Tissues: No destructive osseous lesions are seen. Postsurgical changes are seen in the anterior abdominal wall. IMPRESSION: 1. Limited study due to lack of IV contrast material and complete visualization of the bowel. 2. Overall similar size of pelvic mass, adjacent to the uterine body. However, the previously visualized area of central low density is no longer seen. 3. Thin-walled pelvic fluid collection is overall similar in size to prior exam. 4. No new gross pelvic metastases or adenopathy. Transcribe Date/Time: May 13 2023 2:56P Dictated by: RAQUEL ZELAYA MD This examination was interpreted and the report reviewed and electronically signed by: RAQUEL ZELAYA MD on May 13 2023 3:22PM EST Thank you for allowing us to participate in the care of your patient. Should there be any questions regarding this interpretation, please call [phone]. If you are unable to reach us at the number above, please feel free to contact [facility] at [phone]. [id number]^SI^ACN Procedure Note Radiology, Radiologist, - 05/13/2023 * * *Final Report* * * DATE OF EXAM: May 13 2023 2:45PM 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 TECHNIQUE: Non-IV contrast imaging of the abdomen and pelvis was performed using standard technique, scanning from just above the iliac crest to the symphysis pubis. Unenhanced imaging is limited for the evaluation of some pelvic pathology. Contrast: IV: None Oral: None CT Radiation dose: Integrated Dose-length product (DLP) for this visit = 649 mGy*cm. CT Dose Reduction Employed: Automated exposure control (AEC) COMPARISON: CT performed 02/05/2022. PET/CT performed 01/23/2023 RESULT: Pelvis: Multiple right-sided bladder diverticula are again noted. No gross bladder mass or calculus is seen. The uterus is present. An IUD is in place. Again visualized is a soft tissue mass posterior to the uterus is present (4:114) measuring approximately 4.3 x 4.1 cm, previously 4.5 x 4.3 cm on prior PET/CT. The previously visualized area of central low density on prior PET/CT is not appreciated on the current study. Known pelvic peritoneal implants are not well visualized due to lack of IV contrast material. GI Tract: Several loops of nonobstructed small bowel are seen matted against the anterior abdominal wall (4:46). No definite bowel obstruction is visualized. Known left lower quadrant colostomy is not included within the eeuce-ao-vuvo. There is a lobulated thin-walled fluid collection (4:97) measuring up to 9.8 x 5.8 cm, similar in appearance to prior exam. This may abuts and may communicate with the sigmoid colon. Lymph Nodes: No lymphadenopathy. Mesentery/peritoneum: No ascites. Retroperitoneum: No mass. Vasculature: No abdominal aortic or iliac artery aneurysm. Bones/Soft Tissues: No destructive osseous lesions are seen. Postsurgical changes are seen in the anterior abdominal wall. IMPRESSION: 1. Limited study due to lack of IV contrast material and complete visualization of the bowel. 2. Overall similar size of pelvic mass, adjacent to the uterine body. However, the previously visualized area of central low density is no longer seen. 3. Thin-walled pelvic fluid collection is overall similar in size to prior exam. 4. No new gross pelvic metastases or adenopathy. Transcribe Date/Time: May 13 2023 2:56P Dictated by: RAQUEL ZELAYA MD This examination was interpreted and the report reviewed and electronically signed by: RAQUEL ZELAYA MD on May 13 2023 3:22PM EST Thank you for allowing us to participate in the care of your patient. Should there be any questions regarding this interpretation, please call [phone]. If you are unable to reach us at the number above, please feel free to contact [facility] at [phone]. [id number]^ACN us Loren Ascencio MD [facility] Final Result * (ABNORMAL) [facility] URINALYSIS COMPLETE PNL UR (05/13/2023 2:23 PM EDT) [facility] COLOR UR Yellow Yellow [facility] CLARITY SPEC Cloudy(A) Clear [facility] GLUCOSE UR STRIP-MCNC Negative Trace, Negative [facility] BILIRUB UR QL STRIP Negative Negative [facility] KETONES UR QL STRIP Negative Trace, Negative [facility] SP GR UR STRIP 1.026 1.005 - 1.030 [facility] HGB UR QL STRIP 1+(A) Negative, Trace [facility] PH UR STRIP 6.0 5.0 - 8.0 [facility] PROT UR STRIP-MCNC 1+(A) Trace, Negative [facility] UROBILINOGEN UR QL STRIP Negative Negative [facility] NITRITE UR QL STRIP Negative Negative [facility] LEUKOCYTE ESTERASE UR QL STRIP 25 Cindi/uL Negative, 25 Cindi/uL [facility] WBC #/AREA URNS HPF 6-10 /HPF(A) 0-5 /HPF [facility] RBC #/AREA URNS HPF >25 /HPF(A) 0-3 /HPF [facility] EPI CELLS #/AREA URNS HPF Few /HPF [facility] HYALINE CASTS #/AREA URNS LPF 4-10 /LPF(A) 0 /LPF [facility] 05/13/2023 2:23 PM EDT 05/13/2023 10:56 PM EDT Narrative MARQUES - 05/14/2023 5:42 AM EDT Specimen Type: URINE SPECIMEN Ordering Facility: [facility] Address: [address] [place] [phone] Original Ordering Provider: RENAE GARDNER us Generic External Data Provider MARQUES Bar inal Result Performing Organization Address City/State/[facility] Co de Phone Number [facility] [address] [address] documented in this encounter Visit Diagnoses Not on filedocumented in this encounter Care Teams Ceo Ziff Davis Relationship Specialty Start Date End Date Loren Ascencio MD [address] [facility] [place] [address] PCP - [place] Commercial 02/09/23 Loren Ascencio MD [address] [address] PCP - General Family Medicine 03/19/23 Loren Ascencio MD [address] [place] [address] PCP - [place] Tee 12/12/23 documented as of this encounter
--- OUTSIDE RECORDS SUMMARY | 2025-05-03 09:08 | XMS_ITS | Encounter Summary ---
Author Organization [facility] Address [address] [place] [address] Care Team Providers Care Seam Taper Machine Name Role Phone Loren Ascencio MD Primary Care Provider [phone] Unavailable [phone] Alyce Chadwick APRN.MUD MIXER Unavailable + Kelsie Cunha RN Unavailable Unavail able Linnette Shoemaker RN Unavailable [phone] Kylee Wilkinson Unavailable [phone] Source Comments In the event this information is protected by the Federal Confidentiality of Alcohol and Drug AbusePatient Records regulations: The Federal rules restrict any use of the information to criminally investigate or prosecute any alcohol or drug abuse patient.[facility] Encounter Details Date Type Department Care Team (Late st Contact Info) Description 03/01/2022 Patient Msg Nutrition Therapy [address] [place] [address] [place] [address] Provider, [facility] GI Soft Diet Education Social History Tobacco Use Types Packs/Day Years [...] N ot on file 07/03/2021 Data from: https://www.neighborhoodatlas.medicine.[facility]/. Last address used for calculation Not on [...] suspected to have Coronavirus/COVID-19? No / Unsure 03/02/2022 1:53 PM EDT documented as of this encounter [...] Description 05/10/2025 3:45 PM EDT Office Visit [facility] [address] [place] [address] [place] [address] 3 week lab and lanreotide inj 05/10/2025 4:00 PM EDT Infusion Center Hematology/Oncology [address] [place] [address] [place] [address] 3 week lab and lanreotide inj 05/31/2025 2:45 PM EDT Office Visit [facility] [address] [place] [address] [place] [address] 6 week follow up with lab and lanreotide inj 05/31/2025 3:00 PM EDT Visit (SP) Office Hematology/Oncology [address] [place] [address] [place] [address] Viridiana Mccarthy PA-C [address] [place] [address] 6 week follow up with lab and lanreotide inj 05/31/2025 3:30 PM EDT [facility] Hematology/Oncology [address] [place] [address] [place] [address] 6 week follow up with lab and lanreotide inj 08/03/2025 2:30 PM EDT [facility] Palliative Medicine [address] [place] [address] [place] [address] Alyce Chadwick, TRANSIT WORKER.MUD MIXER [address] [place] [address] 3 month follow up documented as of this encounter Visit Diagnoses Not on filedocumented in this encounter Care Teams Seam Taper Machine Relationship Specialty Start Date End Date Loren Ascencio MD [address] [place] [address] PCP - General Family Medicine 10/01/[address] [place] [address] Registered Dietitian Nutrition 11/28/22 Alyce Chadwick APRN.MUD MIXER [address] [place] [address] Hospice & Palliative Medicine 03/05/23 Kelsie Cunha RN Specialty Cook Tortilla Hospice & Palliative Medicine 03/05/23 Linnette Shoemaker, MADY [address] [place] [id number] Specialty [employer] Hematology/Oncology 08/27/23 03/14/25 Kylee Wilkinson LISW [address] [place] [address] Diet Counselor 11/20/23 documented as of this encounter
--- OUTSIDE RECORDS SUMMARY | 2025-05-03 09:08 | XMS_ITS | Encounter Summary ---
Author Organization [facility] Address [facility] [place] [address] Care Team Providers Care Sole Inker Name Role Phone Loren Ascencio MD Primary Care Provider [phone] Unavailable [phone] Alyce Chadwick APRN.IRRIGATION SUPERVISOR Unavailable + Kelsie Cunha RN Unavailable Unavail able Linnette Shoemaker RN Unavailable [phone] Kylee Wilkinson Unavailable [phone] Source Comments In the event this information is protected by the Federal Confidentiality of Alcohol and Drug AbusePatient Records regulations: The Federal rules restrict any use of the information to criminally investigate or prosecute any alcohol or drug abuse patient.[facility] Encounter Details Date Type Department Care Team (Latest Contact Info) Description 02/20/2023 Patient Msg [facility] [address] [place] [address] Provider, [facility] Pre procedure instructions for abscess drain Social History Tobacco Use Types Packs/Day Years [...] N ot on file 11/25/2022 Data from: https://www.neighborhoodatlas.medicine.[facility]/. Last address used for calculation [address] 11/25/2022 Comments No Sex and Gender [...] EDT Office Visit [facility] [address] [address] 3 week lab and lanreotide inj 05/10/2025 4:00 PM EDT [facility] Center Hematology/Oncology [address] [place] [address] [place] [address] 3 week lab and lanreotide inj 05/31/2025 2:45 PM EDT Office Visit [facility] [address] [place] [address] [place] [address] 6 week follow up with lab and lanreotide inj 05/31/2025 3:00 PM EDT Visit (SP) Office Hematology/Oncology [address] [place] [address] [place] [address] Viridiana Mccarthy, PAJonnathanC [address] [place] [address] 6 week follow up with lab and lanreotide inj 05/31/2025 3:30 PM EDT [facility] Center Hematology/Oncology [address] [place] [address] [place] [address] 6 week follow up with lab and lanreotide inj 08/03/2025 2:30 PM EDT [facility] Palliative Medicine [address] [place] [address] [place] [address] Alyce Chadwick APRN.IRRIGATION SUPERVISOR [address] [place] [address] 3 month follow up documented as of this encounter Visit Diagnoses Not on filedocumented in this encounter Care Teams Sole Inker Relationship Specialty Start Date End Date Loren Ascencio MD [address] [place] [address] PCP - General Family Medicine 10/01/[address] [place] [address] [place] [address] Registered Dietitian Nutrition 11/28/22 Alyce Chadwick APRN.IRRIGATION SUPERVISOR [address] [place] [address] [place] [phone] Hospice & Palliative Medicine 03/05/23 Kelsie Cunha, RN Specialty Grounds Supervisor Hospice & Palliative Medicine 03/05/23 Linnette Shoemaker, MADY [address] [place] [address] Specialty Grounds Supervisor Hematology/Oncology 08/27/23 03/14/25 Kylee Wilkinson LISW [address] [place] [address] Lime Kiln Tender 11/20/23 documented as of this encounter
--- OUTSIDE RECORDS SUMMARY | 2025-05-03 09:08 | XMS_ITS | Encounter Summary ---
Author Organization [facility] Address [address] [place] [address] Care Team Providers Care Armature Connector Name Role Phone Loren Ascencio MD Primary Care Provider [phone] Loren Ascencio MD Unavailable Encounter Details Date Type Department Care Team (Late st Contact Info) Description 08/20/2023 Abstract [facility] [address] [place] [phone] Loren Ascencio MD [address] [place], [place] [phone] Social History Tobacco Use Types Packs/Day Years [...] on filedocumented in this encounter Care Teams Armature Connector Relationship Specialty Start Date End Date Loren Ascencio MD [address] [place], [place] [phone] PCP - General Family Medicine 03/19/23 Loren Ascencio MD [address] [place], [place] [phone] PCP - [place] Commercial 12/12/23 documented as of this encounter
--- OUTSIDE RECORDS SUMMARY | 2025-05-03 09:08 | XMS_ITS | Encounter Summary ---
Author Organization [facility] Address [address] [place] [address] Care Team Providers Care Whiskey Proof Reader Name Role Phone Loren Ascencio MD Unavailable Loren Ascencio MD Primary Care Provider [phone] Loren Ascencio MD Unavailable Encounter Details Date Type Department Care Team (Late st Contact Info) Description 04/10/2023 Abstract [facility] [address] [place] [phone] Loren Ascencio MD [address] [place], [place] [phone] Social History Tobacco Use Types Packs/Day Years [...] on filedocumented in this encounter Care Teams Whiskey Proof Reader Relationship Specialty Start Date End Date Loren Ascencio MD [address] [place], [place] [phone] PCP - [place] [employer] 02/09/23 Loren Ascencio MD [address] [facility] [place] [address] PCP - General Family Medicine 03/19/23 Loren Ascencio MD [address] [place], [place] [id number] PCP - [place] [employer] 12/12/23 documented as of this encounter
--- OUTSIDE RECORDS SUMMARY | 2025-05-03 09:08 | XMS_ITS | Encounter Summary ---
Author Organization [facility] Address [address] [place] [address] Care Team Providers Care Steel Fixer Name Role Phone Loren Ascencio MD Primary Care Provider [phone] Encounter Details Date Type Department Care Team (Late st Contact Info) Description 04/09/2024 Clinisync Result Encounter [facility] External Department Unsolicited [...] Associated Diagnosis Comments NM PET/CT NEUROENDOCRINE WB 04/09/2024 10:04 AM EDT documented in this encounter Results * NM PET/CT NEUROENDOCRINE WB (04/09/2024 10:04 AM EDT) Anatomical Region Laterality Modality Other 04/09/2024 10:0 4 AM EDT Narrative 04/14/2024 3:11 PM EDT * * *Final Report* * * DATE OF EXAM: Apr 09 2024 10:04AM [facility] 0094 - NM PET/CT NEUROENDOCRINE WB / 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 Follow-up exam. TECHNIQUE: Radiopharmaceutical was administered IV followed about 60 minutes later by PET imaging from skull vertex to proximal thighs. Free breathing, low dose CT of the same body region was acquired without IV contrast for attenuation correction and anatomic localization. * CT Dose-Length Product (DLP): 321 mGy*cm * CT Dose Reduction Employed: Yes * Radiopharmaceutical Dose: 5.2 mCi * Radiopharmaceutical: Ga-68 Dotatate COMPARISON: Ga-68 Dotatate PET/CT, 09/24/2023; Cu-64 Dotatate PET/CT 06/06/2023, 01/23/2023 CORRELATION: CT abdomen/pelvis 01/02/2024 RESULT: REFERENCES: SUV reference values: * Background liver activity: SUVmax 5.9 * Background spleen activity: SUVmax 36.1 Electronic Warfare Specialist (topogram) images: No additional findings. Please note the following: * Standardized uptake values indicate the highest activity concentration (SUVmax) at a given location but can be variable and are not absolute. * Physiologic uptake is common in the pituitary, salivary glands, thyroid, liver, adrenals, spleen, pancreatic uncinate, GI tract, and urinary tract. Certain organ systems can have more intense uptake, which could confound or obscure some pathology. * Unenhanced imaging is limited for the evaluation of some pathology and the acquired CT was not designed to produce or replace diagnostic CT scan quality. * PET-CT is often not sensitive for pulmonary nodules less than 8 mm. HEAD AND NECK: Head: No abnormal uptake. Neck and Lymph Nodes: No abnormal uptake. Thyroid: No abnormal uptake. CHEST: Lungs and Airways: * Stable size of a 0.5 cm medial left lower lobe nodule with mild tracer uptake (4:143; SUVmax 2.4), previously mild uptake. * No new tracer avid mass or consolidation. Calcified granulomata. Pleura and Pericardium: No abnormal uptake. No effusion. Cardiovascular: No abnormal uptake. Mediastinum and Lymph Nodes: * Similar subcentimeter focus of mild uptake in the hilar region inferiorly (4:31; SUVmax 3.4), previously mild uptake. * No new tracer avid lymphadenopathy. Calcified granulomata. ABDOMEN AND PELVIS: Hepatobiliary: * Diffuse steatosis. Mildly heterogeneous background uptake. * Similar predominantly perihepatic foci of moderate tracer uptake without a without a discrete anatomic correlate on this exam. Similar lesions correspond with enhancing pericapsular lesions on comparison CT. For example: - Lesion in segment 8 with moderate uptake (4:161; SUVmax 6.3), previously moderate uptake - Lesion along the hepatorenal fossa with moderate uptake (4:187; SUVmax 23.3), previously moderate uptake - Lesion along the inferior right lobe with moderate uptake (4:190; SUVmax 10.5), previously moderate uptake * No definable new tracer avid lesion. Spleen: No abnormal uptake. No splenomegaly. Pancreas: Lesion with intense uptake along the pancreatic body (4:182; SUVmax 52.3), previously intense uptake. Adrenals: No abnormal uptake. Urinary Tract: No abnormal uptake. No hydronephrosis. GI Tract, Peritoneum, and Pelvis: * Similar 5.3 cm left posterior pelvic peritoneal mass inseparable from the adnexa with moderate uptake (4:251 study: SUVmax 18.2), previously moderate uptake. * Additional peritoneal lesions with qxeq-ze-pqzcmirn uptake are not significant changed. - Curvilinear lesion along the right paracolic gutter with mild uptake (4:224; SUVmax 5.6), previously mild uptake - Lesion at the origin of the right round ligament with moderate uptake (4:245; SUVmax 16.2), previously moderate uptake * Right hemicolectomy with right abdominal ileocolic anastomosis, left abdominal end colostomy, and oversewn rectal stump. * Unchanged 10 cm anterior pelvic fluid collection near the rectal stump (4:245;). No internal gas. Vasculature: No abnormal uptake. No abdominal aortic aneurysm. Retroperitoneum and Lymph Nodes: No abnormal uptake. MUSCULOSKELETAL: Osseous: No abnormal uptake. Soft Tissues: No abnormal uptake. IMPRESSION: Since 09/24/2023, HEAD/NECK: * No Dotatate avid neoplastic process. CHEST: * Stable mildly Dotatate avid subcentimeter left lower lobe nodule and right hilar node. * No new Dotatate avid neoplastic process. ABDOMEN/PELVIS: * Stable Dotatate avid peritoneal implants including the dominant pelvic implant, which is inseparable from the left adnexa. * Stable Dotatate avid pancreatic mass and perihepatic/hepatic metastases. * No new Dotatate avid neoplastic process. * Stable pelvic fluid collection without internal gas. MUSCULOSKELETAL: * No Dotatate avid neoplastic process. 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 Follow-up exam. TECHNIQUE: Radiopharmaceutical was administered IV followed about 60 minutes later by PET imaging from skull vertex to proximal thighs. Free breathing, low dose CT of the same body region was acquired without IV contrast for attenuation correction and anatomic localization. * CT Dose-Length Product (DLP): 321 mGy*cm * CT Dose Reduction Employed: Yes * Radiopharmaceutical Dose: 5.2 mCi * Radiopharmaceutical: Ga-68 Dotatate COMPARISON: Ga-68 Dotatate PET/CT, 09/24/2023; Cu-64 Dotatate PET/CT 06/06/2023, 01/23/2023 CORRELATION: CT abdomen/pelvis 01/02/2024 RESULT: REFERENCES: SUV reference values: * Background liver activity: SUVmax 5.9 * Background spleen activity: SUVmax 36.1 Electronic Warfare Specialist (topogram) images: No additional findings. Please note the following: * Standardized uptake values indicate the highest activity concentration (SUVmax) at a given location but can be variable and are not absolute. * Physiologic uptake is common in the pituitary, salivary glands, thyroid, liver, adrenals, spleen, pancreatic uncinate, GI tract, and urinary tract. Certain organ systems can have more intense uptake, which could confound or obscure some pathology. * Unenhanced imaging is limited for the evaluation of some pathology and the acquired CT was not designed to produce or replace diagnostic CT scan quality. * PET-CT is often not sensitive for pulmonary nodules less than 8 mm. HEAD AND NECK: Head: No abnormal uptake. Neck and Lymph Nodes: No abnormal uptake. Thyroid: No abnormal uptake. CHEST: Lungs and Airways: * Stable size of a 0.5 cm medial left lower lobe nodule with mild tracer uptake (4:143; SUVmax 2.4), previously mild uptake. * No new tracer avid mass or consolidation. Calcified granulomata. Pleura and Pericardium: No abnormal uptake. No effusion. Cardiovascular: No abnormal uptake. Mediastinum and Lymph Nodes: * Similar subcentimeter focus of mild uptake in the hilar region inferiorly (4:31; SUVmax 3.4), previously mild uptake. * No new tracer avid lymphadenopathy. Calcified granulomata. ABDOMEN AND PELVIS: Hepatobiliary: * Diffuse steatosis. Mildly heterogeneous background uptake. * Similar predominantly perihepatic foci of moderate tracer uptake without a without a discrete anatomic correlate on this exam. Similar lesions correspond with enhancing pericapsular lesions on comparison CT. For example: - Lesion in segment 8 with moderate uptake (4:161; SUVmax 6.3), previously moderate uptake - Lesion along the hepatorenal fossa with moderate uptake (4:187; SUVmax 23.3), previously moderate uptake - Lesion along the inferior right lobe with moderate uptake (4:190; SUVmax 10.5), previously moderate uptake * No definable new tracer avid lesion. Spleen: No abnormal uptake. No splenomegaly. Pancreas: Lesion with intense uptake along the pancreatic body (4:182; SUVmax 52.3), previously intense uptake. Adrenals: No abnormal uptake. Urinary Tract: No abnormal uptake. No hydronephrosis. GI Tract, Peritoneum, and Pelvis: * Similar 5.3 cm left posterior pelvic peritoneal mass inseparable from the adnexa with moderate uptake (4:251 study: SUVmax 18.2), previously moderate uptake. * Additional peritoneal lesions with feem-up-ocadrldq uptake are not significant changed. - Curvilinear lesion along the right paracolic gutter with mild uptake (4:224; SUVmax 5.6), previously mild uptake - Lesion at the origin of the right round ligament with moderate uptake (4:245; SUVmax 16.2), previously moderate uptake * Right hemicolectomy with right abdominal ileocolic anastomosis, left abdominal end colostomy, and oversewn rectal stump. * Unchanged 10 cm anterior pelvic fluid collection near the rectal stump (4:245;). No internal gas. Vasculature: No abnormal uptake. No abdominal aortic aneurysm. Retroperitoneum and Lymph Nodes: No abnormal uptake. MUSCULOSKELETAL: Osseous: No abnormal uptake. Soft Tissues: No abnormal uptake. IMPRESSION: Since 09/24/2023, HEAD/NECK: * No Dotatate avid neoplastic process. CHEST: * Stable mildly Dotatate avid subcentimeter left lower lobe nodule and right hilar node. * No new Dotatate avid neoplastic process. ABDOMEN/PELVIS: * Stable Dotatate avid peritoneal implants including the dominant pelvic implant, which is inseparable from the left adnexa. * Stable Dotatate avid pancreatic mass and perihepatic/hepatic metastases. * No new Dotatate avid neoplastic process. * Stable pelvic fluid collection without internal gas. MUSCULOSKELETAL: * No Dotatate avid neoplastic process. Financial Supervisor: ZION Transcribe Date/Time: Apr 14 2024 2:06P Dictated by : DOC MORALES DO This examination was interpreted and the report reviewed and electronically signed by: DOC MORALES DO on Apr 14 2024 3:09PM EST [id number]^ACN Generic External Data Provider [facility] Final Result documented in this encounter Visit Diagnoses Not on filedocumented in this encounter Care Teams Steel Fixer Relationship Specialty Start Date End Date Loren Ascencio MD [address] [place] [address] PCP - General Family Medicine 03/19/23 documented as of this encounter
--- OUTSIDE RECORDS SUMMARY | 2025-05-03 09:08 | XMS_ITS | Encounter Summary ---
Author Organization [facility] Address [address] [place] [address] Care Team Providers Care Granite Installer Name Role Phone Loren Ascencio MD Primary Care Provider [phone] Loren Ascencio MD Unavailable Encounter Details Date Type Department Care Team (Late st Contact Info) Description 11/20/2023 Clinisync Result Encounter [facility] External Department Unsolicited [...] Date/Time Associated Diagnosis Comments NM THERAPY LUTATHERA 11/20/2023 12:19 PM EST documented in this encounter Results * NM THERAPY LUTATHERA (11/20/2023 12:19 PM EST) Anatomical Region Laterality Modality Radiographic Odalis ging 11/20/2023 12:1 9 PM EST Narrative 11/20/2023 12:38 PM EST * * *Final Report* * * DATE OF EXAM: Nov 20 2023 12:19PM N 2185 - NM THERAPY LUTATHERA / 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 TECHNIQUE: 202 mCi Concha-177 Dotatate (LUTATHERA) administered IV for treatment. TREATMENT: Risks, benefits, alternatives, and precautions of the Concha-177 LUTATHERA treatment were discussed with the patient. The patient had the opportunity to ask questions, voiced understanding of the treatment, and indicated they were willing to proceed. A written set of instructions regarding radiation safety was provided to the patient, who agreed to follow those instructions. All questions were answered and the patient signed an electronic informed consent. Written documentation of treatment (card) was provided. IMPRESSION: Successful cycle 2 injection of Concha-177 LUTATHERA. 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 TECHNIQUE: 202 mCi Concha-177 Dotatate (LUTATHERA) administered IV for treatment. TREATMENT: Risks, benefits, alternatives, and precautions of the Concha-177 LUTATHERA treatment were discussed with the patient. The patient had the opportunity to ask questions, voiced understanding of the treatment, and indicated they were willing to proceed. A written set of instructions regarding radiation safety was provided to the patient, who agreed to follow those instructions. All questions were answered and the patient signed an electronic informed consent. Written documentation of treatment (card) was provided. IMPRESSION: Successful cycle 2 injection of Concha-177 LUTATHERA. Oracle Business Analyst: ZION Transcribe Date/Time: Nov 20 2023 12:32P Dictated by : TITA CORTEZ MD This examination was interpreted and the report reviewed and electronically signed by: TITA CORTEZ MD on Nov 20 2023 12:36PM EST [id number]^[id number]^SI^ACN us Generic External Data Provider IMG XR PROCEDURES Final Result documented in this encounter Visit Diagnoses Not on filedocumented in this encounter Care Teams Granite Installer Relationship Specialty Start Date End Date Loren Ascencio MD [address] [place], [place] [id number] PCP - General Family Medicine 03/19/23 Loren Ascencio MD [address] [place], [place] [id number] PCP - Dakota Tee 12/12/23 documented as of this encounter
--- OUTSIDE RECORDS SUMMARY | 2025-05-03 09:08 | XMS_ITS | Encounter Summary ---
Author Organization [facility] Address [address] [place] [address] Care Team Providers Care Ethologist Name Role Phone Loren Ascencio MD Primary Care Provider [phone] Unavailable [phone] Alyce Chadwick APRN.PLATEN BUILDER UP Unavailable + Kelsie Cunha RN Unavailable Unavail able Linnette Shoemaker RN Unavailable [phone] Kylee Wilkinson Unavailable [phone] Source Comments In the event this information is protected by the Federal Confidentiality of Alcohol and Drug AbusePatient Records regulations: The Federal rules restrict any use of the information to criminally investigate or prosecute any alcohol or drug abuse patient.[facility] Encounter Details Date Type Department Care Team (Late st Contact Info) Description 03/05/2023 Patient Msg Mobile Services [address] [place] [id number] Kelsie Cunha, airport planner Medicine Introduction Social History Tobacco Use Types Packs/Day Years [...] N ot on file 11/25/2022 Data from: https://www.neighborhoodatlas.medicine.[facility]/. Last address used for calculation [address] 11/25/2022 Comments No Sex and Gender [...] Description 05/10/2025 3:45 PM EDT Office Visit [facility] [address] [place] [address] 3 week lab and lanreotide inj 05/10/2025 4:00 PM EDT [facility] Hematology/Oncology [address] [place] [address] [place] [address] 3 week lab and lanreotide inj 05/31/2025 2:45 PM EDT Office Visit [facility] [address] [place] [address] 6 week follow up with lab and lanreotide inj 05/31/2025 3:00 PM EDT Visit (SP) Office Hematology/Oncology [address] [place] [address] [place] [address] Viridiana Mccarthy PA-C [address] [place] [address] 6 week follow up with lab and lanreotide inj 05/31/2025 3:30 PM EDT Infusion Center Hematology/Oncology [address] [place] [address] [place] [address] 6 week follow up with lab and lanreotide inj 08/03/2025 2:30 PM EDT [facility] Palliative Medicine [address] [place] [address] [place] [address] Alyce Chadwick, QUALIFICATION ENGINEER.PLATEN BUILDER UP [address] [place] [address] 3 month follow up documented as of this encounter Visit Diagnoses Not on filedocumented in this encounter Care Teams Ethologist Relationship Specialty Start Date End Date Loren Ascencio MD [address] [place] [address] PCP - General Family Medicine 10/01/[address] [place] [address] [place] [address] Registered Dietitian Nutrition 11/28/22 Alyce Chadwick APRN.PLATEN BUILDER UP [address] [place] [address] [place] [phone] Hospice & Palliative Medicine 03/05/23 Kelsie Cunha RN Specialty Char Filter Operator Hospice & Palliative Medicine 03/05/23 Linnette Shoemaker, MADY [address] [place] [address] Specialty Char Filter Operator Hematology/Oncology 08/27/23 03/14/25 Kylee Wilkinson LISW [address] [place], [place] [id number] Database Coordinator 11/20/23 documented as of this encounter
--- OUTSIDE RECORDS SUMMARY | 2025-05-03 09:08 | XMS_ITS | Encounter Summary ---
Author Organization [facility] Address [address] [place] [address] Care Team Providers Care Dragline Operator Name Role Phone Loren Ascencio MD Primary Care Provider [phone] Unavailable [phone] Alyce Chadwick APRN.CHANNELING MACHINE OPERATOR Unavailable + Kelsie Cunha RN Unavailable Unavail able Linnette Shoemaker RN Unavailable [phone] Kylee Wilkinson Unavailable [phone] Source Comments In the event this information is protected by the Federal Confidentiality of Alcohol and Drug AbusePatient Records regulations: The Federal rules restrict any use of the information to criminally investigate or prosecute any alcohol or drug abuse patient.[facility] Encounter Details Date Type Department Care Team (Late st Contact Info) Description 08/12/2024 Patient Msg Gynecology Oncology [address] [place], [place] [phone] Gwen Cevallos APRN.CHANNELING MACHINE OPERATOR [address] [place] [address] symptoms Social History Tobacco Use Types Packs/Day Years [...] is lower risk 4 03/21/2023 Data from: https://www.neighborhoodatlas.medicine.[facility]/. Last address used for calculation [address] 03/21/2023 Comments No Sex and Gender [...] Office Visit [facility] [address] [place] [address] [place] [address] 3 week lab and lanreotide inj 05/10/2025 4:00 PM EDT Infusion Center Hematology/Oncology [address] [place] [address] [place] [address] 3 week lab and lanreotide inj 05/31/2025 2:45 PM EDT Office Visit [facility] [address] [place] [address] [place] [address] 6 week follow up with lab and lanreotide inj 05/31/2025 3:00 PM EDT Visit (SP) Office Hematology/Oncology [address] [place] [address] [place] [address] Viridiana Mccarthy, PA-C [address] [place] [address] 6 week follow up with lab and lanreotide inj 05/31/2025 3:30 PM EDT Infusion Center Hematology/Oncology [address] [place] [address] [place] [address] 6 week follow up with lab and lanreotide inj 08/03/2025 2:30 PM EDT [facility] Palliative Medicine [address] [place] [address] [place] [address] Alyce Chadwick, RESOURCE ENGINEER.CHANNELING MACHINE OPERATOR [address] [place] [address] 3 month follow up documented as of this encounter Visit Diagnoses Not on filedocumented in this encounter Care Teams Dragline Operator Relationship Specialty Start Date End Date Loren Ascencio MD [address] [place] [address] PCP - General Family Medicine 10/01/[address] [place] [address] [place] [address] Registered Dietitian Nutrition 11/28/22 Alyce Chadwick APRN.[facility] [address] [place] [id number] Hospice & Palliative Medicine 03/05/23 Kelsie Cunha RN Specialty Demurrage Agent Hospice & Palliative Medicine 03/05/23 [place] [address] [place] [id number] Specialty Demurrage Agent Hematology/Oncology 08/27/23 03/14/25 Kylee Wilkinson LISW [address] [place] [address] Residential Treatment Counselor 11/20/23 documented as of this encounter
--- OUTSIDE RECORDS SUMMARY | 2025-05-03 09:08 | XMS_ITS | Encounter Summary ---
Author Organization [facility] Address [address] [place] [address] Care Team Providers Care Rubber Calender Helper Name Role Phone Loren Ascencio MD Primary Care Provider [phone] Unavailable [phone] Alyce Chadwick APRN.GERIATRIC SOCIAL WORKER Unavailable + Kelsie Cunha RN Unavailable Unavail able Linnette Shoemaker RN Unavailable [phone] Kylee Wilkinson Unavailable [phone] Source Comments In the event this information is protected by the Federal Confidentiality of Alcohol and Drug AbusePatient Records regulations: The Federal rules restrict any use of the information to criminally investigate or prosecute any alcohol or drug abuse patient.[facility] Reason for Visit * Reason Comments Refill Request Encounter Details Date Type Department Care Team (Late st Contact Info) Description 06/20/2024 Refill Hematology/Oncology [address] [place] [address] Alyce Chadwick, JOURNEYMAN LINEMAN.GERIATRIC SOCIAL WORKER [address] [id number] Refill Request Social History Tobacco Use Types Packs/Day Years Used Date Smoking Tobacco: Never Passive Smoke Exposure: Past Smokeless Tobacco: Never Alcohol Use Standard Drinks/Week Comments Not Currently 0 (1 standard drink = 0.6 oz pur e alcohol) maybe once per month PHQ-2 Answer Date Recorded PHQ-2 score 2 04/14/2024 Area Deprivation Index Answer Date Chandu rded National Score (1-100), lower number is lower ri sk 60 03/21/2023 State Score (1-10), lower number is lower risk 4 03/21/2023 Data from: https://www.neighborhoodatlas.[facility]/. Last address used for calculation [address] 03/21/2023 Comments No Sex and Gender [...] Telephone Encounter - Kelsie Cunha RN - 06/22/2024 11:10 AM EDT Pharmacy requesting refills as follows but too early to fill. Last ordered 06/05/2024 for a 90 day supply. TC to patient and LVM regarding early refill Requested Prescriptions Pending Prescriptions Disp Refills DULoxetine (CYMBALTA) 60 mg capsule [Pharmacy Med Name: DULoxetine HCL DR 60 MG CAPSULE] 30 capsule Sig: take 1 capsule by mouth daily Kelsie Cunha RN June 22, 2024 documented in this encounter Plan of Treatment Upcoming Encounters Date Type Department Care Team (Late st Contact Info) Description 05/10/2025 3:45 PM EDT Office Visit [facility] [address] [place] [address] [place] [address] 3 week lab and lanreotide inj 05/10/2025 4:00 PM EDT Infusion Center Hematology/Oncology [address] [place] [address] [place] [address] 3 week lab and lanreotide inj 05/31/2025 2:45 PM EDT Office Visit [facility] [address] [place] [address] [place] [address] 6 week follow up with lab and lanreotide inj 05/31/2025 3:00 PM EDT Visit (SP) Office Hematology/Oncology [address] [place] [address] [place] [address] Viridiana Mccarthy, PA-C [address] [place] [address] [place] [address] 6 week follow up with lab and lanreotide inj 05/31/2025 3:30 PM EDT Infusion Center Hematology/Oncology [facility] [place] [address] 6 week follow up with lab and lanreotide inj 08/03/2025 2:30 PM EDT [facility] [address] [place] [address] Alyce Chadwick, JOURNEYMAN LINEMAN.GERIATRIC SOCIAL WORKER [address] [place] [address] 3 month follow up documented as of this encounter Visit Diagnoses Diagnosis 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 Dysthymic disorder documented in this encounter Care Teams Rubber Calender Helper Relationship Specialty Start Date End Date Loren Ascencio MD [address] [place] [address] PCP - General Family Medicine 10/01/[address] [place] [address] [place] [address] Registered Dietitian Nutrition 11/28/22 Alyce Chadwick, JOURNEYMAN LINEMAN.GERIATRIC SOCIAL WORKER [address] [place] [address] [place] [id number] Hospice & Palliative Medicine 03/05/23 Kelsie Cunha RN Specialty Seismograph Supervisor Hospice & Palliative Medicine 03/05/23 Linnette Shoemaker, MADY [address] [id number] Specialty Seismograph Supervisor Hematology/Oncology 08/27/23 03/14/25 Kylee Wilkinson LISW [address] [place] [address] Sign Erector 11/20/23 documented as of this encounter
--- OUTSIDE RECORDS SUMMARY | 2025-05-03 09:08 | XMS_ITS | Encounter Summary ---
Author Organization [facility] Address [address] [place] [address] Care Team Providers Care Associate Media Director Name Role Phone Loren Ascencio MD Primary Care Provider [phone] Loren Ascencio MD Unavailable Encounter Details Date Type Department Care Team (Late st Contact Info) Description 01/02/2024 Clinisync Result Encounter [facility] External Department Unsolicited [...] Name Priority Date/Time Associated Diagnosis Comments CT ABD/PEL W IVCON 01/02/2024 2: 08 PM EST documented in this encounter Results * CT ABD/PEL W IVCON (01/02/2024 2:08 PM EST) Anatomical Region Laterality Modality Other 01/02/2024 2:08 PM EST Narrative 01/03/2024 9:26 AM EST * * *Final Report* * * DATE OF EXAM: Jan 02 2024 2:08PM [facility] 0530 - CT ABD/PEL W IVCON / 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 TECHNIQUE: CT of the abdomen and pelvis was performed using standard technique, scanning from just above the dome of the diaphragm to the symphysis pubis. MQ: CTAP_3 Contrast: IV: 135 ml of Omnipaque 300 Oral: 500 ml of Omni 240 10-25ml diluted with water CT Radiation dose: Integrated Dose-length product (DLP) for this visit = 738 mGy*cm. CT Dose Reduction Employed: Automated exposure control (AEC) COMPARISON: PET/CT 09/24/2023; CT pelvis 05/13/2023; MRI liver 09/18/2022 RESULT: Liver: Diffuse hypodensity of the hepatic parenchyma is compatible with hepatic steatosis. A 0.8 cm relatively hypervascular lesion within hepatic segment 8 adjacent to the junction of the right hepatic vein and inferior vena cava (series 2, image 19) is unchanged since 09/24/2023, allowing for differences in modality. A previously noted more peripheral lesion within the right hepatic lobe is not clearly identified. A 1.5 cm relatively hypervascular lesion within hepatic segment 6 (series 2, image 47) is unchanged. Subcentimeter foci of subcapsular hypervascularity along the posterior lateral margin of the right hepatic lobe (series 2, image 47) are unchanged. No new or enlarging lesion is identified. Biliary: No bile duct dilation. The gallbladder is absent. Spleen: There are multiple calcified splenic granulomas. No splenomegaly. Pancreas: A 1.5 x 1.6 cm enhancing mass within the pancreatic body (series 2, image 36) is unchanged since the comparison MRI of 09/18/2022. No pancreatic ductal dilatation. Adrenals: No mass. Kidneys: The kidneys enhance symmetrically. No collecting system dilatation. GI tract: Operative changes reflect right hemicolectomy with widely patent ileocolic anastomosis, central mid abdominal small bowel resections, distal colonic resection, left lower quadrant end colostomy and Kendall's pouch. The bowel is normal in caliber and without evidence of obstruction. There is an unchanged thin-walled 5 x 10.1 cm central upper pelvic fluid collection (series 2, image 99) and in close proximation to the oversewn end of the Markie pouch (series 2, image 93-102). Lymph nodes: No abdominal or pelvic lymphadenopathy. Mesentery/Peritoneum: No ascites. Please see GI tract section and pelvic section for additional discussion. Retroperitoneum: No mass. Vasculature: - Abdominal aorta and iliac arteries: No aneurysm. - Celiac and SMA: Patent without stenosis. - Portal venous system (SMV, splenic vein, portal vein and branches): Patent. - Hepatic veins: Patent. Pelvis: Urinary bladder diverticula are again noted. An intrauterine device is within the uterine canal. A heterogeneously enhancing left posterior pelvic mass, extending along the posterior margin of the uterine body and fundus measures 5.8 x 3.8 cm on series 2, image 160 (previously 5.8 x 3.8 cm on 09/24/2023). Bones/Soft Tissues: No destructive lytic or blastic osseous abnormality. Degenerative changes involve the lumbar spine. Well-circumscribed foci of increased density within the bilateral flank subcutaneous fat are compatible with medication injection sites. Lower thorax: Unremarkable. Mainspring Strip Gauger (topogram) images: No additional findings. IMPRESSION: 1. Allowing for differences in modality, no significant change since 09/24/2023. 2. Imaged hepatic metastases are similar in appearance. Please note, hepatic metastases would more optimally be assessed by Dotatate PET/CT or potentially abdominal MRI. 3. Stable enhancing lesion within the pancreas and enhancing left pelvic peritoneal deposit. 4. A thin-walled chronic 10.1 cm pelvic fluid collection is unchanged and remains in close proximity to the oversewn end of the Kendall's pouch. Transcribe Date/Time: Jan 03 2024 9:04A Dictated by: GURPREET CHRISTENSEN MD This examination was interpreted and the report reviewed and electronically signed by: GURPREET CHRISTENSEN MD on Jan 03 2024 9:23AM EST Thank you for allowing us to participate in the care of your patient. Should there be any questions regarding this interpretation, please call [phone]. If you are unable to reach us at the number above, please feel free to contact [facility] at [phone]. 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 TECHNIQUE: CT of the abdomen and pelvis was performed using standard technique, scanning from just above the dome of the diaphragm to the symphysis pubis. MQ: CTAP_3 Contrast: IV: 135 ml of Omnipaque 300 Oral: 500 ml of Omni 240 10-25ml diluted with water CT Radiation dose: Integrated Dose-length product (DLP) for this visit = 738 mGy*cm. CT Dose Reduction Employed: Automated exposure control (AEC) COMPARISON: PET/CT 09/24/2023; CT pelvis 05/13/2023; MRI liver09/18/2022 RESULT: Liver: Diffuse hypodensity of the hepatic parenchyma is compatible with hepatic steatosis. A 0.8 cm relatively hypervascular lesion within hepatic segment 8 adjacent to the junction of the right hepatic vein and inferior vena cava (series 2, image 19) is unchanged since 09/24/2023, allowing for differences in modality. A previously noted more peripheral lesion within the right hepatic lobe is not clearly identified. A 1.5 cm relatively hypervascular lesion within hepatic segment 6 (series 2, image 47) is unchanged. Subcentimeter foci of subcapsular hypervascularity along the posterior lateral margin of the right hepatic lobe (series 2, image 47) are unchanged. No new or enlarging lesion is identified. Biliary: No bile duct dilation. The gallbladder is absent. Spleen: There are multiple calcified splenic granulomas. Nosplenomegaly. Pancreas: A 1.5 x 1.6 cm enhancing mass within the pancreatic body (series 2, image 36) is unchanged since the comparison MRI of 09/18/2022. No pancreatic ductal dilatation. Adrenals: No mass. Kidneys: The kidneys enhance symmetrically. No collecting system dilatation. GI tract: Operative changes reflect right hemicolectomy with widely patent ileocolic anastomosis, central mid abdominal small bowel resections, distal colonic resection, left lower quadrant end colostomy and Kendall's pouch. The bowel is normal in caliber and without evidence of obstruction. There is an unchanged thin-walled 5 x 10.1 cm central upper pelvic fluid collection (series 2, image 99) and in close proximation to the oversewn end of the Markie pouch (series 2, image 93-102). Lymph nodes: No abdominal or pelvic lymphadenopathy. Mesentery/Peritoneum: No ascites. Please see GI tract section and pelvic section for additional discussion. Retroperitoneum: No mass. Vasculature: - Abdominal aorta and iliac arteries: No aneurysm. - Celiac and SMA: Patent without stenosis. - Portal venous system (SMV, splenic vein, portal vein and branches): Patent. - Hepatic veins: Patent. Pelvis: Urinary bladder diverticula are again noted. An intrauterine device is within the uterine canal. A heterogeneously enhancing left posterior pelvic mass, extending along the posterior margin of the uterine body and fundus measures 5.8 x 3.8 cm on series 2, image 160 (previously 5.8 x 3.8 cm on 09/24/2023). Bones/Soft Tissues: No destructive lytic or blastic osseous abnormality. Degenerative changes involve the lumbar spine. Well-circumscribed foci of increased density within the bilateral flank subcutaneous fat are compatible with medication injection sites. Lower thorax: Unremarkable. Mainspring Strip Gauger (topogram) images: No additional findings. IMPRESSION: 1. Allowing for differences in modality, no significant change since 09/24/2023. 2. Imaged hepatic metastases are similar in appearance. Please note, hepatic metastases would more optimally be assessed by Dotatate PET/CT or potentially abdominal MRI. 3. Stable enhancing lesion within the pancreas and enhancing left pelvic peritoneal deposit. 4. A thin-walled chronic 10.1 cm pelvic fluid collection is unchanged and remains in close proximity to the oversewn end of the Kendall'spouch. Transcribe Date/Time: Jan 03 2024 9:04A Dictated by: GURPREET CHRISTENSEN MD This examination was interpreted and the report reviewed and electronically signed by: GURPREET CHRISTENSEN MD on Jan 03 2024 9:23AM EST Thank you for allowing us to participate in the care of your patient. Should there be any questions regarding this interpretation, please call [phone]. If you are unable to reach us at the number above, please feel free to contact [facility] at [phone]. [id number]^[email or web address] us Generic External Data Provider [facility] Final Result documented in this encounter Visit Diagnoses Not on filedocumented in this encounter Care Teams Associate Media Director Relationship Specialty Start Date End Date Loren Ascencio MD [address] [place], [place] [id number] PCP - General Family Medicine 03/19/23 Loren Ascencio MD [address] [place], [place] [id number] PCP - Dakota Tee 12/12/23 documented as of this encounter
--- OUTSIDE RECORDS SUMMARY | 2025-05-03 09:08 | XMS_ITS | Encounter Summary ---
Author Organization [facility] Address [address] [place] [address] Care Team Providers Care Electrical Tester Name Role Phone Loren Ascencio MD Primary Care Provider [phone] Unavailable [phone] Alyce Chadwick APRN.SWITCHBOARD OPERATOR HELPER Unavailable + Kelsie Cunha RN Unavailable Unavail able Linnette Shoemaker RN Unavailable [phone] Kylee Wilkinson Unavailable [phone] Source Comments In the event this information is protected by the Federal Confidentiality of Alcohol and Drug AbusePatient Records regulations: The Federal rules restrict any use of the information to criminally investigate or prosecute any alcohol or drug abuse patient.[facility] Encounter Details Date Type Department Care Team (Late st Contact Info) Description 01/03/2022 Patient Msg Pharmacy Home Infusion [address] [place] [id number] Anneliese Perry PSS Weekly [facility]fusion Pharm[facility] TPN refill request Social [...] ot on file 07/03/2021 Data from: https://www.neighborhoodatlas.medicine.[facility]/. Last address used for calculation Not on [...] have Coronavirus / COVID-19? No / Unsure 01/04/2022 10:02 AM EST documented as of this encounter [...] Office Visit [facility] [address] [place] [address] [place] [address] 3 week lab and lanreotide inj 05/10/2025 4:00 PM EDT Infusion Center Hematology/Oncology [address] [place] [address] [place] [address] 3 week lab and lanreotide inj 05/31/2025 2:45 PM EDT Office Visit [facility] [address] [place] [address] [place] [address] 6 week follow up with lab and lanreotide inj 05/31/2025 3:00 PM EDT Visit (SP) Office Hematology/Oncology [address] [place] [address] [place] [address] Viridiana Mccarthy, PA-C [address] [address] 6 week follow up with lab and lanreotide inj 05/31/2025 3:30 PM EDT Infusion Center Hematology/Oncology [address] [place] [address] [place] [address] 6 week follow up with lab and lanreotide inj 08/03/2025 2:30 PM EDT [facility] Pall[facility] Medicine [address] [place] [address] [place] [address] Alyce Chadwick, FARMWORKER EGG PRODUCING [employer]ARM.SWITCHBOARD OPERATOR HELPER [address] [place] [address] 3 month follow up documented as of this encounter Visit Diagnoses Not on filedocumented in this encounter Additional Health Concerns Infection Onset Date Last Indicated Resolved Time COVID-19 Rule-Out 01/31/2022 01/31/2022 01/31/2022 10:44 AM EDT documented as of this encounter Care Teams Electrical Tester Relationship Specialty Start Date End Date Loern Ascencio MD [address] [place] [place] [address] PCP - General Family Medicine 10/01/[address] [place] [address] Registered Dietitian Nutrition 11/28/22 Alyce Chadwick APRN.SWITCHBOARD OPERATOR HELPER [address] [place] [address] Hospice & Palliative Medicine 03/05/23 Kelsie Cunha RN Specialty Rest Room Matron Hospice & Palliative Medicine 03/05/23 Linnette Shoemaker, MADY [address] [place] [address] Specialty Rest Room Matron Hematology/Oncology 08/27/23 03/14/25 Kylee Wilkinson LISW [address] [place] [address] Vice President Of Software Engineering 11/20/23 documented as of this encounter
--- OUTSIDE RECORDS SUMMARY | 2025-05-03 09:08 | XMS_ITS | Encounter Summary ---
Author Organization [facility] Address [address] [place] [address] Care Team Providers Care Wrapper Off Name Role Phone Loren Ascencio MD Primary Care Provider [phone] Unavailable [phone] Alyce Chadwick APRN.VP TRANSPORTATION Unavailable + Kelsie Cunha RN Unavailable Unavail able Linnette Shoemaker RN Unavailable [phone] Kylee Wilkinosn Unavailable [phone] Source Comments In the event this information is protected by the Federal Confidentiality of Alcohol and Drug AbusePatient Records regulations: The Federal rules restrict any use of the information to criminally investigate or prosecute any alcohol or drug abuse patient.[facility] Encounter Details Date Type Department Care Team (Late st Contact Info) Description 07/03/2022 Get Medical Advice Hematology/Oncology [address] [place] [address] Humberto Stout MD [address] [place] [address] Uti Social History Tobacco Use Types Packs/Day Years [...] N ot on file 03/29/2022 Data from: https://www.neighborhoodatlas.medicine.[facility]/. Last address used for calculation [address] 03/29/2022 Comments No Sex and Gender [...] suspected to have Coronavirus/COVID-19? No / Unsure 06/25/2022 7:55 AM EDT documented as of this encounter [...] encounter Miscellaneous Notes * Telephone Encounter - Humberto Stout MD - 07/05/2022 1:21 PM EDT [facility] documented in this encounter Plan of Treatment Upcoming Encounters Date Type Department Care Team (Late st Contact Info) Description 05/10/2025 3:45 PM EDT Office Visit [facility] [address] [place] [address] [place] [address] 3 week lab and lanreotide inj 05/10/2025 4:00 PM EDT Infusion Center Hematology/Oncology [address] [place] [address] [place] [address] 3 week lab and lanreotide inj 05/31/2025 2:45 PM EDT Office Visit [facility] [address] [place] [address] [place] [address] 6 week follow up with lab and lanreotide inj 05/31/2025 3:00 PM EDT Visit (SP) Office Hematology/Oncology [address] [place] [address] [place] [address] Viridiana Mccarthy, PA-C [address] [place] [address] [place] [address] 6 week follow up with lab and lanreotide inj 05/31/2025 3:30 PM EDT Infusion Center Hematology/Oncology [address] [place] [address] [place] [address] 6 week follow up with lab and lanreotide inj 08/03/2025 2:30 PM EDT [facility] Palliative Medicine [address] [place] [address] [place] [address] Alyce Chadwick, ELECTRICAL ASSISTANT.VP TRANSPORTATION [address] [place] [id number] 3 month follow up documented as of this encounter Visit Diagnoses Not on filedocumented in this encounter Care Teams Wrapper Off Relationship Specialty Start Date End Date Loren Ascencio MD [address] [place] [place] [address] PCP - General Family Medicine 10/01/[address] [place] [address] [place] [address] Registered Dietitian Nutrition 11/28/22 Alyce Chadwick APRN.VP TRANSPORTATION [address] [place] [address] [place] [phone] Hospice & Palliative Medicine 03/05/23 Kelsie Cunha RN Specialty Building Performance Consultant Hospice & Palliative Medicine 03/05/23 [place] [address] [address] [place] [phone] Specialty Building Performance Consultant Hematology/Oncology 08/27/23 03/14/25 Kylee Wilkinson LISW [address] [place] [address] Senior Planner 11/20/23 documented as of this encounter
--- OUTSIDE RECORDS SUMMARY | 2025-05-03 09:08 | XMS_ITS | Encounter Summary ---
Author Organization [facility] Address [address] [place] [address] Care Team Providers Care Beauty Parlor Cleaner Name Role Phone Loren Ascencio MD Primary Care Provider [phone] Unavailable [phone] Alyce Chadwick APRN.NEUROLOGY PHYSICIAN ASSISTANT Unavailable + Kelsie Cunha RN Unavailable Unavail able Linnette Shoemaker RN Unavailable [phone] Kylee Wilkinson Unavailable [phone] Source Comments In the event this information is protected by the Federal Confidentiality of Alcohol and Drug AbusePatient Records regulations: The Federal rules restrict any use of the information to criminally investigate or prosecute any alcohol or drug abuse patient.[facility] Encounter Details Date Type Department Care Team (Late st Contact Info) Description 12/18/2021 Get Medical Advice General Surgery [address] [place] [address] Shmuel Ramos MD [address] [facility]. Desk [address] [place] [address] Surgery? Social History Tobacco Use Types Packs/Day Years [...] N ot on file 07/03/2021 Data from: https://www.neighborhoodatlas.medicine.[facility]/. Last address used for calculation Not [...] Description 05/10/2025 3:45 PM EDT Office Visit [facility] [address] [place] [address] [place] [address] 3 week lab and lanreotide inj 05/10/2025 4:00 PM EDT Infusion Center Hematology/Oncology [address] [place] [address] [place] [address] 3 week lab and lanreotide inj 05/31/2025 2:45 PM EDT Office Visit [facility] [address] [place] [address] [place] [address] 6 week follow up with lab and lanreotide inj 05/31/2025 3:00 PM EDT Visit (SP) Office Hematology/Oncology [address] [place] [address] [place] [address] Viridiana Mccarthy PA-C [address] [address] [place] [address] 6 week follow up with lab and lanreotide inj 05/31/2025 3:30 PM EDT Infusion Center Hematology/Oncology [address] [place] [address] [place] [address] 6 week follow up with lab and lanreotide inj 08/03/2025 2:30 PM EDT [facility] Palliative Medicine [address] [place] [address] [place] [address] Alyce Chadwick, CORPORATE RELATIONS MANAGER.NEUROLOGY PHYSICIAN ASSISTANT [address] [place] [id number] 3 month follow up documented as of this encounter Visit Diagnoses Not on filedocumented in this encounter Additional Health Concerns Infection Onset Date Last Indicated Resolved Time COVID-19 Rule-Out 01/31/2022 01/31/2022 01/31/2022 10:44 AM EDT documented as of this encounter Care Teams Beauty Parlor Cleaner Relationship Specialty Start Date End Date Loren Ascencio MD [address] [place] [address] PCP - General Family Medicine 10/01/[address] [address] [place] [place] [address] Registered Dietitian Nutrition 11/28/22 Alyce Chadwick APRN.NEUROLOGY PHYSICIAN ASSISTANT [address] [place] [address] [place] [address] Hospice & Palliative Medicine 03/05/23 Kelsie Cunha, RN Specialty Lapidary Apprentice Hospice & Palliative Medicine 03/05/23 Linnette Shoemaker, MADY [address] [place] [address] Specialty Lapidary Apprentice Hematology/Oncology 08/27/23 03/14/25 Kylee Wilkinson LISW [address] [place] [address] Breast Puller 11/20/23 documented as of this encounter
--- OUTSIDE RECORDS SUMMARY | 2025-05-03 09:08 | XMS_ITS | Encounter Summary ---
Author Organization [facility] Address [address] [place] [address] Care Team Providers Care Aluminum Boat Assembly Supervisor Name Role Phone Loren Ascencio MD Primary Care Provider [phone] Unavailable [phone] Alyce Chadwick APRN.RABBLE FURNACE TENDER Unavailable + Kelsie Cunha RN Unavailable Unavail able Linnette Shoemaker RN Unavailable [phone] Kylee Wilkinson Unavailable [phone] Source Comments In the event this information is protected by the Federal Confidentiality of Alcohol and Drug AbusePatient Records regulations: The Federal rules restrict any use of the information to criminally investigate or prosecute any alcohol or drug abuse patient.[facility] Encounter Details Date Type Department Care Team (Late st Contact Info) Description 06/04/2023 Patient Msg Hematology/Oncology [address] [place] [address] Humberto Stout MD [address] [place] [address] Request an Appointment Social History Tobacco Use Types Packs/Day Years Used Date Smoking Tobacco: Never Passive Smoke Exposure: Past Smokeless Tobacco: Never Alcohol Use Standard Drinks/Week Comments Not Currently 0 (1 standard drink = 0.6 oz pur e alcohol) maybe once per month PHQ-2 Answer Date Recorded PHQ-2 score 0 05/09/2023 Area Deprivation Index Answer Date Chandu rded National Score (1-100), lower number is lower ri sk 60 03/21/2023 State Score (1-10), lower number is lower risk 4 03/21/2023 Data from: https://www.neighborhoodatlas.[facility]/. Last address used for calculation [address] 03/21/2023 Comments No Sex and Gender [...] Visit [facility] Laboratory [address] [place] [address] [place] [address] 3 week lab and lanreotide inj 05/10/2025 4:00 PM EDT Infusion Center Hematology/Oncology [address] [place] [address] [place] [address] 3 week lab and lanreotide inj 05/31/2025 2:45 PM EDT Office Visit [facility] Laboratory [address] [place] [address] [place] [address] 6 week follow up with lab and lanreotide inj 05/31/2025 3:00 PM EDT Visit (SP) Office Hematology/Oncology [facility] [address] [place] [address] Viridiana Mccarthy, PA-C [address] [place] [place] [address] 6 week follow up with lab and lanreotide inj 05/31/2025 3:30 PM EDT Infusion Center Hematology/Oncology [address] [place] [address] [place] [address] 6 week follow up with lab and lanreotide inj 08/03/2025 2:30 PM EDT [facility] Palliative Medicine [address] [place] [address] [place] [address] Alyce Chadwick, MANUSCRIPTS CURATOR.RABBLE FURNACE TENDER [address] [place] [address] 3 month follow up documented as of this encounter Visit Diagnoses Not on filedocumented in this encounter Care Teams Aluminum Boat Assembly Supervisor Relationship Specialty Start Date End Date Loren Ascencoi MD [address] [place] [address] PCP - General Family Medicine 10/01/[address] [place] [address] [place] [address] Registered Dietitian Nutrition 11/28/22 Alyce Chadwick APRN.RABBLE FURNACE TENDER [address] [place] [place] [id number] Hospice & Palliative Medicine 03/05/23 Kelsie Cunha RN Specialty Cw Operator Hospice & Palliative Medicine 03/05/23 [place] [address] [place] [id number] Specialty Cw Operator Hematology/Oncology 08/27/23 03/14/25 Kylee Wilkinson LISW [address] [place] [address] Lead Scientist 11/20/23 documented as of this encounter
--- OUTSIDE RECORDS SUMMARY | 2025-05-03 09:08 | XMS_ITS | Encounter Summary ---
Author Organization [facility] Address [address] [place] [address] Care Team Providers Care Nursing Home Admissions Director Name Role Phone Loren Ascencio MD Primary Care Provider [phone] Loren Ascencio MD Unavailable Encounter Details Date Type Department Care Team (Late st Contact Info) Description 09/24/2023 Clinisync Result Encounter [facility] External Department Unsolicited [...] Associated Diagnosis Comments NM PET/CT NEUROENDOCRINE WB 09/24/2023 1:18 PM EST documented in this encounter Results * NM PET/CT NEUROENDOCRINE WB (09/24/2023 1:18 PM EST) Anatomical Region Laterality Modality Other 09/24/2023 1:18 PM EST Narrative 09/25/2023 9:23 PM EST * * *Final Report* * * DATE OF EXAM: Sep 24 2023 1:18PM Caesar 0094 - NM PET/CT NEUROENDOCRINE WB / 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 Free breathing low dose CT was performed without contrast for attenuation correction and anatomic localization. CT Dose-Length Product (DLP): 316 mGy*cm CT Dose Reduction Employed: Automated exposure control (AEC) COMPARISON: Cu-64 Dotatate PET/CT 06/06/2023 and 01/23/2023 CORRELATION: None available RESULTS: REFERENCES: Expected physiologic activity in the pituitary, thyroid, salivary glands, hepatobiliary tract, spleen, adrenals, pancreatic uncinate, GI tract, and urinary tract. Please note, PET/CT is not sensitive for pulmonary nodules less than 8 mm. SUV reference values: - Background spleen activity (max SUV): 22.7 - Background liver activity (max SUV): 5.6 Centerless Grinder Tender (topogram) images: No significant findings. HEAD AND NECK: Head: No tracer avid lesion. Lymph nodes: No tracer avid lymphadenopathy. Thyroid: No focal tracer avid lesion. CHEST: Lungs and Airways: 0.5 cm left lower lobe nodule maximum SUV 1.2 (4:161), previous maximum SUV 2.3 Pleura: No tracer avid lesion. No pleural effusion. Mediastinum: No tracer avid mass. Lymph Nodes: Focus of tracer uptake in the right infrahilar region maximum SUV 3.4 (4:149), previous maximum SUV 8.4. Calcified mediastinal and hilar nodes. Cardiovascular: No tracer avid lesion. Chest Wall: No tracer avid lesion. ABDOMEN AND PELVIS: Liver: Diffuse steatosis. Multiple areas of tracer uptake appear similar to 06/06/2023. Underlying lesions are not apparent on CT acquisition, precluding size measurement. Index foci outlined below. No definite new tracer avid lesion - Intense uptake along the hepatorenal recess maximum SUV 18.8 (4:203), previously 23.7 - Focal uptake near the hepatic vein confluence maximum SUV 10.0 (4:173), previously 10.8 - Focal uptake in segment VIII maximum SUV 7.5 (4:178), previously 8.3 - Focal uptake along posterior right lobe maximum SUV 9.6 (4:193), previously 12.3 Biliary: Cholecystectomy. Spleen: No splenomegaly. Calcified granulomas. Pancreas: Redemonstrated pancreatic body lesion with intense tracer uptake maximum SUV 53 (4:192), previously 72. As before there is relatively increased tracer uptake in both the head (4:200) and tail (4:186) Adrenals: No focal tracer avid lesion. Kidneys: No focal tracer avid lesion. GI Tract: Left lower quadrant end colostomy. Oversewn rectal stump. No focal tracer avid lesion. No dilated bowel. Lymph Nodes: No tracer avid lymphadenopathy. Mesentery/Peritoneum: Pelvic findings below. No ascites. Retroperitoneum: No tracer avid lesion. Vasculature: No abdominal aortic aneurysm. Pelvis: - Multiple tracer avid lesions do not appear similar to 06/06/2023, for example a 4.5 x 3.4 cm lesion with maximum SUV 31 (4:268), previously 4.5 x 3.6 cm with maximum SUV 34 - Increased size of anterior midline pelvic fluid collection, measuring up to 11 x 7 cm (4:263), previously 10 x 5 cm - IUD in place Abdominal Wall: No tracer avid lesion. BONES AND EXTREMITIES: No tracer avid or suspicious osseous lesion. IMPRESSION: Overall minimal change from 06/06/2023 accounting for differences in technique (current Kw14-Ipgfvjao PET compared to prior He68-Srfdsdqg PET) HEAD/NECK: * No Dotatate avid neoplastic process. CHEST: * Similar appearance of small left lower lobe nodule and focus of tracer uptake in the right infrahilar region * No new Dotatate avid neoplastic process. ABDOMEN/PELVIS: * Similar appearance of prominent tracer avid pancreatic body lesion multiple tracer avid hepatic lesions * Similar appearance of multiple tracer avid pelvic lesions * No new Dotatate avid neoplastic process. * Anterior midline pelvic fluid collection has increased in size from 06/06/2023 BONES/EXTREMITIES: * No Dotatate avid osseous lesions. Krenning Score (KS): 4 - Score 0: No abnormal uptake - Score 1: Very low uptake - Score 2: Uptake less than or equal to the liver - Score 3: Uptake greater than the liver - Score 4: Uptake greater than the spleen Triage Registered Nurse: ZION Transcribe Date/Time: Sep 25 2023 11:08A Dictated by : SHELLY LONG MD This examination was interpreted and the report reviewed and electronically signed by: EFREN ALEXANDER MD on Sep 25 2023 9:21PM EST [id number]^ACN Procedure Note Radiology, Radiologist, - 09/25/2023 * * *Final Report* * * DATE OF EXAM: Sep 24 2023 1:18PM N 0094 - NM PET/CT NEUROENDOCRINE WB / 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 Free breathing low dose CT was performed without contrast for attenuation correction and anatomic localization. CT Dose-Length Product (DLP): 316 mGy*cm CT Dose Reduction Employed: Automated exposure control (AEC) COMPARISON: Cu-64 Dotatate PET/CT 06/06/2023 and 01/23/2023 CORRELATION: None available RESULTS: REFERENCES: Expected physiologic activity in the pituitary, thyroid, salivary glands, hepatobiliary tract, spleen, adrenals, pancreatic uncinate, GI tract, and urinary tract. Please note, PET/CT is not sensitive for pulmonary nodules less than 8 mm. SUV reference values: - Background spleen activity (max SUV): 22.7 - Background liver activity (max SUV): 5.6 Centerless Grinder Tender (topogram) images: No significant findings. HEAD AND NECK: Head: No tracer avid lesion. Lymph nodes: No tracer avid lymphadenopathy. Thyroid: No focal tracer avid lesion. CHEST: Lungs and Airways: 0.5 cm left lower lobe nodule maximum SUV 1.2 (4:161), previous maximum SUV 2.3 Pleura: No tracer avid lesion. No pleural effusion. Mediastinum: No tracer avid mass. Lymph Nodes: Focus of tracer uptake in the right infrahilar region maximum SUV 3.4 (4:149), previous maximum SUV 8.4. Calcified mediastinal and hilar nodes. Cardiovascular: No tracer avid lesion. Chest Wall: No tracer avid lesion. ABDOMEN AND PELVIS: Liver: Diffuse steatosis. Multiple areas of tracer uptake appear similar to 06/06/2023. Underlying lesions are not apparent on CT acquisition, precluding size measurement. Index foci outlined below. No definite new tracer avid lesion - Intense uptake along the hepatorenal recess maximum SUV 18.8 (4:203), previously 23.7 - Focal uptake near the hepatic vein confluence maximum SUV 10.0 (4:173), previously 10.8 - Focal uptake in segment VIII maximum SUV 7.5 (4:178), previously 8.3 - Focal uptake along posterior right lobe maximum SUV 9.6 (4:193), previously 12.3 Biliary: Cholecystectomy. Spleen: No splenomegaly. Calcified granulomas. Pancreas: Redemonstrated pancreatic body lesion with intense tracer uptake maximum SUV 53 (4:192), previously 72. As before there is relatively increased tracer uptake in both the head (4:200) and tail (4:186) Adrenals: No focal tracer avid lesion. Kidneys: No focal tracer avid lesion. GI Tract: Left lower quadrant end colostomy. Oversewn rectal stump. No focal tracer avid lesion. No dilated bowel. Lymph Nodes: No tracer avid lymphadenopathy. Mesentery/Peritoneum: Pelvic findings below. No ascites. Retroperitoneum: No tracer avid lesion. Vasculature: No abdominal aortic aneurysm. Pelvis: - Multiple tracer avid lesions do not appear similar to 06/06/2023, for example a 4.5 x 3.4 cm lesion with maximum SUV 31 (4:268), previously 4.5 x 3.6 cm with maximum SUV 34 - Increased size of anterior midline pelvic fluid collection, measuring up to 11 x 7 cm (4:263), previously 10 x 5 cm - IUD in place Abdominal Wall: No tracer avid lesion. BONES AND EXTREMITIES: No tracer avid or suspicious osseous lesion. IMPRESSION: Overall minimal change from 06/06/2023 accounting for differences in technique (current Qo78-Atgcsddg PET compared to prior Kb33-YgaiuxpoUDS) HEAD/NECK: * No Dotatate avid neoplastic process. CHEST: * Similar appearance of small left lower lobe nodule and focus of tracer uptake in the right infrahilar region * No new Dotatate avid neoplastic process. ABDOMEN/PELVIS: * Similar appearance of prominent tracer avid pancreatic body lesion multiple tracer avid hepatic lesions * Similar appearance of multiple tracer avid pelvic lesions * No new Dotatate avid neoplastic process. * Anterior midline pelvic fluid collection has increased in size from 06/06/2023 BONES/EXTREMITIES: * No Dotatate avid osseous lesions. Krenning Score (KS): 4 - Score 0: No abnormal uptake - Score 1: Very low uptake - Score 2: Uptake less than or equal to the liver - Score 3: Uptake greater than the liver - Score 4: Uptake greater than the spleen Triage Registered Nurse: ZION Transcribe Date/Time: Sep 25 2023 11:08A Dictated by : SHELLY LONG MD This examination was interpreted and the report reviewed and electronically signed by: EFREN ALEXANDER MD on Sep 25 2023 9:21PM EST [id number]^SI^ACN us Generic External Data Provider [facility] Final Result documented in this encounter Visit Diagnoses Not on filedocumented in this encounter Care Teams Nursing Home Admissions Director Relationship Specialty Start Date End Date Loren Ascencio MD [address] [facility] [place] [address] PCP - General Family Medicine 03/19/23 Loren Ascencio MD [address] [place] [address] PCP - Dakota Tee 12/12/23 documented as of this encounter
--- OUTSIDE RECORDS SUMMARY | 2025-05-03 09:08 | XMS_ITS | Encounter Summary ---
Author Organization [facility] Address [address] [place] [address] Care Team Providers Care Sketch Liner Name Role Phone Loren Ascencio MD Primary Care Provider [phone] Unavailable [phone] Alyce Chadwick APRN.TICKET WRITER Unavailable + Kelsie Cunha RN Unavailable Unavail able Linnette Shoemaker RN Unavailable [phone] Kylee Wilkinson Unavailable [phone] Source Comments In the event this information is protected by the Federal Confidentiality of Alcohol and Drug AbusePatient Records regulations: The Federal rules restrict any use of the information to criminally investigate or prosecute any alcohol or drug abuse patient.[facility] Encounter Details Date Type Department Care Team (Late st Contact Info) Description 11/28/2021 Get Medical Advice General Surgery [address] [place], [place] [id number] Shmuel Ramos MD [address] [facility]. Desk [address] [place] [address] Bowel movements Social History Tobacco Use Types Packs/Day Years [...] N ot on file 07/03/2021 Data from: https://www.neighborhoodatlas.medicine.[facility]/. Last address used for calculation [...] Description 05/10/2025 3:45 PM EDT Office Visit [facility] Laboratory [address] [place] [address] [place] [address] 3 week lab and lanreotide inj 05/10/2025 4:00 PM EDT Infusion Center Hematology/Oncology [address] [place] [address] [place] [address] 3 week lab and lanreotide inj 05/31/2025 2:45 PM EDT Office Visit [facility] Laboratory [address] [place] [address] [place] [address] 6 week follow up with lab and lanreotide inj 05/31/2025 3:00 PM EDT Visit (SP) Office Hematology/Oncology [address] [place] [address] [place] [address] Viridiana Mccarthy PA-C [address] [facility] [place] [place] [address] 6 week follow up with lab and lanreotide inj 05/31/2025 3:30 PM EDT Infusion Center Hematology/Oncology [address] [place] [address] [place] [address] 6 week follow up with lab and lanreotide inj 08/03/2025 2:30 PM EDT [facility] Palliative Medicine [address] [place] [address] [place] [address] Alyce Chadwick, COUPON AND BOND COLLECTION CLERK.TICKET WRITER [address] [place] [id number] 3 month follow up documented as of this encounter Visit Diagnoses Not on filedocumented in this encounter Additional Health Concerns Infection [place] Date Last Indicated Resolved Time COVID-19 Rule-Out 01/31/2022 01/31/2022 01/31/2022 10:44 AM EDT documented as of this encounter Care Teams Sketch Liner Relationship Specialty Start Date End Date Loren Ascencio MD [address] [place] [address] PCP - General Family Medicine 10/01/[address] [facility] [place] [address] Registered Dietitian Nutrition 11/28/22 Alyce Chadwick APRN.TICKET WRITER [address] [place] [address] [place] [address] Hospice & Palliative Medicine 03/05/23 Kelsie Cunha, RN Specialty Final Operations Technician Hospice & Palliative Medicine 03/05/23 [address]ette Shoemaker, MADY [address] [place] [address] Specialty Final Operations Technician Hematology/Oncology 08/27/23 03/14/25 Kylee Wilkinson LISW [address] [place] [address] Quiller Runner 11/20/23 documented as of this encounter
--- OUTSIDE RECORDS SUMMARY | 2025-05-03 09:09 | XMS_ITS | Encounter Summary ---
Author Organization [facility] Address [address] [place] [address] Care Team Providers Care Municipal Engineer Name Role Phone Loren Ascencio MD Unavailable Loren Ascencio MD Primary Care Provider [phone] Loren Ascencio MD Unavailable Encounter Details Date Type Department Care Team (Late st Contact Info) Description 06/06/2023 Clinisync Result Encounter [facility] Unsolicited [...] Associated Diagnosis Comments NM PET/CT NEUROENDOCRINE WB 06/06/2023 9:39 AM EDT documented in this encounter Results * NM PET/CT NEUROENDOCRINE WB (06/06/2023 9:39 AM EDT) Anatomical Region Laterality Modality Other 06/06/2023 9:39 AM EDT Narrative 06/06/2023 11:08 AM EDT * * *Final Report* * * DATE OF EXAM: Jun 06 2023 9:39AM [facility] 0094 - NM PET/CT NEUROENDOCRINE WB / PROCEDURE REASON: multiple diagnoses * * * * Physician Interpretation * * * * EXAM: NM PET/CT NEUROENDOCRINE WB HISTORY: 47 years old Female with Primary malignant neuroendocrine tumor of ileum (HCC) Acute cystitis without hematuria INDICATION: Subsequent treatment strategy TECHNIQUE: 4.2 mCi of [id number] administered IV followed about 60 minutes later by PET imaging from skull vertex to proximal thighs. Free breathing low dose CT was performed without contrast for attenuation correction and anatomic localization. CT Dose-Length Product (DLP): 263 mGy*cm CT Dose Reduction Employed: Automated exposure control (AEC) COMPARISON: Cu-64 Dotatate PET/CT 01/23/2023 CORRELATION: CT pelvis 05/13/2023 RESULTS: REFERENCES: Expected physiologic activity in the pituitary, thyroid, salivary glands, hepatobiliary tract, spleen, adrenals, pancreatic uncinate, GI tract, and urinary tract. Please note, PET/CT is not sensitive for pulmonary nodules less than 8 mm. SUV reference values: - Background spleen activity (max SUV): 17.1 - Background liver activity (max SUV): 5.2 Commission Sales Associate (topogram) images: No additional findings. HEAD AND NECK: Head: No tracer avid lesion. Lymph nodes: No tracer avid lymphadenopathy. Thyroid: No focal tracer avid lesion. CHEST: Lungs and Airways: 0.4 cm left lower lobe nodule (3:177) max SUV 2.3, previously 2.1. Pleura: No tracer avid lesion. No pleural effusion. Mediastinum: No tracer avid lesion. Lymph Nodes: Again noted is focal tracer uptake in the right infrahilar region adjacent to right lower lobe segmental bronchus (3:166), max SUV 8.4, previously 5.6. Calcified mediastinal and hilar lymph nodes, likely sequela of remote granulomatous disease. Cardiovascular: No tracer avid lesion. Chest Wall: No tracer avid lesion. ABDOMEN AND PELVIS: Liver: Diffuse hepatic steatosis. Slight increase in size and intensity of tracer avid hepatic/perihepatic lesions, reference lesions as follows: * 1.6 cm perihepatic focus along the posterior aspect of segment 6 (3:235) max SUV 23.7, previously 1.2 cm max SUV 20.9 * 1.5 cm segment 8 lesion (3:200) max SUV 10.8, previously 1.5 cm max SUV 11.1 * 1.0 cm segment 8 lesion (3:204) max SUV 8.3, previously 0.7 cm max SUV 7.5 * 1.3 cm lesion along the posterior capsule (3:216) max SUV 12.3, previously 1.0 cm max SUV 9.9 Biliary: Cholecystectomy. Spleen: No splenomegaly. Calcified granulomas. Pancreas: Multiple tracer avid pancreatic lesions are again seen, reference lesions as follows: * Lesion within the pancreatic body/tail (3:223) max SUV 72, previously 63.7 * Lesion within the distal pancreatic tail (3:216) max SUV 12.2, previously 12.1 * Lesion within the head/uncinate process (3:232) Max of CV 11.6, previously 11.0 Adrenals: No focal tracer avid lesion. Kidneys: No focal tracer avid lesion. GI Tract: No focal tracer avid lesion. No dilated bowel. Status post sigmoidectomy, ileocolic resection and small bowel resection. Left lower quadrant colostomy. Lymph Nodes: No tracer avid lymphadenopathy. Mesentery/Peritoneum: No ascites. Pelvic lesions described below. Retroperitoneum: No tracer avid lesion. Vasculature: No abdominal aortic aneurysm. Pelvis: Multiple confluent lesions within the pelvis with increasing tracer uptake, for example dominant pelvic mass measures approximately 4.5 x 3.6 cm (3:312) max SUV 34, previously 4.4 x 3.5 cm max SUV 32.5. Multiple confluence lesions anterior to dominant pelvic mass (3:310) with increasing tracer uptake, max SUV 32.1, previously 23.2. Abdominal Wall: No tracer avid lesion. BONES AND EXTREMITIES: No tracer avid or suspicious osseous lesion. Multifocal degenerative osseous changes. IMPRESSION: Progression compared to the 01/23/2023 Dotatate PET/CT HEAD/NECK: * No 64-Cu dotatate avid neoplastic process. CHEST: * Essentially stable mildly dotatate avid left lower lobe nodule. * Interval increase of focal dotatate uptake with an subcentimeter lymph node in the right infrahilar region. ABDOMEN/PELVIS: * Significant progression of the pelvic peritoneal lesions, and slight progression of the dotatate avid hepatic metastases. * Essentially stable dotatate avid pancreatic lesions. BONES/EXTREMITIES: * No dotatate avid osseous lesions. Program Lead: ZION Transcribe Date/Time: Jun 06 2023 9:45A Dictated by : IVY GRAY DO This examination was interpreted and the report reviewed and electronically signed by: RADHA TERAN MD on Jun 06 2023 11:06AM EST [id number] Procedure Note Radiology, Radiologist, - 06/06/2023 * * *Final Report* * * DATE OF EXAM: Jun 06 2023 9:39AM [facility] 0094 - NM PET/CT NEUROENDOCRINE WB / PROCEDURE REASON: multiple diagnoses * * * * Physician Interpretation * * * * EXAM: NM PET/CT NEUROENDOCRINE WB HISTORY: 47 years old Female with Primary malignant neuroendocrine tumor of ileum (HCC) Acute cystitis without hematuria INDICATION: Subsequent treatment strategy TECHNIQUE: 4.2 mCi of [id number] administered IV followed about 60 minutes later by PET imaging from skull vertex to proximal thighs. Free breathing low dose CT was performed without contrast for attenuation correction and anatomic localization. CT Dose-Length Product (DLP): 263 mGy*cm CT Dose Reduction Employed: Automated exposure control (AEC) COMPARISON: Cu-64 Dotatate PET/CT 01/23/2023 CORRELATION: CT pelvis 05/13/2023 RESULTS: REFERENCES: Expected physiologic activity in the pituitary, thyroid, salivary glands, hepatobiliary tract, spleen, adrenals, pancreatic uncinate, GI tract, and urinary tract. Please note, PET/CT is not sensitive for pulmonary nodules less than 8 mm. SUV reference values: - Background spleen activity (max SUV): 17.1 - Background liver activity (max SUV): 5.2 Commission Sales Associate (topogram) images: No additional findings. HEAD AND NECK: Head: No tracer avid lesion. Lymph nodes: No tracer avid lymphadenopathy. Thyroid: No focal tracer avid lesion. CHEST: Lungs and Airways: 0.4 cm left lower lobe nodule (3:177) max SUV 2.3, previously 2.1. Pleura: No tracer avid lesion. No pleural effusion. Mediastinum: No tracer avid lesion. Lymph Nodes: Again noted is focal tracer uptake in the right infrahilar region adjacent to right lower lobe segmental bronchus (3:166), max SUV 8.4, previously 5.6. Calcified mediastinal and hilar lymph nodes, likely sequela of remote granulomatous disease. Cardiovascular: No tracer avid lesion. Chest Wall: No tracer avid lesion. ABDOMEN AND PELVIS: Liver: Diffuse hepatic steatosis. Slight increase in size and intensity of tracer avid hepatic/perihepatic lesions, reference lesions asfollows: * 1.6 cm perihepatic focus along the posterior aspect of segment 6 (3:235) max SUV 23.7, previously 1.2 cm max SUV 20.9 * 1.5 cm segment 8 lesion (3:200) max SUV 10.8, previously 1.5 cm max SUV 11.1 * 1.0 cm segment 8 lesion (3:204) max SUV 8.3, previously 0.7 cm max SUV 7.5 * 1.3 cm lesion along the posterior capsule (3:216) max SUV 12.3, previously 1.0 cm max SUV 9.9 Biliary: Cholecystectomy. Spleen: No splenomegaly. Calcified granulomas. Pancreas: Multiple tracer avid pancreatic lesions are again seen, reference lesions as follows: * Lesion within the pancreatic body/tail (3:223) max SUV 72, previously 63.7 * Lesion within the distal pancreatic tail (3:216) max SUV 12.2, previously 12.1 * Lesion within the head/uncinate process (3:232) Max of CV 11.6, previously 11.0 Adrenals: No focal tracer avid lesion. Kidneys: No focal tracer avid lesion. GI Tract: No focal tracer avid lesion. No dilated bowel. Status post sigmoidectomy, ileocolic resection and small bowel resection. Left lower quadrant colostomy. Lymph Nodes: No tracer avid lymphadenopathy. Mesentery/Peritoneum: No ascites. Pelvic lesions described below. Retroperitoneum: No tracer avid lesion. Vasculature: No abdominal aortic aneurysm. Pelvis: Multiple confluent lesions within the pelvis with increasing tracer uptake, for example dominant pelvic mass measures approximately 4.5 x 3.6 cm (3:312) max SUV 34, previously 4.4 x 3.5 cm max SUV 32.5. Multiple confluence lesions anterior to dominant pelvic mass (3:310) with increasing tracer uptake, max SUV 32.1, previously 23.2. Abdominal Wall: No tracer avid lesion. BONES AND EXTREMITIES: No tracer avid or suspicious osseous lesion. Multifocal degenerative osseous changes. IMPRESSION: Progression compared to the 01/23/2023 Dotatate PET/CT HEAD/NECK: * No 64-Cu dotatate avid neoplastic process. CHEST: * Essentially stable mildly dotatate avid left lower lobe nodule. * Interval increase of focal dotatate uptake with an subcentimeter lymph node in the right infrahilar region. ABDOMEN/PELVIS: * Significant progression of the pelvic peritoneal lesions, and slight progression of the dotatate avid hepatic metastases. * Essentially stable dotatate avid pancreatic lesions. BONES/EXTREMITIES: * No dotatate avid osseous lesions. Program Lead: [facility]SC[facility] Transcribe Date/Time: Jun 06 2023 9:45A Dictated by : IVY GRAY DO This examination was interpreted and the report reviewed and electronically signed by: RADHA TERAN MD on Jun 06 2023 11:06AM EST [id number]^ACN Generic External Data Provider [facility] Final Result documented in this encounter Visit Diagnoses Not on filedocumented in this encounter Care Teams Municipal Engineer Relationship Specialty Start Date End Date Loren Ascencio MD [address] [place] [address] PCP - [employer] 02/09/23 Loren Ascencio MD [address] [place] [address] PCP - General Family Medicine 03/19/23 Loren Ascencio MD [address] [facility] [place] [address] PCP - [employer] 12/12/23 documented as of this encounter
--- NOTE | 2025-05-03 09:25 | ECG_ITS ---
[facility] Test Date: 2025-05-03 Pat Name: SANDEEP HORAN Department: Room: - Gender: Female Web Services Professional: : 1975 Requested By: DEIDRA ROGERS Order Number: [id number] Gricelda MD: EUGENE ALAMO M.D. Measurements Intervals [place] Rate: 68 P: 67 ND: 140 QRS: 70 QRSD: 91 T: 60 QT: 373 QTc: 397 Interpretive Statements SINUS RHYTHM POSSIBLE RIGHT VENTRICULAR CONDUCTION DELAY [RSR (QR) IN V1/V2] Borderline ECG No previous ECG available for comparison Electronically Signed On 05-03-2025 18:19:40 EDT by EUGENE ALAMO M.D.
[2025-05-03 10:13] LABS: Anion Gap 17.4; BUN Creatinine Ratio 20.2; Calcium 9.2 mg/dL (8.5-10.1); Carbon Dioxide 18.4 mmol/L (21.0-32.0); Chloride 110 mmol/L (98-107); Estimated GFR (African America >60 (>=60 mL/min/1.73m^2); Estimated GFR (Non-African Ame >60 (>=60 mL/min/1.73m^2); Glucose 93 mg/dL (74-106); Potassium 3.8 mmol/L (3.5-5.1); Sodium 142 mmol/L (136-145)
[2025-05-03 10:29] LABS: Basophils Percent Auto 0.9 % (0.2-2.0); Eosinophils Absolute Auto 0.3 10^3/uL (0.0-0.7); Eosinophils Percent Auto 8.3 % (0.9-7.0); Hematocrit 32.1 % (36.0-48.0); Hemoglobin 11.5 g/dL (12.0-16.0); Immature Granulocytes Abs Auto 0.02 10^3/uL (0.00-0.03); Immature Granulocytes Pct Auto 0.6 % (0.0-0.5); Lymphocytes Absolute Auto 0.8 10^3/uL (1.2-3.8); Lymphocytes Percent Auto 23.4 % (20.5-60.0); Mean Corpuscular HGB Conc 35.8 g/dL (29.9-35.2); Mean Corpuscular Hemoglobin 33.8 pg (26.7-34.0); Mean Corpuscular Volume 94.4 fL (81.0-99.0); Mean Platelet Volume 8.9 fL (9.5-13.5); Monocytes Absolute Auto 0.2 10^3/uL (0.3-0.8); Monocytes Percent Auto 6.8 % (1.7-12.0); Neutrophils Absolute Auto 2.1 10^3/uL (1.4-6.5); Platelet Count 133 10^3/uL (150-450); Red Cell Distribution Width 13.5 % (11.0-15.0); White Blood Count 3.5 10^3/uL (4.0-11.0)
[2025-05-03 10:46] LABS: INR 1.14; Partial Thromboplastin Time 25.1 sec (22.3-36.2); Prothrombin Time 11.9 sec (9.0-11.6)
== END 2025-05-03 09:01 | disposition home or self-care (01) ==
LOC: PST 09:04
PROVIDERS: PCP Family Medicine; Visit Provider Urology
DX: Z01.810 Encounter for preprocedural cardiovascular examination (principal); Z01.812 Encounter for preprocedural laboratory examination; N32.9 Bladder disorder, unspecified
CPT/HCPCS: 80048; 85025; 85610; 85730; 93005

== ENCOUNTER 2025-05-06 07:36 | Day surgery (SDC) | payer OTHER, SELFPAY ==
[2025-05-03 10:34] VITALS: BP 115/70; PULSE 63; TEMP 36.7; O2SAT 100; BMI 23.6
[2025-05-06] VITALS (10 sets, daily range): BP systolic 103–111; BP diastolic 62–74; PULSE 74–97; TEMP 36.1–36.6; O2SAT 97–100
[2025-05-06] MEDS: LACTATED RINGER'S SOLUTION 1,000 ML 50 ML IV ×2 (08:19→10:05)
[2025-05-06] MEDS: SCOPOLAMINE 1 MG/3 DAYS TRANSDERM PATCH 1 PATCH TD (08:25)
[2025-05-06] MEDS: FAMOTIDINE/PF 20 MG/2 ML VIAL IV (08:25)
[2025-05-06] MEDS: CEFAZOLIN SODIUM 2 GM/50 ML D5W PREMIX IV (08:45)
--- NOTE | 2025-05-06 09:44 | PM.URSON ---
Urology Surgery Operative Note Operative Note Procedure Date: 05/06/25 Time Out Performed: yes Pre-op Diagnosis: 1. Bladder lesions. 2. Gross hematuria. Post-op Diagnosis: same as pre-op Procedures performed: 1. Cystoscopy. 2. Bladder biopsy with cold cup biopsy forceps #3. Fulguration with Bugbee electrode. 4. TURBT 3 cm Anesthesia: GETA Primary Surgeon: Charles Herrera Complications: None Estimated blood loss (mL): 5 Findings: 1. Raised red lesion within diverticulum on the floor of bladder. 2. Ulcerated bleeding raised red lesions on the left wall of the bladder. Specimens: 1. Bladder biopsy from diverticulum. 2. Bladder tumors left lateral wall. Drains: None Indications for Procedures: This lady has a history of gross hematuria. Cystoscopically she was found to have raised lesions that were bleeding on her left wall and on the floor within a diverticulum. She also had diffuse cystitis cystica lesions. She was put on antibiotics for a couple months and rescoped and the chronic inflammatory component resolved but she has persistent lesions that are still bleeding. She now presents for cystoscopy, bladder biopsies and resection of tumors. She has signed an informed to have risks explained. Detailed description of Procedure: The patient was brought to the operating room and placed on the operating room table in the supine position. SCDs were placed on the lower extremities and turned on and functioning during the entire case. Timeout was done by all parties in the room. We all agreed upon the patient's identification and the planned procedures for this patient. Genn. anesthesia was then administered. The patient was then repositioned into the modified dorsal lithotomy position. All pressure points were satisfactorily padded. Genitalia were sterilely prepped and draped in usual fashion. I started by passing a 22 [place] Olympus cystoscope per urethra and into the bladder. Visibility was somewhat difficult due to blood in the urine. I used the Ilich evacuator to remove any small clots. I then was able to identify the papillary red lesions within the diverticulum on the floor. I used a cold cup biopsy forceps to biopsy these and then a Bugbee electrode to coagulate. These were sent separately labeled bladder biopsies in diverticulum. I then put the resectoscope in with the standard bipolar loop electrode and carefully evaluated the rest of the bladder. The ulcerated area on the left wall was identified. There were papillary small tumors in this area. I uniformly resected this whole patch of raised ulcerated bleeding lesions. These were sent separately labeled bladder tumors. This whole resection bed was coagulated. Several other small red areas were coagulated. Upon completion, there was no bleeding. I elected not to place a Hess catheter. The scope was removed after the bladder was drained of its contents. The anesthetic was then reversed. She was then transferred to a [facility] bed and wheeled to the PACU in stable condition.
--- NOTE | 2025-05-06 10:55 | PC.NURSE ---
Denies urge to void
--- NOTE | 2025-05-06 11:18 | PC.NURSE ---
Up to bathroom and voids clear yellow; c/o burning with urination
== END 2025-05-06 11:23 | disposition home or self-care (01) ==
PROVIDERS: PCP Family Medicine; Visit Provider Urology
PROC: (CPT 00910; principal; 2025-05-06 08:45)
DX: N32.9 Bladder disorder, unspecified (principal); K21.9 Gastro-esophageal reflux disease without esophagitis; Z85.038 Personal history of other malignant neoplasm of large intestine; Z90.49 Acquired absence of other specified parts of digestive tract; Z85.89 Personal history of malignant neoplasm of other organs and systems; F41.9 Anxiety disorder, unspecified; R31.0 Gross hematuria
CPT/HCPCS: 00910; 00912; 52204; 52234; 36415; J0690; J3490